=== PATIENT | male | born 1955 | race Caucasian/White ===

== ENCOUNTER 2018-12-30 11:22 | Observation (INO) | payer OTHER ==
[2018-12-30 11:54] LABS: Absolute Lymphocytes (CBC) 1.2 K/uL (0.7-4.9); Absolute Monocytes 0.6 K/uL (0.1-1.3); Absolute Neutrophil 3.2 K/uL (1.8-8.0); Basophils % 1.5 % (0-1.3); Eosinophils % 1.6 % (0-4.4); Hematocrit 48.6 % (39.6-49.0); Lymphocytes % 23.3 % (15.3-44.8); MPV 7.6 fL (7.6-11.3); Monocytes % 12.2 % (3.3-12.3); RBC Red Blood Cell Count 5.74 M/uL (4.33-5.43)
--- NOTE | 2018-12-30 11:59 | RAD REPORT ---
EXAM DESCRIPTION: RAD - Chest Single View - 12/30/2018 11:54 am CLINICAL HISTORY: CHEST PAIN Chest pain. COMPARISON: Chest Pa And Lat (2 Views) dated 04/08/2017 FINDINGS: Portable technique limits examination quality. The lungs are grossly clear. The heart is normal in size. No displaced fractures.Cervical hardware pl ate noted. IMPRESSION: No acute intrathoracic process suspected.
[2018-12-30] MEDS ORDERED: NITROGLYCERIN 0.4 MG/TAB SL ONE (12:04)
[2018-12-30 12:12] LABS: ALT/SGPT 62 U/L (12-78); AST/SGOT 24 U/L (15-37); Albumin 3.7 g/dL (3.4-5.0); Alkaline Phosphatase 68 U/L (45-117); BUN Blood Urea Nitrogen 13 mg/dL (7-18); Bicarbonate 26 mmol/L (21-32); Bilirubin Direct < 0.1 mg/dL (0-0.2); Bilirubin Total 0.3 mg/dL (0.2-1.0); Glucose Level 151 mg/dL (74-106); Magnesium 2.1 mg/dL (1.8-2.4); NT PRO-BNP 7 pg/mL (<125); Protein, Total 7.1 g/dL (6.4-8.2); Sodium Level 138 mmol/L (136-145); Troponin (Emerg Dept Use Only) < 0.02 ng/mL (0.0-0.045)
--- NOTE | 2018-12-30 12:40 | ER ---
Nurse's Notes [facility] Name: Bradly Padron Age: 63 yrs Sex: Male : 1955 Arrival Date: 12/30/2018 Time: 11:23 Bed 8 Private MD: Lenin Maguire B Diagnosis: Chest pain, unspecified Presentation: 12/30 11:31 Presenting complaint: Patient states: cough and congestion x 1 week. Substernal chest ss discomfort and painful cough that began last night. Transition of care: patient was not received from another setting of care. Onset of symptoms was December 23, 2018. Risk Assessment: Do you want to hurt yourself or someone else? Patient reports no desire to harm self or others. Initial Sepsis Screen: Does the patient meet any 2 criteria? No. Patient's initial sepsis screen is negative. Does the patient have a suspected source of infection? No. Patient's initial sepsis screen is negative. Care prior to arrival: None. 11:31 Method Of Arrival: Ambulatory ss 11:31 Acuity: MARIA E 3 ss Historical: - Allergies: 11:34 No Known Allergies; ss - Home Meds: 11:34 Lotrel Oral 1 cap once daily for Hypertension [Active]; ss - PMHx: 11:34 Hypertension; ss - PSHx: 11:34 L hip replacement; bilateral shoulder repairs; cervical fusion; ss - Immunization history:: Adult Immunizations unknown. - Social history:: Smoking status: Patient uses tobacco products, chewing tobacco. - Ebola Screening: : Patient denies exposure to infectious person Patient denies travel to an Ebola-affected area in the 21 days before illness onset. Screenin:30 Abuse screen: Denies threats or abuse. Denies injuries from another. Nutritional aj1 screening: No deficits noted. Tuberculosis screening: No symptoms or risk factors identified. 13:49 Fall Risk No fall in past 12 months (0 pts). No secondary diagnosis (0 pts). IV access aj1 (20 points). Ambulatory Aid- None/Bed Rest/Nurse Assist (0 pts). Gait- Normal/Bed Rest/Wheelchair (0 pts) Mental Status- Oriented to own ability (0 pts). Total Sanchez Fall Scale indicates No Risk (0-24 pts). Assessment: 11:30 General: Appears in no apparent distress. uncomfortable, Behavior is calm, cooperative, aj1 appropriate for age. Pain: Complains of pain in mid-sternal area Pain radiates to back Pain currently is 6 out of 10 on a pain scale. Quality of pain is described as sharp, Pain began 1 day ago. Neuro: Level of Consciousness is awake, alert, obeys commands, Oriented to person, place, time, situation. Cardiovascular: Reports chest pain, shortness of breath, Denies nausea, palpitations, Heart tones S1 S2 present Patient's skin is warm and dry. Rhythm is sinus rhythm. Respiratory: Airway is patent Respiratory effort is even, unlabored, Respiratory pattern is regular, symmetrical, Breath sounds are clear bilaterally. Respiratory: Reports shortness of breath cough that is hacking, persistent. GI: No signs and/or symptoms were reported involving the gastrointestinal system. : No signs and/or symptoms were reported regarding the genitourinary system. EENT: No signs and/or symptoms were reported regarding the EENT system. Derm: No signs and/or symptoms reported regarding the dermatologic system. Skin is pink, warm \T\ dry. normal. Musculoskeletal: No signs and/or symptoms reported regarding the musculoskeletal system. Circulation, motion, and sensation intact. 12:30 Reassessment: Patient appears in no apparent distress at this time. No changes from aj1 previously documented assessment. Patient and/or family updated on plan of care and expected duration. Pain level reassessed. Patient is alert, oriented x 3, equal unlabored respirations, skin warm/dry/pink. 13:30 Reassessment: Patient appears in no apparent distress at this time. No changes from aj1 previously documented assessment. Patient and/or family updated on plan of care and expected duration. Pain level reassessed. Patient is alert, oriented x 3, equal unlabored respirations, skin warm/dry/pink. Vital Signs: 11:34 BP 150 / 88; Pulse 86; Resp 17; Pulse Ox 97% on R/A; Weight 96.16 kg; Height 5 ft. 8 ss in. (172.72 cm); Pain 6/10; 12:30 BP 121 / 81; Pulse 80; Resp 17; Pulse Ox 96% on R/A; dh3 13:35 BP 112 / 82; Pulse 65; Resp 12; Pulse Ox 97% on R/A; aj1 11:34 Body Mass Index 32.23 (96.16 kg, 172.72 cm) ss ED Course: 11:23 Patient arrived in ED. as 11:23 Lenin Maguire MD is Private Physician. as 11: Amara Sommer RN is Primary Nurse. aj1 11: Gordon Mohr PA is PHCP. m 11:25 Torey Dorsey MD is Attending Physician. [facility] 11:30 Patient has correct armband on for positive identification. Bed in low position. Call aj1 light in reach. sheriff detective on. Pulse ox on. NIBP on. 11:30 No provider procedures requiring assistance completed. Patient maintains SpO2 aj1 saturation greater than 95% on room air. 11:32 Triage completed. ss 11:33 EKG done, by ED staff, reviewed by Torey Dorsey MD. 3 11:34 Arm band placed on right wrist. 11:43 Initial lab(s) drawn, by md, sent to lab. Inserted saline lock: 20 gauge in right hand, dh3 using aseptic technique. Blood collected. 11:53 XRAY Chest (1 view) In Process Unspecified. EDMS 12:39 Alejandro Davila DO is Hospitalizing Provider. m 12:40 Flu and/or RSV swab sent to lab. Strep swab sent to lab. 3 13:49 Report given to [facility] Main on 4th floor. aj1 13:50 Patient admitted, IV remains in place. aj1 Administered Medications: 11:56 Drug: Nitroglycerin 0.4 mg Route: Sublingual; aj1 12:30 Follow up: Response: No adverse reaction; Pain is decreased aj1 13:27 Drug: Aspirin Chewable Tablet 324 mg Route: PO; aj1 13:46 Follow up: Response: No adverse reaction aj1 13:27 Drug: predniSONE 20 mg Route: PO; aj1 13:45 Follow up: Response: No adverse reaction aj1 Outcome: 12:40 Decision to Hospitalize by Provider. jmm 13:50 Admitted to Tele accompanied by tech, via wheelchair, with chart. aj1 13:50 Condition: stable 13:50 Discharge instructions given to patient, Instructed on the need for admit, Demonstrated understanding of instructions. 14:10 Patient left the ED. aj1 Signatures: Dispatcher [employer] EDMS Amara Sommer RN RN aj1 Gordon Mohr PA PA jmm Martinez, Amelia as Smirch, Shelby, RN RN Edith Barney 3 Corrections: (The following items were deleted from the chart) 13:04 13:03 EKG done, by ED staff, [facility]
--- NOTE | 2018-12-30 12:40 | EDPHYS ---
Physician Documentation [facility] Name: Bradly Padron Age: 63 yrs Sex: Male : 1955 Arrival Date: 12/30/2018 Time: 11:23 Bed 8 Private MD: Lenin Maguire B ED Physician Torey Dorsey HPI: 12/30 11:39 This 63 yrs old Male presents to ER via Ambulatory with complaints of Chest jmm Pain, Shortness Of Breath. 11:39 The patient or guardian reports chest pain that is located primarily in the substernal m area. Onset: 1 day(s) ago. The pain radiates to back. The chest pain is described as aching, sharp. Duration: The patient or guardian reports a single episode, that is still ongoing. This is a 63 year old male with a history of htn that presents to the ED with complaints of chest pain which radiates to the back beginning last night. Patient states symptoms worsened this morning when moving furniture. Patient chews tobacco. Denies recreational drug use. . Historical: - Allergies: 11:34 No Known Allergies; ss - Home Meds: 11:34 Lotrel Oral 1 cap once daily for Hypertension [Active]; ss - PMHx: 11:34 Hypertension; ss - PSHx: 11:34 L hip replacement; bilateral shoulder repairs; cervical fusion; ss - Immunization history:: Adult Immunizations unknown. - Social history:: Smoking status: Patient uses tobacco products, chewing tobacco. - Ebola Screening: : Patient denies exposure to infectious person Patient denies travel to an Ebola-affected area in the 21 days before illness onset. ROS: 11:39 Constitutional: Negative for fever, chills, and weight loss. jmm 11:39 Cardiovascular: Positive for chest pain. 11:39 Respiratory: Positive for cough. 11:39 All other systems are negative. Exam: 11:39 Head/Face: atraumatic. Eyes: EOMI, no conjunctival erythema appreciated ENT: Moist jmm Mucus Membranes Neck: Trachea midline, Supple Chest/axilla: Normal chest wall appearance and motion. 11:39 Constitutional: The patient appears alert, awake, anxious, uncomfortable. 11:39 Cardiovascular: Rate: normal, Rhythm: regular, Pulses: no pulse deficits are appreciated. 11:39 Respiratory: the patient does not display signs of respiratory distress, Respirations: normal, Breath sounds: are clear throughout. 11:39 Abdomen/GI: Inspection: abdomen appears normal, Bowel sounds: normal, Palpation: abdomen is soft and non-tender, in all quadrants. 11:39 Back: ROM is normal. 11:39 Musculoskeletal/extremity: ROM: intact in all extremities. 11:39 Skin: Appearance: Color: normal in color. 11:39 Neuro: Orientation: is normal, Mentation: is normal, Memory: is normal. 11:39 Psych: Behavior/mood is pleasant, cooperative. Vital Signs: 11:34 BP 150 / 88; Pulse 86; Resp 17; Pulse Ox 97% on R/A; Weight 96.16 kg; Height 5 ft. 8 ss in. (172.72 cm); Pain 6/10; 12:30 BP 121 / 81; Pulse 80; Resp 17; Pulse Ox 96% on R/A; dh3 13:35 BP 112 / 82; Pulse 65; Resp 12; Pulse Ox 97% on R/A; aj1 11:34 Body Mass Index 32.23 (96.16 kg, 172.72 cm) ss MDM: 11:28 Patient medically screened. ellie 12:39 The patient was given aspirin in the Emergency Department. Data reviewed: vital signs, [facility] nurses notes, lab test result(s), EKG, radiologic studies, plain films. ED course: I discussed the patient with Dr. Davila whom accepted admission. . 03 11:38 Order name: Basic Metabolic Panel; Complete Time: 12:16 [facility] 12/30 11:38 Order name: CBC with Diff; Complete Time: 12:07 [facility] 12/30 11:38 Order name: LFT's; Complete Time: 12:16 [facility] 12/30 11:38 Order name: Magnesium; Complete Time: 12:16 [facility] 12/30 11:38 Order name: NT PRO-BNP; Complete Time: 12:16 [facility] 12/30 11:38 Order name: PT-INR; Complete Time: 12:07 [facility] 12/30 11:38 Order name: Troponin (emerg Dept Use Only); Complete Time: 12:16 [facility] 12/30 11:38 Order name: XRAY Chest (1 view); Complete Time: 12:07 [facility] 12/30 11:38 Order name: D-Dimer; Complete Time: 12:07 [facility] 12/30 12:38 Order name: Flu; Complete Time: 13:49 [facility] 12/30 12:38 Order name: Strep; Complete Time: 13:29 [facility] 12/30 12:56 Order name: Procalcitonin; Complete Time: 13:49 EDMS 12/30 11:38 Order name: EKG; Complete Time: 11:39 [facility] 12/30 11:38 Order name: Cardiac monitoring; Complete Time: 11:45 [facility] 12/30 11:38 Order name: EKG - Nurse/Tech; Complete Time: 11:45 [facility] 12/30 11:38 Order name: IV Saline Lock; Complete Time: 11:45 [facility] 12/30 11:38 Order name: Labs collected and sent; Complete Time: 11:45 [facility] 12/30 11:38 Order name: O2 Per Protocol; Complete Time: 11:45 [facility] 12/30 11:38 Order name: O2 Sat Monitoring; Complete Time: 11:45 [facility] Administered Medications: 11:56 Drug: Nitroglycerin 0.4 mg Route: Sublingual; aj1 12:30 Follow up: Response: No adverse reaction; Pain is decreased aj1 13:27 Drug: Aspirin Chewable Tablet 324 mg Route: PO; aj1 13:46 Follow up: Response: No adverse reaction aj1 13:27 Drug: predniSONE 20 mg Route: PO; aj1 13:45 Follow up: Response: No adverse reaction aj1 Disposition: 12/31 09:37 Co-signature as Attending Physician, Torey Dorsey MD I agree with the assessment and ellie plan of care. Disposition: 12/30/18 12:40 Hospitalization ordered by Alejandro Davila for Observation. Preliminary diagnosis is Chest pain, unspecified. - Bed requested for Telemetry/MedSurg (observation). - Status is Observation. aj1 - Condition is Stable. - Problem is new. - Symptoms have improved. UTI on Admission? No Signatures: Dispatcher [employer] Amara Mccracken RN RN aj1 Torey Dorsey MD MD cha Mickail, Joel, PA PA jmm Solis, Maria ms Smirch, Shelby, RN RN ss Corrections: (The following items were deleted from the chart) 12/30 12:59 12:40 Hospitalization Ordered by Alejandro Davila DO for Observation. Preliminary ms diagnosis is Chest pain, unspecified. Bed requested for Telemetry/MedSurg (observation). Status is Observation. Condition is Stable. Problem is new. Symptoms have improved. UTI on Admission? No. jmm 14:10 12:59 12/30/2018 12:40 Hospitalization Ordered by Alejandro Davila DO for Observation. aj1 Preliminary diagnosis is Chest pain, unspecified. Bed requested for Telemetry/MedSurg (observation). Status is Observation. Condition is Stable. Problem is new. Symptoms have improved. UTI on Admission? No. ms
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
[2018-12-30] MEDS ORDERED: predniSONE 20 MG TAB ONE (13:31)
[2018-12-30] MEDS ORDERED: ASPIRIN EC 81 MG TAB PO ONE (13:31)
[2018-12-30] MEDS ORDERED: IPRATROPIUM BROM 0.5MG/2.5ML NEB PRN (14:00)
[2018-12-30] MEDS ORDERED: MORPHINE 2 MG/ML SYR IV PRN (14:00)
[2018-12-30] MEDS ORDERED: TRAMADOL HCL 50 MG TAB PO PRN (14:00)
[2018-12-30] MEDS ORDERED: ALBUTEROL 2.5 MG/3 ML NEB SOL NEB PRN (14:00)
[2018-12-30] MEDS ORDERED: BENZONATATE 100 MG CAP PO PRN (14:00)
[2018-12-30] MEDS ORDERED: ACETAMINOPHEN 500 MG TAB PO PRN (14:00)
[2018-12-30] MEDS ORDERED: ONDANSETRON 4 MG/2 ML VIAL IV PRN (14:00)
[2018-12-30 14:28] VITALS: BMI 32.5
[2018-12-30 14:32] LABS: Urine Appearance CLEAR; Urine Bilirubin NEGATIVE (NEG); Urine Blood NEGATIVE (NEG); Urine Color YELLOW; Urine Glucose NEGATIVE (NEG); Urine Protein NEGATIVE (NEG); Urine Urobilinogen 0.2 mg/dL (0.2-1.0); Urine pH 7.5 (5.0-7.0)
[2018-12-30] MEDS: NA CHLORIDE 0.9% 1,000 ML IV SCH (14:39)
[2018-12-30] MEDS ORDERED: NITROGLYCERIN 0.4 MG/TAB SL PRN (14:46)
[2018-12-30 14:48] LABS: Urine Microscopic Reflex NO UMIC
[2018-12-30 14:52] LABS: Thyroid Stimulating Hormone 1.35 uIU/mL (0.360-3.740)
[2018-12-30] MEDS: GUAIFENESIN 600 MG SA TAB PO SCH ×2 (14:56→20:24)
[2018-12-30] MEDS: ENOXAPARIN 40 MG/0.4 ML SQ SCH (14:56)
[2018-12-30 18:12] LABS: CKMB Creatine Kinase MB 1.3 ng/mL (0.3-3.6); Creatine Phosphokinase 91 U/L (39-308); Troponin I < 0.02 ng/mL (0.0-0.045)
[2018-12-30] MEDS: ARFORMOTEROL TARTRATE 15 MCG/2 ML VIAL.NEB NEB SCH (20:00)
[2018-12-30] MEDS: predniSONE 20 MG TAB PO SCH (20:24)
[2018-12-31 00:32] VITALS: O2SAT 96
[2018-12-31 00:52] LABS: Creatine Phosphokinase 73 U/L (39-308); Troponin I < 0.02 ng/mL (0.0-0.045)
[2018-12-31 04:53] VITALS: TEMP 97.5
[2018-12-31 06:10] LABS: Absolute Lymphocytes (CBC) 1.1 K/uL (0.7-4.9); Absolute Monocytes 0.3 K/uL (0.1-1.3); Absolute Neutrophil 8.3 K/uL (1.8-8.0); Basophils % 0.7 % (0-1.3); Eosinophils % 0.1 % (0-4.4); Hematocrit 47.7 % (39.6-49.0); Lymphocytes % 10.9 % (15.3-44.8); MPV 7.6 fL (7.6-11.3); Monocytes % 3.5 % (3.3-12.3); RBC Red Blood Cell Count 5.62 M/uL (4.33-5.43)
[2018-12-31 06:27] LABS: Magnesium 2.2 mg/dL (1.8-2.4); Potassium 4.3 mmol/L (3.5-5.1)
[2018-12-31] MEDS ORDERED: PANTOPRAZOLE 40MG TABLET PO SCH (07:30)
[2018-12-31] MEDS: ARFORMOTEROL TARTRATE 15 MCG/2 ML VIAL.NEB NEB SCH (08:00)
[2018-12-31 08:07] VITALS: BP 119/73
--- NOTE | 2018-12-31 08:35 | RAD REPORT ---
EXAM DESCRIPTION: RAD - Chest Pa And Lat (2 Views) - 12/31/2018 8:27 am CLINICAL HISTORY: follow up bronchitis Chest pain. COMPARISON: Chest Single View dated 12/30/2018; Chest Pa And Lat (2 Views) dated 04/08/2017 FINDINGS: The lungs are clear. The heart is normal in size. No displaced fractures. Cervical hardwar e plate noted. IMPRESSION: No acute or concerning finding suspected.
--- NOTE | 2018-12-31 08:39 | EKG ---
Test Date: 2018-12-30 Test Time: 14:12:51 Associate Producer: MEASUREMENT RESULTS: Intervals: Rate: 66 IN: 200 QRSD: 92 QT: 402 QTc: 421 [place]: P: 65 IN: 200 QRS: 103 T: -6 INTERPRETIVE STATEMENTS: Normal sinus rhythm Rightward axis T wave abnormality, consider inferior ischemia Abnormal ECG Compared to ECG 12/30/2018 10:30:29 Right-axis deviation now present T-wave abnormality now present Possible ischemia now present Electronically Signed On 12-31-18 08:38:01 CDT by Neymar Brown
--- NOTE | 2018-12-31 08:39 | EKG ---
Test Date: 2018-12-30 Test Time: 10:30:29 Conventional Machinist: REZA MEASUREMENT RESULTS: Intervals: Rate: 79 MD: 190 QRSD: 90 QT: 360 QTc: 412 [place]: P: 63 MD: 190 QRS: 71 T: 53 INTERPRETIVE STATEMENTS: Normal sinus rhythm Normal ECG Compared to ECG 04/23/2015 15:48:27 No significant changes Electronically Signed On 12-31-18 08:38:15 CDT by Neymar Brown
[2018-12-31] MEDS ORDERED: LORATADINE 10 MG TAB PO SCH (09:00)
[2018-12-31] MEDS: ENOXAPARIN 40 MG/0.4 ML SQ SCH (09:00)
[2018-12-31] MEDS: GUAIFENESIN 600 MG SA TAB PO SCH (09:00)
[2018-12-31] MEDS ORDERED: ASPIRIN EC 81 MG TAB PO SCH (09:00)
[2018-12-31] MEDS: predniSONE 20 MG TAB PO SCH (09:00)
[2018-12-31] MEDS ORDERED: LOSARTAN POTASSIUM 50 MG TABLET PO SCH (09:00)
[2018-12-31] MEDS ORDERED: AMLODIPINE 5 MG TAB PO SCH (09:00)
[2018-12-31] MEDS: NA CHLORIDE 0.9% 1,000 ML IV SCH (10:00)
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
[2018-12-31] MEDS ORDERED: MELATONIN 3 MG TABLET PO ONE (23:08)
--- NOTE | 2019-01-01 03:38 | DS ---
Date of Discharge: 12/31/2018 Consultants: Dr. Brown with Cardiology. Procedures: None. Discharge Diagnoses: 1.Chest pain. 2.Possible viral bronchitis. 3.COPD. 4.Essential hypertension. 5.Nicotine dependence, cigarette smoking. 6.GERD. 7.Chronic allergic rhinitis. Hospital Course: The patient is a 63-year-old male, who comes in with chest pain, likely pleuritic s econdary to underlying COPD. The patient does not have an official diagnosis. The patient was start ed on prednisone and COPD medications. Cardiac enzymes were obtained, which were negative. ACS was ruled out. The patient was seen by Dr. Brown who recommended a cardiac stress test. Echocardiogram was to be obtained as well. His group A strep screen and influenza screen were negative. Blood cul tures were still pending. The patient was scheduled for stress test at 2 p.m. today, however, declin ed to wait for the afternoon. His chest x-ray was clear. He then signed out against medical advice. He understands that leaving against medical advice is intermittent to his health. He may have comp lications of his chest pain including [place] or further morbidity or mortality including . He under stands the risks and does not wish to stay and signed out against medical advice. Physical Examination: General: Awake, alert, and oriented x3. No acute distress, an obese male. CV: S1, S2. No murmurs. Respiratory: Moving air well bilaterally. No wheezing. Gastrointestinal: Abdomen is soft, nontender, and nondistended. Positive bowel sounds. Extremities: No clubbing, cyanosis, or edema. Neuro: Nonfocal. SA/MODL Voice ID: [id number] Report ID: [id number]
[2019-01-01] MEDS ORDERED: AMLODIPINE BESYLATE PO SCH (08:00)
[2019-01-01] MEDS ORDERED: BENAZEPRIL PO SCH (08:00)
[2019-01-01] MEDS ORDERED: HOME MED 1 EA UNK (Omeprazole Magnesium [Prilosec Otc] 20 MG) PO SCH (09:00)
[2019-01-01] MEDS ORDERED: PSEUDOEPHEDRINE PO SCH (09:00)
[2019-01-01] MEDS ORDERED: LORATADINE PO SCH (09:00)
[2019-01-01] MEDS ORDERED: BENAZEPRIL 20 MG TAB PO SCH (09:00)
== END 2018-12-31 11:30 | disposition left against medical advice (07) ==
LOC: ER 11:22 → ERHOLD 12:45 → 4TH 13:46
PROVIDERS: ADMIT Family Medicine; ATTEND Family Medicine
DX: R07.9 Chest pain, unspecified (principal); J44.9 Chronic obstructive pulmonary disease, unspecified; I10 Essential (primary) hypertension; K21.9 Gastro-esophageal reflux disease without esophagitis; J30.9 Allergic rhinitis, unspecified; Z53.21 Procedure and treatment not carried out due to patient leaving prior to being seen by health care provider; E66.9 Obesity, unspecified; Z68.32 Body mass index [BMI] 32.0-32.9, adult; F17.220 Nicotine dependence, chewing tobacco, uncomplicated; Z96.642 Presence of left artificial hip joint
CPT/HCPCS: 36415; 71045; 71046; 80048; 80061; 80076; 81003; 82550; 82553; 83735; 83880; 84145; 84439; 84443; 84484; 85025; 85379; 85610; 87040; 87070; 87081; 87804; 93005; 94640; 99285; G0378; J1650; J7512; J7605

== ENCOUNTER 2019-01-07 18:28 | Observation (INO) | payer OTHER ==
--- NOTE | 2019-01-07 19:05 | ER ---
Nurse's Notes [facility] Name: Bradly Padron Age: 63 yrs Sex: Male : 1955 Arrival Date: 01/07/2019 Time: 18:28 Bed 6 Private MD: Diagnosis: Other chest pain;Essential (primary) hypertension Presentation: 01/07 18:35 Presenting complaint: Substernal chest pain and SOB x 2 days. Transition of care: hb patient was not received from another setting of care. Onset of symptoms was January 06, 2019. Risk Assessment: Do you want to hurt yourself or someone else? Patient reports no desire to harm self or others. Care prior to arrival: None. 18:35 Method Of Arrival: Ambulatory hb 18:35 Acuity: MARIA E 3 hb 20:00 Initial Sepsis Screen: Does the patient meet any 2 criteria? No. Patient's initial lp1 sepsis screen is negative. Does the patient have a suspected source of infection? No. Patient's initial sepsis screen is negative. Triage Assessment: 18:36 General: Appears in no apparent distress. uncomfortable, Behavior is calm, cooperative, bp appropriate for age. Pain: Complains of pain in mid-sternal area Pain currently is 3 out of 10 on a pain scale. Quality of pain is described as pressure, sharp. Cardiovascular: Rhythm is sinus rhythm. Historical: - Allergies: 18:37 No Known Allergies; hb - Home Meds: 18:37 Claritin Oral [Active]; Lotrel Oral 1 cap once daily for Hypertension [Active]; hb Prilosec Oral [Active]; - PMHx: 18:37 Diverticulitis; GERD; Hypertension; hb - PSHx: 18:37 L hip replacement; bilateral shoulder repairs; cervical fusion; hb - Immunization history:: Adult Immunizations up to date. - Social history:: Smoking status: Patient/guardian denies using tobacco. - Ebola Screening: : No symptoms or risks identified at this time. - Family history:: not pertinent. Screenin:02 Abuse screen: Denies threats or abuse. Denies injuries from another. Nutritional bp screening: No deficits noted. Tuberculosis screening: No symptoms or risk factors identified. Fall Risk None identified. Assessment: 18:45 General: Appears in no apparent distress. comfortable, Behavior is calm, cooperative, bp appropriate for age, SEE TRIAGE NOTE. Pain: Pain does not radiate. Pain began 1 WEEK AGO. 20:00 Reassessment: Patient appears in no apparent distress at this time. Patient is alert, lp1 oriented x 3, equal unlabored respirations, skin warm/dry/pink. Patient aware of pending CT Patient denies pain at this time. 21:00 Reassessment: Patient appears in no apparent distress at this time. No changes from lp1 previously documented assessment. Patient and/or family updated on plan of care and expected duration. Pain level reassessed. Vital Signs: 18:36 BP 142 / 100; Pulse 85; Resp 18; Temp 98.0; Pulse Ox 95% on R/A; Weight 106.59 kg; bp Height 5 ft. 8 in. (172.72 cm); Pain 4/10; 19:30 BP 130 / 88; Pulse 86; Resp 17; Pulse Ox 98% on R/A; lp1 20:30 BP 144 / 98; Pulse 80; Resp 14; Pulse Ox 98% ; Pain 0/10; lp1 21:05 BP 127 / 88; Pulse 87; Resp 16; Pulse Ox 98% on R/A; lp1 18:36 Body Mass Index 35.73 (106.59 kg, 172.72 cm) bp ED Course: 18:28 Patient arrived in ED. as 18:36 Triage completed. hb 18:36 Arm band placed on. EKG completed in triage. Results shown to MD. hb 18:49 Ashvin Hernandez, RN is Primary Nurse. bp 18:54 Torey Dorsey MD is Attending Physician. ellie 19:04 Laverne Shannon MD is Hospitalizing Provider. ellie 19:09 Patient has correct armband on for positive identification. Placed in gown. Bed in low bp position. Call light in reach. Side rails up X2. cardiac monitor on. Pulse ox on. NIBP on. 19:25 XRAY Chest (1 view) In Process Unspecified. EDMS 19:46 Notified ED physician of a critical lab result(s). d dimer 648. lp1 19:54 Radiology exam delayed due to lab results not completed at this time. (BUN/Creatinine). vm2 20:00 Patient maintains SpO2 saturation greater than 95% on room air. lp1 20:[address] via wheelchair. nj 20:16 CT Chest For PE Angio In Process Unspecified. EDMS 20:34 US Extremity Venous W Compression Js In Process Unspecified. EDMS 20:34 Ultrasound completed. Patient tolerated well. Patient moved back from ultrasound. hr 21:01 No provider procedures requiring assistance completed. lp1 22:04 Patient admitted, IV remains in place. 20g IV to L AC in place. lp1 01/08 07:11 role handed off by Maggy Michael RN bd 09:42 Lexiscan stress completed. tc Administered Medications: 01/07 20:00 Drug: Aspirin Chewable Tablet 324 mg Route: PO; lp1 21:00 Follow up: Response: No adverse reaction lp1 20:00 Drug: Lovenox 1 mg/kg Route: Sub-Q; Site: left lower abdomen; lp1 21:00 Follow up: Response: No adverse reaction lp1 20:00 Drug: PlaVIX 600 mg Route: PO; lp1 21:00 Follow up: Response: No adverse reaction lp1 20:00 Drug: Lopressor (metoprolol TARTRATE) 50 mg Route: PO; lp1 21:00 Follow up: Response: No adverse reaction lp1 01/08 00:20 Not Given (Patient Refused): Pepcid 20 mg IVP once lp1 00:20 Not Given (Patient Refused): morphine 4 mg IVP once lp1 00:20 Not Given (Patient Refused): Zofran 4 mg IVP once; over 2 minutes lp1 Outcome: 01/07 19:05 Decision to Hospitalize by Provider. [facility] 21:02 Condition: stable lp1 21:02 Instructed on the need for admit. 22:00 Admitted to ER Hold. Please see [facility] for further documentation. lp1 01/08 12:54 Patient left the ED. iw Signatures: Dispatcher [employer] EDMS Angely Gonzales Corey, MD MD cha Rod, Haley hr Martinez, Amelia as Kylie White, EVA VELASQUEZ iw Maggy Michael, RN RN lp1 Hannah Bonilla, social work msw EKG Ttc Maria Vivas RN RN hb Jordan, Nathan nj McGuire, Victoria Ashvin Mo RN RN bp Corrections: (The following items were deleted from the chart) 01/07 18:37 18:36 BP 142 / 100; Pulse 85bpm; Resp 18bpm; Pulse Ox 96% RA; Temp 98.0F; Pain 4/10; hb hb 19:01 18:36 BP 142 / 100; Pulse 85bpm; Resp 18bpm; Pulse Ox 95% RA; Temp 98.0F; Pain 4/10; hb bp
--- NOTE | 2019-01-07 19:06 | EDPHYS ---
Physician Documentation [facility] Name: Bradly Padron Age: 63 yrs Sex: Male : 1955 Arrival Date: 01/07/2019 Time: 18:28 Bed 6 Private MD: ED Physician Torye Dorsey HPI: 01/07 18:59 This 63 yrs old Male presents to ER via Ambulatory with complaints of Chest ellie Pain, Blood Pressure Problem. 18:59 The patient or guardian reports chest pain that is located primarily in the substernal ellie area. Onset: 5 day(s) ago. The pain does not radiate. Associated signs and symptoms: Pertinent positives: lightheadedness, nausea, shortness of breath. The chest pain is described as a heaviness, a pressure. Modifying factors: The symptoms are alleviated by nothing. the symptoms are aggravated by nothing. Severity of pain: At its worst the pain was mild in the emergency department the pain is unchanged. The patient has experienced a previous episode. Historical: - Allergies: 18:37 No Known Allergies; hb - Home Meds: 18:37 Claritin Oral [Active]; Lotrel Oral 1 cap once daily for Hypertension [Active]; hb Prilosec Oral [Active]; - PMHx: 18:37 Diverticulitis; GERD; Hypertension; hb - PSHx: 18:37 L hip replacement; bilateral shoulder repairs; cervical fusion; hb - Immunization history:: Adult Immunizations up to date. - Social history:: Smoking status: Patient/guardian denies using tobacco. - Ebola Screening: : No symptoms or risks identified at this time. - Family history:: not pertinent. ROS: 18:59 Constitutional: Negative for fever, chills, and weight loss, Eyes: Negative for injury, ellie pain, redness, and discharge, ENT: Negative for injury, pain, and discharge, Neck: Negative for injury, pain, and swelling, Respiratory: Negative for shortness of breath, cough, wheezing, and pleuritic chest pain, Abdomen/GI: Negative for abdominal pain, nausea, vomiting, diarrhea, and constipation, Back: Negative for injury and pain, : Negative for injury, bleeding, discharge, and swelling, MS/Extremity: Negative for injury and deformity, Skin: Negative for injury, rash, and discoloration, Neuro: Negative for headache, weakness, numbness, tingling, and seizure, Psych: Negative for depression, anxiety, suicide ideation, homicidal ideation, and hallucinations, Allergy/Immunology: Negative for hives, rash, and allergies, Endocrine: Negative for neck swelling, polydipsia, polyuria, polyphagia, and marked weight changes, Hematologic/Lymphatic: Negative for swollen nodes, abnormal bleeding, and unusual bruising. 18:59 Cardiovascular: Positive for chest pain, of the chest and mid-sternal area. Exam: 18:59 Constitutional: This is a well developed, well nourished patient who is awake, alert, ellie and in no acute distress. Head/Face: Normocephalic, atraumatic. Eyes: Pupils equal round and reactive to light, extra-ocular motions intact. Lids and lashes normal. Conjunctiva and sclera are non-icteric and not injected. Cornea within normal limits. Periorbital areas with no swelling, redness, or edema. ENT: Nares patent. No nasal discharge, no septal abnormalities noted. Tympanic membranes are normal and external auditory canals are clear. Oropharynx with no redness, swelling, or masses, exudates, or evidence of obstruction, uvula midline. Mucous membranes moist. Neck: Trachea midline, no thyromegaly or masses palpated, and no cervical lymphadenopathy. Supple, full range of motion without nuchal rigidity, or vertebral point tenderness. No Meningismus. Chest/axilla: Normal chest wall appearance and motion. Nontender with no deformity. No lesions are appreciated. Cardiovascular: Regular rate and rhythm with a normal S1 and S2. No gallops, murmurs, or rubs. Normal PMI, no JVD. No pulse deficits. Respiratory: Lungs have equal breath sounds bilaterally, clear to auscultation and percussion. No rales, rhonchi or wheezes noted. No increased work of breathing, no retractions or nasal flaring. Abdomen/GI: Soft, non-tender, with normal bowel sounds. No distension or tympany. No guarding or rebound. No evidence of tenderness throughout. Back: No spinal tenderness. No costovertebral tenderness. Full range of motion. Male : Normal genitalia with no discharge or lesions. Skin: Warm, dry with normal turgor. Normal color with no rashes, no lesions, and no evidence of cellulitis. MS/ Extremity: Pulses equal, no cyanosis. Neurovascular intact. Full, normal range of motion. Neuro: Awake and alert, GCS 15, oriented to person, place, time, and situation. Cranial nerves II-XII grossly intact. Motor strength 5/5 in all extremities. Sensory grossly intact. Cerebellar exam normal. Normal gait. Psych: Awake, alert, with orientation to person, place and time. Behavior, mood, and affect are within normal limits. 19:58 Musculoskeletal/extremity: DVT Exam: No signs of deep vein thrombosis. no pain, no ellie swelling, no tenderness, negative Homans' sign noted on exam, no appreciated bluish discoloration, no erythema, no increased warmth. Vital Signs: 18:36 BP 142 / 100; Pulse 85; Resp 18; Temp 98.0; Pulse Ox 95% on R/A; Weight 106.59 kg; bp Height 5 ft. 8 in. (172.72 cm); Pain 4/10; 19:30 BP 130 / 88; Pulse 86; Resp 17; Pulse Ox 98% on R/A; lp1 20:30 BP 144 / 98; Pulse 80; Resp 14; Pulse Ox 98% ; Pain 0/10; lp1 21:05 BP 127 / 88; Pulse 87; Resp 16; Pulse Ox 98% on R/A; lp1 18:36 Body Mass Index 35.73 (106.59 kg, 172.72 cm) bp MDM: 18:54 Patient medically screened. [facility] 19:01 Data reviewed: vital signs, nurses notes, lab test result(s), EKG, radiologic studies, [facility] plain films. 01/07 18:49 Order name: Basic Metabolic Panel bp 01/07 18:49 Order name: CBC with Diff; Complete Time: 19:43 bp 18 18:49 Order name: LFT's; Complete Time: 19:57 bp 18 18:49 Order name: Magnesium; Complete Time: 19:57 bp 18 18:49 Order name: NT PRO-BNP bp 01/07 18:49 Order name: PT-INR; Complete Time: 19:49 bp 18 18:49 Order name: Troponin (emerg Dept Use Only); Complete Time: 19:57 bp 18 18:49 Order name: XRAY Chest (1 view); Complete Time: 19:43 bp 18 18:50 Order name: Basic Metabolic Panel; Complete Time: 19:57 EDNV 01/07 18:50 Order name: NT PRO-BNP; Complete Time: 19:57 EDNV 01/07 19:07 Order name: D-Dimer; Complete Time: 19:49 [facility] 01/07 19:50 Order name: CT Chest For PE Angio [facility] 01/08 04:00 Order name: Lipid Profile [facility] 01/08 04:23 Order name: Troponin I [facility] 01/07 18:49 Order name: EKG; Complete Time: 18:50 bp 01/07 18:49 Order name: Cardiac monitoring; Complete Time: 18:55 bp 01/07 18:49 Order name: EKG - Nurse/Tech; Complete Time: 18:55 bp 01/07 18:49 Order name: IV Saline Lock; Complete Time: 19:28 bp 01/07 18:49 Order name: Labs collected and sent; Complete Time: 20:23 bp 01/07 18:49 Order name: O2 Per Protocol; Complete Time: 18:55 bp 01/07 19:05 Order name: EKG; Complete Time: 19:06 [facility] 01/07 19:58 Order name: US Extremity Venous W Compression Js [facility] 01/08 10:14 Order name: NM [facility] 01/07 18:49 Order name: O2 Sat Monitoring; Complete Time: 18:55 bp 01/07 19:05 Order name: EKG - Nurse/Tech; Complete Time: 19:28 ellie Administered Medications: 20:00 Drug: Aspirin Chewable Tablet 324 mg Route: PO; lp1 21:00 Follow up: Response: No adverse reaction lp1 20:00 Drug: Lovenox 1 mg/kg Route: Sub-Q; Site: left lower abdomen; lp1 21:00 Follow up: Response: No adverse reaction lp1 20:00 Drug: PlaVIX 600 mg Route: PO; lp1 21:00 Follow up: Response: No adverse reaction lp1 20:00 Drug: Lopressor (metoprolol TARTRATE) 50 mg Route: PO; lp1 21:00 Follow up: Response: No adverse reaction lp1 01/08 00:20 Not Given (Patient Refused): Pepcid 20 mg IVP once lp1 00:20 Not Given (Patient Refused): morphine 4 mg IVP once lp1 00:20 Not Given (Patient Refused): Zofran 4 mg IVP once; over 2 minutes lp1 Disposition: 01/07/19 19:05 Hospitalization ordered by Laverne Shannon for Inpatient Admission. Preliminary diagnosis are Other chest pain, Essential (primary) hypertension. - Bed requested for [facility] ER HOLD. - Status is Inpatient Admission. iw - Condition is Fair. - Problem is new. - Symptoms have improved. UTI on Admission? No Signatures: Dispatcher [employer] EDMS Tabby Jesus RN RN Torey Reynoso MD MD cha Williams, Irene, RN RN Maggy Michael RN RN lp1 Maria Vivas RN RN Ashvin Hernandez RN RN bp Corrections: (The following items were deleted from the chart) 01/07 19:42 19:05 Hospitalization Ordered by Laverne Shannon MD for Inpatient Admission. Preliminary dw diagnosis is Other chest pain; Essential (primary) hypertension. Bed requested for Telemetry/MedSurg (Inpatient). Status is Inpatient Admission. Condition is Fair. Problem is new. Symptoms have improved. UTI on Admission? No. ellie 01/08 12:54 01/07 19:42 01/07/2019 19:05 Hospitalization Ordered by Laverne Shannon MD for Inpatient iw Admission. Preliminary diagnosis is Other chest pain; Essential (primary) hypertension. Bed requested for [facility] ER HOLD. Status is Inpatient Admission. Condition is Fair. Problem is new. Symptoms have improved. UTI on Admission? No. dw
[2019-01-07 19:24] LABS: Absolute Lymphocytes (CBC) 1.9 K/uL (0.7-4.9); Absolute Monocytes 0.6 K/uL (0.1-1.3); Basophils % 1.3 % (0-1.3); Eosinophils % 1.8 % (0-4.4); Hematocrit 48.7 % (39.6-49.0); Lymphocytes % 21.3 % (15.3-44.8); MPV 7.6 fL (7.6-11.3); Monocytes % 6.7 % (3.3-12.3); RBC Red Blood Cell Count 5.66 M/uL (4.33-5.43)
--- NOTE | 2019-01-07 19:30 | RAD REPORT ---
EXAM DESCRIPTION: RAD - Chest Single View - 01/07/2019 7:25 pm CLINICAL HISTORY: DYSPNEA Chest pain. COMPARISON: Chest Pa And Lat (2 Views) dated 12/31/2018; Chest Single View dated 12/30/2018; Chest Pa And Lat (2 Views) dated 04/08/2017 FINDINGS: Portable technique limits examination quality. The lungs are grossly clear. The heart is normal in size. No displaced fractures.Cervical hardware pl ate noted. IMPRESSION: No acute intrathoracic process suspected.
[2019-01-07 19:54] LABS: ALT/SGPT 56 U/L (12-78); AST/SGOT 23 U/L (15-37); Albumin 3.8 g/dL (3.4-5.0); Alkaline Phosphatase 68 U/L (45-117); BUN Blood Urea Nitrogen 15 mg/dL (7-18); Bicarbonate 28 mmol/L (21-32); Bilirubin Direct < 0.1 mg/dL (0-0.2); Bilirubin Total 0.4 mg/dL (0.2-1.0); Glucose Level 112 mg/dL (74-106); Magnesium 2.1 mg/dL (1.8-2.4); NT PRO-BNP 7 pg/mL (<125); Potassium 3.9 mmol/L (3.5-5.1); Protein, Total 7.3 g/dL (6.4-8.2); Sodium Level 139 mmol/L (136-145); Troponin (Emerg Dept Use Only) < 0.02 ng/mL (0.0-0.045)
[2019-01-07] MEDS ORDERED: ASPIRIN 81 MG CHEWABLE TABLET ONE (19:56)
[2019-01-07] MEDS ORDERED: METOPROLOL TAR 50 MG TAB ONE (19:56)
[2019-01-07] MEDS ORDERED: CLOPIDOGREL 75 MG TABLET ONE (19:57)
[2019-01-07] MEDS ORDERED: ONDANSETRON 4 MG/2 ML VIAL ONE (19:58)
[2019-01-07] MEDS ORDERED: FAMOTIDINE 20 MG/2 ML VIAL IV ONE (19:58)
[2019-01-07] MEDS ORDERED: MORPHINE 4 MG/ML SYR ONE (19:58)
[2019-01-07] MEDS ORDERED: ENOXAPARIN 100 MG/ML SYR SQ ONE (19:58)
--- NOTE | 2019-01-07 20:25 | RAD REPORT ---
EXAM DESCRIPTION: CT - Chest For Pe Angio - 01/07/2019 8:16 pm CLINICAL HISTORY: Chest pain. CHEST PAIN COMPARISON: No comparisons TECHNIQUE: CT angiogram of the pulmonary arteries was performed with MIP. All CT scans are performed using dose optimization technique as appropriate and may include automated exposure control or mA/KV adjustment according to patient size. FINDINGS: No evidence of pulmonary thromboembolism. No acute aortic finding demonstrated. The lungs are clear. No significant pericardial or pleural fluid. No concerning bony finding. IMPRESSION: No evidence of pulmonary thromboembolism. No acute lung findings.
--- NOTE | 2019-01-07 20:40 | RAD REPORT ---
EXAM DESCRIPTION: US - Extrem Venous W Compress Js - 01/07/2019 8:33 pm CLINICAL HISTORY: PAIN Bilateral leg edema and swelling. COMPARISON: No comparisons TECHNIQUE: Real-time sonographic interrogation of the left and right lower extremity deep venous sys tems was performed. FINDINGS: Normal compressibility, flow augmentation, phasic flow and spontaneous flow is identified in both the left and right lower extremity deep venous systems. IMPRESSION: No sonographic evidence of left or right lower extremity deep venous thrombosis.
--- NOTE | 2019-01-07 21:00 | P.HP ---
Certification for Inpatient Patient admitted to: Observation With expected LOS: <2 Midnights Practitioner: I am a practitioner with admitting privileges, knowledge of patient current condition, hospital course, and medical plan of care. Services: Services provided to patient in accordance with Admission requirements found in Title 42 Section 412.3 of the Code of Federal Regulations Patient History Date of Service: 01/07/19 Reason for admission: chest pain History of Present Illness: Mr Padron is a 63 years old male with history of HTN, diverticulitis, GERD, who was admitted 1 week ago due to chest pain, at that time, his work up was not completed since he become anxious and left AMA. Now, he came back to ED because another episode of chest pain. He describe a substernal pain, radiated to left side of chest, lasting for several hours. Denied nausea, vomiting, SOB or diaphoresis. EKG shows no acute ST-T changes compared with previous EKG, initial trop I is negative. At my encounter he was chest pain free. D-Dimer was mildly elevated, subsequent CTA chest was negative for PE, also LE venous Doppler was negative for DVT. Allergies No Known Allergies Allergy (Verified 08/24/17 23:47) Home medications list reviewed: Yes Home Medications: Amlodipine Besylate/Benazepril [Lotrel 5-40 mg Capsule] 1 tab PO DAILY WITH BREAKFAST 04/23/15 Omeprazole Magnesium [Prilosec Otc] 20 mg PO DAILY 04/23/15 Lactobacillus Combo No.13 [Probiotic Pearls Complete] 1 cap PO DAILY 12/30/18 Loratadine/Pseudoephedrine [Claritin-D 24 Hour Tablet] 1 tab PO DAILY 12/30/18 - Past Medical/Surgical History Diabetic: No -: Hypertension -: GERD -: History of diverticulitis -: C-spine surgery -: Bilateral shoulder rotator cuff sx -: Left hip replacement Psychosocial/ Personal History: Patient is . He has 2 children. 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 - Family History Father -: Hypertension Mother -: Heart disease, Other (see notes) Notes: heart valve replacement - Social History Smoking Status: Former smoker Alcohol use: No CD- Drugs: No Caffeine use: Yes Place of Residence: Home Review of Systems 10-point ROS is otherwise unremarkable Physical Examination - Physical Exam General: Alert, In no apparent distress HEENT: Atraumatic, PERRLA, Mucous membr. moist/pink, EOMI, Sclerae nonicteric Neck: Supple, 2+ carotid pulse no bruit, No LAD, Without JVD or thyroid abnormality Respiratory: Clear to auscultation bilaterally, Normal air movement Cardiovascular: Regular rate/rhythm, Normal S1 S2 Gastrointestinal: Normal bowel sounds, No tenderness Musculoskeletal: No tenderness Integumentary: No rashes Neurological: Normal speech, Normal strength at 5/5 x4 extr, Normal tone, Normal affect Lymphatics: No axilla or inguinal lymphadenopathy - Studies Laboratory Data (last 24 hrs) 01/07/19 19:00: PT 11.8, INR 1.00 01/07/19 19:00: WBC 8.8, Hgb 16.7, Hct 48.7, Plt Count 329 01/07/19 19:00: Sodium 139, Potassium 3.9, BUN 15, Creatinine 1.25, Glucose 112 H, Magnesium 2.1, Total Bilirubin 0.4, AST 23, ALT 56, Alkaline Phosphatase 68 Assessment and Plan - Problems (Diagnosis) (1) Chest pain Current Visit: Yes Status: Acute Qualifiers: Chest pain type: precordial pain Qualified Code(s): R07.2 - Precordial pain (2) GERD (gastroesophageal reflux disease) Current Visit: Yes Status: Acute Qualifiers: Esophagitis presence: without esophagitis Qualified Code(s): K21.9 - Gastro -esophageal reflux disease without esophagitis (3) Hypertension Onset Date: 08/25/17 Current Visit: No Status: Acute Qualifiers: Hypertension type: essential hypertension Qualified Code(s): I10 - Essential (primary) hypertension - Plan Will admit the patient due to chest pain, no signs of ACS at this time. Will order serial cardiac enzymes and EKG. Also ECHO, and cardiology consult. Follow chest pain protocol orders. - Advance Directives Does patient have a Living Will: No Does patient have a Durable POA for Healthcare: No - Code Status/Comfort Care Code Status Assessed: Yes Code Status: Full Code
[2019-01-07] MEDS ORDERED: TRAMADOL HCL 50 MG TAB PO PRN (21:13)
[2019-01-07 22:36] VITALS: BMI 32.6
[2019-01-07] MEDS ORDERED: MELATONIN 3 MG TABLET PO ONE ×2 (23:14→23:40)
[2019-01-08 05:14] VITALS: O2SAT 97
[2019-01-08] MEDS ORDERED: PANTOPRAZOLE 40MG TABLET PO SCH (07:00)
[2019-01-08] MEDS ORDERED: AMLODIPINE BESYLATE PO SCH (08:00)
[2019-01-08] MEDS ORDERED: BENAZEPRIL 20 MG TAB PO SCH (08:00)
[2019-01-08] MEDS ORDERED: BENAZEPRIL PO SCH (08:00)
[2019-01-08] MEDS ORDERED: AMLODIPINE 5 MG TAB PO SCH (08:00)
[2019-01-08] MEDS ORDERED: REGADENOSON 0.4 MG/5 ML SYR IV ONE (08:05)
[2019-01-08 08:41] VITALS: TEMP 98.3
[2019-01-08] MEDS ORDERED: ENOXAPARIN 40 MG/0.4 ML SQ SCH (09:00)
[2019-01-08] MEDS ORDERED: ASPIRIN EC 81 MG TAB PO SCH (09:00)
[2019-01-08] MEDS ORDERED: LACTOBACILLUS/ACIDOPHILUS TAB PO SCH (09:00)
[2019-01-08 10:14] VITALS: BP 132/85
--- NOTE | 2019-01-08 10:14 | RAD REPORT ---
EXAM DESCRIPTION: NM - Rest Stress Cardiac Imaging - 01/08/2019 9:56 am CLINICAL HISTORY: CHEST PAIN Chest pain. COMPARISON: No comparisons TECHNIQUE: The patient was administered approximately 10mCi of Tc 99m Sestamibi prior to resting SPE CT imaging of the heart. The patient was then administered approximately 30 mCi of Tc 99m Sestamibi f ollowing exercise or pharmacologic stress. Multiplanar SPECT images were reviewed. FINDINGS: No stress induced ischemic defect is seen to suggest stress induced ischemia. No fixed def ect is seen to suggest hibernating myocardium or scarred myocardium. The end diastolic volume is 78 ml, the end systolic volume is 35 ml, and the ejection fraction is 55 %. IMPRESSION: No stress induced ischemia.
[2019-01-08] MEDS ORDERED: AMLODIPINE 5 MG TAB ONE (10:16)
[2019-01-08] MEDS ORDERED: ASPIRIN EC 81 MG TAB PO ONE (10:16)
[2019-01-08] MEDS ORDERED: ENOXAPARIN 40 MG/0.4 ML SQ ONE (10:16)
[2019-01-08] MEDS ORDERED: PANTOPRAZOLE 40MG TABLET PO ONE (10:16)
--- NOTE | 2019-01-08 11:20 | P.DS ---
Admission Date: 01/07/19 Discharge Date: 01/08/19 Primary Care Provider: Dr. Maguire Disposition: ROUTINE DISCHARGE Discharge Condition: GOOD Reason for Admission: chest pain Consultations: Cardiology-Dr. Ballard Procedures: Chest x-ray: FINDINGS: Portable technique limits examination quality. The lungs are grossly clear. The heart is normal in size. No displaced fractures.Cervical hardware plate noted. IMPRESSION: No acute intrathoracic process suspected. CT chest: FINDINGS: No evidence of pulmonary thromboembolism. No acute aortic finding demonstrated. The lungs are clear. No significant pericardial or pleural fluid. No concerning bony finding. IMPRESSION: No evidence of pulmonary thromboembolism. No acute lung findings. Cardiac stress test: FINDINGS: No stress induced ischemic defect is seen to suggest stress induced ischemia. No fixed defect is seen to suggest hibernating myocardium or scarred myocardium. The end diastolic volume is 78 ml, the end systolic volume is 35 ml, and the ejection fraction is 55 %. IMPRESSION: No stress induced ischemia. Venous Doppler: FINDINGS: Normal compressibility, flow augmentation, phasic flow and spontaneous flow is identified in both the left and right lower extremity deep venous systems. IMPRESSION: No sonographic evidence of left or right lower extremity deep venous thrombosis. Medical problem list: Chest pain Hypertension GERD Obesity, BMI 32.7 Brief History of Present Illness: 63-year-old male presented to emergency room with chest pain. Patient was admitted for observation. Patient actually seen last week in admitted for chest pain but the patient left AMA. Hospital Course: Patient presented with chest pain. Cardiac enzymes unremarkable. Patient seen and evaluated by Cardiology. Cardiac stress test showed no stress-induced ischemia. CT angiogram and venous Doppler negative. No further Cardiac intervention required. At discharge patient may continue with aspirin 81 mg daily. Recommend to follow up with cardiology in 2-4 weeks to monitor his progress. Case discussed with cardiology. Chest pain likely GERD related. Patient will need to follow up with GI. Patient with hypertension. This has remained stable. Patient will continue with Lotrel 1 pill daily. Recommend to maintain blood pressures of 150/80. Further adjustment can be done by his PCP. Patient with GERD. Will discontinue Prilosec. Will recommend to continue with Protonix 40 mg daily. Recommend to follow up with GI as an outpatient to further evaluate. Patient may require a EGD evaluation. Patient with history of chronic seasonal allergies. Will recommend to discontinue decongestant as this may elevate his blood pressure. Patient may continue with Claritin or Zyrtec as needed. Vital Signs/Physical Exam: Temp Pulse Resp BP Pulse Ox 98.3 F 63 16 132/85 98 01/08/19 08:00 01/08/19 08:00 01/08/19 08:00 01/08/19 08:00 01/08/19 08:00 General: Alert, In no apparent distress, Oriented x3, Cooperative HEENT: Atraumatic Neck: Supple Respiratory: Clear to auscultation bilaterally, Normal air movement Cardiovascular: Normal pulses, Regular rate/rhythm Gastrointestinal: Normal bowel sounds, Soft and benign, Non-distended, No tenderness, No masses, No rebound, No guarding Musculoskeletal: No erythema, No tenderness, No warmth Integumentary: No tenderness/swelling, No erythema, No warmth, No cyanosis Neurological: Normal speech, Normal strength at 5/5 x4 extr, Normal tone, Normal affect Laboratory Data at Discharge: WBC 8.8 K/uL (4.3-10.9) 01/07/19 19:00 Hgb 16.7 g/dL (13.6-17.9) 01/07/19 19:00 Hct 48.7 % (39.6-49.0) 01/07/19 19:00 Plt Count 329 K/uL (152-406) 01/07/19 19:00 PT 11.8 SECONDS (9.5-12.5) 01/07/19 19:00 INR 1.00 01/07/19 19:00 Sodium 139 mmol/L (136-145) 01/07/19 19:00 Potassium 3.9 mmol/L (3.5-5.1) 01/07/19 19:00 BUN 15 mg/dL (7-18) 01/07/19 19:00 Creatinine 1.25 mg/dL (0.55-1.3) 01/07/19 19:00 Glucose 112 mg/dL (74-106) H 01/07/19 19:00 Magnesium 2.1 mg/dL (1.8-2.4) 01/07/19 19:00 Total Bilirubin 0.4 mg/dL (0.2-1.0) 01/07/19 19:00 AST 23 U/L (15-37) 01/07/19 19:00 ALT 56 U/L (12-78) 01/07/19 19:00 Alkaline Phosphatase 68 U/L (45-117) 01/07/19 19:00 Troponin I < 0.02 ng/mL (0.0-0.045) 01/08/19 03:15 Triglycerides 325 mg/dL (<150) H 01/08/19 03:15 Cholesterol 172 mg/dL (<200) 01/08/19 03:15 HDL Cholesterol 31 mg/dL (40-60) L 01/08/19 03:15 Cholesterol/HDL Ratio 5.55 01/08/19 03:15 Home Medications: Amlodipine Besylate/Benazepril [Lotrel 5-40 mg Capsule] 1 tab PO DAILY WITH BREAKFAST 04/23/15 Lactobacillus Combo No.13 [Probiotic Pearls Complete] 1 cap PO DAILY 12/30/18 Aspirin [Aspirin EC 81 MG] 81 mg PO DAILY #90 tablet. 01/08/19 Pantoprazole [Protonix Tab*] 40 mg PO DAILYAC #30 tab 01/08/19 New Medications: Aspirin [Aspirin EC 81 MG] 81 mg PO DAILY #90 tablet. Pantoprazole [Protonix Tab*] 40 mg PO DAILYAC #30 tab Patient Discharge Instructions: 1. Patient will follow up with his PCP in 1 week to follow up this hospitalization. 2. Patient presented with chest pain. Cardiac enzymes unremarkable. Patient seen and evaluated by Cardiology. Cardiac stress test showed no stress-induced ischemia. CT angiogram and venous Doppler negative. No further Cardiac intervention required. At discharge patient may continue with aspirin 81 mg daily. Recommend to follow up with cardiology in 2-4 weeks to monitor his progress. Case discussed with cardiology. Chest pain likely GERD related. Patient will need to follow up with GI. 3. Patient with hypertension. This has remained stable. Patient will continue with Lotrel 1 pill daily. Recommend to maintain blood pressures of 150/80. Further adjustment can be done by his PCP. 4. Patient with GERD. Will discontinue Prilosec. Will recommend to continue with Protonix 40 mg daily. Recommend to follow up with GI as an outpatient to further evaluate. Patient may require a EGD evaluation. 5. Patient with history of chronic seasonal allergies. Will recommend to discontinue decongestant as this may elevate his blood pressure. Patient may continue with Claritin or Zyrtec as needed. Diet: AHA Activity: Ad lilia Time spent managing pt's care (in minutes): 55
--- NOTE | 2019-01-08 15:52 | EKG ---
Test Date: 2019-01-07 Test Time: 19:09:41 Assistant Professor Of Criminal Justice: KIMBER MEASUREMENT RESULTS: Intervals: Rate: 87 WA: 182 QRSD: 90 QT: 346 QTc: 416 [place]: P: 50 WA: 182 QRS: 27 T: 49 INTERPRETIVE STATEMENTS: Normal sinus rhythm Normal ECG Compared to ECG 12/30/2018 14:12:51 Right-axis deviation no longer present T-wave abnormality no longer present Possible ischemia no longer present Electronically Signed On 01-08-19 15:50:29 CDT by Rocco Ballard
--- NOTE | 2019-01-08 16:01 | ECHO ---
HEIGHT: 5 ft 8 in WEIGHT: 215 lb 0 oz DATE OF STUDY: 01/08/[address]: Lavenre Marie MD 2-DIMENSIONAL: YES M.MODE: YES DOPPLER: YES COLOR FLOW: YES TDS: NO PORTABLE: NO DEFINITY: NO BUBBLE STUDY: NO DIAGNOSIS: CHEST PAIN CARDIAC HISTORY: CATHERIZATION: NO SURGERY: NO PROSTHETIC VALVE: NO PACEMAKER: NO MEASUREMENTS (cm) DIASTOLIC (NORMALS) SYSTOLIC (NORMALS) IVSd 1.0 (0.6-1.2) LA Diam 3.3 (1.9-4.0) LVEF 53% LVIDd 3.6 (3.5-5.7) LVIDs 2.6 (2.0-3.5) %FS 27% LVPWd 1.0 (0.6-1.2) Ao Diam 2.6 (2.0-3.7) 2 DIMENSIONAL ASSESSMENT: RIGHT ATRIUM: NORMAL LEFT ATRIUM: NORMAL RIGHT VENTRICLE: NORMAL LEFT VENTRICLE: NORMAL TRICUSPID VALVE: NORMAL MITRAL VALVE: NORMAL PULMONIC VALVE: NORMAL AORTIC VALVE: NORMAL PERICARDIAL EFFUSION: NONE AORTIC ROOT: NORMAL LEFT VENTRICULAR WALL MOTION: NORMAL. DOPPLER/COLOR FLOW: NORMAL. COMMENTS: NORMAL 2D ECHO WITH DOPPLER. NO WALL MOTION ABNORMALITY. NO EFFUSION. TECHNOLOGIST: LUIS GOMEZ
--- NOTE | 2019-01-08 16:13 | TREADPHA ---
DX: CHEST PAIN Date of Study: 01/08/2019 Ht: 5 8 Wt: 215 lb 0 oz Consulting Physician: UMA MEDICATIONS: ASPIRIN, LOVENOX, PROTONIX, ULTRAM X HISTORY: 63 YEAR OLD MALE HERE FOR CHEST PAIN. HISTORY OF HYPERTENSION. PHYSICIAL EXAMINATION: RESTING B.P.: 124/84 RESTING H.R.: 60 RESTING EKG: NORMAL PROTOCOL: LEXISCAN EXERCISE TIME: 3:30 B.P. AT PEAK STRESS: 135/96 IMPRESSION: LEXISCAN STRESS TEST PERFORMED. CARDIOLITE INJECTED PER PROTOCOL. OCCASIONAL PREMATURE VENTRICULAR COMPLEXES NOTED DURING AND POST STRESS TEST. DENIES ANY PAIN. SEE NUCLEAR MEDICINE REPORT
--- NOTE | 2019-01-09 05:59 | CON ---
Date of Consultation: 01/08/2019 The patient was admitted to Dr. Marie's service on 01/07/2019. I saw the patient on 01/08/2019. Reason For Consultation: Chest pain. History Of Present Illness: Mr. Padron is a 63-year-old white male, who has a history of hypertension , gastroesophageal reflux disease. He came in with substernal chest pressure that has been going on for few days with some nausea. No vomiting. No diaphoresis. Denied PND, orthopnea, pedal edema, pa lpitations, or syncope. Not a lot of physical work. Has been under some stress. Symptoms were not exertional. By the time he was seen, he had a completely negative evaluation by EKG and chest x-ray. He had an elevated D-dimer of 649, but he had a negative venous Doppler. CT angiography did not re veal any pulmonary embolus. Chest x-ray and EKG were negative. CPKs and MBs were negative. Troponi n was normal. BNP was normal. He was still having some chest pressure when I saw him. Past Medical History: As stated above. Allergies: NONE. Review of Systems: Negative. Social History: Positive for chewing tobacco. Occasional alcohol. Family History: Negative. Medications: At home include Lotrel and Prilosec. Physical Examination: Vital Signs: Stable. He was afebrile. HEENT: Negative. Neck: Supple without any bruit, lymphadenopathy, JVD, or thyromegaly. Chest: Clear to auscultation and percussion. Cardiac: Revealed a regular rhythm and rate without any murmurs, gallops, or rubs. Abdomen: Benign. Extremities: Revealed no clubbing, cyanosis, or edema. Diagnostic Data: As stated earlier. Impression And Plan: Atypical chest pain, most likely secondary to gastroesophageal reflux disease. I doubt we are dealing with any acute coronary syndrome. Echocardiogram was done. I will see Mr. Aaron roberts in the emergency room and was perfectly normal. A Lexiscan was pending. We will see what that shows prior to making a final decision. Family was around when I was seen Mr. Padron. Case was discu ssed with admitting physician. BINU/BRANDAN Voice ID: [id number] Report ID: [id number]
--- NOTE | 2019-01-09 07:48 | EKG ---
Test Date: 2019-01-07 Test Time: 18:33:08 Clinical Data Abstractor: HB MEASUREMENT RESULTS: Intervals: Rate: 90 IL: 176 QRSD: 88 QT: 346 QTc: 423 Evans: P: 58 IL: 176 QRS: 50 T: 59 INTERPRETIVE STATEMENTS: Normal sinus rhythm Normal ECG Compared to ECG 12/30/2018 14:12:51 Right-axis deviation no longer present T-wave abnormality no longer present Possible ischemia no longer present Electronically Signed On 01-09-19 07:47:53 CDT by Neymar Brown
== END 2019-01-08 12:52 | disposition home or self-care (01) ==
LOC: ER 18:28 → ERHOLD 20:51
PROVIDERS: ADMIT Internal Medicine; ATTEND Internal Medicine
DX: R07.9 Chest pain, unspecified (principal); I10 Essential (primary) hypertension; K21.9 Gastro-esophageal reflux disease without esophagitis; E66.9 Obesity, unspecified; Z68.32 Body mass index [BMI] 32.0-32.9, adult; J30.2 Other seasonal allergic rhinitis; Z96.642 Presence of left artificial hip joint; Z87.891 Personal history of nicotine dependence
CPT/HCPCS: 36415; 71045; 71275; 78452; 80048; 80061; 80076; 83735; 83880; 84484; 85025; 85379; 85610; 93005; 93017; 93306; 93970; 96372; 99285; A9500; G0378; J1650; J2405; J2785; Q9967

== ENCOUNTER 2019-03-23 13:26 | Emergency (ER) | payer OTHER ==
--- NOTE | 2019-03-23 14:18 | RAD REPORT ---
EXAM DESCRIPTION: CT - Head Brain Wo Cont - 03/23/2019 2:13 pm CLINICAL HISTORY: HEADACHE COMPARISON: No comparisons TECHNIQUE: All CT scans are performed using dose optimization technique as appropriate and may inclu de automated exposure control or mA/KV adjustment according to patient size. FINDINGS: No intracranial hemorrhage, hydrocephalus or extra-axial fluid collection.No areas of brai n edema or evidence of midline shift. Heavy atherosclerosis of the left vertebral artery. The paranasal sinuses and mastoids are clear. The calvarium is intact. IMPRESSION: No acute intracranial abnormality.
[2019-03-23] MEDS ORDERED: METOCLOPRAMIDE 10 MG/2mL INJ ONE (14:28)
[2019-03-23] MEDS ORDERED: NA CHLORIDE 0.9% 500 ML ONE (14:28)
[2019-03-23] MEDS ORDERED: DIPHENHYDRAMINE 50 MG/ML VIAL ONE (14:29)
[2019-03-23] MEDS ORDERED: KETOROLAC 30 MG/ML INJ ONE (16:00)
--- NOTE | 2019-03-23 16:07 | ER ---
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 Has seen his PCP and was given steroids and an abx but pt has had no relief. Denies photophobia, slurred speech, numbness, weakness. Transition of care: patient was not received from another setting of care. Onset of symptoms was March 15, 2019. Initial Sepsis Screen: Does the patient meet any 2 criteria? No. Patient's initial sepsis screen is negative. Does the patient have a suspected source of infection? No. Patient's initial sepsis screen is negative. Care prior to arrival: Medication(s) given: Tramadol taken 4 hrs ago. 13:30 Method Of Arrival: Ambulatory sv 13:30 Acuity: MARIA E 3 sv 13:35 Risk Assessment: Do you want to hurt yourself or someone else? Patient reports no rb1 desire to harm self or others. Triage Assessment: 13:35 Headache History: The patient has had previous headaches and this one is similar to rb1 previous episodes. 13:35 Pain: Pain began x 8 days Also complains of nausea. rb1 Historical: - Allergies: 13:33 No Known Allergies; sv - Home Meds: 13:35 Claritin Oral [Active]; Lotrel Oral 1 cap once daily for Hypertension [Active]; rb1 Prilosec Oral [Active]; - PMHx: 13:33 Diverticulitis; GERD; Hypertension; sv - PSHx: 13:33 L hip replacement; bilateral shoulder repairs; cervical fusion; sv - Immunization history:: Adult Immunizations up to date. - Ebola Screening: : Patient negative for fever greater than or equal to 101.5 degrees Fahrenheit, and additional compatible Ebola Virus Disease symptoms. - Social history:: Smoking status: Patient/guardian denies using tobacco. Screenin:35 Abuse screen: Denies threats or abuse. Nutritional screening: No deficits noted. rb1 Tuberculosis screening: No symptoms or risk factors identified. Fall Risk None identified. Assessment: 13:35 General: Appears in no apparent distress. comfortable, Behavior is calm, cooperative, rb1 Denies fever. Pain: Complains of pain in left side of head Pain currently is 4 out of 10 on a pain scale. Neuro: Level of Consciousness is awake, alert, obeys commands, Oriented to person, place, time, situation. Cardiovascular: Capillary refill < 3 seconds is brisk in bilateral fingers. Respiratory: Airway is patent Respiratory effort is even, unlabored, Respiratory pattern is regular, symmetrical. GI: Reports nausea. : No signs and/or symptoms were reported regarding the genitourinary system. Derm: Skin is pink, warm \T\ dry. Musculoskeletal: Range of motion: intact in all extremities. 14:30 Reassessment: Patient appears in no apparent distress at this time. No changes from rb1 previously documented assessment. at bedside. 15:28 Reassessment: Patient appears in no apparent distress at this time. Patient and/or rb1 family updated on plan of care and expected duration. Pain level reassessed. Patient is alert, oriented x 3, equal unlabored respirations, skin warm/dry/pink. 16:00 Reassessment: Patient appears in no apparent distress at this time. No changes from rb1 previously documented assessment. at bedside. Vital Signs: 13:32 BP 149 / 94; Pulse 87; Resp 16; Temp 98.4; Pulse Ox 96% ; Weight 97.07 kg; Height 5 ft. sv 8 in. (172.72 cm); Pain 6/10; 14:30 BP 135 / 96; Pulse 70; Resp 17; Temp 98.1(O); Pulse Ox 96% on R/A; Pain 5/10; rb1 15:17 BP 105 / 63; Pulse 71; Resp 15; Temp 97.9(O); Pulse Ox 94% on R/A; mh5 16:19 BP 110 / 74; Pulse 76; Resp 15; Pulse Ox 97% on R/A; ss 13:32 Body Mass Index 32.54 (97.07 kg, 172.72 cm) sv ED Course: 13:28 Patient arrived in ED. as 13:32 Triage completed. sv 13:33 Arm band placed on. sv 13:35 Patient has correct armband on for positive identification. Bed in low position. Call rb1 light in reach. Side rails up X 1. Pulse ox on. NIBP on. 13:47 Gordon Mohr PA is PHCP. [facility] 13:47 Surinder Dick MD is Attending Physician. [facility] 13:58 Yesi Davis, RN is Primary Nurse. rb1 14:[address] mw3 14:12 CT completed. Patient tolerated procedure well. Patient moved back from CT. mw3 14:14 CT Head Brain wo Cont In Process Unspecified. EDMS 14:20 Inserted saline lock: 22 gauge in right antecubital area, using aseptic technique. rb1 16:06 Mehul Garcia MD is Referral Physician. jmm 16:17 No provider procedures requiring assistance completed. IV discontinued, intact, ss bleeding controlled, No redness/swelling at site. Pressure dressing applied. Administered Medications: 14:31 Drug: NS 0.9% 500 ml Route: IV; Rate: bolus; Site: right antecubital; rb1 15:05 Follow up: IV Status: Completed infusion rb1 14:31 Drug: Reglan 10 mg Route: IVP; Site: right antecubital; rb1 14:45 Follow up: Response: No adverse reaction rb1 14:31 Drug: diphenhydrAMINE 12.5 mg Route: IVP; Site: right antecubital; rb1 14:45 Follow up: Response: No adverse reaction rb1 15:48 Drug: Ketorolac 30 mg Route: IVP; Site: right antecubital; rb1 16:18 Follow up: Response: No adverse reaction; Marked relief of symptoms; Pain is decreased ss Outcome: 16:07 Discharge ordered by MD. [facility] 16:17 Discharged to home ambulatory, with family. ss 16:17 Condition: improved 16:17 Discharge instructions given to patient, significant other, Instructed on discharge instructions, follow up and referral plans. medication usage, Demonstrated understanding of instructions, follow-up care, medications, Prescriptions given X 1. 16:19 Patient left the ED. ss Signatures: Dispatcher [employer] Helen Cisneros, Gordon Ochoa RN, PA PA jmm Martinez, Amelia as Smirch, Shelby, RN RN ss Barber, Rebecca, EVA RN [facility] Luz [facility] Anne-Marie Rhodes mw3 Corrections: (The following items were deleted from the chart) 13:33 13:30 Care prior to arrival: None. 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 Has seen his PCP and was given steroids and an abx but pt has had no relief. Denies photophobia. sv 15:23 15:17 BP 105 / 63; Pulse 71bpm; Resp 15bpm; Pulse Ox 94% RA; mh5 mh5
--- NOTE | 2019-03-23 16:08 | EDPHYS ---
Physician Documentation [facility] Name: Bradly Padron Age: 63 yrs Sex: Male : 1955 Arrival Date: 03/23/2019 Time: 13:28 Bed 13 Private MD: ED Physician Surinder Dick HPI: 03/23 13:58 This 63 yrs old Male presents to ER via Ambulatory with complaints of jmm Headache. 13:58 The patient complains of pain to the left eye and left lutheran. Onset: The jmm symptoms/episode began/occurred gradually, 8 day(s) ago. This is a 63 year old male with a history of htn that presents to the ED with complaints left sided headache worsened with positional changes. Patient denies fever, denies weakness, denies decreased vision. Patient states having a similar headache approx 4 months ago which lasted approx 2 days. Current headache has been ongoing for the past 8 days. Denies photophobia. Patient is currently on steroids and antibiotics for a presumed sinus infection. . Historical: - Allergies: 13:33 No Known Allergies; sv - Home Meds: 13:35 Claritin Oral [Active]; Lotrel Oral 1 cap once daily for Hypertension [Active]; rb1 Prilosec Oral [Active]; - PMHx: 13:33 Diverticulitis; GERD; Hypertension; sv - PSHx: 13:33 L hip replacement; bilateral shoulder repairs; cervical fusion; sv - Immunization history:: Adult Immunizations up to date. - Ebola Screening: : Patient negative for fever greater than or equal to 101.5 degrees Fahrenheit, and additional compatible Ebola Virus Disease symptoms. - Social history:: Smoking status: Patient/guardian denies using tobacco. ROS: 16:40 Constitutional: Negative for fever, chills, and weight loss, Cardiovascular: Negative jmm for chest pain, palpitations, and edema, Respiratory: Negative for shortness of breath, cough, wheezing, and pleuritic chest pain. 16:40 Neuro: Positive for headache. 16:40 All other systems are negative. Exam: 16:40 Head/Face: atraumatic. Eyes: EOMI, no conjunctival erythema appreciated ENT: Moist jmm Mucus Membranes Neck: Trachea midline, Supple Chest/axilla: Normal chest wall appearance and motion. Cardiovascular: Regular rate and rhythm. No edema appreciated Respiratory: Normal respirations, no respiratory distress appreciated Abdomen/GI: Non distended, soft Skin: General appearance color normal MS/ Extremity: Moves all extremities, no obvious deformities appreciated, no edema noted to the lower extremities 16:40 Constitutional: The patient appears in no acute distress, alert, awake. 16:40 Head/face: Sinus tenderness, is not appreciated, no termporal tenderness on palpation. 16:40 Neuro: Orientation: is normal, Mentation: is normal, Memory: is normal, Cerebellar function: normal finger to nose testing. Vital Signs: 13:32 BP 149 / 94; Pulse 87; Resp 16; Temp 98.4; Pulse Ox 96% ; Weight 97.07 kg; Height 5 ft. sv 8 in. (172.72 cm); Pain 6/10; 14:30 BP 135 / 96; Pulse 70; Resp 17; Temp 98.1(O); Pulse Ox 96% on R/A; Pain 5/10; rb1 15:17 BP 105 / 63; Pulse 71; Resp 15; Temp 97.9(O); Pulse Ox 94% on R/A; mh5 16:19 BP 110 / 74; Pulse 76; Resp 15; Pulse Ox 97% on R/A; ss 13:32 Body Mass Index 32.54 (97.07 kg, 172.72 cm) sv MDM: 13:58 Patient medically screened. [facility] 16:01 Data reviewed: vital signs, nurses notes. Counseling: I had a detailed discussion with [facility] the patient and/or guardian regarding: the historical points, exam findings, and any diagnostic results supporting the discharge/admit diagnosis, the need for outpatient follow up, to return to the emergency department if symptoms worsen or persist or if there are any questions or concerns that arise at home. 16:40 ED course: Symptoms are relieved in the ED. I discussed with the patient the need to [facility] follow up with neurology or pcp for reevaluation. I do not suspect meningitis or SAH. Patient is given strict return precautions. Patient understood and agrees with the plan of care. . 03/23 14: Order name: CT Head Brain wo Cont; Complete Time: 14:19 [facility] 03/23 14: Order name: Saline Lock; Complete Time: 14:31 [facility] Administered Medications: 14:31 Drug: NS 0.9% 500 ml Route: IV; Rate: bolus; Site: right antecubital; rb1 15:05 Follow up: IV Status: Completed infusion rb1 14:31 Drug: Reglan 10 mg Route: IVP; Site: right antecubital; rb1 14:45 Follow up: Response: No adverse reaction rb1 14:31 Drug: diphenhydrAMINE 12.5 mg Route: IVP; Site: right antecubital; rb1 14:45 Follow up: Response: No adverse reaction rb1 15:48 Drug: Ketorolac 30 mg Route: IVP; Site: right antecubital; rb1 16:18 Follow up: Response: No adverse reaction; Marked relief of symptoms; Pain is decreased ss Disposition: 03/23/19 16:07 Discharged to Home. Impression: Headache. - Condition is Stable. - Discharge Instructions: General Headache Without Cause. - Prescriptions for Fiorinal 50- 325-40 mg Oral Capsule - take 1 capsule by ORAL route every 4 hours As needed - not to exceed 6 capsules per day; 20 capsule. - Medication Reconciliation Form, Thank You Letter, Antibiotic Education, Prescription Opioid Use form. - Follow up: Mehul Garcia MD; When: 2 - 3 days; Reason: Recheck today's complaints, Continuance of care, Re-evaluation by your physician. Addendum: 03/25/2019 06:48 Co-signature as Attending Physician, Surinder Dick MD I agree with the assessment and k dr plan of care. Signatures: Dispatcher [employer] EDMS Helen Stoner RN RN sv Rittger, Kevin, MD MD kdr Mickail, Joel, PA PA [facility] Geovanna Lewis RN RN ss Barber, Rebecca, EVA RN rb1 Corrections: (The following items were deleted from the chart) 03/23 16:19 16:07 03/23/2019 16:07 Discharged to Home. Impression: Headache. Condition is Stable. ss Forms are Medication Reconciliation Form, Thank You Letter, Antibiotic Education, Prescription Opioid Use. Follow up: Mehul Garcia; When: 2 - 3 days; Reason: Recheck today's complaints, Continuance of care, Re-evaluation by your physician. [facility] 16:41 13:58 This is a 63 year old male with a history of htn that presents to the ED with jmm complaints . jmm
[2019-03-23 16:51] VITALS: TEMP 97.9
[2019-03-23 16:53] VITALS: BP 110/74; O2SAT 97
== END 2019-03-23 16:19 | disposition home or self-care (01) ==
LOC: ER 13:26
DX: R51 Headache (principal); I10 Essential (primary) hypertension; K21.9 Gastro-esophageal reflux disease without esophagitis
CPT/HCPCS: 70450; 96361; 96374; 96375; 99284; J2765

== ENCOUNTER 2020-07-20 19:31 | Emergency (ER) | payer OTHER ==
[2020-07-20] MEDS ORDERED: ONDANSETRON 4 MG/2 ML VIAL ONE (20:09)
[2020-07-20] MEDS ORDERED: MORPHINE 4 MG/ML SYR ONE (20:09)
[2020-07-20] MEDS ORDERED: NA CHLORIDE 0.9% 1,000 ML ONE (20:10)
[2020-07-20 20:18] LABS: Albumin 4.2 g/dL (3.4-5.0); Bilirubin Direct 0.2 mg/dL (0-0.2); Bilirubin Total 0.5 mg/dL (0.2-1.0); Potassium 3.5 mmol/L (3.5-5.1); Protein, Total 7.1 g/dL (6.4-8.2)
[2020-07-20 20:24] LABS: Absolute Lymphocytes (CBC) 3.4 K/uL (0.7-4.9); Basophils % 1.5 % (0-1.3); Hematocrit 45.8 % (39.6-49.0); Lymphocytes % 33.9 % (15.3-44.8); MPV 8.4 fL (7.6-11.3)
[2020-07-20] MEDS ORDERED: MEPERIDINE HCL 50 MG/ML ONE (20:53)
--- NOTE | 2020-07-20 20:56 | RAD REPORT ---
EXAM DESCRIPTION: CT - Abdomen Pelvis W Contrast - 07/20/2020 8:31 pm CLINICAL HISTORY: Abdominal pain/left lower quadrant pain COMPARISON: 2016 TECHNIQUE: Computed axial tomography of the abdomen pelvis was obtained. 100 cc Isovue-300 was admin istered intravenously. Oral contrast was not requested which limits evaluation of bowel. All CT scans are performed using dose optimization technique as appropriate and may include automated exposure control or mA/KV adjustment according to patient size. FINDINGS: Fatty liver Spleen, pancreas, adrenals and right kidney are unremarkable. Small left renal cyst. Several tiny left renal calculi. Mild left hydronephrosis. 5 millimeter calcul us left UPJ. There is no evidence of diverticulitis. Small inguinal hernias contain fat. Normal appendix Left hip arthroplasty IMPRESSION: A 5 millimeter calculus left UPJ resulting in mild left hydronephrosis
--- NOTE | 2020-07-20 21:18 | ER ---
Nurse's Notes [facility] Name: Bradly Mattson Age: 65 yrs Sex: Male : 1955 Arrival Date: 07/20/2020 Time: 19:32 Bed 19 Private MD: Lenin Maguire B Diagnosis: 5mm calculus in left UPJ with mild hydronephrosis Presentation: 07/20 19:42 Chief complaint: Patient states: I am having left lower abdominal pain that started at mg2 1600. It has gotten severely worse about 45 minutes before I came here. It starts in my left lower abdomen and radiates to my back. Coronavirus screen: Client denies travel out of the [place] in the last 14 days. At this time, the client does not indicate any symptoms associated with coronavirus-19. Ebola Screen: No symptoms or risks identified at this time. Initial Sepsis Screen: Does the patient meet any 2 criteria? No. Patient's initial sepsis screen is negative. Does the patient have a suspected source of infection? No. Patient's initial sepsis screen is negative. Risk Assessment: Do you want to hurt yourself or someone else? Patient reports no desire to harm self or others. Onset of symptoms was July 20, 2020. Transition of care: patient was not received from another setting of care. 19:42 Method Of Arrival: Ambulatory mg2 19:42 Acuity: MARIA E 3 mg2 Triage Assessment: 19:55 General: Appears Behavior is. ca1 19:56 Pain: Denies pain. ca1 Historical: - Allergies: 19:45 No Known Allergies; mg2 - Home Meds: 19:45 Lotrel Oral 1 cap once daily for Hypertension [Active]; mg2 20:14 Claritin Oral [Active]; Prilosec Oral [Active]; rr5 - PMHx: 19:45 Diverticulitis; GERD; Hypertension; mg2 - PSHx: 19:45 L hip replacement; bilateral shoulder repairs; cervical fusion; back surgery; mg2 - Immunization history:: Adult Immunizations up to date. - Social history:: Smoking status: Patient denies any tobacco usage or history of. Patient/guardian denies using alcohol, street drugs. Screenin:45 Abuse screen: Denies threats or abuse. Denies injuries from another. Nutritional ca1 screening: No deficits noted. Tuberculosis screening: No symptoms or risk factors identified. Fall Risk IV access (20 points). Assessment: 19:50 General: Appears in no apparent distress. uncomfortable, Behavior is calm, cooperative, rr5 appropriate for age. 19:50 Pain: Complains of pain in left lower quadrant Pain currently is 10 out of 10 on a pain rr5 scale. Quality of pain is described as aching, Pain began gradually. Neuro: Level of Consciousness is awake, alert, obeys commands, Oriented to person, place, time, situation. Cardiovascular: Capillary refill < 3 seconds Patient's skin is warm and dry. Respiratory: Airway is patent Respiratory effort is even, unlabored, Respiratory pattern is regular, symmetrical. GI: Abdomen is round Abdomen is tender to palpation X 4 quads. Reports lower abdominal pain, upper abdominal pain. : No signs and/or symptoms were reported regarding the genitourinary system. EENT: No signs and/or symptoms were reported regarding the EENT system. Derm: No signs and/or symptoms reported regarding the dermatologic system. Musculoskeletal: Circulation, motion, and sensation intact. Capillary refill < 3 seconds. 20:13 Reassessment: Patient appears in no apparent distress at this time. Patient is alert, rr5 oriented x 3, equal unlabored respirations, skin warm/dry/pink. Patient states feeling better. Patient states symptoms have improved. 20:13 Reassessment: [id number] samuel mattson . rr5 20:40 Reassessment: Patient appears in no apparent distress at this time. came back from CT rr5 scan, complaining of the pain came back. ED provider aware with order made and carried out. 21:20 Reassessment: Patient appears in no apparent distress at this time. Patient is alert, rr5 oriented x 3, equal unlabored respirations, skin warm/dry/pink. discharge instruction given and explained without complaints made Patient states feeling better. Patient states symptoms have improved. Vital Signs: 19:42 BP 145 / 92; Pulse 78; Resp 18; Temp 98.0(TE); Pulse Ox 95% on R/A; Weight 97.52 kg mg2 (R); Height 5 ft. 8 in. (172.72 cm) (R); Pain 10/10; 20:13 BP 141 / 88; Pulse 75; Resp 19; Pulse Ox 99% ; rr5 21:10 BP 127 / 85; Pulse 79; Resp 16; Pulse Ox 99% ; Pain 3/10; rr5 19:42 Body Mass Index 32.69 (97.52 kg, 172.72 cm) mg2 ED Course: 19:32 Patient arrived in ED. am2 19:32 Lenin Maguire MD is Private Physician. am2 19:38 Raúl Ramirez, EVA is Primary Nurse. rr5 19:44 Triage completed. mg2 19:45 Arm band placed on right wrist. mg2 19:45 Patient has correct armband on for positive identification. Placed in gown. Bed in low ca1 position. Call light in reach. Side rails up X 1. Pulse ox on. NIBP on. Warm blanket given. 19:51 Inserted saline lock: 20 gauge in right forearm, using aseptic technique. rr5 19:52 Cooper Castillo MD is Attending Physician. pkl 20:31 CT Abd/Pelvis - IV Contrast Only In Process Unspecified. EDMS 21:16 Kyle Valera MD is Referral Physician. pkl 21:50 No provider procedures requiring assistance completed. IV discontinued, intact, rr5 bleeding controlled, No redness/swelling at site. Pressure dressing applied. Administered Medications: 20:00 Drug: NS 0.9% 1000 ml Route: IV; Rate: 1000 ml; Site: right forearm; rr5 21:19 Follow up: Response: No adverse reaction; IV Status: Completed infusion; IV Intake: rr5 1000ml 20:00 Drug: Zofran (Ondansetron) 4 mg Route: IVP; Site: right forearm; rr5 20:44 Follow up: Response: No adverse reaction rr5 20:02 Drug: morphine 4 mg {Note: rass 0.} Route: IVP; Site: right forearm; rr5 20:20 Follow up: Response: No adverse reaction; Pain is decreased; RASS: Alert and Calm (0) rr5 20:43 Drug: Demerol 50 mg {Note: rass 0.} Route: IVP; Site: right forearm; rr5 21:40 Follow up: Response: No adverse reaction; Pain is decreased; RASS: Alert and Calm (0) rr5 21:19 Drug: TORadol 30 mg Route: IVP; Site: right forearm; rr5 21:40 Follow up: Response: No adverse reaction rr5 21:40 Drug: Flomax 0.4 mg Route: PO; rr5 21:40 Follow up: Response: Medication administered at discharge. rr5 Intake: 21:19 IV: 1000ml; Total: 1000ml. rr5 Outcome: 21:18 Discharge ordered by . saturnino 21:49 Discharged to home ambulatory. rr5 21:49 Condition: stable 21:49 Discharge instructions given to patient, Instructed on discharge instructions, follow up and referral plans. medication usage, Demonstrated understanding of instructions, follow-up care, medications, Prescriptions given X 2. 21:50 Patient left the ED. rr5 Signatures: Dispatcher [employer] EDMS Cooper Castillo MD MD pkl Moreno, Amanda am2 Felix Díaz RN RN mg2 Raúl Ramirez RN RN rr5 Susu Farah RN RN ca1
--- NOTE | 2020-07-20 21:19 | EDPHYS ---
Physician Documentation [facility] Name: Bradly Padron Age: 65 yrs Sex: Male : 1955 Arrival Date: 07/20/2020 Time: 19:32 Bed 19 Private MD: Lenin Maguire B ED Physician Cooper Castillo HPI: 07/20 20:36 This 65 yrs old Male presents to ER via Ambulatory with complaints of Flank pkl Pain. 20:36 The patient presents with abdominal pain in the left lower quadrant. Onset: The pkl symptoms/episode began/occurred 4 hour(s) ago. The symptoms do not radiate. Associated signs and symptoms: none. The patient has not experienced similar symptoms in the past. Historical: - Allergies: 19:45 No Known Allergies; mg2 - Home Meds: 19:45 Lotrel Oral 1 cap once daily for Hypertension [Active]; mg2 20:14 Claritin Oral [Active]; Prilosec Oral [Active]; rr5 - PMHx: 19:45 Diverticulitis; GERD; Hypertension; mg2 - PSHx: 19:45 L hip replacement; bilateral shoulder repairs; cervical fusion; back surgery; mg2 - Immunization history:: Adult Immunizations up to date. - Social history:: Smoking status: Patient denies any tobacco usage or history of. Patient/guardian denies using alcohol, street drugs. ROS: 20:36 Eyes: Negative for injury, pain, redness, and discharge, ENT: Negative for injury, pkl pain, and discharge, Neck: Negative for injury, pain, and swelling, Cardiovascular: Negative for chest pain, palpitations, and edema, Respiratory: Negative for shortness of breath, cough, wheezing, and pleuritic chest pain. 20:36 Abdomen/GI: Positive for abdominal pain, of the left lower quadrant. 20:36 Back: Negative for acute changes. 20:36 : Negative for urinary symptoms. 20:36 MS/extremity: Negative for acute changes. 20:36 Skin: Negative for rash. 20:36 Neuro: Negative for altered mental status. Exam: 20:36 Head/Face: Normocephalic, atraumatic. Eyes: Pupils equal round and reactive to light, pkl extra-ocular motions intact. Lids and lashes normal. Conjunctiva and sclera are non-icteric and not injected. Cornea within normal limits. Periorbital areas with no swelling, redness, or edema. ENT: Nares patent. No nasal discharge, no septal abnormalities noted. Tympanic membranes are normal and external auditory canals are clear. Oropharynx with no redness, swelling, or masses, exudates, or evidence of obstruction, uvula midline. Mucous membranes moist. Neck: Trachea midline, no thyromegaly or masses palpated, and no cervical lymphadenopathy. Supple, full range of motion without nuchal rigidity, or vertebral point tenderness. No Meningismus. Chest/axilla: Normal chest wall appearance and motion. Nontender with no deformity. No lesions are appreciated. Cardiovascular: Regular rate and rhythm with a normal S1 and S2. No gallops, murmurs, or rubs. Normal PMI, no JVD. No pulse deficits. Respiratory: Lungs have equal breath sounds bilaterally, clear to auscultation and percussion. No rales, rhonchi or wheezes noted. No increased work of breathing, no retractions or nasal flaring. 20:36 Abdomen/GI: Bowel sounds: normal, Palpation: moderate abdominal tenderness, in the left lower quadrant. 20:36 Back: Exam negative for acute changes. 20:36 : Exam negative for acute changes. 20:36 Musculoskeletal/extremity: Exam is negative for acute changes. 20:36 Skin: Exam negative for rash. 20:36 Neuro: Orientation: is normal, Mentation: is normal, Cranial nerves: grossly normal, Motor: is normal. Vital Signs: 19:42 BP 145 / 92; Pulse 78; Resp 18; Temp 98.0(TE); Pulse Ox 95% on R/A; Weight 97.52 kg mg2 (R); Height 5 ft. 8 in. (172.72 cm) (R); Pain 10/10; 20:13 BP 141 / 88; Pulse 75; Resp 19; Pulse Ox 99% ; rr5 21:10 BP 127 / 85; Pulse 79; Resp 16; Pulse Ox 99% ; Pain 3/10; rr5 19:42 Body Mass Index 32.69 (97.52 kg, 172.72 cm) mg2 MDM: 19:52 Patient medically screened. pkl 21:13 Data reviewed: vital signs, nurses notes, lab test result(s), radiologic studies, CT pkl scan. ED course: Patient feeling better. Discussed lab and CT Scan results with patient. Advised to drink a lot of fluid. To follow up with Urologist in 2 to 3 days. Return if symptom is worse. Patient understood instructions. 07/20 19:45 Order name: Basic Metabolic Panel; Complete Time: 20:42 ca1 07/20 19:45 Order name: CBC with Diff; Complete Time: 20:42 ca1 07/20 19:45 Order name: Hepatic Function; Complete Time: 20:42 ca1 07/20 19:45 Order name: Lipase; Complete Time: 20:42 ca1 07/20 20:01 Order name: Creatinine, Serum pkl 07/20 20:01 Order name: CT Abd/Pelvis - IV Contrast Only; Complete Time: 21:06 pkl 07/20 19:45 Order name: IV Saline Lock; Complete Time: 19:51 ca1 07/20 19:45 Order name: Labs collected and sent; Complete Time: 19:51 ca1 Administered Medications: 20:00 Drug: NS 0.9% 1000 ml Route: IV; Rate: 1000 ml; Site: right forearm; rr5 21:19 Follow up: Response: No adverse reaction; IV Status: Completed infusion; IV Intake: rr5 1000ml 20:00 Drug: Zofran (Ondansetron) 4 mg Route: IVP; Site: right forearm; rr5 20:44 Follow up: Response: No adverse reaction rr5 20:02 Drug: morphine 4 mg {Note: rass 0.} Route: IVP; Site: right forearm; rr5 20:20 Follow up: Response: No adverse reaction; Pain is decreased; RASS: Alert and Calm (0) rr5 20:43 Drug: Demerol 50 mg {Note: rass 0.} Route: IVP; Site: right forearm; rr5 21:40 Follow up: Response: No adverse reaction; Pain is decreased; RASS: Alert and Calm (0) rr5 21:19 Drug: TORadol 30 mg Route: IVP; Site: right forearm; rr5 21:40 Follow up: Response: No adverse reaction rr5 21:40 Drug: Flomax 0.4 mg Route: PO; rr5 21:40 Follow up: Response: Medication administered at discharge. rr5 Disposition: 07/20/20 21:18 Discharged to Home. Impression: 5mm calculus in left UPJ with mild hydronephrosis. - Condition is Stable. - Prescriptions for Tylenol- Codeine #3 300-30 mg Oral Tablet - take 2 tablet by ORAL route every 6 hours As needed; 30 tablet. Flomax 0.4 mg Oral Capsule, Sust. Release 24 hr - take 1 capsule by ORAL route once daily 1/2 hour following the same meal each day; 15 capsule. - Medication Reconciliation Form, Thank You Letter, Antibiotic Education, Prescription Opioid Use form. - Follow up: Kyle Valera MD; When: 2 - 3 days; Reason: Re-evaluation by your physician. - Problem is new. - Symptoms have improved. Signatures: Dispatcher [employer] EDMS Cooper Castillo MD MD pkl Felix Díaz RN RN mg2 Raúl Ramirez RN RN rr5 Susu Farah RN RN ca1 Corrections: (The following items were deleted from the chart) 21:50 21:18 07/20/2020 21:18 Discharged to Home. Impression: 5mm calculus in left UPJ with rr5 mild hydronephrosis. Condition is Stable. Forms are Medication Reconciliation Form, Thank You Letter, Antibiotic Education, Prescription Opioid Use. Follow up: Kyle Valera; When: 2 - 3 days; Reason: Re-evaluation by your physician. Problem is new. Symptoms have improved. pkl
[2020-07-20] MEDS ORDERED: KETOROLAC 30 MG/ML INJ ONE (21:30)
[2020-07-20] MEDS ORDERED: TAMSULOSIN 0.4 MG SR CAP ONE (21:53)
[2020-07-20 22:22] VITALS: TEMP 98
[2020-07-20 22:23] VITALS: BP 141/88; O2SAT 99
== END 2020-07-20 21:50 | disposition home or self-care (01) ==
LOC: ER 19:31
DX: N13.2 Hydronephrosis with renal and ureteral calculous obstruction (principal); I10 Essential (primary) hypertension; K21.9 Gastro-esophageal reflux disease without esophagitis
CPT/HCPCS: 96361; 85025; 80048; 36415; 80076; 83690; 74177; 96375; 96374; 99284; Q9967; J2175; J7030; J2405

== ENCOUNTER 2020-10-14 15:17 | Inpatient (IN) | payer OTHER ==
--- OUTSIDE RECORDS SUMMARY | 2020-10-14 15:18 | XMS REPORT | Continuity of Care Document ---
:1955 Author Organization [facility] t Address [address] [place] [address] Care Team Providers Name Role Phone Sera Maguire MD Primary Care Physician Rita Smith MD Attending Clinician Payers Payer Name Policy Type Policy Effective Date Expiration Date Sour Number AETNAAETNA [id number] 2000 [employer] HMO,POS,EPO, 00:00:00 [employer] DUR[employer]/[id number]/ 10/2000-PresentHM O Problems This patient has no known problems. Allergies, Adverse Reactions, Alerts This patient has no known allergies or adverse reactions. Social History Social Habit Start Date Stop Date Quantity Comments Source Sex Assigned At Leticia Conley Medications This patient has no known medications. Procedures Procedure Date / Time Performed Performing Clinician Carroll e XR ABDOMEN 1 VW 2020-07-24 11:51:33 Jose Luis Smith Meth odist Plan of Care Planned Activity Planned Date Details Comments Source Future Scheduled 2020-05-23 INFLUENZA VACCINE [place] [facility] 00:00:00 [code = INFLUENZA VACCINE] Future Scheduled 2007 COLONOSCOPY SCREENING [place] [facility] 00:00:00 [code = COLONOSCOPY SCREENING] Future Scheduled 2007 SHINGLES VACCINES [place] [facility] 00:00:00 (#1) [code = SHINGLES VACCINES (#1)] Future Scheduled 1973 COVID-19 VACCINE (#1) [place] [facility] 00:00:00 [code = COVID-19 VACCINE (#1)] Encounters Start End Encounter Admission Attending Care Care Encounter Source Date/Time Date/Time Type Type Clinicians Facility Department ID 2020-07-24 2020-07-24 Outpatient JO[facility] LUIS SMITH [facility] [id number] [facility] 00:00:00 00:00:[address] Results Test Description Test Time Test Comments Results Result Sourc e Comments XR Abdomen 1 Vw [facility] roberto carlos [address] 12:03:11 - 07/24/2020 12:06 PM CDTEXAMINATION: XR ABDOMEN 1 VWCLINICAL HISTORY: N20.0 Calculus of kidney, left UPJ stone and left renal stone follow up after CT scanCOMPARISON: None.IMPRESSION:Pun ctate calcifications are seen to overlie the superior pole of the left kidney measuring up to 0.3 cm. Punctate calcifications are seen to overlie the superior pole of the right kidney measuring up to 0.1 cm. Correlate with findings on recent CT. There is a vague calcifications seen to the left of the L2-3 vertebral bodies measuring 0.4 x 0.2 cm, and may represent a calcification within the proximal left ureter, correlation with CT findings is recommended.A phlebolith seen within the pelvis on the left.The patient is status post left hip arthroplasty. The bones are otherwise unremarkable.The lung bases are clear.[facility][id number]
--- OUTSIDE RECORDS SUMMARY | 2020-10-14 15:18 | XMS REPORT | Clinical Summary ---
:1955 Author Organization [facility] Address [address] [place] [id number] Care Team Providers Name Role Phone Sera Maguire MD Primary Care Provider Allergies Not on File Medications Not on file Active Problems Not on file Encounters Date Type Specialty Care Team Description 07/24/2020 Hospital Encounter Radiology Jose Luis Madrigal MD Lef t renal stone 07/24/2020 Travel 07/24/2020 Orders Only Urology Jose Luis Madrigal MD Left keyshawn l stone (Primary Dx) after 10/14/2019 Social History Tobacco Use Types Packs/Day Years Used Date Never Assessed Sex Assigned at Date Recorded Not on file Last Filed Vital Signs Not on file Plan of Treatment Health Maintenance Due Date Last Done Comments COVID-19 VACCINE (#1) 1973 COLONOSCOPY SCREENING 2007 SHINGLES VACCINES (#1) 2007 INFLUENZA VACCINE 05/23/2020 Procedures Procedure Name Priority Date/Time Associated Diagnosis Comme nts XR ABDOMEN 1 VW STAT 07/24/2020 11:51 AM Left renal stone R esults for this CDT procedure are i n the results section. after 10/14/2019 Results XR Abdomen 1 Vw (07/24/2020 11:51 AM CDT) Specimen Narrative Performed At EXAMINATION: XR ABDOMEN 1 VW [facility] CLINICAL HISTORY: N20.0 Calculus of kidney, left UPJ stone and left renal stone follow up after CT scan COMPARISON: None. IMPRESSION: Punctate calcifications are seen to overlie the superi or pole of the left kidney measuring up to 0.3 cm. Punctate calcifica tions are seen to overlie the superior pole of the right kidney measurin g up to 0.1 cm. Correlate with findings on recent CT. Th ere is a vague calcifications seen to the left of the L2- 3 vertebral bodies measuring 0.4 x 0.2 cm, and may represent a calcificat ion within the proximal left ureter, correlation with C T findings is recommended. A phlebolith seen within the pelvis on t he left. The patient is status post left hip arthroplasty. The bones are otherwise unremarkable. The lung bases are clear. [facility]-[id number] Procedure Note Hm Interface, Radiology Results Incoming - 07/24/2020 12:06 PM CDT EXAMINATION: XR ABDOMEN 1 VW CLINICAL HISTORY: N20.0 Calculus of kid clyde, left UPJ stone and left renal stone follow up after CT scan COMPARISON: None. IMPRESSION: Punctate calcifications are seen to over lie the superior pole of the left kidney measuring up to 0.3 cm. Punctate calcifications are seen to overlie the superior pole of the right kidney measuring up to 0.1 cm. Correlate with findings on recent CT. There is a vague calcifications seen to the l eft of the L2-3 vertebral bodies measuring 0.4 x 0.2 cm, and may represent a calcification within the proximal left ureter, correlation with CT findings is recommended. A phlebolith seen within the pelvis on t he left. The patient is status post left hip arth roplasty. The bones are otherwise unremarkable. The lung bases are clear. [facility]-[id number] Performing Organization Address City/State/ZIP Code [facility] [address] [place] [address] after 10/14/2019 Advance Directives For more information, please contact: [phone] Type Date Recorded Patient Board Runner Explanati on Advance Directives, Living Will and Medical Power of French Polisher
[2020-10-14 18:21] LABS: Absolute Lymphocytes (CBC) 1.6 K/uL (0.7-4.9); Basophils % 0.9 % (0-1.3); Lymphocytes % 13.2 % (15.3-44.8); MPV 7.8 fL (7.6-11.3)
[2020-10-14] MEDS ORDERED: MORPHINE 2 MG/ML SYR ONE (18:22)
[2020-10-14] MEDS ORDERED: ONDANSETRON 4 MG/2 ML VIAL ONE ×2 (18:23→22:48)
[2020-10-14 18:33] LABS: Albumin 3.9 g/dL (3.4-5.0); Bilirubin Direct 0.2 mg/dL (0-0.2); Bilirubin Total 0.6 mg/dL (0.2-1.0); Potassium 3.7 mmol/L (3.5-5.1); Protein, Total 7.6 g/dL (6.4-8.2)
--- NOTE | 2020-10-14 20:43 | RAD REPORT ---
EXAM DESCRIPTION: CT - Abdomen Pelvis W Contrast - 10/14/2020 7:29 pm CLINICAL HISTORY: Abdominal pain COMPARISON: June 2020 TECHNIQUE: Computed axial tomography of the abdomen pelvis was obtained. 100 cc Isovue-300 was admin istered intravenously. Oral contrast was given All CT scans are performed using dose optimization technique as appropriate and may include automated exposure control or mA/KV adjustment according to patient size. FINDINGS: Mild fatty liver. Spleen, pancreas, adrenals and right kidney are unremarkable. Small left renal cyst. Small left renal calculi. No hydronephrosis. Normal appendix. Diverticula stem from the colon. Mild to moderate stranding adjacent to the proximal sigmoid colon. Small right inguinal hernia. Small to moderate left inguinal hernia. Left hip arthroplasty IMPRESSION: Mild to moderate sigmoid diverticulitis
--- NOTE | 2020-10-14 20:56 | ER ---
Nurse's Notes [facility] Name: Bradly Padron Age: 65 yrs Sex: Male : 1955 Arrival Date: 10/14/2020 Time: 15:20 Bed 14 Private MD: Diagnosis: Diverticulitis of large intestine without perforation or abscess without bleeding Presentation: 10/14 15:23 Chief complaint: Patient states: LLQ pain and fever Tmax 99.0 x 2 days. Denies n/v/d. sv His PCP called in [facility] 2 days ago. Coronavirus screen: Client denies travel out of the [place] in the last 14 days. At this time, the client does not indicate any symptoms associated with coronavirus-19. Ebola Screen: No symptoms or risks identified at this time. Risk Assessment: Do you want to hurt yourself or someone else? Patient reports no desire to harm self or others. Onset of symptoms was October 12, 2020. 15:23 Method Of Arrival: Ambulatory sv 15:23 Acuity: MARIA E 3 sv 15:24 Initial Sepsis Screen: Does the patient meet any 2 criteria? No. Patient's initial sv sepsis screen is negative. Does the patient have a suspected source of infection? No. Patient's initial sepsis screen is negative. Triage Assessment: 15:25 General: Appears in no apparent distress. uncomfortable, Behavior is calm, cooperative, sv appropriate for age. Pain: Complains of pain in left lower quadrant. Neuro: Level of Consciousness is awake, alert, obeys commands, Gait is steady. Respiratory: Respiratory effort is even, unlabored. Historical: - Allergies: 15:24 No Known Allergies; sv - PMHx: 15:24 Diverticulitis; GERD; Hypertension; sv - PSHx: 15:24 back surgery; L hip replacement; bilateral shoulder repairs; cervical fusion; sv - Immunization history:: Adult Immunizations. - Social history:: Smoking status: unknown. Screenin:44 Abuse screen: Denies threats or abuse. Nutritional screening: No deficits noted. ll1 Tuberculosis screening: No symptoms or risk factors identified. Fall Risk IV access (20 points). Total Sanchez Fall Scale indicates No Risk (0-24 pts). Assessment: 18:00 General: Appears in no apparent distress. Behavior is calm, cooperative, appropriate ll1 for age. Pain: Complains of pain in left lower quadrant Quality of pain is described as aching. Neuro: No deficits noted. Cardiovascular: No deficits noted. GI: Abdomen is flat, Bowel sounds present X 4 quads. Abd is soft Abdomen is tender to palpation in left lower quadrant. GI: Reports lower abdominal pain, constipation. 18:56 Reassessment: No changes from previously documented assessment. Patient and/or family ll1 updated on plan of care and expected duration. Pain level reassessed. Patient states feeling better. 19:00 Reassessment: Patient appears in no apparent distress at this time. Patient and/or jb4 family updated on plan of care and expected duration. Pain level reassessed. Patient is alert, oriented x 3, equal unlabored respirations, skin warm/dry/pink. 20:00 Reassessment: Patient appears in no apparent distress at this time. Patient and/or jb4 family updated on plan of care and expected duration. Pain level reassessed. Patient is alert, oriented x 3, equal unlabored respirations, skin warm/dry/pink. 21:00 Reassessment: Patient appears in no apparent distress at this time. Patient and/or jb4 family updated on plan of care and expected duration. Pain level reassessed. Patient is alert, oriented x 3, equal unlabored respirations, skin warm/dry/pink. 22:00 Reassessment: Patient appears in no apparent distress at this time. Patient and/or jb4 family updated on plan of care and expected duration. Pain level reassessed. Patient is alert, oriented x 3, equal unlabored respirations, skin warm/dry/pink. Vital Signs: 15:24 BP 137 / 95; Pulse 85; Resp 16; Temp 99; Pulse Ox 99% ; Weight 97.52 kg; Height 5 ft. 8 sv in. (172.72 cm); 22:00 BP 107 / 70; Pulse 73; Resp 16; Pulse Ox 95% on R/A; jb4 15:24 Body Mass Index 32.69 (97.52 kg, 172.72 cm) sv ED Course: 15:20 Patient arrived in ED. rg4 15:23 Arm band placed on. sv 15:24 Triage completed. sv 17:14 [facility] cp 17:14 Surinder Dick MD is Attending Physician. cp 17:56 Yaw, Lynsay, RN is Primary Nurse. ll1 18:05 Inserted saline lock: 22 gauge in left antecubital area, using aseptic technique. Blood ll1 collected. 18:44 Patient has correct armband on for positive identification. Placed in gown. Bed in low ll1 position. Call light in reach. Side rails up X 1. Cardiac monitoring not applicable on this patient. 19:30 CT Abd/Pelvis - IV Contrast Only In Process Unspecified. EDMS 20:55 Alejandro Davial DO is Hospitalizing Provider. cp 22:00 No provider procedures requiring assistance completed. Patient admitted, IV remains in jb4 place. 23:19 Primary Nurse role handed off by Arielle Tidwell, EVA mw2 23:51 Diet: Patient given ice chips. Patient given water. Tolerated well. jp3 23:51 Urine collected: clean catch specimen, clear, gutierrez colored. jp3 23:51 Urine Microscopic Only Sent. jp3 10/15 00:46 Bony Rivera, EVA is Primary Nurse. jb4 Administered Medications: 10/14 18:14 Drug: Zofran (Ondansetron) 4 mg Route: IVP; Site: left antecubital; ll1 18:54 Follow up: Response: No adverse reaction; RASS: Alert and Calm (0) ll1 18:15 Drug: morphine 2 mg {Note: rass 0.} Route: IVP; Site: left antecubital; ll1 18:55 Follow up: Response: No adverse reaction; Pain is decreased; RASS: Alert and Calm (0) ll1 21:54 Drug: metroNIDAZOLE 500 mg Volume: 100 ml; Route: IVPB; Infused Over: 30 mins; Site: jb left antecubital; 22:24 Follow up: Response: No adverse reaction; IV Status: Completed infusion; IV Intake: jb4 100ml 22:38 Drug: Zofran (Ondansetron) 4 mg Route: IVP; Site: left antecubital; jb4 23:00 Follow up: Response: No adverse reaction; Nausea is decreased 4 22:41 Drug: LevaQUIN 750 mg Volume: 150 ml; Route: IVPB; Infused Over: 90 mins; Site: left jb4 antecubital; 10/15 00:11 Follow up: Response: No adverse reaction; IV Status: Completed infusion; IV Intake: jb4 150ml 10/14 22:41 Drug: morphine 4 mg Route: IVP; Site: left antecubital; jb4 23:15 Follow up: Response: No adverse reaction; Pain is decreased; RASS: Alert and Calm (0) jb4 Intake: 22:24 IV: 100ml; Total: 100ml. jb4 10/15 00:11 IV: 150ml; Total: 250ml. jb4 Outcome: 10/14 20:55 Decision to Hospitalize by Provider. cp 22:00 Admitted to ER Hold. Please see [facility] for further documentation. jb4 22:00 Condition: stable 22:00 Discharge instructions given to patient, Instructed on the need for admit, Demonstrated understanding of instructions. 10/15 12:51 Patient left the ED. sv Signatures: Dispatcher [employer] EDHelen Lutz, RN RN Torey Cotter PA PA cp Garcia, Rubi rg4 Bony Rivera RN RN jb4 Ivy Alves2 Eduin Elias jp3 Arielle Tidwell RN RN ll1 Corrections: (The following items were deleted from the chart) 10/14 15:26 15:24 Pulse 85bpm; Resp 16bpm; Pulse Ox 99%; Temp 99F; 97.52 kg; Height 5 ft. 8 in.; sv BMI: 32.6; sv
--- NOTE | 2020-10-14 20:56 | EDPHYS ---
Physician Documentation [facility] Name: Bradly Padron Age: 65 yrs Sex: Male : 1955 Arrival Date: 10/14/2020 Time: 15:20 Bed 14 Private MD: ED Physician Surinder Dick HPI: 10/14 18:00 This 65 yrs old Male presents to ER via Ambulatory with complaints of Flank cp Pain. 18:00 The patient complains of pain in the left lower quadrant. The pain radiates to the left cp lower back. Onset: The symptoms/episode began/occurred 2 day(s) ago. Associated signs and symptoms: Pertinent positives: fever, Pertinent negatives: diarrhea, dysuria, hematuria, pain radiating to the lower extremities, vomiting. Patient reports history of diverticulitis and that he has been taking Cipro for past 2 days with no improvement in pain. Historical: - Allergies: 15:24 No Known Allergies; sv - PMHx: 15:24 Diverticulitis; GERD; Hypertension; sv - PSHx: 15:24 back surgery; L hip replacement; bilateral shoulder repairs; cervical fusion; sv - Immunization history:: Adult Immunizations. - Social history:: Smoking status: unknown. ROS: 18:05 Constitutional: Negative for body aches, chills, fever, poor PO intake. cp 18:05 Eyes: Negative for injury, pain, redness, and discharge. cp 18:05 Cardiovascular: Negative for chest pain. 18:05 Respiratory: Negative for cough, shortness of breath, wheezing. 18:05 Abdomen/GI: Positive for abdominal pain, of the left lower quadrant, Negative for vomiting, diarrhea, constipation, black/tarry stool, rectal bleeding. 18:05 Back: Positive for radiated pain. 18:05 : Negative for urinary symptoms, flank pain, testicular pain 18:05 Neuro: Negative for altered mental status, headache, weakness. 18:05 All other systems are negative. Exam: 18:05 Head/Face: Normocephalic, atraumatic. cp 18:05 Constitutional: The patient appears in no acute distress, alert, awake, non-toxic, well developed, well nourished. 18:05 Eyes: Periorbital structures: appear normal, Conjunctiva: normal, no exudate, no injection, Sclera: no appreciated abnormality, Lids and lashes: appear normal, bilaterally. 18:05 ENT: External ear(s): are unremarkable, Nose: is normal, Mouth: Lips: moist, Oral mucosa: moist, Posterior pharynx: Airway: no evidence of obstruction, patent. 18:05 Chest/axilla: Inspection: normal, Palpation: is normal, no crepitus, no tenderness. 18:05 Cardiovascular: Rate: normal, Rhythm: regular. 18:05 Respiratory: the patient does not display signs of respiratory distress, Respirations: normal, no use of accessory muscles, no retractions, labored breathing, is not present, Breath sounds: are clear throughout, no decreased breath sounds. 18:05 Abdomen/GI: Inspection: abdomen appears normal, Bowel sounds: active, all quadrants, Palpation: soft, in all quadrants, moderate abdominal tenderness, in the left lower quadrant, rebound tenderness, is not appreciated, involuntary guarding, is not appreciated. 18:05 Back: CVA tenderness, is absent. 18:05 Neuro: Orientation: to person, place \T\ time. Mentation: is normal, Motor: moves all cp fours, strength is normal. Vital Signs: 15:24 BP 137 / 95; Pulse 85; Resp 16; Temp 99; Pulse Ox 99% ; Weight 97.52 kg; Height 5 ft. 8 sv in. (172.72 cm); 22:00 BP 107 / 70; Pulse 73; Resp 16; Pulse Ox 95% on R/A; jb4 15:24 Body Mass Index 32.69 (97.52 kg, 172.72 cm) sv MDM: 17:55 Patient medically screened. cp 18:00 Differential diagnosis: nephrolithiasis, pyelonephritis, UTI, testicular torsion, cp diverticulitis. 20:55 Data reviewed: vital signs, nurses notes, lab test result(s), radiologic studies, CT cp scan, and as a result, I will admit patient. 20:55 Counseling: I had a detailed discussion with the patient and/or guardian regarding: the cp historical points, exam findings, and any diagnostic results supporting the discharge/admit diagnosis, lab results, radiology results. Physician consultation: Claudio ZAVALA was called at 20:50, was contacted at 20:50, regarding admission, to the medical/surgical unit. patient's condition. 10/14 17:49 Order name: Basic Metabolic Panel; Complete Time: 19:31 cp 10/14 19:32 Interpretation: Normal except: GFR 63. 10/14 17:49 Order name: CBC with Diff; Complete Time: 19:31 10/14 19:32 Interpretation: Normal except: WBC 12.1; RBC 5.60; MOLLY% 76.8; LYM% 13.2; NEUT A 9.3. 10/14 17:49 Order name: Hepatic Function; Complete Time: 19:31 10/14 19:32 Interpretation: Normal except: GLOB 3.7. 10/14 17:49 Order name: Lipase; Complete Time: 19:31 10/14 17:57 Order name: Urine Microscopic Only 10/14 23:53 Order name: Urine Dipstick--Ancillary (enter results) [facility] 10/15 00:03 Order name: Urine Dipstick-Ancillary [facility] 10/15 02:08 Order name: COVID-19 sg 10/15 02:32 Order name: CORONAVIRUS [facility] 10/15 02:34 Order name: Procalcitonin [facility] 10/15 03:32 Order name: SARS-COV-2 RT PCR [facility] 10/15 05:03 Order name: CBC with Automated Diff [facility] 10/15 05:22 Order name: Comprehensive Metabolic Panel [facility] 10/15 05:22 Order name: Magnesium [facility] 10/14 17:49 Order name: IV Saline Lock; Complete Time: 17:56 10/14 17:49 Order name: Labs collected and sent; Complete Time: 17:56 10/14 17:57 Order name: CT Abd/Pelvis - IV Contrast Only; Complete Time: 20:47 10/14 17:57 Order name: Urine Dipstick-Ancillary (obtain specimen); Complete Time: 23:51 10/14 21:38 Order name: Misc. Order: OK for clear liquid diet; Complete Time: 22:24 la1 Administered Medications: 18:14 Drug: Zofran (Ondansetron) 4 mg Route: IVP; Site: left antecubital; ll1 18:54 Follow up: Response: No adverse reaction; RASS: Alert and Calm (0) ll1 18:15 Drug: morphine 2 mg {Note: rass 0.} Route: IVP; Site: left antecubital; ll1 18:55 Follow up: Response: No adverse reaction; Pain is decreased; RASS: Alert and Calm (0) ll1 21:54 Drug: metroNIDAZOLE 500 mg Volume: 100 ml; Route: IVPB; Infused Over: 30 mins; Site: jb4 left antecubital; 22:24 Follow up: Response: No adverse reaction; IV Status: Completed infusion; IV Intake: jb4 100ml 22:38 Drug: Zofran (Ondansetron) 4 mg Route: IVP; Site: left antecubital; 4 23:00 Follow up: Response: No adverse reaction; Nausea is decreased jb4 22:41 Drug: LevaQUIN 750 mg Volume: 150 ml; Route: IVPB; Infused Over: 90 mins; Site: left jb4 antecubital; 10/15 00:11 Follow up: Response: No adverse reaction; IV Status: Completed infusion; IV Intake: jb4 150ml 10/14 22:41 Drug: morphine 4 mg Route: IVP; Site: left antecubital; 4 23:15 Follow up: Response: No adverse reaction; Pain is decreased; RASS: Alert and Calm (0) [facility] Disposition: 10/16 07:34 Co-signature as Attending Physician, Surinder Dick MD I agree with the assessment and kdr plan of care. Disposition: 10/14/20 20:55 Hospitalization ordered by Alejandro Davila for Inpatient Admission. Preliminary diagnosis is Diverticulitis of large intestine without perforation or abscess without bleeding. - Bed requested for Telemetry/MedSurg (Inpatient). - Status is Inpatient Admission. sv - Condition is Stable. - Problem is new. - Symptoms have improved. Signatures: Dispatcher [employer] EDMS Helen Stoner RN RN sv Woody, Diana, RN RN dw Rittger, Kevin, MD MD kdr Attema, Lee, BOBBIN DISKER-C BOBBIN DISKER-Cla1 Torey Zamorano PA PA cp Bryson, James, RN RN jb4 Chepe Koch RN RN ja1 Arielle Tidwell RN RN ll1 Corrections: (The following items were deleted from the chart) 10/14 17:39 17:12 Abdomen Pelvis W Con+CT.RAD.BRZ ordered. EDMS EDMS 18:14 17:39 Abdomen ordered. EDMS EDMS 21:59 20:55 Hospitalization Ordered by Alejandro Davila DO for Inpatient Admission. Preliminary dw diagnosis is Diverticulitis of large intestine without perforation or abscess without bleeding. Bed requested for Telemetry/MedSurg (Inpatient). Status is Inpatient Admission. Condition is Stable. Problem is new. Symptoms have improved. cp 22:00 21:59 10/14/2020 20:55 Hospitalization Ordered by Alejandro Davila DO for Inpatient dw Admission. Preliminary diagnosis is Diverticulitis of large intestine without perforation or abscess without bleeding. Bed requested for [facility] ER HOLD. Status is Inpatient Admission. Condition is Stable. Problem is new. Symptoms have improved. dw 10/15 11:18 12 22:00 10/14/2020 20:55 Hospitalization Ordered by Alejandro Davila DO for Inpatient ja1 Admission. Preliminary diagnosis is Diverticulitis of large intestine without perforation or abscess without bleeding. Bed requested for [facility] ER HOLD. Status is Inpatient Admission. Condition is Stable. Problem is new. Symptoms have improved. dw 10/15 12:51 11:18 10/14/2020 20:55 Hospitalization Ordered by Alejandro Davila DO for Inpatient sv Admission. Preliminary diagnosis is Diverticulitis of large intestine without perforation or abscess without bleeding. Bed requested for Telemetry/MedSurg (Inpatient). Status is Inpatient Admission. Condition is Stable. Problem is new. Symptoms have improved. ja1
[2020-10-14] MEDS ORDERED: METRONIDAZOLE 500mg IVPB 500 MG/100 ML BAG IV ONE (21:44)
[2020-10-14] MEDS ORDERED: Levofloxacin 750mg IV 750 MG/150 ML BAG IV ONE (21:44)
[2020-10-14] MEDS ORDERED: MORPHINE 4 MG/ML SYR ONE (22:42)
--- NOTE | 2020-10-14 22:58 | P.HP ---
Certification for Inpatient Patient admitted to: Inpatient With expected LOS: >2 Midnights Patient will require the following post-hospital care: None Practitioner: I am a practitioner with admitting privileges, knowledge of patient current condition, hospital course, and medical plan of care. Services: Services provided to patient in accordance with Admission requirements found in Title 42 Section 412.3 of the Code of Federal Regulations Patient History Date of Service: 10/14/20 Primary Care Provider: Dr. Maguire Reason for admission: Sigmoid diverticulitis History of Present Illness: 65-year-old male with history of diverticulitis, hypertension, GERD presents to the emergency department for abdominal pain. Patient reports that he has a history of diverticulitis called his primary care doctor called in a prescription of ciprofloxacin 48 hr ago which she has been taking since then. Pain has not since relieved, still with low-grade fever and nausea. Patient was evaluated in the emergency department white blood cell count 12.[address] shows sigmoid diverticulitis. ED provider wishes to admit patient for further evaluation and management. When I saw the patient in the ER he was awake, alert, oriented x3. Vital signs stable. Patient with moderate lower abdominal pain, nausea. Will admit for further evaluation and management. Allergies No Known Allergies Allergy (Verified 08/24/17 23:47) Home Medications: Amlodipine Besylate/Benazepril [Lotrel 5-40 mg Capsule] 1 tab PO DAILY WITH BREAKFAST 04/23/15 Lactobacillus Combo No.13 [Probiotic Pearls Complete] 1 cap PO DAILY 12/30/18 Aspirin [Aspirin EC 81 MG] 81 mg PO DAILY #90 tablet. 01/08/19 Pantoprazole [Protonix Tab*] 40 mg PO DAILYAC #30 tab 01/08/19 - Past Medical/Surgical History Diabetic: No -: Hypertension -: GERD -: diverticulitis -: Tobacco abuse -: C-spine surgery -: Bilateral shoulder rotator cuff sx -: Left hip replacement Psychosocial/ Personal History: Patient is . He has 2 children. 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 - Family History Father -: Hypertension Mother -: Heart disease, Other (see notes) Notes: heart valve replacement - Social History Smoking Status: Never smoker Alcohol use: No CD- Drugs: No Caffeine use: Yes Place of Residence: Home Review of Systems General: Fever, Chills, Malaise Gastrointestinal: Nausea, Abdominal Pain Physical Examination - Physical Exam General: Alert, In no apparent distress HEENT: Atraumatic, PERRLA, Mucous membr. moist/pink Neck: Supple, 2+ carotid pulse no bruit, No LAD Respiratory: Clear to auscultation bilaterally, Normal air movement Cardiovascular: Regular rate/rhythm, Normal S1 S2 Gastrointestinal: Normal bowel sounds, No masses, No rebound, No guarding, Tenderness (Mild left lower quadrant and suprapubic tenderness) Musculoskeletal: No contractures, No erythema, No tenderness Integumentary: No rashes, No tenderness/swelling, No erythema, No warmth Neurological: Normal speech, Normal strength at 5/5 x4 extr, Normal tone, Normal affect - Studies Laboratory Data (last 24 hrs) 10/14/20 18:00: WBC 12.1 H, Hgb 16.4, Hct 48.0, Plt Count 279 10/14/20 18:00: Sodium 139, Potassium 3.7, BUN 9, Creatinine 1.17, Glucose 100, Total Bilirubin 0.6, AST 21, ALT 53, Alkaline Phosphatase 65, Lipase 117 Assessment and Plan - Plan Assessment Sigmoid diverticulitis, failed outpatient therapy: Hypertension GERD Plan Sigmoid diverticulitis, failed outpatient therapy: Continue with Levaquin, Flagyl IV. Clear liquid diet, advanced to soft diet tomorrow at lunch and tolerating. P.r.n. pain and nausea medications. DVT prophylaxis Lovenox 40 mg subcutaneous once daily. Hypertension: Obtain and continue home medications. GERD: Obtain and continue home medications. Discharge Plan: Home Plan to discharge in: 48 Hours - Advance Directives Does patient have a Living Will: No Does patient have a Durable POA for Healthcare: No - Code Status/Comfort Care Code Status Assessed: Yes (Full code) Critical Care: No Time Spent Managing Pts Care (In Minutes): 55
[2020-10-15 00:02] LABS: Urine Bacteria <20 /HPF (NONE SEEN); Urine RBC <5 /HPF (NONE SEEN)
[2020-10-15 00:03] LABS: Urine Blood NEGATIVE (NEG); Urine Glucose NEGATIVE (NEG); Urine Protein NEGATIVE (NEG); Urine pH 6.5 (5.0-7.0)
[2020-10-15] MEDS ORDERED: MORPHINE 4 MG/ML SYR IV PRN (00:40)
[2020-10-15] MEDS ORDERED: ONDANSETRON 4 MG/2 ML VIAL IV PRN ×2 (00:40→04:18)
[2020-10-15] MEDS ORDERED: ACETAMINOPHEN 500 MG TAB PO PRN (00:40)
[2020-10-15] MEDS: METRONIDAZOLE 500mg IVPB 500 MG/100 ML BAG IV SCH ×2 (01:00→06:30)
[2020-10-15] MEDS: NA CHLORIDE 0.9% 1,000 ML IV SCH ×2 (01:40→10:40)
[2020-10-15] MEDS ORDERED: NA CHLORIDE 0.9% 0 ML ONE (01:51)
[2020-10-15 04:22] VITALS: BMI 32.6
[2020-10-15 05:01] LABS: Absolute Lymphocytes (CBC) 1.3 K/uL (0.7-4.9); Basophils % 0.9 % (0-1.3); Hematocrit 44.8 % (39.6-49.0); Lymphocytes % 10.5 % (15.3-44.8); MPV 7.7 fL (7.6-11.3); RBC Red Blood Cell Count 5.18 M/uL (4.33-5.43)
[2020-10-15 05:22] LABS: Albumin 3.5 g/dL (3.4-5.0); Bilirubin Total 0.8 mg/dL (0.2-1.0); Protein, Total 7.1 g/dL (6.4-8.2)
[2020-10-15] MEDS ORDERED: METRONIDAZOLE 500mg IVPB 500 MG/100 ML BAG IV ONE (06:22)
[2020-10-15 07:55] VITALS: O2SAT 95
[2020-10-15] MEDS ORDERED: ENOXAPARIN 40 MG/0.4 ML SQ ONE (08:26)
[2020-10-15] MEDS ORDERED: Levofloxacin500mg IV 500 MG/100 ML BAG IV ONE (08:26)
[2020-10-15] MEDS ORDERED: Levofloxacin500mg IV 500 MG/100 ML BAG IV SCH (09:00)
[2020-10-15] MEDS ORDERED: ENOXAPARIN 40 MG/0.4 ML SQ SCH (09:00)
--- NOTE | 2020-10-15 10:51 | P.DS ---
Admission Date: 10/14/20 Discharge Date: 10/15/20 Primary Care Provider: Dr. Maguire Disposition: ROUTINE DISCHARGE Discharge Condition: FAIR Reason for Admission: Sigmoid diverticulitis Brief History of Present Illness: Patient is 65 years of age admitted with sigmoid diverticulitis left lower quadrant abdominal pain Hospital Course: He was admitted here to the hospital CT scan showed [id number] diverticulitis he has had this pain before at the time of discharge he was alert oriented responsive cooperative been tolerating a soft diet abdominal examination was normal there is no rebound or tenderness in the left lower quadrant chest clear cardiovascular system os sounds normal labs reviewed no fever white count mildly elevated patient was discharged on Augmentin to follow up with primary care physician he has already seen Dr. parikh in the past was had a colonoscopy done Vital Signs/Physical Exam: Temp Pulse Resp BP Pulse Ox 99.2 F 81 18 115/74 95 10/15/20 07:55 10/15/20 07:55 10/15/20 07:55 10/15/20 07:55 10/15/20 07:55 Laboratory Data at Discharge: WBC 12.1 K/uL (4.3-10.9) H 10/15/20 04:50 Hgb 15.2 g/dL (13.6-17.9) 10/15/20 04:50 Hct 44.8 % (39.6-49.0) 10/15/20 04:50 Plt Count 276 K/uL (152-406) 10/15/20 04:50 Sodium 138 mmol/L (136-145) 10/15/20 04:50 Potassium 4.0 mmol/L (3.5-5.1) 10/15/20 04:50 BUN 10 mg/dL (7-18) 10/15/20 04:50 Creatinine 1.10 mg/dL (0.55-1.3) 10/15/20 04:50 Glucose 107 mg/dL (74-106) H 10/15/20 04:50 Magnesium 2.0 mg/dL (1.8-2.4) 10/15/20 04:50 Total Bilirubin 0.8 mg/dL (0.2-1.0) 10/15/20 04:50 AST 17 U/L (15-37) 10/15/20 04:50 ALT 46 U/L (12-78) 10/15/20 04:50 Alkaline Phosphatase 60 U/L (45-117) 10/15/20 04:50 Lipase 117 U/L (73-393) 10/14/20 18:00 Home Medications: Amlodipine Besylate/Benazepril [Lotrel 5-40 mg Capsule] 1 tab PO DAILY WITH BREAKFAST 04/23/15 Lactobacillus Combo No.13 [Probiotic Pearls Complete] 1 cap PO DAILY 12/30/18 Aspirin [Aspirin EC 81 MG] 81 mg PO DAILY #90 tablet. 01/08/19 Pantoprazole [Protonix Tab*] 40 mg PO DAILYAC #30 tab 01/08/19 Amoxicillin/Potassium Clav [Augmentin 875-125 Tablet] 1 each PO BID #20 tablet 10/15/20 New Medications: Amoxicillin/Potassium Clav [Augmentin 875-125 Tablet] 1 each PO BID #20 tablet Followup: Lenin Maguire MD [Primary Care Provider] -
[2020-10-15] MEDS ORDERED: NA CHLORIDE 0.9% 1,000 ML ONE (11:16)
[2020-10-15 12:05] VITALS: BP 126/74; TEMP 99.7
[2020-10-15] MEDS ORDERED: ACETAMINOPHEN 500 MG TAB ONE (12:23)
[2020-10-15] MEDS ORDERED: LIDOCAINE VISCOUS 2% SOLN 15 ML UDC ONE (17:44)
== END 2020-10-15 11:00 | disposition home or self-care (01) | DRG 392 ==
LOC: ER 15:17 → ERHOLD 21:53
PROVIDERS: ADMIT Family Medicine; ATTEND Internal Medicine Sleep Medicine
DX: K57.32 Diverticulitis of large intestine without perforation or abscess without bleeding (principal); K21.9 Gastro-esophageal reflux disease without esophagitis; I10 Essential (primary) hypertension; Z96.642 Presence of left artificial hip joint; Z79.82 Long term (current) use of aspirin; Z79.899 Other long term (current) drug therapy; Z20.828 Contact with and (suspected) exposure to other viral communicable diseases
CPT/HCPCS: 36415; 74177; 80048; 80053; 80076; 81003; 81015; 83690; 83735; 84145; 85025; 96365; 96367; 96375; 99285; J1650; J2270; J2405; J7030; Q9967; U0003

== ENCOUNTER 2021-10-14 03:58 | Emergency (ER) | payer OTHER ==
--- OUTSIDE RECORDS SUMMARY | 2021-10-14 04:01 | XMS REPORT | Continuity of Care Document ---
:1955 Author Organization [facility] t Address [address] [place] [address] Care Team Providers Name Role Phone SMITH Attending Clinician Unavailable Problems This patient has no known problems. Allergies, Adverse Reactions, Alerts This patient has no known allergies or adverse reactions. Medications This patient has no known medications. Procedures This patient has no known procedures. Encounters Start End Encounter Admission Attending Care Care Encounter Source Date/Time Date/Time Type Type Clinicians Facility Department ID 2020-07-24 2020-07-24 Outpatient LINDA SMITH [facility] [id number] [place] 00:00:00 00:00:[address] Results This patient has no known results.
[2021-10-14] MEDS ORDERED: ONDANSETRON 4 MG/2 ML VIAL ONE (04:10)
[2021-10-14] MEDS ORDERED: MAGNESIUM SULFATE 1 gm IVPB 1 GM/100 ML BAG IV ONE (04:10)
[2021-10-14] MEDS ORDERED: MORPHINE 4 MG/ML SYR ONE (04:10)
[2021-10-14 04:39] LABS: Urine Blood 1+ (Negative); Urine Glucose Negative (Negative); Urine Protein Negative (Negative); Urine Specific Gravity 1.025 (1.005-1.030)
[2021-10-14] MEDS ORDERED: MEPERIDINE HCL 50 MG/ML ONE (04:46)
[2021-10-14 05:29] LABS: Urine Bacteria <20 /HPF (NONE SEEN); Urine Urothelial Cells <5 /HPF (NONE SEEN)
[2021-10-14] MEDS ORDERED: TAMSULOSIN 0.4 MG SR CAP ONE (05:30)
[2021-10-14] MEDS ORDERED: KETOROLAC 30 MG/ML INJ ONE (05:30)
[2021-10-14 06:09] LABS: Absolute Lymphocytes (CBC) 1.1 K/uL (0.7-4.9); Basophils % 2.4 % (0-1.3); Hematocrit 45.5 % (39.6-49.0); Lymphocytes % 18.6 % (15.3-44.8); RBC Red Blood Cell Count 5.28 M/uL (4.33-5.43)
[2021-10-14 06:23] LABS: Albumin 3.6 g/dL (3.4-5.0); Bilirubin Direct 0.1 mg/dL (0-0.2); Bilirubin Total 0.3 mg/dL (0.2-1.0); Potassium 3.8 mmol/L (3.5-5.1); Protein, Total 7.1 g/dL (6.4-8.2)
[2021-10-14] MEDS ORDERED: HYDROCODONE/APAP 10/325 TAB ONE (06:31)
--- NOTE | 2021-10-14 06:31 | EDPHYS ---
Physician Documentation [facility] Name: Bradly Padron Age: 66 yrs Sex: Male : 1955 Arrival Date: 10/14/2021 Time: 04:01 Bed 6 Private MD: ED Physician Jason Ni HPI: 10/14 04:48 This 66 yrs old Male presents to ER via Ambulatory with complaints of Left flank pain. rn 04:48 The patient complains of pain in the left mid back. The pain radiates to the abdomen. rn Onset: The symptoms/episode began/occurred 2 hour(s) ago. Modifying factors: The symptoms are alleviated by nothing. the symptoms are aggravated by nothing. Associated signs and symptoms: Pertinent positives: nausea, Pertinent negatives: fever, vomiting. Severity of pain: At its worst the pain was moderate in the emergency department the pain is unchanged. The patient has experienced similar episodes in the past. The patient has not recently seen a physician. Historical: - Allergies: 04:08 No Known Allergies; as6 - Home Meds: 04:08 Lotrel 5-40 mg oral cap 1 cap once daily [Active]; Prilosec Oral [Active]; Claritin as6 Oral [Active]; - PMHx: 04:08 Diverticulitis; GERD; Hypertension; as6 - PSHx: 04:08 Lithotripsy; neck; shoulder; as6 - Immunization history:: Adult Immunizations not up to date, Client reports receiving the 2nd dose of the Covid vaccine. - Social history:: Smoking status: Patient denies any tobacco usage or history of. - Family history:: not pertinent. - Hospitalizations: : No recent hospitalization is reported. ROS: 04:48 Constitutional: Negative for fever, chills, and weight loss, Eyes: Negative for injury, rn pain, redness, and discharge, Neck: Negative for injury, pain, and swelling, Cardiovascular: Negative for chest pain, palpitations, and edema, Respiratory: Negative for shortness of breath, cough, wheezing, and pleuritic chest pain, Abdomen/GI: Positive for left flank and abdominal pain. Positive for nausea Back: Positive for left flank pain : Negative for injury, bleeding, discharge, and swelling, MS/Extremity: Negative for injury and deformity, Skin: Negative for injury, rash, and discoloration, Neuro: Negative for headache, weakness, numbness, tingling, and seizure. Exam: 04:48 Constitutional: This is a well developed, well nourished patient who is awake, alert, rn pacing and appears uncomfortable Head/Face: Normocephalic, atraumatic. Eyes: Periorbital areas with no swelling, redness, or edema. Cardiovascular: Regular rate and rhythm. No pulse deficits. Respiratory: No increased work of breathing, no retractions or nasal flaring. Abdomen/GI: Soft, mild left lower quadrant tenderness, no distention, no peritoneal signs Back: No spinal tenderness. No costovertebral tenderness. Full range of motion. Skin: Warm, dry with normal turgor. Normal color with no rashes, no lesions, and no evidence of cellulitis. MS/ Extremity: Pulses equal, no cyanosis. Neurovascular intact. Full, normal range of motion. Equal circumference. Neuro: Awake and alert, GCS 15 Vital Signs: 04:06 BP 156 / 103; Pulse 89; Resp 20 S; Temp 97.8(O); Pulse Ox 97% on R/A; Weight 97.52 kg as6 (R); Height 5 ft. 8 in. (172.72 cm) (R); Pain 9/10; 04:49 BP 118 / 97; Pulse 85; Resp 18; Pulse Ox 97% on R/A; Pain 10/10; tw5 05:00 Pain 8/10; tw5 05:37 BP 136 / 79; Pulse 67; Resp 14; Pulse Ox 94% on R/A; Pain 8/10; as6 06:38 BP 121 / 98; Pulse 66; Resp 18; Pulse Ox 96% on R/A; Pain 2/10; tw5 06:38 BP 121 / 98; Pulse 67; Resp 18 S; Pulse Ox 96% on R/A; as6 04:06 Body Mass Index 32.69 (97.52 kg, 172.72 cm) as6 MDM: 04:02 Patient medically screened. rn 06:29 Differential diagnosis: nephrolithiasis, diverticulitis. Data reviewed: vital signs, rn nurses notes, lab test result(s), radiologic studies, CT scan. 06:29 Counseling: I had a detailed discussion with the patient and/or guardian regarding: the rn historical points, exam findings, and any diagnostic results supporting the discharge/admit diagnosis, lab results, radiology results, the need for outpatient follow up, to return to the emergency department if symptoms worsen or persist or if there are any questions or concerns that arise at home. Response to treatment: the patient's symptoms have markedly improved after treatment, and as a result, I will discharge patient. Special discussion: I discussed with the patient/guardian in detail that at this point there is no indication for admission to the hospital. It is understood, however, that if the symptoms persist or worsen the patient needs to return immediately for re-evaluation. Based on the history and exam findings, there is no indication for further emergent testing or inpatient evaluation. I discussed with the patient/guardian the need to see the urologist for further evaluation of the symptoms. ED course: Patient markedly improved, pain down to 2 out of 10. 4 mm left mid stone. Will DC home with as needed medication and return precautions.. 10/14 04:06 Order name: Basic Metabolic Panel; Complete Time: 06:28 10/14 04:06 Order name: CBC with Diff; Complete Time: 06:28 10/14 04:06 Order name: Hepatic Function; Complete Time: 06:28 10/14 04:06 Order name: Lipase; Complete Time: 06:28 10/14 04:06 Order name: Urine Microscopic Only; Complete Time: 06:28 10/14 04:39 Order name: Urine Dipstick-Ancillary; Complete Time: 04:40 EDMS 10/14 04:06 Order name: CT Stone Protocol 10/14 04:06 Order name: IV Saline Lock; Complete Time: 04:18 10/14 04:06 Order name: Labs collected and sent; Complete Time: 04:18 10/14 04:06 Order name: Urine Dipstick-Ancillary (obtain specimen); Complete Time: 04:43 rn Administered Medications: 04:20 Drug: morphine 4 mg Route: IVP; Site: right forearm; as6 04:47 Follow up: Response: No adverse reaction; Pain is unchanged, physician notified; RASS: tw5 Restless (+1) 04:21 Drug: Zofran (Ondansetron) 4 mg Route: IVP; Site: right forearm; as6 04:47 Follow up: Response: No adverse reaction tw5 04:21 Drug: Magnesium Sulfate 1 grams Route: IVPB; Infused Over: 1 hrs; Site: right forearm; as6 05:36 Follow up: IV Status: Completed infusion as6 04:49 Drug: Demerol (meperidine) 50 mg Route: IVP; Site: right antecubital; tw5 05:00 Follow up: Pain 8/10 Adult; Response: No adverse reaction; Pain is decreased; RASS: tw5 Alert and Calm (0) 05:36 Drug: Ketorolac 30 mg Route: IVP; Site: right antecubital; as6 06:31 Follow up: Response: No adverse reaction; Pain is decreased tw5 05:36 Drug: Flomax (tamsulosin) 0.4 mg Route: PO; as6 06:31 Follow up: Response: No adverse reaction tw5 06:33 Drug: [place] (HYDROcodone-acetaminophen) 10 mg-325 mg 1 tabs Route: PO; tw5 06:37 Follow up: Response: No adverse reaction; RASS: Alert and Calm (0) as6 Disposition Summary: 10/14/21 06:31 Discharge Ordered Location: Home rn Problem: new rn Symptoms: have improved rn Condition: Stable rn Diagnosis - Calculus of kidney with calculus of ureter rn Followup: rn - With: Private Physician - When: As needed - Reason: Recheck today's complaints, Re-evaluation by your physician Discharge Instructions: - Discharge Summary Sheet rn - Kidney Stones rn - Renal Colic rn - Dietary Guidelines to Help Prevent Kidney Stones rn Forms: - Medication Reconciliation Form rn - Thank You Letter rn - Antibiotic telephonic rn - Prescription Opioid Use rn Prescriptions: - ondansetron 4 mg Oral tablet,disintegrating - take 1 tablet by ORAL route every 8 hours As needed; 15 tablet; Refills: 0, rn Product Selection Permitted - tamsulosin 0.4 mg Oral capsule - take 1 capsule by ORAL route once daily As needed 1/2 hour following the same rn meal each day; 5 capsule; Refills: 0, Product Selection Permitted - Tylenol-Codeine #3 300 mg-30 mg Oral - take 1 tablet by ORAL route every 6-8 hours As needed; 15 tablet; Refills: 0, rn Product Selection Permitted Signatures: Dispatcher [employer] Jason Hua MD MD rn Girish, Claudio, BRICKMASON-C BRICKMASON-Cla1 Hannah King tw5 Kavon Oliveira, RN RN as6
--- NOTE | 2021-10-14 06:31 | ER ---
Nurse's Notes [facility] Name: Bradly Padron Age: 66 yrs Sex: Male : 1955 Arrival Date: 10/14/2021 Time: 04:01 Bed 6 Private MD: Diagnosis: Calculus of kidney with calculus of ureter Presentation: 10/14 04:06 Chief complaint: Patient states: l sided flank pain. Coronavirus screen: At this time, as6 the client does not indicate any symptoms associated with coronavirus-19. Ebola Screen: No symptoms or risks identified at this time. Initial Sepsis Screen: Does the patient meet any 2 criteria? No. Patient's initial sepsis screen is negative. Does the patient have a suspected source of infection? No. Patient's initial sepsis screen is negative. Risk Assessment: Do you want to hurt yourself or someone else? Patient reports no desire to harm self or others. Onset of symptoms was October 09, 2021. 04:06 Method Of Arrival: Ambulatory as6 04:06 Acuity: MARIA E 3 as6 Historical: - Allergies: 04:08 No Known Allergies; as6 - Home Meds: 04:08 Lotrel 5-40 mg oral cap 1 cap once daily [Active]; Prilosec Oral [Active]; Claritin as6 Oral [Active]; - PMHx: 04:08 Diverticulitis; GERD; Hypertension; as6 - PSHx: 04:08 Lithotripsy; neck; shoulder; as6 - Immunization history:: Adult Immunizations not up to date, Client reports receiving the 2nd dose of the Covid vaccine. - Social history:: Smoking status: Patient denies any tobacco usage or history of. - Family history:: not pertinent. - Hospitalizations: : No recent hospitalization is reported. Screenin:13 Abuse screen: Denies threats or abuse. Nutritional screening: No deficits noted. as6 Tuberculosis screening: No symptoms or risk factors identified. Fall Risk None identified. Assessment: 04:11 General: Appears uncomfortable, Behavior is calm, restless. Pain: Complains of pain in as6 left flank Pain radiates to left lower quadrant Quality of pain is described as sharp, shooting. Neuro: Level of Consciousness is awake, alert, obeys commands, Oriented to person, place, time, situation. Cardiovascular: Capillary refill < 3 seconds Patient's skin is warm and dry. Respiratory: Airway is patent Trachea midline Respiratory effort is even, unlabored, Respiratory pattern is regular, symmetrical. GI: Reports lower abdominal pain, nausea. Derm: Skin is intact, is healthy with good turgor. 04:45 General: Reports " That morphine hasn't done shit, I need something for this pain.". tw5 04:49 Reassessment: Patient appears in no apparent distress at this time. No changes from tw5 previously documented assessment. Patient and/or family updated on plan of care and expected duration. Pain level reassessed. Pain: Pain currently is 10 out of 10 on a pain scale. 05:00 Reassessment: Patient appears in no apparent distress at this time. No changes from tw5 previously documented assessment. Patient and/or family updated on plan of care and expected duration. Pain level reassessed. Pain: Pain currently is 8 out of 10 on a pain scale. 05:37 General: Appears uncomfortable, Behavior is appropriate for age. as6 06:38 Reassessment: Patient states feeling better. Patient states symptoms have improved. tw5 Vital Signs: 04:06 BP 156 / 103; Pulse 89; Resp 20 S; Temp 97.8(O); Pulse Ox 97% on R/A; Weight 97.52 kg as6 (R); Height 5 ft. 8 in. (172.72 cm) (R); Pain 9/10; 04:49 BP 118 / 97; Pulse 85; Resp 18; Pulse Ox 97% on R/A; Pain 10/10; tw5 05:00 Pain 8/10; tw5 05:37 BP 136 / 79; Pulse 67; Resp 14; Pulse Ox 94% on R/A; Pain 8/10; as6 06:38 BP 121 / 98; Pulse 66; Resp 18; Pulse Ox 96% on R/A; Pain 2/10; tw5 06:38 BP 121 / 98; Pulse 67; Resp 18 S; Pulse Ox 96% on R/A; as6 04:06 Body Mass Index 32.69 (97.52 kg, 172.72 cm) as6 ED Course: 04:01 Patient arrived in ED. mw2 04:02 Jason Ni MD is Attending Physician. rn 04:02 Slawson, [place]anton, RN is Primary Nurse. as6 04:08 Triage completed. as6 04:10 Missed attempt(s): 20 gauge in left antecubital area. lp1 04:11 Arm band placed on. as6 04:13 Placed in gown. Bed in low position. Call light in reach. Side rails up X2. Adult w/ as6 patient. Pulse ox on. NIBP on. Warm blanket given. 04:18 Inserted saline lock: 20 gauge in right forearm, using aseptic technique. as6 05:[address] tw5 05:18 CT Stone Protocol In Process Unspecified. EDMS 06:37 No provider procedures requiring assistance completed. IV discontinued, intact, as6 bleeding controlled, No redness/swelling at site. Pressure dressing applied. Administered Medications: 04:20 Drug: morphine 4 mg Route: IVP; Site: right forearm; as6 04:47 Follow up: Response: No adverse reaction; Pain is unchanged, physician notified; RASS: tw5 Restless (+1) 04:21 Drug: Zofran (Ondansetron) 4 mg Route: IVP; Site: right forearm; as6 04:47 Follow up: Response: No adverse reaction tw5 04:21 Drug: Magnesium Sulfate 1 grams Route: IVPB; Infused Over: 1 hrs; Site: right forearm; as6 05:36 Follow up: IV Status: Completed infusion as6 04:49 Drug: Demerol (meperidine) 50 mg Route: IVP; Site: right antecubital; tw5 05:00 Follow up: Pain 8/10 Adult; Response: No adverse reaction; Pain is decreased; RASS: tw5 Alert and Calm (0) 05:36 Drug: Ketorolac 30 mg Route: IVP; Site: right antecubital; as6 06:31 Follow up: Response: No adverse reaction; Pain is decreased tw5 05:36 Drug: Flomax (tamsulosin) 0.4 mg Route: PO; as6 06:31 Follow up: Response: No adverse reaction tw5 06:33 Drug: [place] (HYDROcodone-acetaminophen) 10 mg-325 mg 1 tabs Route: PO; tw5 06:37 Follow up: Response: No adverse reaction; RASS: Alert and Calm (0) as6 Outcome: 06:31 Discharge ordered by . rn 06:38 Discharged to home ambulatory. tw5 06:38 Condition: improved 06:38 Discharge instructions given to patient, family, Instructed on discharge instructions, follow up and referral plans. no drinking with medication, no driving heavy equipment, medication usage, Demonstrated understanding of instructions, follow-up care, medications, Prescriptions given X 3. 06:39 Patient left the ED. Signatures: Dispatcher [employer] EDMS Jason Ni MD MD rn Pena, Laura, RN RN lp1 Ivy Alves mw2 Hannah King tw5 Kavon Oliveira RN RN as6
[2021-10-14 06:46] VITALS: TEMP 97.8
[2021-10-14 06:52] VITALS: BP 121/98; O2SAT 96
--- NOTE | 2021-10-14 10:13 | RAD REPORT ---
EXAM DESCRIPTION: CT - Stone Protocol - 10/14/2021 6:51 am CLINICAL HISTORY: Left flank pain TECHNIQUE: Axial computed tomography images of the abdomen and pelvis without intravenous contrast. Sagittal and coronal reformatted images were created and reviewed. This CT exam was performed usi ng one or more of the following dose reduction techniques: automated exposure control, adjustment o f the mA and/or kV according to patient size, and/or use of iterative reconstruction technique. COMPARISON: CT ABDOMEN PELVIS dated 10/14/2020 FINDINGS: Limitations: Metallic artifact from left hip prosthesis limits assessment of the immedia tely surrounding structures. Lung bases: No abnormality noted. Pleural space: No abnormality noted. Heart: No abnormality noted. Mediastinum: No abnormality noted. ABDOMEN: Liver: Hepatic steatosis. Gallbladder and bile ducts: No calcified stones or surrounding fluid. Pancreas: Lack of intravenous contrast limits detection of some masses. No pancreatic mass, ca lcification, inflammation or ductal dilation noted. Spleen: No abnormality noted. Adrenals: Visualized portions appear normal. Kidneys and ureters: There is mild left hydronephrosis and proximal ureteral dilatation. There is a 4 mm stone in the left ureter at the level of mid L4. There are approximately 4 additional in trarenal stones left kidney. Small punctate stones right kidney. Stable cyst left kidney. Mild bilateral renal cortical scarring present. Stomach and bowel: Colonic diverticulosis. No diverticulitis. PELVIS: Appendix: No findings to suggest acute appendicitis. Bladder: Appears normal for the degree of filling. No stones or inflammation. No large mass. Masses may not be detected in the absence of opacification. Reproductive: No abnormalities noted. ABDOMEN and PELVIS: Intraperitoneal space: No free air. No significant fluid collection. Bones/joints: Lumbosacral degenerative disc disease. No acute osseous abnormality. Soft tissues: There are bilateral inguinal hernias containing fat. Vasculature: Atherosclerosis of the aorta. No aneurysm. Lymph nodes: No pathologically enlarged lymph nodes. IMPRESSION: 4 mm left ureteral stone and mild hydronephrosis. Electronically signed by: Angely Blackwell MD 10/14/2021 6:11 AM OPHTHALMOLOGY TECHNICIAN Due to temporary technical issues with the PACS/Fluency reporting system, reports are being signed by the in house radiologist without review as a courtesy to ensure prompt reporting. The interpreting r adiologist is fully responsible for the content of the report.
== END 2021-10-14 06:39 | disposition home or self-care (01) ==
LOC: ER 03:58
DX: N20.2 Calculus of kidney with calculus of ureter (principal); I10 Essential (primary) hypertension
CPT/HCPCS: 85025; 80048; 36415; 80076; 83690; 76377; 74176; 99284; J3475; J2175; J2405; 81003; 81015

== ENCOUNTER 2021-11-26 10:14 | Emergency (ER) | payer OTHER ==
--- OUTSIDE RECORDS SUMMARY | 2021-11-26 10:17 | XMS REPORT | Continuity of Care Document ---
:1955 Author Organization [facility] t Address [address] [place] [address] Care Team Providers Name Role Phone SMITH Attending Clinician Unavailable Problems This patient has no known problems. Allergies, Adverse Reactions, Alerts This patient has no known allergies or adverse reactions. Medications This patient has no known medications. Procedures This patient has no known procedures. Encounters Start End Encounter Admission Attending Care Care Encounter Source Date/Time Date/Time Type Type Clinicians Facility Department ID 2021-10-19 2021-10-19 Outpatient [facility] [id number] [place] 00:00:00 00:00:[address] 2020-07-24 2020-07-24 Outpatient [facility] [id number] [place] 00:00:00 00:00:[id number] Results This patient has no known results.
[2021-11-26 10:30] LABS: Urine Blood Trace-intact (Negative); Urine Glucose Negative (Negative); Urine Protein Negative (Negative)
[2021-11-26 10:43] LABS: Absolute Lymphocytes (CBC) 1.5 K/uL (0.7-4.9); Hematocrit 48.7 % (39.6-49.0); Lymphocytes % 26.8 % (15.3-44.8); MPV 7.4 fL (7.6-11.3); RBC Red Blood Cell Count 5.63 M/uL (4.33-5.43)
[2021-11-26] MEDS ORDERED: ONDANSETRON 4 MG/2 ML VIAL ONE (10:46)
[2021-11-26] MEDS ORDERED: MORPHINE 4 MG/ML SYR ONE (10:46)
[2021-11-26 10:59] LABS: Albumin 3.9 g/dL (3.4-5.0); Bilirubin Direct 0.2 mg/dL (0-0.2); Bilirubin Total 0.5 mg/dL (0.2-1.0); Potassium 4.2 mmol/L (3.5-5.1); Protein, Total 7.5 g/dL (6.4-8.2)
[2021-11-26] MEDS ORDERED: MEPERIDINE HCL 25 MG/ML SYR ONE ×3 (11:16→13:47)
--- NOTE | 2021-11-26 11:20 | RAD REPORT ---
EXAM DESCRIPTION: CTStone Protocol - 11/26/2021 11:07 am CLINICAL HISTORY: Left flank pain COMPARISON: Stone Protocol dated 10/14/2021; Abdomen Pelvis W Contrast dated 10/14/2020; Abdomen Pelvis W Contrast dated 07/20/2020; Abdomen Pelvis W/Wo Contrast dated 10/17/2017 TECHNIQUE: CT of the abdomen and pelvis was performed. All CT scans are performed using dose optimization technique as appropriate and may include automated exposure control or mA/KV adjustment according to patient size. FINDINGS: Lower chest: No acute abnormality. Liver: Hepatic steatosis Biliary: No biliary ductal dilatation. Stomach: No significant focal abnormality. Duodenum: No significant focal abnormality. Pancreas: No significant abnormality. Spleen: No significant abnormality. Adrenal: No suspicious lesions. Kidney/ureter: No hydronephrosis. Bilateral nephrolithiasis. Mild left-sided hydroureteronephrosis se condary to a 4 mm stone at the left UVJ. Retroperitoneum: No retroperitoneal adenopathy. Vascular: No aneurysm. Bowel: Diverticulosis. No evidence of acute diverticulitis.. Peritoneum: Small fat containing left inguinal hernia. Bladder: Grossly unremarkable. Reproductive: No adnexal masses. Bones: No acute fracture. Left hip arthroplasty. Other: n/a IMPRESSION: Mild left-sided hydroureteronephrosis secondary to a 4 mm stone at the left UVJ. This co uld represent either migration of the ureteral stone identified on the CT from 10/14/2021 versus a ne w stone
[2021-11-26] MEDS ORDERED: NA CHLORIDE 0.9% 1,000 ML ONE (11:52)
[2021-11-26] MEDS ORDERED: HYDROCODONE/APAP 10/325 TAB ONE (11:52)
--- NOTE | 2021-11-26 13:28 | ER ---
Nurse's Notes [facility] Name: Bradly Padron Age: 66 yrs Sex: Male : 1955 Arrival Date: 11/26/2021 Time: 10:15 Bed 4 Private MD: Lenin Maguire B Diagnosis: Unspecified renal colic;Kidney Stone/ Calculus in urethra-Left UVJ stone, 4 mm Presentation: 11/26 10:19 Chief complaint: Patient states: Left flank pain, radiates to groin x 45 min., hx of jl7 kidney stones 2 months ago, PCP said to come here. Coronavirus screen: Vaccine status: Patient reports receiving the 2nd dose of the covid vaccine. Moderna At this time, the client does not indicate any symptoms associated with coronavirus-19. Ebola Screen: No symptoms or risks identified at this time. Initial Sepsis Screen: Does the patient meet any 2 criteria? No. Patient's initial sepsis screen is negative. Does the patient have a suspected source of infection? No. Patient's initial sepsis screen is negative. Risk Assessment: Do you want to hurt yourself or someone else? Patient reports no desire to harm self or others. Onset of symptoms was November 26, 2021. 10:19 Method Of Arrival: Ambulatory 7 10:19 Acuity: MARIA E 3 jl7 Triage Assessment: 10:21 General: Appears in no apparent distress. uncomfortable, Behavior is calm, cooperative, jl7 appropriate for age. Pain: Complains of pain in left flank Pain currently is 8 out of 10 on a pain scale. GI: Reports nausea. Historical: - Allergies: 10:21 No Known Allergies; jl7 - Home Meds: 10:21 Lotrel 5-40 mg Oral cap 1 cap once daily for Hypertension [Active]; jl7 - PMHx: 10:21 Diverticulitis; GERD; Hypertension; jl7 - PSHx: 10:21 Lithotripsy; neck; Shoulder; jl7 - Immunization history:: Client reports receiving the 2nd dose of the Covid vaccine. - Social history:: Smoking status: Patient denies any tobacco usage or history of. Screenin:41 Abuse screen: Denies threats or abuse. Nutritional screening: No deficits noted. ll1 Tuberculosis screening: No symptoms or risk factors identified. Fall Risk IV access (20 points). Total Sanchez Fall Scale indicates No Risk (0-24 pts). Assessment: 10:48 Reassessment: No changes from previously documented assessment. Patient and/or family ll1 updated on plan of care and expected duration. Pain level reassessed. Patient is alert, oriented x 3, equal unlabored respirations, skin warm/dry/pink. 11:45 Reassessment: No changes from previously documented assessment. Patient and/or family ll1 updated on plan of care and expected duration. Pain level reassessed. Patient is alert, oriented x 3, equal unlabored respirations, skin warm/dry/pink. 11:57 GI: Bowel sounds present X 4 quads. Abd is soft and non tender X 4 quads. ll1 12:45 Reassessment: No changes from previously documented assessment. Patient and/or family ll1 updated on plan of care and expected duration. Pain level reassessed. Patient is alert, oriented x 3, equal unlabored respirations, skin warm/dry/pink. 13:45 Reassessment: No changes from previously documented assessment. Patient and/or family ll1 updated on plan of care and expected duration. Pain level reassessed. Patient is alert, oriented x 3, equal unlabored respirations, skin warm/dry/pink. Vital Signs: 10:19 BP 153 / 85; Pulse 72; Resp 15; Temp 97.8; Pulse Ox 100% ; Weight 95.25 kg; Height 5 jl7 ft. 8 in. (172.72 cm); Pain 8/10; 11:20 BP 143 / 73; Pulse 61; Resp 16; ll1 11:57 BP 120 / 70; Pulse 57; Resp 16; ll1 14:00 BP 119 / 72; Pulse 56; Resp 15; Pulse Ox 100% ; Pain 2/10; ll1 10:19 Body Mass Index 31.93 (95.25 kg, 172.72 cm) jl7 ED Course: 10:15 Patient arrived in ED. as 10:15 Lenin Maguire MD is Private Physician. as 10:21 Triage completed. jl7 10:21 Arm band placed on right wrist. jl7 10:23 Arielle Tidwell RN is Primary Nurse. ll1 10:24 Patient placed in an exam room, on a stretcher. ll1 10:28 Surinder Dick MD is Attending Physician. kdr 10:33 Inserted saline lock: 20 gauge in right antecubital area, using aseptic technique. ll1 Blood collected. 10:41 Patient has correct armband on for positive identification. Bed in low position. Call ll1 light in reach. Side rails up X 1. Cardiac monitoring not applicable on this patient. 10:41 No provider procedures requiring assistance completed. ll1 11:07 CT Stone Protocol In Process Unspecified. EDMS 13:26 Lenin Maguire MD is Referral Physician. kdr 13:26 Zen Yepez MD is Referral Physician. kdr 14:00 IV discontinued, intact, bleeding controlled, No redness/swelling at site. Pressure ll1 dressing applied. Administered Medications: 10:48 Drug: morphine 4 mg Route: IVP; Site: right antecubital; ll1 11:19 Follow up: Response: No adverse reaction; Pain is decreased; RASS: Alert and Calm (0) ll1 10:48 Drug: Zofran (Ondansetron) 4 mg Route: IVP; Site: right antecubital; ll1 11:19 Follow up: Response: No adverse reaction ll1 11:19 Drug: Demerol (meperidine) 25 mg {Note: rass 0. Pain 8/10.} Route: IVP; Site: right ll1 antecubital; 11:56 Follow up: Response: No adverse reaction; Pain is decreased; RASS: Alert and Calm (0) ll1 11:56 Drug: Demerol (meperidine) 25 mg Route: IVP; Site: right antecubital; ll1 13:47 Follow up: Response: No adverse reaction ll1 11:56 Drug: [place] (HYDROcodone-acetaminophen) 10 mg-325 mg 1 tabs {Note: rass 0. Pain 5/10.} ll1 Route: PO; 13:47 Follow up: Response: No adverse reaction ll1 11:56 Drug: NS 0.9% 1000 ml Route: IV; Rate: 1 bolus; Site: right antecubital; ll1 13:47 Follow up: Response: No adverse reaction; IV Status: Completed infusion; IV Intake: ll1 1000ml 13:47 Drug: Demerol (meperidine) 25 mg {Note: rass 0, pain 3/10.} Route: IVP; Site: right ll1 antecubital; 14:09 Follow up: Response: No adverse reaction ll1 Intake: 13:47 IV: 1000ml; Total: 1000ml. ll1 Outcome: 13:27 Discharge ordered by . kdr 14:02 Patient left the ED. ll1 14:02 Discharged to home ambulatory. ll1 14:02 Condition: stable 14:02 Discharge instructions given to patient, Instructed on discharge instructions, follow up and referral plans. no drinking with medication, no driving heavy equipment, medication usage, Demonstrated understanding of instructions, follow-up care, medications, Prescriptions given X x5 Signatures: Dispatcher [employer] EDMS Surinder Dick MD MD kdr Mary Espinoza Jahala RN RN jl7 Arielle Tidwell RN RN ll1
--- NOTE | 2021-11-26 13:28 | EDPHYS ---
[facility] Name: Bradly Padron Age: 66 yrs Sex: Male : 1955 Arrival Date: 11/26/2021 Time: 10:15 Bed 4 Private MD: Lenin Maguire B ED Physician Surinder Dick HPI: 11/26 12:05 This 66 yrs old Male presents to ER via Ambulatory with complaints of Possible Kidney kdr Stone. 12:05 Onset: The symptoms/episode began/occurred suddenly, 2 hour(s) ago. The symptoms kdr radiate to left back, the left flank. Associated signs and symptoms: Pertinent positives: nausea, Pertinent negatives: chest pain, constipation, palpitations, shortness of breath, testicular pain, vomiting blood. The symptoms are described as crampy, intermittent, steady, vague. Modifying factors: The symptoms are alleviated by nothing, the symptoms are aggravated by walking. Severity of pain: At its worst the pain was mild moderate just prior to arrival, in the emergency department the pain is unchanged. The patient has not experienced similar symptoms in the past. The patient has not recently seen a physician. Historical: - Allergies: 10:21 No Known Allergies; jl7 - Home Meds: 10:21 Lotrel 5-40 mg Oral cap 1 cap once daily for Hypertension [Active]; jl7 - PMHx: 10:21 Diverticulitis; GERD; Hypertension; jl7 - PSHx: 10:21 Lithotripsy; neck; Shoulder; jl7 - Immunization history:: Client reports receiving the 2nd dose of the Covid vaccine. - Social history:: Smoking status: Patient denies any tobacco usage or history of. ROS: 12:05 Constitutional: Negative for fever, chills, and weight loss, Eyes: Negative for injury, kdr pain, redness, and discharge, Neck: Negative for injury, pain, and swelling, Cardiovascular: Negative for chest pain, palpitations, and edema, Respiratory: Negative for shortness of breath, cough, wheezing, and pleuritic chest pain, : Negative for injury, bleeding, discharge, and swelling, MS/Extremity: Negative for injury and deformity, Skin: Negative for injury, rash, and discoloration, Neuro: Negative for headache, weakness, numbness, tingling, and seizure activity. Psych: Negative for depression, anxiety, suicide ideation, homicidal ideation, and hallucinations, Allergy/Immunology: Negative for hives, rash, and allergies, Endocrine: Negative for neck swelling, polydipsia, polyuria, polyphagia, and marked weight changes, Hematologic/Lymphatic: Negative for swollen nodes, abnormal bleeding, and unusual bruising. Exam: 12:25 Constitutional: This is a well developed, well nourished patient who is awake, alert, kdr and in mild distress. Head/Face: Normocephalic, atraumatic. Eyes: Pupils equal round and reactive to light, extra-ocular motions intact. Lids and lashes normal. Conjunctiva and sclera are non-icteric and not injected. Cornea within normal limits. Periorbital areas with no swelling, redness, or edema. Neck: Trachea midline, no thyromegaly or masses palpated, and no cervical lymphadenopathy. Supple, full range of motion without nuchal rigidity, or vertebral point tenderness. No Meningismus. Chest/axilla: Normal chest wall appearance and motion. Nontender with no deformity. No lesions are appreciated. Cardiovascular: Regular rate and rhythm with a normal S1 and S2. No gallops, murmurs, or rubs. Normal PMI, no JVD. No pulse deficits. Respiratory: Lungs have equal breath sounds bilaterally, clear to auscultation and percussion. No rales, rhonchi or wheezes noted. No increased work of breathing, no retractions or nasal flaring. Skin: Warm, dry with normal turgor. Normal color with no rashes, no lesions, and no evidence of cellulitis. MS/ Extremity: Pulses equal, no cyanosis. Neurovascular intact. Full, normal range of motion. Neuro: Awake and alert, GCS 15, oriented to person, place, time, and situation. Cranial nerves II-XII grossly intact. Motor strength 5/5 in all extremities. Sensory grossly intact. Cerebellar exam normal. Normal gait. Psych: Awake, alert, with orientation to person, place and time. Behavior, mood, and affect are within normal limits. 12:25 Abdomen/GI: Inspection: obese Bowel sounds: Palpation: soft, mild abdominal tenderness, in the posterior aspect of right lateral abdomen and left upper quadrant. Vital Signs: 10:19 BP 153 / 85; Pulse 72; Resp 15; Temp 97.8; Pulse Ox 100% ; Weight 95.25 kg; Height 5 jl7 ft. 8 in. (172.72 cm); Pain 8/10; 11:20 BP 143 / 73; Pulse 61; Resp 16; ll1 11:57 BP 120 / 70; Pulse 57; Resp 16; ll1 14:00 BP 119 / 72; Pulse 56; Resp 15; Pulse Ox 100% ; Pain 2/10; ll1 10:19 Body Mass Index 31.93 (95.25 kg, 172.72 cm) 7 MDM: 12:25 Data reviewed: vital signs, nurses notes, lab test result(s), radiologic studies. kdr Counseling: I had a detailed discussion with the patient and/or guardian regarding: the historical points, exam findings, and any diagnostic results supporting the discharge/admit diagnosis, lab results, radiology results, the need for outpatient follow up. 13:27 Patient medically screened. kdr 11/26 10:30 Order name: Urine Dipstick-Ancillary; Complete Time: 11:30 EDMS 11/26 10:31 Order name: Basic Metabolic Panel; Complete Time: 11:30 kdr 11/26 10:31 Order name: CBC with Diff; Complete Time: 11:30 kdr 11/26 10:31 Order name: Hepatic Function; Complete Time: 11:30 kdr 11/26 10:31 Order name: Lipase; Complete Time: 11:30 kdr 11/26 10:42 Order name: CT Stone Protocol; Complete Time: 11:30 kdr 11/26 10:31 Order name: IV Saline Lock; Complete Time: 10:33 kdr 11/26 10:31 Order name: Labs collected and sent; Complete Time: 10:33 kdr 11/26 10:31 Order name: Urine Dipstick-Ancillary (obtain specimen); Complete Time: 10:33 kdr Administered Medications: 10:48 Drug: morphine 4 mg Route: IVP; Site: right antecubital; ll1 11:19 Follow up: Response: No adverse reaction; Pain is decreased; RASS: Alert and Calm (0) ll1 10:48 Drug: Zofran (Ondansetron) 4 mg Route: IVP; Site: right antecubital; ll1 11:19 Follow up: Response: No adverse reaction ll1 11:19 Drug: Demerol (meperidine) 25 mg {Note: rass 0. Pain 8/10.} Route: IVP; Site: right ll1 antecubital; 11:56 Follow up: Response: No adverse reaction; Pain is decreased; RASS: Alert and Calm (0) ll1 11:56 Drug: Demerol (meperidine) 25 mg Route: IVP; Site: right antecubital; ll1 13:47 Follow up: Response: No adverse reaction ll1 11:56 Drug: [place] (HYDROcodone-acetaminophen) 10 mg-325 mg 1 tabs {Note: rass 0. Pain 5/10.} ll1 Route: PO; 13:47 Follow up: Response: No adverse reaction ll1 11:56 Drug: NS 0.9% 1000 ml Route: IV; Rate: 1 bolus; Site: right antecubital; ll1 13:47 Follow up: Response: No adverse reaction; IV Status: Completed infusion; IV Intake: ll1 1000ml 13:47 Drug: Demerol (meperidine) 25 mg {Note: rass 0, pain 3/10.} Route: IVP; Site: right ll1 antecubital; 14:09 Follow up: Response: No adverse reaction ll1 Disposition Summary: 11/26/21 13:27 Discharge Ordered Location: Home kdr Problem: new kdr Symptoms: have improved kdr Condition: Stable kdr Diagnosis - Unspecified renal colic kdr - Kidney Stone/ Calculus in urethra - Left UVJ stone, 4 mm kdr Followup: kdr - With: Lenin Maguire MD - When: 2 - 3 days - Reason: If symptoms return, Further diagnostic work-up, Recheck today's complaints, Continuance of care, Re-evaluation by your physician Followup: kdr - With: Zen Yepez MD - When: 2 - 3 days - Reason: If symptoms return, Further diagnostic work-up, Recheck today's complaints, Continuance of care, Re-evaluation by your physician Discharge Instructions: - Discharge Summary Sheet kdr - Renal Colic, [id number] kdr - Kidney Stones, [id number] kdr Forms: - Medication Reconciliation Form kdr - Thank You Letter kdr - Antibiotic Education kdr - Prescription Opioid Use kdr Prescriptions: - Flomax 0.4 mg Oral capsule - take 1 capsule by ORAL route once daily 1/2 hour following the same meal each kdr day; 12 capsule; Refills: 0, Product Selection Permitted - Zofran 4 mg Oral Tablet - take 1 tablet by ORAL route every 12 hours As needed; 6 tablet; Refills: 0, kdr Product Selection Permitted - Tramadol 50 mg Oral Tablet - take 1 tablet by ORAL route every 8 hours As needed as needed; 16 tablet; kdr Refills: 0, Product Selection Permitted - Bactrim DS 800-160 mg Oral Tablet - take 1 tablet by ORAL route every 12 hours for 3 days; 6 tablet; Refills: 0, kdr Product Selection Permitted Signatures: Dispatcher [employer] Surinder Lieberman MD MD kdr Leal, Jahala, RN RN jl7 Arielle Tidwell RN RN ll1
[2021-11-26 14:33] VITALS: TEMP 97.8; O2SAT 100
[2021-11-26 14:35] VITALS: BP 120/70
== END 2021-11-26 14:02 | disposition home or self-care (01) ==
LOC: ER 10:14
DX: N20.2 Calculus of kidney with calculus of ureter (principal); N23 Unspecified renal colic; I10 Essential (primary) hypertension
CPT/HCPCS: 96361; 85025; 80048; 36415; 80076; 81003; 83690; 76377; 74176; 96375; 96374; 99284; J2175 ×3; J7030; J2405

== ENCOUNTER 2022-09-13 09:01 | Emergency (ER) | payer OTHER ==
--- OUTSIDE RECORDS SUMMARY | 2022-09-13 09:05 | XMS REPORT | Continuity of Care Document ---
:1955 Author Organization [facility] t Address [address] [place] [address] Care Team Providers Name Role Phone Lenin Maguire MD Primary Care Physician Jose Luis Smith MD Attending Clinician Payers Payer Name Policy Type Policy Number Effective Date Expiration Date S ource Problems This patient has no known problems. Allergies, Adverse Reactions, Alerts This patient has no known allergies or adverse reactions. Social History Social Habit Start Date Stop Date Quantity Comments Source Sex Assigned At [birth year] [facility] 00:00:00 00:00:00 Smoking Status Start Date Stop Date Source Tobacco smoking consumption unknown [facility] Medications This patient has no known medications. Procedures Procedure Date / Time Performed Performing Clinician Richard MCKEONB KIDNEY URETER 2021-10-19 18:35:47 Jose Luis Smith [facility] BLADDER Plan of Care Planned Activity Planned Date Details Comments Source Future Scheduled 2022-08-25 HEPATITIS B VACCINES [facility] Test 17:16:35 (1 of 3 - 3-dose series) [code = HEPATITIS B VACCINES (1 of 3 - 3-dose series)] Future Scheduled 2022-08-25 Hepatitis C screening [facility] Test 17:16:35 (procedure) [code = [id number]] Future Scheduled 2022-08-25 COLONOSCOPY SCREENING [facility] Test 17:16:35 [code = COLONOSCOPY SCREENING] Future Scheduled 2022-08-25 SHINGLES VACCINES (1 [facility] Test 17:16:35 of 2) [code = SHINGLES VACCINES (1 of 2)] Future Scheduled 2022-08-25 COVID-19 VACCINE (4 - Me [facility] Test 17:16:35 Booster for Moderna series) [code = COVID-19 VACCINE (4 - Booster for Moderna series)] Future Scheduled 2022-08-25 [facility]ACCINE [facility] 17:16:35 [code = INFLUENZA VACCINE] Future Scheduled 2022-08-25 65+ [facility]CCAL [facility] 17:16:35 VACCINE (1 - PCV) [code = 65+ PNEUMOCOCCAL VACCINE (1 - PCV)] Encounters Start End Encounter Admission Attending Care Care Encounter Source Date/Time Date/Time Type Type Clinicians Facility Department ID 2022-02-23 [facility] [id number] Common 08:48:05 [facility] 2022-06-29 2022-06-29 Outpatient AOSM A[facility] [id number] Denice 00:00:00 00:00:00 [id number] [facility] 2021-10-19 2021-10-19 [facility] SmithJose Luis 1.2.840.1 [id number] [facility] 12:24:29 23:59:[address] 3.430.2.7 Hospit a .3.041848 l .8 2021-10-19 2021-10-19 Travel 1.2.840.1 [id number] [facility] 00:00:00 00:00:[address] 3.430.2.7 0.2.7.3.698 Ho spita .3.012339 084.8 l .8 2021-10-19 2021-10-19 Transcribe Jose Luis Smith 1.2.840.1 [id number] [facility] 00:00:00 00:00:[address] 3.430.2.7 Hospit a .3.481178 l .8 2021-10-19 2021-10-19 Outpatient [facility] [id number] [place] 00:00:00 00:00:[address] 2020-07-24 2020-07-24 Outpatient JOSE LUIS SMITH [facility] [id number] [place] 00:00:00 00:00:[address] Results This patient has no known results.
[2022-09-13] MEDS ORDERED: ONDANSETRON 4 MG/2 ML VIAL ONE (09:29)
[2022-09-13] MEDS ORDERED: MORPHINE 4 MG/ML SYR ONE (09:29)
[2022-09-13] MEDS ORDERED: NA CHLORIDE 0.9% 1,000 ML ONE (09:29)
[2022-09-13 09:51] LABS: Absolute Lymphocytes (CBC) 1.4 K/uL (0.7-4.9); Albumin 3.6 g/dL (3.4-5.0); Bilirubin Total 0.5 mg/dL (0.2-1.0); Hematocrit 45.8 % (39.6-49.0); Lymphocytes % 24.1 % (15.3-44.8); MCV 86.5 fL (80-100); MPV 7.9 fL (7.6-11.3); Potassium 3.8 mmol/L (3.5-5.1); Protein, Total 6.7 g/dL (6.4-8.2); RBC Red Blood Cell Count 5.29 M/uL (4.33-5.43)
--- NOTE | 2022-09-13 10:08 | RAD REPORT ---
EXAM DESCRIPTION: CT - Stone Protocol - 09/13/2022 9:44 am CLINICAL HISTORY: Abdominal pain. COMPARISON: November 2021 TECHNIQUE: Computed axial tomography of the abdomen pelvis was obtained without oral or IV contrast. Lack of IV and oral contrast limits evaluation of solid organs, appendix, bowel, and vessels. Vale l reformatted images were obtained and reviewed. All CT scans are performed using dose optimization technique as appropriate and may include automated exposure control or mA/KV adjustment according to patient size. FINDINGS: Small bilateral renal calculi. Mild to moderate left hydronephrosis. 3 millimeter calculus proximal left ureter. Fatty liver The Spleen, pancreas and adrenals appear grossly normal There is no evidence of diverticulitis. The appendix appears normal A left hip arthroplasty IMPRESSION: 3 millimeter calculus proximal left ureter resulting in mild to moderate left hydronephr osis
[2022-09-13 10:32] LABS: Urine Blood 3+ (Negative); Urine Glucose Negative (Negative); Urine Protein Negative (Negative); Urine pH 6.5 (5.0-7.0)
[2022-09-13] MEDS ORDERED: MAGNESIUM SULFATE 1 gm IVPB 1 GM/100 ML BAG IV ONE (10:42)
[2022-09-13] MEDS ORDERED: KETOROLAC 30 MG/ML INJ ONE (10:42)
[2022-09-13] MEDS ORDERED: TAMSULOSIN 0.4 MG SR CAP ONE (10:42)
--- NOTE | 2022-09-13 10:59 | EDPHYS ---
Physician Documentation [facility] Name: Bradly Padron Age: 67 yrs Sex: Male : 1955 Arrival Date: 09/13/2022 Time: 09:04 Bed 13 Private MD: Lenin Maguire B ED Physician Jordan Crook HPI: 09/13 09:10 This 67 yrs old Male presents to ER via Ambulatory with complaints of Abdominal Pain, kb Possible Kidney Stone. 09:10 The patient presents with abdominal pain in the left lower quadrant. Onset: The kb symptoms/episode began/occurred this morning, at 06:30. The symptoms do not radiate. Associated signs and symptoms: none. Pertinent negatives: nausea, vomiting, and diarrhea, fever, hematuria. The symptoms are described as constant. Modifying factors: The symptoms are alleviated by nothing, the symptoms are aggravated by pressure. Severity of pain: At its worst the pain was moderate in the emergency department the pain is unchanged. The patient has not experienced similar symptoms in the past. The patient has not recently seen a physician. Pt reports sudden onset LLQ pain that began at 0630. Denies urinary symptoms, n/v/d, fever. Reports history of kidney stones and diverticulitis. Had colonoscopy done on by Dr Christianson. Historical: - Allergies: 09:09 No Known Allergies; iw - PMHx: 09:09 Diverticulitis; GERD; Hypertension; iw - PSHx: 09:09 Lithotripsy; neck; Shoulder; iw - Immunization history:: Adult Immunizations unknown. - Social history:: Smoking status: Patient denies any tobacco usage or history of. ROS: 09:10 Constitutional: Negative for fever, chills, and weight loss. kb 09:10 Abdomen/GI: Positive for abdominal pain, Negative for nausea, vomiting, and diarrhea. 09:10 All other systems are negative. Exam: 09:09 Constitutional: This is a well developed, well nourished patient who is awake, alert, kb and in no acute distress. Head/Face: Normocephalic, atraumatic. ENT: Moist Mucous membranes Cardiovascular: Regular rate and rhythm with a normal S1 and S2. No gallops, murmurs, or rubs. No pulse deficits. Respiratory: Respirations even and unlabored. No increased work of breathing. Talking in full sentences Back: No spinal tenderness. No costovertebral tenderness. Full range of motion. Skin: Warm, dry with normal turgor. Normal color. MS/ Extremity: Pulses equal, no cyanosis. Neurovascular intact. Full, normal range of motion. Neuro: Awake and alert, GCS 15, oriented to person, place, time, and situation. Moves all extremities. Normal gait. Psych: Awake, alert, with orientation to person, place and time. Behavior, mood, and affect are within normal limits. 09:09 Abdomen/GI: Inspection: abdomen appears normal, Bowel sounds: normal, Palpation: soft, in all quadrants, moderate abdominal tenderness, in the left lower quadrant. Vital Signs: 09:09 BP 123 / 98; Pulse 82; Resp 16; Temp 98.2; Pulse Ox 99% on R/A; Weight 93.44 kg; Height iw 5 ft. 8 in. (172.72 cm); Pain 10/10; 09:20 BP 140 / 72; Pulse 73; Resp 18; Pulse Ox 100% ; ko1 10:40 BP 134 / 80; Pulse 58; Pulse Ox 100% ; ko1 11:00 BP 130 / 63; Pulse 52; Pulse Ox 99% ; ko1 09:09 Body Mass Index 31.32 (93.44 kg, 172.72 cm) iw MDM: 09:09 Patient medically screened. kb 09:09 Data reviewed: vital signs, nurses notes. Data interpreted: Pulse oximetry: on room air kb is 99 %. Interpretation: normal. 10:58 Counseling: I had a detailed discussion with the patient and/or guardian regarding: the kb historical points, exam findings, and any diagnostic results supporting the discharge/admit diagnosis, lab results, radiology results, the need for outpatient follow up, a family practitioner, to return to the emergency department if symptoms worsen or persist or if there are any questions or concerns that arise at home. Response to treatment: the patient's symptoms have markedly improved after treatment. 09/13 09:09 Order name: CBC with Diff; Complete Time: 10:05 kb 09/13 09:09 Order name: CMP; Complete Time: 09:52 kb 09/13 09:09 Order name: Lipase; Complete Time: 09:52 kb 09/13 09:09 Order name: CT Stone Protocol; Complete Time: 10:15 kb 09/13 10:32 Order name: Urine Dipstick-Ancillary; Complete Time: 10:49 EDMS 09/13 09:09 Order name: IV Saline Lock; Complete Time: 09:48 kb 09/13 09:09 Order name: Labs collected and sent; Complete Time: 09:48 kb 09/13 09:09 Order name: Urine Dipstick-Ancillary (obtain specimen); Complete Time: 10:39 kb Administered Medications: 09:33 Drug: Zofran (Ondansetron) 4 mg Route: IVP; Site: right antecubital; ko1 09:37 Drug: morphine 4 mg Route: IVP; Infused Over: 4 mins; Site: right antecubital; ko1 09:48 Drug: NS 0.9% 1000 ml Route: IV; Rate: 1 bolus; Site: right antecubital; ko1 10:46 Drug: Magnesium Sulfate 1 grams Route: IVPB; Infused Over: 1 hrs; Site: right ko1 antecubital; 10:46 Drug: Flomax (tamsulosin) 0.4 mg Route: PO; ko1 10:46 Drug: Ketorolac 15 mg Route: IVP; Site: right antecubital; ko1 Disposition: 16:54 Co-signature as Attending Physician, Jordan Crook MD I agree with the assessment and rt plan of care. Disposition Summary: 09/13/22 10:59 Discharge Ordered Location: Home kb Condition: Stable kb Diagnosis - Calculus of ureter kb Followup: kb - With: Emergency Department - When: As needed - Reason: Worsening of condition Followup: kb - With: Private Physician - When: 2 - 3 days - Reason: Recheck today's complaints, Continuance of care, Re-evaluation by your physician Discharge Instructions: - Discharge Summary Sheet kb - Kidney Stones, Icrw-cr-Azae kb - Dietary Guidelines to Help Prevent Kidney Stones kb Forms: - Medication Reconciliation Form kb - Thank You Letter kb - Antibiotic Education kb - Prescription Opioid Use kb Prescriptions: - Flomax 0.4 mg Oral capsule - take 1 capsule by ORAL route once daily; 10 capsule; Refills: 0, Product kb Selection Permitted - Augmentin 875-125 mg Oral Tablet - take 1 tablet by ORAL route every 12 hours for 10 days; 20 tablet; Refills: 0, kb Product Selection Permitted - Zofran 4 mg Oral Tablet - take 1 tablet by ORAL route every 6 hours As needed; 20 tablet; Refills: 0, kb Product Selection Permitted - Diclofenac Sodium 75 mg Oral tablet,delayed release (DR/EC) - take 1 tablet by ORAL route 2 times per day As needed; 30 tablet; Refills: 0, kb Product Selection Permitted Signatures: Dispatcher [employer] Bre Fish FNP-C KATHY-Kylie Sierra RN RN iw Cecy Julio RN RN ko1 Jordan Crook MD MD rt
--- NOTE | 2022-09-13 10:59 | ER ---
Nurse's Notes [facility] Name: Bradly Padron Age: 67 yrs Sex: Male : 1955 Arrival Date: 09/13/2022 Time: 09:04 Bed 13 Private MD: Lenin Maguire B Diagnosis: Calculus of ureter Presentation: 09/13 09:09 Chief complaint: Patient states: LLQ pain sudden onset at 0630. Coronavirus screen: At iw this time, the client does not indicate any symptoms associated with coronavirus-19. Ebola Screen: Patient negative for fever greater than or equal to 101.5 degrees Fahrenheit, and additional compatible Ebola Virus Disease symptoms Patient denies exposure to infectious person. Patient denies travel to an Ebola-affected area in the 21 days before illness onset. No symptoms or risks identified at this time. Initial Sepsis Screen: Does the patient meet any 2 criteria? No. Patient's initial sepsis screen is negative. Does the patient have a suspected source of infection? No. Patient's initial sepsis screen is negative. Risk Assessment: Do you want to hurt yourself or someone else? Patient reports no desire to harm self or others. Onset of symptoms was September 13, 2022. 09:09 Method Of Arrival: Ambulatory iw 09:09 Acuity: MARIA E 3 iw Historical: - Allergies: 09:09 No Known Allergies; iw - PMHx: 09:09 Diverticulitis; GERD; Hypertension; iw - PSHx: 09:09 Lithotripsy; neck; Shoulder; iw - Immunization history:: Adult Immunizations unknown. - Social history:: Smoking status: Patient denies any tobacco usage or history of. Screenin:30 Abuse screen: Denies threats or abuse. Denies injuries from another. Nutritional ko1 screening: No deficits noted. Tuberculosis screening: No symptoms or risk factors identified. Fall Risk None identified. Assessment: 09:30 General: Appears in no apparent distress. uncomfortable, Behavior is calm, cooperative, ko1 appropriate for age. Pain: Complains of pain in left lower quadrant. Neuro: No deficits noted. Cardiovascular: No deficits noted. Respiratory: No deficits noted. GI: Bowel sounds present X 4 quads. Abd is soft and non tender X 4 quads. : No deficits noted. EENT: No deficits noted. Derm: No deficits noted. Musculoskeletal: No deficits noted. Vital Signs: 09:09 BP 123 / 98; Pulse 82; Resp 16; Temp 98.2; Pulse Ox 99% on R/A; Weight 93.44 kg; Height iw 5 ft. 8 in. (172.72 cm); Pain 10/10; 09:20 BP 140 / 72; Pulse 73; Resp 18; Pulse Ox 100% ; ko1 10:40 BP 134 / 80; Pulse 58; Pulse Ox 100% ; ko1 11:00 BP 130 / 63; Pulse 52; Pulse Ox 99% ; ko1 09:09 Body Mass Index 31.32 (93.44 kg, 172.72 cm) iw ED Course: 09:04 Patient arrived in ED. as 09:04 Lenin Maguire MD is Private Physician. as 09:04 Bre Abbott FNP-C [facility] kb 09:04 Jordan Crook MD is Attending Physician. kb 09:09 Triage completed. iw 09:10 Arm band placed on. iw 09:24 Cecy Julio, EVA is Primary Nurse. ko1 09:30 Patient has correct armband on for positive identification. Bed in low position. Call ko1 light in reach. Side rails up X 1. Client placed on continuous cardiac and pulse oximetry monitoring. NIBP monitoring applied. quality assurance monitor body on. 09:30 No provider procedures requiring assistance completed. Inserted saline lock: 20 gauge ko1 in right antecubital area, using aseptic technique. Blood collected. 09:44 CT Stone Protocol In Process Unspecified. EDMS 11:25 IV discontinued, intact, bleeding controlled, No redness/swelling at site. Pressure ko1 dressing applied. Administered Medications: 09:33 Drug: Zofran (Ondansetron) 4 mg Route: IVP; Site: right antecubital; ko1 09:37 Drug: morphine 4 mg Route: IVP; Infused Over: 4 mins; Site: right antecubital; ko1 09:48 Drug: NS 0.9% 1000 ml Route: IV; Rate: 1 bolus; Site: right antecubital; ko1 10:46 Drug: Magnesium Sulfate 1 grams Route: IVPB; Infused Over: 1 hrs; Site: right ko1 antecubital; 10:46 Drug: Flomax (tamsulosin) 0.4 mg Route: PO; ko1 10:46 Drug: Ketorolac 15 mg Route: IVP; Site: right antecubital; ko1 Medication: 11:00 VIS not applicable for this client. ko1 Outcome: 10:59 Discharge ordered by . heidi 11:25 Discharged to home ambulatory. ko1 11:25 Condition: good 11:25 Discharge instructions given to patient, Instructed on discharge instructions, follow up and referral plans. medication usage, urine strainer, Demonstrated understanding of instructions, follow-up care, medications, Prescriptions given X 4. 11:31 Patient left the ED. ko1 Signatures: Dispatcher [employer] EDMS Bre Abbott, LAWN SERVICE MANAGER-C LAWN SERVICE MANAGER-Mary Haile Irene, EVA RN Cecy Alvarado RN RN ko1
[2022-09-13 12:04] VITALS: TEMP 98.2
[2022-09-13 12:07] VITALS: BP 130/63; O2SAT 99
== END 2022-09-13 11:31 | disposition home or self-care (01) ==
LOC: ER 09:01
DX: N20.1 Calculus of ureter (principal); I10 Essential (primary) hypertension
CPT/HCPCS: 85025; 36415; 81003; 83690; 80053; 76377; 74176; J3475; J7030; J2405

== ENCOUNTER 2022-10-12 14:13 | Inpatient (IN) | payer OTHER ==
--- OUTSIDE RECORDS SUMMARY | 2022-10-12 14:17 | XMS REPORT | Continuity of Care Document ---
:1955 Author Organization [facility] t Address [address] [place] [address] Care Team Providers Name Role Phone Lenin Maguire MD Primary Care Physician Kaitlin POSADA, Jose Luis Salinas Attending Clinician Payers Payer Name Policy Type Policy Number Effective Date Expiration Date S ource Problems This patient has no known problems. Allergies, Adverse Reactions, Alerts This patient has no known allergies or adverse reactions. Social History Social Habit Start Date Stop Date Quantity Comments Source Sex Assigned At [birth year] [facility] 00:00:00 00:00:00 Smoking Status Start Date Stop Date Source Tobacco smoking consumption unknown [facility] Medications This patient has no known medications. Procedures Procedure Date / Time Performed Performing Clinician Carroll long XR KUB KIDNEY URETER 2021-10-19 18:35:47 Jose Luis Smith [facility] BLADDER Plan of Care Planned Activity Planned Date Details Comments Source Future Scheduled 2022-10-06 Hepatitis C screening [facility] Test 10:45:55 (procedure) [code = [id number]] Future Scheduled 2022-10-06 COLONOSCOPY SCREENING [facility] Test 10:45:55 [code = COLONOSCOPY SCREENING] Future Scheduled 2022-10-06 SHINGLES VACCINES (1 Met [facility] Test 10:45:55 of 2) [code = SHINGLES VACCINES (1 of 2)] Future Scheduled 2022-10-06 COVID-19 VACCINE (4 - [facility] Test 10:45:55 Booster for Moderna series) [code = COVID-19 VACCINE (4 - Booster for Moderna series)] Future Scheduled 2022-10-06 INFLUENZA VACCINE Method [facility] Test 10:45:55 [code = INFLUENZA VACCINE] Future Scheduled 2022-10-06 65+ PNEUMOCOCCAL Methodi [facility] Test 10:45:55 VACCINE (1 - PCV) [code = 65+ PNEUMOCOCCAL VACCINE (1 - PCV)] Future Scheduled 2022-08-25 HEPATITIS B VACCINES Met [facility] Test 17:16:35 (1 of 3 - 3-dose series) [code = HEPATITIS B VACCINES (1 of 3 - 3-dose series)] Future Scheduled 2022-08-25 Hepatitis C screening [facility] Test 17:16:35 (procedure) [code = [id number]] Future Scheduled 2022-08-25 COLONOSCOPY SCREENING [facility] Test 17:16:35 [code = COLONOSCOPY SCREENING] Future Scheduled 2022-08-25 SHINGLES VACCINES (1 Met [facility] Test 17:16:35 of 2) [code = SHINGLES VACCINES (1 of 2)] Future Scheduled 2022-08-25 COVID-19 VACCINE (4 - [facility] Test 17:16:35 Booster for Moderna series) [code = COVID-19 VACCINE (4 - Booster for Moderna series)] Future Scheduled 2022-08-25 INFLUENZA VACCINE Method [facility] Test 17:16:35 [code = INFLUENZA VACCINE] Future Scheduled 2022-08-25 65+ PNEUMOCOCCAL Methodi [facility] Test 17:16:35 VACCINE (1 - PCV) [code = 65+ PNEUMOCOCCAL VACCINE (1 - PCV)] Encounters Start End Encounter Admission Attending Care Care Encounter Source Date/Time Date/Time Type Type Clinicians Facility Department ID 2022-02-23 Outpatient [facility] [id number] Common 08:48:05 [facility] 2022-06-29 2022-06-29 Outpatient [facility] [id number] Denice 00:00:00 00:00:00 [id number] Orthop e dic Sports Medicin e 2021-10-19 2021-10-19 [facility] SmithJose Luis 1.2.840.1 [id number] Methodi 12:24:29 23:59:[address] 3.430.2.7 Hospit a .3.332808 l .8 2021-10-19 2021-10-19 [facility] Jose Luis Smtih 1.2.840.1 [id number] 2 [id number] Methodi 12:24:29 23:59:[address] 3.430.2.7 Hospit a .3.258086 l .8 2021-10-19 2021-10-19 Travel 1.2.840.1 [id number] Methodi 00:00:00 00:00:[address] 3.430.2.7 0.2.7.3.698 Ho spita .3.731034 084.8 l .8 2021-10-19 2021-10-19 Transcribe Jose Luis Smith 1.2.840.1 [id number] Methodi 00:00:00 00:00:[address] 3.430.2.7 Hospit a .3.913206 l .8 2021-10-19 2021-10-19 Travel 1.2.840.1 [id number] [id number] Methodi 00:00:00 00:00:[address] 3.430.2.7 0.2.7.3.698 Ho spita .3.169645 084.8 l .8 2021-10-19 2021-10-19 Transcribe Jose Luis Smith 1.2.840.1 [id number] Methodi 00:00:00 00:00:[address] 3.430.2.7 Hospit a .3.573419 l .8 2020-07-24 2020-07-24 Outpatient JOSE LUIS SMITH [facility] [id number] [place] 00:00:00 00:00:[address] Results This patient has no known results.
[2022-10-12 15:22] LABS: Urine Blood Negative (Negative); Urine Glucose Negative (Negative); Urine Protein Negative (Negative)
[2022-10-12] MEDS ORDERED: NA CHLORIDE 0.9% 1,000 ML ONE (15:28)
[2022-10-12] MEDS ORDERED: ONDANSETRON 4 MG/2 ML VIAL ONE (15:28)
[2022-10-12] MEDS ORDERED: MORPHINE 4 MG/ML SYR ONE ×2 (15:28→18:43)
[2022-10-12 15:34] LABS: Absolute Lymphocytes (CBC) 1.4 K/uL (0.7-4.9); Hematocrit 44.5 % (39.6-49.0); Lymphocytes % 20.1 % (15.3-44.8); MPV 7.2 fL (7.6-11.3); RBC Red Blood Cell Count 5.17 M/uL (4.33-5.43)
[2022-10-12 15:50] LABS: Albumin 3.5 g/dL (3.4-5.0); Bilirubin Total 0.6 mg/dL (0.2-1.0); Potassium 3.6 mmol/L (3.5-5.1); Protein, Total 7.3 g/dL (6.4-8.2)
[2022-10-12 15:52] LABS: Urine Bacteria None Seen /HPF (<20); Urine Mucus Slight /HPF (None Seen); Urine RBC <5 /HPF (None Seen)
--- NOTE | 2022-10-12 17:00 | RAD REPORT ---
EXAM DESCRIPTION: CT - Abdomen Pelvis W Contrast - 10/12/2022 4:45 pm CLINICAL HISTORY: Abdominal pain COMPARISON: 2019 TECHNIQUE: Computed axial tomography of the abdomen pelvis was obtained. 100 cc Isovue-300 was admin istered intravenously. Oral contrast was not requested which limits evaluation of bowel and appendix All CT scans are performed using dose optimization technique as appropriate and may include automated exposure control or mA/KV adjustment according to patient size. FINDINGS: Fatty liver The spleen, pancreas, adrenals unremarkable Tiny right renal cyst. Small left renal cyst. 2 millimeter calculus left kidney. Mild left hydronephrosis. 3 millimeter calc ulus proximal left ureter. Diverticula stem from the colon. Mild to moderate stranding adjacent to the proximal sigmoid colon. N o free air. No abscess Normal appendix IMPRESSION: 2 millimeter calculus proximal left ureter 1 resulting in mild left hydronephrosis. Mild to moderate sigmoid diverticulitis
[2022-10-12] MEDS ORDERED: CIPROFLOXACIN 400mg IV 400 MG/200 ML BAG IV ONE (17:13)
[2022-10-12] MEDS ORDERED: METRONIDAZOLE 500mg IVPB 500 MG/100 ML BAG IV ONE (17:13)
--- NOTE | 2022-10-12 17:16 | ER ---
Nurse's Notes [facility] Name: Bradly Padron Age: 67 yrs Sex: Male : 1955 Arrival Date: 10/12/2022 Time: 14:20 Bed 16 Private MD: Diagnosis: Diverticulitis of intestine, part unspecified, without perforation or abscess without bleeding;Other hydronephrosis Presentation: 10/12 14:52 Chief complaint: Patient states: lower abd pain that began yesterday, pt states "I aa5 think it's diverticulitis". Pt denies nausea/vomiting/diarrhea, reports fever yesterday. Coronavirus screen: At this time, the client does not indicate any symptoms associated with coronavirus-19. Ebola Screen: Patient denies travel to an Ebola-affected area in the 21 days before illness onset. Initial Sepsis Screen: Does the patient meet any 2 criteria? No. Patient's initial sepsis screen is negative. Does the patient have a suspected source of infection? No. Patient's initial sepsis screen is negative. Risk Assessment: Do you want to hurt yourself or someone else? Patient reports no desire to harm self or others. Onset of symptoms was October 11, 2022. 14:52 Acuity: MARIA E 3 aa5 14:52 Method Of Arrival: Ambulatory aa5 Triage Assessment: 15:00 General: Appears in no apparent distress. uncomfortable, Behavior is calm, cooperative, bp appropriate for age. Pain: Complains of pain in abdomen. EENT: No deficits noted. Neuro: No deficits noted. Cardiovascular: No deficits noted. Respiratory: No deficits noted. GI: Abdomen is non-distended, Abdomen is tender to palpation in right lower quadrant and left lower quadrant. : No signs and/or symptoms were reported regarding the genitourinary system. Derm: No deficits noted. Musculoskeletal: No deficits noted. Historical: - Allergies: 14:51 No Known Allergies; aa5 - PMHx: 14:51 Diverticulitis; GERD; Hypertension; aa5 - PSHx: 14:51 Lithotripsy; neck; Shoulder; aa5 - Immunization history:: Adult Immunizations unknown. - Social history:: Smoking status: Patient denies any tobacco usage or history of. Screenin:00 [facility] ED Fall Risk Assessment (Adult) History of falling in the last 3 months, bp including since admission No falls in past 3 months (0 pts). Abuse screen: Denies threats or abuse. Denies injuries from another. Nutritional screening: No deficits noted. Tuberculosis screening: No symptoms or risk factors identified. Assessment: 15:00 General: SEE TRIAGE NOTE. bp 15:43 Reassessment: No changes from previously documented assessment. Patient and/or family bp updated on plan of care and expected duration. Pain level reassessed. 16:56 Reassessment: No changes from previously documented assessment. Patient and/or family bp updated on plan of care and expected duration. Pain level reassessed. GI: Bowel sounds present X 4 quads. 21:24 Reassessment: Called the floor for report, nurse will call back. ke1 Vital Signs: 14:52 BP 144 / 86; Pulse 83; Resp 16 S; Temp 98.4(O); Pulse Ox 97% on R/A; Weight 92.53 kg aa5 (R); Height 5 ft. 8 in. (172.72 cm) (R); Pain 8/10; 15:42 BP 108 / 75; Pulse 70; Resp 16; Pulse Ox 95% ; bp 16:56 BP 119 / 71; Pulse 68; Resp 16; Pulse Ox 98% ; bp 21:30 BP 120 / 84; Pulse 64; Resp 17; Pulse Ox 95% ; Pain 0/10; ke1 14:52 Body Mass Index 31.02 (92.53 kg, 172.72 cm) 5 ED Course: 14:20 Patient arrived in ED. [facility] 14:37 [facility]ilin Rodriguez [facility]NP [facility] 14:37 Jordan Crook MD is Attending Physician. [facility] 14:51 Arm band placed on. aa5 14:53 Triage completed. aa5 14:55 Ashvin Hernandez, EVA is Primary Nurse. bp 15:00 Patient has correct armband on for positive identification. Bed in low position. Call bp light in reach. Side rails up X2. 15:27 Inserted saline lock: 20 gauge in right antecubital area, using aseptic technique. zm Blood collected. 15:28 CBC with Diff Sent. zm 15:28 CMP Sent. zm 15:28 Lipase Sent. zm 15:28 Urine Microscopic Only Sent. zm 16:47 CT Abd/Pelvis - IV Contrast Only In Process Unspecified. EDMS 17:14 Timbo, Bradly, MD is Hospitalizing Provider. jh7 19:57 SARS RAPID Sent. ke1 22:15 No provider procedures requiring assistance completed. Patient admitted, IV remains in ke1 place. Administered Medications: 15:15 Drug: NS 0.9% 1000 ml Route: IV; Rate: 1 bolus; Site: right antecubital; bp 16:57 Follow up: IV Status: Completed infusion; IV Intake: 1000ml bp 15:15 Drug: Zofran (Ondansetron) 4 mg Route: IVP; Site: right antecubital; bp 16:57 Follow up: Response: No adverse reaction bp 15:15 Drug: morphine 4 mg Route: IVP; Infused Over: 4 mins; Site: right antecubital; bp 16:57 Follow up: Response: Pain is decreased bp 17:15 Drug: Flagyl (metroNIDAZOLE) 500 mg Volume: 100 ml; Route: IVPB; Rate: 200 ml/hr; bp Infused Over: 30 mins; Site: right antecubital; 17:51 Follow up: IV Status: Completed infusion; IV Intake: 100ml bp 17:50 Drug: Cipro (ciprofloxacin) 400 mg Volume: 200 ml; Route: IVPB; Infused Over: 60 mins; bp Site: right antecubital; 18:45 Drug: morphine 4 mg Route: IVP; Infused Over: 4 mins; Site: right antecubital; bp Medication: 22:16 VIS not applicable for this client. ke1 Intake: 16:57 IV: 1000ml; Total: 1000ml. bp 17:51 IV: 100ml; Total: 1100ml. bp Outcome: 17:15 Decision to Hospitalize by Provider. [facility] 22:15 Admitted to Med/surg accompanied by tech. ke1 22:15 Condition: good 22:15 Discharge instructions given to Instructed on the need for admit. 22:17 Patient left the ED. ke1 Signatures: Dispatcher [employer] EDMS Joselin Soto RN Ashvin Burgess RN RN bp Mitchell, Jazmin jm9 Ebrottie, Kouassi, RN RN ke1 Mayuri Espinoza Jennifer, PILE FABRIC KNITTER PILE FABRIC KNITTER [facility]
--- NOTE | 2022-10-12 17:16 | EDPHYS ---
Physician Documentation [facility] Name: Bradly Padron Age: 67 yrs Sex: Male : 1955 Arrival Date: 10/12/2022 Time: 14:20 Bed 16 Private MD: ED Physician Jordan Crook HPI: 10/12 14:55 This 67 yrs old Male presents to ER via Ambulatory with complaints of Abd Pain > 50 y/o.jh7 14:55 The patient presents with abdominal pain in the left lower quadrant. Onset: The jh7 symptoms/episode began/occurred acutely. The symptoms do not radiate. Associated signs and symptoms: Pertinent positives: fever, Pertinent negatives: nausea, vomiting, and diarrhea. Patient reports a history of diverticulitis and reports that this feels like the last time he was diagnosed. Reports severe left lower quadrant pain with fever starting this morning.. Historical: - Allergies: 14:51 No Known Allergies; aa5 - PMHx: 14:51 Diverticulitis; GERD; Hypertension; aa5 - PSHx: 14:51 Lithotripsy; neck; Shoulder; aa5 - Immunization history:: Adult Immunizations unknown. - Social history:: Smoking status: Patient denies any tobacco usage or history of. ROS: 14:55 Constitutional: Negative for fever, chills, and weight loss, Neck: Negative for injury, jh7 pain, and swelling, Cardiovascular: Negative for chest pain, palpitations, and edema, Respiratory: Negative for shortness of breath, cough, wheezing, and pleuritic chest pain, Back: Negative for injury and pain, MS/Extremity: Negative for injury and deformity, Skin: Negative for injury, rash, and discoloration, Neuro: Negative for headache, weakness, numbness, tingling, and seizure. 14:55 Abdomen/GI: Positive for abdominal pain, Negative for nausea, vomiting, and diarrhea, black/tarry stool, rectal pain. 14:55 All other systems are negative. Exam: 14:55 Constitutional: This is a well developed, well nourished patient who is awake, alert, jh7 and in no acute distress. Head/Face: Normocephalic, atraumatic. Eyes: Pupils equal round and reactive to light, extra-ocular motions intact. Lids and lashes normal. Conjunctiva and sclera are non-icteric and not injected. Cornea within normal limits. Periorbital areas with no swelling, redness, or edema. Neck: Trachea midline, no thyromegaly or masses palpated, and no cervical lymphadenopathy. Supple, full range of motion without nuchal rigidity, or vertebral point tenderness. No Meningismus. Cardiovascular: Regular rate and rhythm with a normal S1 and S2. No gallops, murmurs, or rubs. Normal PMI, no JVD. No pulse deficits. Respiratory: Lungs have equal breath sounds bilaterally, clear to auscultation and percussion. No rales, rhonchi or wheezes noted. No increased work of breathing, no retractions or nasal flaring. Back: No spinal tenderness. No costovertebral tenderness. Full range of motion. Skin: Warm, dry with normal turgor. Normal color with no rashes, no lesions, and no evidence of cellulitis. MS/ Extremity: Pulses equal, no cyanosis. Neurovascular intact. Full, normal range of motion. Neuro: Awake and alert, GCS 15, oriented to person, place, time, and situation. Normal gait. 14:55 Abdomen/GI: Inspection: abdomen appears normal, Bowel sounds: normal, Palpation: moderate abdominal tenderness, in the left lower quadrant. Vital Signs: 14:52 BP 144 / 86; Pulse 83; Resp 16 S; Temp 98.4(O); Pulse Ox 97% on R/A; Weight 92.53 kg aa5 (R); Height 5 ft. 8 in. (172.72 cm) (R); Pain 8/10; 15:42 BP 108 / 75; Pulse 70; Resp 16; Pulse Ox 95% ; bp 16:56 BP 119 / 71; Pulse 68; Resp 16; Pulse Ox 98% ; bp 21:30 BP 120 / 84; Pulse 64; Resp 17; Pulse Ox 95% ; Pain 0/10; ke1 14:52 Body Mass Index 31.02 (92.53 kg, 172.72 cm) aa5 MDM: 14:37 Patient medically screened. [facility] 17:55 Differential diagnosis: diverticulitis, non-specific abd pain, Pyelonephritis, jh7 Ureterolithiasis. Data reviewed: vital signs, nurses notes, lab test result(s), radiologic studies, CT scan. Data interpreted: Pulse oximetry: is 98 %. Interpretation: normal. Counseling: I had a detailed discussion with the patient and/or guardian regarding: the historical points, exam findings, and any diagnostic results supporting the discharge/admit diagnosis, the need for further work-up and treatment in the hospital. Physician consultation: Zen Yepez MD was called at 17:15, was contacted at 17:15, regarding admission, to the medical/surgical unit. and will see patient in inpatient room, Dr. Izquierdo consulted Dr. Yepez due to hydronephrosis and 2 mm renal stone seen on CT. Dr. Yepez agreed to see the patient.. 10/12 14:52 Order name: CBC with Diff; Complete Time: 15:55 [facility] 10/12 14:52 Order name: CMP; Complete Time: 15:55 [facility] 10/12 14:52 Order name: Lipase; Complete Time: 15:55 [facility] 10/12 14:52 Order name: Urine Microscopic Only; Complete Time: 15:55 [facility] 10/12 15:23 Order name: Urine Dipstick-Ancillary; Complete Time: 15:26 [facility] 10/12 19:41 Order name: SARS RAPID ke1 10/12 14:52 Order name: CT Abd/Pelvis - IV Contrast Only; Complete Time: 17:03 [facility] 10/12 20:33 Order name: SARS-COV-2 Antigen Rapid [facility] 10/12 14:52 Order name: IV Saline Lock; Complete Time: 15:28 [facility] 10/12 14:52 Order name: Labs collected and sent; Complete Time: 15:28 [facility] 10/12 14:52 Order name: Urine Dipstick-Ancillary (obtain specimen); Complete Time: 15:28 [facility] Administered Medications: 15:15 Drug: NS 0.9% 1000 ml Route: IV; Rate: 1 bolus; Site: right antecubital; bp 16:57 Follow up: IV Status: Completed infusion; IV Intake: 1000ml bp 15:15 Drug: Zofran (Ondansetron) 4 mg Route: IVP; Site: right antecubital; bp 16:57 Follow up: Response: No adverse reaction bp 15:15 Drug: morphine 4 mg Route: IVP; Infused Over: 4 mins; Site: right antecubital; bp 16:57 Follow up: Response: Pain is decreased bp 17:15 Drug: Flagyl (metroNIDAZOLE) 500 mg Volume: 100 ml; Route: IVPB; Rate: 200 ml/hr; bp Infused Over: 30 mins; Site: right antecubital; 17:51 Follow up: IV Status: Completed infusion; IV Intake: 100ml bp 17:50 Drug: Cipro (ciprofloxacin) 400 mg Volume: 200 ml; Route: IVPB; Infused Over: 60 mins; bp Site: right antecubital; 18:45 Drug: morphine 4 mg Route: IVP; Infused Over: 4 mins; Site: right antecubital; bp Disposition: 10/13 12:36 Co-signature as Attending Physician, Jordan Crook MD I agree with the assessment and rt plan of care. Disposition Summary: 10/12/22 17:15 Hospitalization Ordered Hospitalization Status: Inpatient Admission [facility] Provider: Bradly Izquierdo [facility] Location: Telemetry/MedSurg (Inpatient) [facility] Condition: Stable [facility] Problem: new [facility] Symptoms: are unchanged [facility] Bed/Room Type: Standard [facility] Room Assignment: [id number](10/12/22 20:47) [id number] Diagnosis - Diverticulitis of intestine, part unspecified, without perforation or abscess [facility] without bleeding - Other hydronephrosis [facility] Forms: - Medication Reconciliation Form [facility] - SBAR form [facility] Signatures: Dispatcher [employer] Joselin Landers RN RN [email or web address] Ashvin Hernandez RN RN Kat Trujillo RN RN [id number] Ailin Rodriguez, FOOD COUNTER ATTENDANT FOOD COUNTER ATTENDANT [facility] Jordan Crook MD MD rt Corrections: (The following items were deleted from the chart) 10/12 20:47 17:15 [facility] josé [email or web address]
[2022-10-12 20:33] LABS: SARS-CoV-2 Antigen Rapid Res Negative (Negative)
[2022-10-12] MEDS: Ringers Lactate 1,000 ML IV SCH (20:34)
[2022-10-12 20:43] VITALS: BMI 31.0
--- NOTE | 2022-10-12 20:43 | P.HP ---
Certification for Inpatient Patient admitted to: Inpatient With expected LOS: >2 Midnights Patient will require the following post-hospital care: None Practitioner: I am a practitioner with admitting privileges, knowledge of patient current condition, hospital course, and medical plan of care. Services: Services provided to patient in accordance with Admission requirements found in Title 42 Section 412.3 of the Code of Federal Regulations <Claudio Stout - Last Filed: 10/12/22 20:41> Patient History Date of Service: 10/12/22 History of Present Illness: 67-year-old male with history of diverticulitis, GERD, hypertension, kidney stones presents emergency department for 1 day of left lower quadrant abdominal pain. He was evaluated here in the emergency department labs were unremarkable CT abdomen pelvis IV contrast revealed 2 mm calculus proximal left ureter resulting in mild left nephrosis, mild to moderate sigmoid diverticulitis. Patient was given IV antibiotics Cipro/Flagyl, ED provider wishes to admit for further evaluation and management of diverticulitis, ureteral calculus. - Past Medical/Surgical History Diabetic: No -: Hypertension -: GERD -: diverticulitis -: Tobacco abuse -: C-spine surgery -: Bilateral shoulder rotator cuff sx -: Left hip replacement Psychosocial/ Personal History: Patient is . He has 2 children. 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 - Family History Father -: Hypertension Mother -: Heart disease, Other (see notes) Notes: heart valve replacement - Social History Alcohol use: No CD- Drugs: No Caffeine use: Yes Place of Residence: Home <Clauido Stout - Last Filed: 10/12/22 20:41> Date of Service: 10/13/22 <Bradly Izquierdo - Last Filed: 10/13/22 19:10> Allergies No Known Allergies Allergy (Verified 10/12/22 22:24) Home Medications: Amlodipine Besylate/Benazepril [Lotrel 5-40 mg Capsule] 1 tab PO DAILY WITH BREAKFAST 04/23/15 Omeprazole [Prilosec] 40 mg PO DAILY 10/12/22 Review of Systems 10-point ROS is otherwise unremarkable Gastrointestinal: Nausea, Abdominal Pain <Claudio Stout - Last Filed: 10/12/22 20:41> Physical Examination - Physical Exam General: Alert, In no apparent distress, Oriented x3 HEENT: Atraumatic, PERRLA, Mucous membr. moist/pink, EOMI, Sclerae nonicteric Neck: Supple, 2+ carotid pulse no bruit, No LAD, Without JVD or thyroid abnormality Respiratory: Clear to auscultation bilaterally, Normal air movement Cardiovascular: Regular rate/rhythm, Normal S1 S2 Capillary refill: <2 Seconds Gastrointestinal: Normal bowel sounds, Tenderness (Mild LLQ/suprapubic tenderness) Musculoskeletal: No tenderness Integumentary: No rashes Neurological: Normal speech, Normal strength at 5/5 x4 extr, Normal tone, Normal affect - Studies Laboratory Data (last 24 hrs) 10/12/22 15:26: Sodium 139, Potassium 3.6, BUN 11, Creatinine 0.99, Glucose 116 H, Total Bilirubin 0.6, AST 15, ALT 41, Alkaline Phosphatase 58, Lipase 144 10/12/22 15:26: WBC 7.00, Hgb 15.4, Hct 44.5, Plt Count 303 <Claudio Stout - Last Filed: 10/12/22 20:41> Assessment and Plan - Plan Assessment: Acute mild to moderate diverticulitis Mild left hydronephrosis secondary to 2 mm proximal ureteral calculus Hypertension Plan: Acute mild to moderate diverticulitis: NPO, IVF, Antibiotics with cipro/flagyl. Mild LLQ/Suprapubic tenderness, serial abd exams, consult surgery if there is worsening. Mild left hydronephrosis secondary to 2 mm proximal ureteral calculus: Urology consulted, continue with flomax, prn pain meds. Hypertension: Hold oral meds tonight, restart when appropriate. DVT PPX:Lovenox Code status:Full code Discharge Plan: Home Plan to discharge in: 48 Hours - Advance Directives Does patient have a Living Will: No Does patient have a Durable POA for Healthcare: No - Code Status/Comfort Care Code Status Assessed: Yes (Full code) Critical Care: No Time Spent Managing Pts Care (In Minutes): 55 <Claudio Stout - Last Filed: 10/12/22 20:41> Physician Review: Patient Assessed, Agree with Above Assessment and Plan <Bradly Izquierdo - Last Filed: 10/13/22 19:10>
[2022-10-12] MEDS: TAMSULOSIN 0.4 MG SR CAP PO SCH (21:00)
[2022-10-12] MEDS ORDERED: Ringers Lactate 1,000 ML IV ONE (21:42)
[2022-10-12] MEDS ORDERED: TAMSULOSIN 0.4 MG SR CAP ONE (21:42)
[2022-10-12 22:34] VITALS: O2SAT 95
[2022-10-12] MEDS: HYDROMORPHONE HCL 0.5 MG/0.5 ML INJ IV PRN (22:50)
[2022-10-12] MEDS: ONDANSETRON 4 MG/2 ML VIAL IV PRN (22:53)
[2022-10-13] MEDS: METRONIDAZOLE 500mg IVPB 500 MG/100 ML BAG IV SCH ×3 (01:02→16:10)
[2022-10-13 04:10] LABS: Absolute Lymphocytes (CBC) 1.3 K/uL (0.7-4.9); Hematocrit 43.3 % (39.6-49.0); Lymphocytes % 18.6 % (15.3-44.8); MCV 87.2 fL (80-100); RBC Red Blood Cell Count 4.97 M/uL (4.33-5.43)
[2022-10-13] MEDS: ONDANSETRON 4 MG/2 ML VIAL IV PRN ×2 (04:16→22:59)
[2022-10-13 04:25] LABS: Albumin 3.4 g/dL (3.4-5.0); Bilirubin Total 0.5 mg/dL (0.2-1.0); Potassium 4.6 mmol/L (3.5-5.1); Protein, Total 6.7 g/dL (6.4-8.2)
[2022-10-13] MEDS: Ringers Lactate 1,000 ML IV SCH ×4 (04:34→22:59)
[2022-10-13] MEDS ORDERED: INFLUENZA VACCINE (for 6+ mo) 0.5 ML DOSE IMVAC ONE (08:00)
[2022-10-13] MEDS: ENOXAPARIN 40 MG/0.4 ML SQ SCH (08:24)
[2022-10-13] MEDS: CIPROFLOXACIN 400mg IV 400 MG/200 ML BAG IV SCH ×2 (08:24→21:54)
--- NOTE | 2022-10-13 19:13 | P.PN ---
Subjective Date of Service: 10/13/22 No acute events overnight. His abdominal pain is improved compared to admission. He grades it a 3/10 in severity this morning. He denies any nausea/vomiting. Review of Systems 10-point ROS is otherwise unremarkable Gastrointestinal: Abdominal Pain Physical Examination - Vital Signs Temperature: 97.7 F Blood Pressure: 135/65 Pulse: 67 Respirations: 18 Pulse Ox (%): 94 - Physical Exam General: Alert, In no apparent distress, Oriented x3 HEENT: Atraumatic, Mucous membr. moist/pink, Sclerae nonicteric Neck: JVD not distended Respiratory: Clear to auscultation bilaterally, Normal air movement Cardiovascular: No edema, Regular rate/rhythm, Normal S1 S2, No gallops, No rubs, No murmurs Gastrointestinal: Normal bowel sounds, Soft and benign, Non-distended, No tenderness, No rebound, No guarding Musculoskeletal: No clubbing Integumentary: No rashes Neurological: Normal speech, Cranial nerves 3-12 intact, Normal affect Assessment And Plan - Plan # Acute Mild-Moderate Sigmoid Diverticulitis - CT abdomen/pelvis = "2 millimeter calculus proximal left ureter 1 resulting in mild left hydronephrosis. Mild to moderate sigmoid diverticulitis." - Continue ciprofloxacin + metronidazole - Lactated Ringers' at 125 mL/hr - NPO - start clears and advance as tolerated - Symptom control - Discussed with him that diverticulitis can be a sign of underlying colonic malignancy. I recommended that he obtain a colonoscopy with his scutcher tender in 4-6 weeks. He verbalized understanding. # Mild Left Hydronephrosis secondary to Proximal Ureterolith (2 mm) - Urology consulted and spoke with Dr. Yepez - recommendations appreciated - Started tamsulosin - Strain all urine # Hypertension - Resume home meds once verified Bradly Izquierdo M.D.
[2022-10-13] MEDS: TAMSULOSIN 0.4 MG SR CAP PO SCH (21:54)
[2022-10-14] MEDS: METRONIDAZOLE 500mg IVPB 500 MG/100 ML BAG IV SCH ×2 (00:50→09:00)
[2022-10-14 01:18] VITALS: TEMP 97.6
[2022-10-14] MEDS: Ringers Lactate 1,000 ML IV SCH (04:34)
[2022-10-14] MEDS: HYDROMORPHONE HCL 0.5 MG/0.5 ML INJ IV PRN (05:24)
[2022-10-14 05:26] LABS: Absolute Lymphocytes (CBC) 0.9 K/uL (0.7-4.9); Hematocrit 41.2 % (39.6-49.0); Lymphocytes % 17.7 % (15.3-44.8); MCV 86.4 fL (80-100); MPV 7.6 fL (7.6-11.3); RBC Red Blood Cell Count 4.77 M/uL (4.33-5.43)
[2022-10-14] MEDS: ONDANSETRON 4 MG/2 ML VIAL IV PRN (05:30)
[2022-10-14 05:43] LABS: Albumin 3.2 g/dL (3.4-5.0); Bilirubin Total 0.5 mg/dL (0.2-1.0); Potassium 3.5 mmol/L (3.5-5.1); Protein, Total 6.2 g/dL (6.4-8.2)
[2022-10-14 08:31] VITALS: BP 149/80
--- NOTE | 2022-10-14 08:40 | P.DS ---
Admission Date: 10/12/22 Discharge Date: 10/14/22 Primary Care Provider: Dr. Maguire Disposition: ROUTINE DISCHARGE Discharge Condition: GOOD Reason for Admission: Diverticulitis Consultations: 1. Urology Hospital Course: DIAGNOSES: # Acute Mild-Moderate Sigmoid Diverticulitis # Mild Left Hydronephrosis secondary to Proximal Ureterolith (2 mm) # Hypertension HOSPITAL COURSE: Mr. Bradly Padron is a pleasant 67 year old male with a past medical history significant for hypertension who was admitted to the [facility] on 10/12/2022 for abdominal pain. He was admitted to the Medicine service. Upon further evaluation, his CT abdomen/pelvis revealed, "2 millimeter calculus proximal left ureter 1 resulting in mild left hydronephrosis. Mild to moderate sigmoid diverticulitis." For his diverticulitis, he was placed NPO and started on ciprofloxacin + metronidazole. Over his hospital course, his symptoms improved significantly and he was advanced to a regular diet, without any issues. He was counseled on the possibility that diverticulitis can be a sign of underlying colonic malignancy. 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 He verbalized understanding. He states that he follows with Dr. Christianson and was previously scheduled to have a pill-cam for a history of diverticulitis. He agreed to make this follow-up appointment with Gastroenterology. In regards to his 2 mm proximal ureterolith with mild left hydronephrosis, Urology was consulted. I spoke with Dr. Yepez, who reviewed his case. Dr. Yepez recommends discharge with outpatient follow-up. He was given tamsulosin and a urine strainer at discharge. On 10/14/2022, he was seen on morning rounds and deemed medically stable for discharge. He was discharged with instructions to schedule follow-up appointments with his PCP (Dr. Maguire), with Gastroenterology (Dr. Christianson), and with Urology (Dr. Yepez). He was provided prescriptions for ciprofloxacin, metronidazole, and tamsulosin. He was given the opportunity to ask questions and reported no further questions. Furthermore, all questions were answered to the best of my ability. A copy of this discharge summary will be sent to the above providers to facilitate continuity of care. Today, I personally spent 25 minutes on his case, of which greater than 50% of the time was spent in patient education, counseling, and coordination of care as described above. - Physical Exam General: Alert, In no apparent distress, Oriented x3 HEENT: Atraumatic, Mucous membr. moist/pink, Sclerae nonicteric Neck: JVD not distended Respiratory: Clear to auscultation bilaterally, Normal air movement Cardiovascular: No edema, Regular rate/rhythm, Normal S1 S2, No gallops, No rubs, No murmurs Gastrointestinal: Normal bowel sounds, Soft and benign, Non-distended, No tenderness, No rebound, No guarding Musculoskeletal: No clubbing Integumentary: No rashes Neurological: Normal speech, Cranial nerves 3-12 intact, Normal affect Vital Signs/Physical Exam: Temp Pulse Resp BP Pulse Ox 97.6 F 92 H 14 149/80 H 94 10/14/22 08:00 10/14/22 08:00 10/14/22 08:00 10/14/22 08:00 10/14/22 08:00 Laboratory Data at Discharge: WBC 5.10 K/uL (4.3-10.9) 10/14/22 04:43 Hgb 14.1 g/dL (13.6-17.9) 10/14/22 04:43 Hct 41.2 % (39.6-49.0) 10/14/22 04:43 Plt Count 278 K/uL (152-406) 10/14/22 04:43 Sodium 138 mmol/L (136-145) 10/14/22 04:43 Potassium 3.5 mmol/L (3.5-5.1) D 10/14/22 04:43 BUN 9 mg/dL (7-18) 10/14/22 04:43 Creatinine 0.99 mg/dL (0.70-1.30) 10/14/22 04:43 Glucose 123 mg/dL (74-106) H 10/14/22 04:43 Total Bilirubin 0.5 mg/dL (0.2-1.0) 10/14/22 04:43 AST 16 U/L (15-37) 10/14/22 04:43 ALT 36 U/L (16-61) 10/14/22 04:43 Alkaline Phosphatase 44 U/L (45-117) L 10/14/22 04:43 Lipase 144 U/L (73-393) 10/12/22 15:26 Home Medications: RX: Amlodipine Besylate/Benazepril [Lotrel 5-40 mg Capsule] 1 tab PO DAILY WITH BREAKFAST 04/23/15 RX: Omeprazole [Prilosec] 40 mg PO DAILY 10/12/22 Ciprofloxacin HCl [Cipro] 500 mg PO BID 7 Days #14 tab 10/14/22 RX: Tamsulosin [Flomax*] 0.4 mg PO BEDTIME 10 Days #10 cap 10/14/22 metroNIDAZOLE [Flagyl] 500 mg PO Q8H 7 Days #21 tab 10/14/22 New Medications: Ciprofloxacin HCl [Cipro] 500 mg PO BID 7 Days #14 tab metroNIDAZOLE [Flagyl] 500 mg PO Q8H 7 Days #21 tab RX: Tamsulosin [Flomax*] 0.4 mg PO BEDTIME 10 Days #10 cap Physician Discharge Instructions: 1. Please call and schedule a follow-up appointment with your PCP (Dr. Maguire) in 3-5 days 2. Please call and schedule a follow-up appointment with Gastroenterology (Dr. Christianson) in 5-7 days - As we discussed, please schedule a colonoscopy in 4-6 weeks to exclude cancer as the cause of your diverticulitis 3. Please call and schedule a follow-up appointment with Urology (Dr. Yepez) in 1-2 weeks to follow-up your kidney stone - Please strain your urine, if you catch the stone, please notify Dr. Yepez' office Diet: Regular Activity: Ad lilia Followup: Yonis Christianson MD [ASSOCIATE-ACTIVE - CAN ADMIT] - (Call to schedule appointment.) Lenin Maguire MD [Primary Care Provider] - (Call to schedule appointment.) Zen Yepez [ACTIVE - CAN ADMIT] - (Call to schedule appointment.) Time spent managing pt's care (in minutes): 25
[2022-10-14] MEDS ORDERED: POTASSIUM CL SA 10 MEQ TAB PO ONE (09:00)
[2022-10-14] MEDS: CIPROFLOXACIN 400mg IV 400 MG/200 ML BAG IV SCH (09:00)
[2022-10-14] MEDS: ENOXAPARIN 40 MG/0.4 ML SQ SCH (09:00)
== END 2022-10-14 09:27 | disposition home or self-care (01) | DRG 392 ==
LOC: ER 14:13 → ERHOLD 19:31 → 2ND 21:29
PROVIDERS: ADMIT Internal Medicine; ATTEND Internal Medicine
DX: K57.32 Diverticulitis of large intestine without perforation or abscess without bleeding (principal); N13.2 Hydronephrosis with renal and ureteral calculous obstruction; I10 Essential (primary) hypertension; K21.9 Gastro-esophageal reflux disease without esophagitis; Z96.642 Presence of left artificial hip joint; Z72.0 Tobacco use
CPT/HCPCS: 36415; 74177; 80053; 81003; 81015; 83690; 85025; 87811; 96361; 96365; 96375; 99285; J0744; J1170; J1650; J2405; J7030; J7120; Q9967

== ENCOUNTER 2022-12-15 15:03 | Emergency (ER) | payer OTHER ==
--- OUTSIDE RECORDS SUMMARY | 2022-12-15 15:06 | XMS REPORT | Continuity of Care Document ---
:1955 Author Organization [facility] t Address [address] [place] [address] Care Team Providers Name Role Phone Lenin Maguire MD Primary Care Physician Sarah POSADA, Jose Luis Salinas Attending Clinician Payers Payer Name Policy Type Policy Number Effective Date Expiration Date S ource Problems This patient has no known problems. Allergies, Adverse Reactions, Alerts This patient has no known allergies or adverse reactions. Social History Social Habit Start Date Stop Date Quantity Comments Source Sex Ass[birth year] [facility] 00:00:00 00:00:00 Smoking Status Start Date Stop Date Source Tobacco smoking consumption unknown [facility] Medications This patient has no known medications. Procedures Procedure Date / Time Performed Performing Clinician Carroll long XR [facility]TER 2021-10-19 18:35:47 Jose Luis Madrigal [facility] BLADDER Plan of Care Planned Activity Planned Date Details Comments Source Future Scheduled 2022-10-06 Hepatitis C screening [facility] Test 10:45:55 (procedure) [code = 217332285] Future Scheduled 2022-10-06 COLONOSCOPY SCREENING [facility] Test 10:45:55 [code = COLONOSCOPY SCREENING] Future Scheduled 2022-10-06 SHINGLES VACCINES (1 Met [facility] Test 10:45:55 of 2) [code = SHINGLES VACCINES (1 of 2)] Future Scheduled 2022-10-06 COVID-19 VACCINE (4 - [facility] Test 10:45:55 Booster for Moderna series) [code = COVID-19 VACCINE (4 - Booster for Moderna series)] Future Scheduled 2022-10-06 INFLUENZA VACCINE [facility] Test 10:45:55 [code = INFLUENZA VACCINE] Future Scheduled 2022-10-06 65+ [facility]OCCAL [facility] Test 10:45:55 VACCINE (1 - PCV) [code = 65+ PNEUMOCOCCAL VACCINE (1 - PCV)] Future Scheduled 2022-10-06 Hepatitis C screening [facility] Test 10:45:55 (procedure) [code = [id number]] Future Scheduled 2022-10-06 COLONOSCOPY SCREENING [facility] Test 10:45:55 [code = COLONOSCOPY SCREENING] Future Scheduled 2022-10-06 SHINGLES VACCINES (1 Met [facility] Test 10:45:55 of 2) [code = SHINGLES VACCINES (1 of 2)] Future Scheduled 2022-10-06 COVID-19 VACCINE (4 - [facility] Test 10:45:55 Booster for Moderna series) [code = COVID-19 VACCINE (4 - Booster for Moderna series)] Future Scheduled 2022-10-06 INFLUENZA VACCINE [facility] Test 10:45:55 [code = INFLUENZA VACCINE] Future Scheduled 2022-10-06 65+ [facility]OCOCCAL [facility] Test 10:45:55 VACCINE (1 - PCV) [code = 65+ PNEUMOCOCCAL VACCINE (1 - PCV)] Future Scheduled 2022-08-25 HEPATITIS B VACCINES Met [facility] Test 17:16:35 (1 of 3 - 3-dose series) [code = HEPATITIS B VACCINES (1 of 3 - 3-dose series)] Future Scheduled 2022-08-25 Hepatitis C screening [facility] Test 17:16:35 (procedure) [code = [id number]] Future Scheduled 2022-08-25 COLONOSCOPY SCREENING [facility] Test 17:16:35 [code = COLONOSCOPY SCREENING] Future Scheduled 2022-08-25 SHINGLES VACCINES (1 Met [facility] Test 17:16:35 of 2) [code = SHINGLES VACCINES (1 of 2)] Future Scheduled 2022-08-25 COVID-19 VACCINE (4 - Me [facility] Test 17:16:35 Booster for Moderna series) [code = COVID-19 VACCINE (4 - Booster for Moderna series)] Future Scheduled 2022-08-25 INFLUENZA VACCINE [facility] Test 17:16:35 [code = INFLUENZA VACCINE] Future Scheduled 2022-08-25 65+ [facility]CCAL [facility] Test 17:16:35 VACCINE (1 - PCV) [code = 65+ PNEUMOCOCCAL VACCINE (1 - PCV)] Encounters Start End Encounter Admission Attending Care Care Encounter Source Date/Time Date/Time Type Type Clinicians Facility Department ID 2022-02-23 Outpatient STLMLC STLMLC [id number] Common 08:48:05 Spirit - [facility] 2022-06-29 2022-06-29 Outpatient AOSM AOSM [id number] Denice 00:00:00 00:00:00 [id number] Orthop e dic Sports Medicin e 2021-10-19 2021-10-19 [facility] Jose Luis Madrigal 1.2.840.1 [id number] Methodi 12:24:29 23:59:[id number] 3.430.2.7 Hospit a .3.762583 l .8 2021-10-19 2021-10-19 Travel 1.2.840.1 [id number] [facility] 00:00:00 00:00:[address] 3.430.2.7 0.2.7.3.698 Ho spita .3.384674 084.8 l .8 2021-10-19 2021-10-19 Transcribe Madrigal Jose Luis 1.2.840.1 [id number] [facility] 00:00:00 00:00:[address] 3.430.2.7 Hospit a .3.379017 l .8 2020-07-24 2020-07-24 Outpatient SARAH JOSE LUIS [facility] [id number] Leo 00:00:00 00:00:[address] Results This patient has no known results.
[2022-12-15 16:17] LABS: Absolute Lymphocytes (CBC) 1.5 K/uL (0.7-4.9); Hematocrit 47.1 % (39.6-49.0); Lymphocytes % 19.1 % (15.3-44.8); MCV 85.5 fL (80-100); MPV 7.3 fL (7.6-11.3); RBC Red Blood Cell Count 5.51 M/uL (4.33-5.43)
[2022-12-15 16:18] LABS: Urine Blood Negative (Negative); Urine Glucose Negative (Negative); Urine Protein Negative (Negative)
[2022-12-15] MEDS ORDERED: MORPHINE 2 MG/ML SYR ONE ×2 (16:23→17:49)
[2022-12-15] MEDS ORDERED: ONDANSETRON 4 MG/2 ML VIAL ONE (16:23)
[2022-12-15] MEDS ORDERED: NA CHLORIDE 0.9% 500 ML ONE (16:24)
[2022-12-15 16:26] LABS: Urine Bacteria <20 /HPF (<20); Urine Mucus Slight /HPF (None Seen); Urine RBC <5 /HPF (None Seen)
[2022-12-15 16:38] LABS: Bilirubin Total 0.5 mg/dL (0.2-1.0); Potassium 3.7 mmol/L (3.5-5.1); Protein, Total 7.5 g/dL (6.4-8.2)
--- NOTE | 2022-12-15 16:55 | RAD REPORT ---
EXAM DESCRIPTION: RAD - Chest Single View - 12/15/2022 4:30 pm CLINICAL HISTORY: left upper abdomen pain COMPARISON: Chest Single View dated 01/07/2019; Chest Pa And Lat (2 Views) dated 12/31/2018; Chest Sin gle View dated 12/30/2018; Chest Pa And Lat (2 Views) dated 04/08/2017 FINDINGS: Lines: None. Lungs: No evidence of edema or pneumonia. Pleural: No significant pleural effusions or pneumothorax. Cardiac: The heart size is within normal limits. Mediastinum: Within normal limits. Bones: No acute fractures. ACDF in the cervical spine. Other: None IMPRESSION: No acute cardiopulmonary disease.
--- NOTE | 2022-12-15 17:44 | RAD REPORT ---
EXAM DESCRIPTION: CTAbdomen Pelvis W Contrast - 12/15/2022 5:14 pm CLINICAL HISTORY: LLQ abdomen pain COMPARISON: Abdomen Pelvis W Contrast dated 10/12/2022; Abdomen Pelvis W Contrast dated 10/14/20 20; Abdomen Pelvis W Contrast dated 07/20/2020; Abdomen Pelvis W Contrast dated 08/24/2017 TECHNIQUE: CT of the abdomen and pelvis was performed with IV contrast. All CT scans are performed using dose optimization technique as appropriate and may include automated exposure control or mA/KV adjustment according to patient size. FINDINGS: Lower chest: No acute abnormality. Liver: Mild hepatic steatosis. Biliary: No biliary ductal dilatation. Stomach: No significant focal abnormality. Duodenum: No significant focal abnormality. Pancreas: No significant abnormality. Spleen: No significant abnormality. Adrenal: No suspicious lesions. Kidney/ureter: No hydronephrosis. 4 mm stone left kidney. Too small to characterize and/or benign eloisa earing renal lesions are noted. Retroperitoneum: No retroperitoneal adenopathy. Vascular: No aneurysm. Bowel: No significant focal abnormality. Peritoneum: No ascites or free air. Bladder: Grossly unremarkable. Reproductive: No adnexal masses. Bones: No acute fracture. Left hip arthroplasty. Other: n/a IMPRESSION: Mild left sided hydroureteronephrosis secondary a 4 mm stone at the left UVJ.
[2022-12-15] MEDS ORDERED: TAMSULOSIN 0.4 MG SR CAP ONE (18:11)
[2022-12-15] MEDS ORDERED: KETOROLAC 30 MG/ML INJ ONE (18:11)
--- NOTE | 2022-12-15 18:16 | ER ---
Nurse's Notes [facility] Name: Bradly Padron Age: 67 yrs Sex: Male : 1955 Arrival Date: 12/15/2022 Time: 15:04 Bed 12 Private MD: Lenin Maguire B Diagnosis: Calculus of ureter-left Presentation: 12/15 15:12 Chief complaint: Patient states: LLQpain and nausea X 5 days , has been on Cipro for iw diverticulitis. Coronavirus screen: At this time, the client does not indicate any symptoms associated with coronavirus-19. Ebola Screen: Patient negative for fever greater than or equal to 101.5 degrees Fahrenheit, and additional compatible Ebola Virus Disease symptoms Patient denies exposure to infectious person. Patient denies travel to an Ebola-affected area in the 21 days before illness onset. No symptoms or risks identified at this time. Initial Sepsis Screen: Does the patient meet any 2 criteria? No. Patient's initial sepsis screen is negative. Does the patient have a suspected source of infection? No. Patient's initial sepsis screen is negative. Risk Assessment: Do you want to hurt yourself or someone else? Patient reports no desire to harm self or others. Onset of symptoms was December 10, 2022. 15:12 Method Of Arrival: Ambulatory iw 15:12 Acuity: MARIA E 3 iw Historical: - Allergies: 15:14 No Known Allergies; iw - PMHx: 15:13 Diverticulitis; GERD; Hypertension; iw 15:14 Kidney stone; iw - PSHx: 15:13 Lithotripsy; neck; Shoulder; iw - Immunization history:: Client reports receiving the 2nd dose of the Covid vaccine. - Social history:: Smoking status: Patient denies any tobacco usage or history of. Screenin:47 [facility] ED Fall Risk Assessment (Adult) History of falling in the last 3 months, mb9 including since admission No falls in past 3 months (0 pts) Confusion or Disorientation No (0 pts) Intoxicated or Sedated No (0 pts) Impaired Gait No (0 pts) Mobility Assist Device Used No (0 pt) Altered Elimination No (0 pt) Score/Fall Risk Level 0 - 2 = Low Risk Oriented to surroundings, Maintained a safe environment, Educated pt \T\ family on fall prevention, incl call for assistance when getting out of bed. Abuse screen: Denies threats or abuse. Nutritional screening: No deficits noted. Tuberculosis screening: No symptoms or risk factors identified. Assessment: 17:04 Reassessment: pt brought back to ER room. mb9 17:04 Reassessment: pt taken to CT via wheelchair. mb9 17:39 General: Appears in no apparent distress. Behavior is cooperative. Pain: Complains of mb9 pain in LLQ Pain currently is 5 out of 10 on a pain scale. Quality of pain is described as throbbing, Pain began 2-3 days ago. Neuro: Level of Consciousness is awake, alert, obeys commands, Oriented to person, place, time, situation, Appropriate for age. Cardiovascular: Patient's skin is warm and dry. Respiratory: Airway is patent Respiratory effort is even, unlabored, Respiratory pattern is regular, symmetrical. GI: Abdomen is round non-distended, Bowel sounds present X 4 quads. Abd is soft Abdomen is tender to palpation in left lower quadrant. : No signs and/or symptoms were reported regarding the genitourinary system. EENT: No signs and/or symptoms were reported regarding the EENT system. Derm: Skin is pink, warm \T\ dry. Musculoskeletal: Range of motion: intact in all extremities. Vital Signs: 15:12 BP 127 / 91; Pulse 78; Resp 16; Temp 98.7; Pulse Ox 97% on R/A; iw 17:39 BP 138 / 84; Pulse 70; Resp 16; Pulse Ox 99% on R/A; Pain 5/10; mb9 18:10 BP 120 / 79; Pulse 68; Resp 16; Pulse Ox 99% on R/A; mb9 ED Course: 15:04 Patient arrived in ED. am2 15:05 Lenin Maguire MD is Private Physician. am2 15:05 Torey Zamorano PA is PHCP. cp 15:05 Eren Bustillo DO is Attending Physician. cp 15:13 Triage completed. iw 15:14 Arm band placed on. iw 16:20 Inserted saline lock: 20 gauge in right antecubital area, using aseptic technique. ah1 Blood collected. 16:21 Urine Microscopic Only Sent. ah1 16:21 CBC with Diff Sent. ah1 16:21 CMP Sent. ah1 16:21 Lipase Sent. ah1 17:04 Breneman, Kaitlin, RN is Primary Nurse. mb9 17:48 Placed in gown. Bed in low position. Call light in reach. Side rails up X 1. Client mb9 placed on continuous cardiac and pulse oximetry monitoring. NIBP monitoring applied. 17:48 No provider procedures requiring assistance completed. mb9 18:31 IV discontinued, intact, bleeding controlled, No redness/swelling at site. Pressure mb9 dressing applied. Administered Medications: 16:27 Drug: Zofran (Ondansetron) 4 mg Route: IVP; Site: right antecubital; iw 16:27 Drug: morphine 2 mg Route: IVP; Infused Over: 4 mins; Site: right antecubital; iw 16:27 Drug: NS 0.9% 500 ml Route: IV; Rate: 500 ml/hr; Site: right antecubital; iw 16:52 Follow up: IV Status: Completed infusion; IV Intake: 500ml ss 17:47 Drug: morphine 2 mg Route: IVP; Infused Over: 4 mins; Site: right antecubital; mb9 18:10 Follow up: Response: No adverse reaction mb9 18:10 Drug: Flomax (tamsulosin) 0.4 mg Route: PO; mb9 18:16 Follow up: Response: No adverse reaction mb9 18:10 Drug: Ketorolac 15 mg Route: IVP; Site: right antecubital; mb9 18:16 Follow up: Response: No adverse reaction mb9 Medication: 17:48 VIS not applicable for this client. mb9 Intake: 16:52 IV: 500ml; Total: 500ml. Outcome: 18:16 Discharge ordered by . cp 18:31 Discharged to home ambulatory. mb9 18:31 Condition: stable 18:31 Discharge instructions given to patient, Instructed on discharge instructions, follow up and referral plans. Demonstrated understanding of instructions, follow-up care, medications, Prescriptions given X 3. 18:31 Patient left the ED. mb9 Signatures: Kylie White RN RN Geovanna Lewis RN RN Torey Zamorano PA PA cp Moreno, Amanda am2 Krysta Young RN RN mb9 Robin Mirza [facility]
--- NOTE | 2022-12-15 18:16 | EDPHYS ---
Physician Documentation [facility] Name: Bradly Padron Age: 67 yrs Sex: Male : 1955 Arrival Date: 12/15/2022 Time: 15:04 Bed 12 Private MD: Lenin Maguire B ED Physician Eren Bustillo HPI: 12/15 15:25 This 67 yrs old Male presents to ER via Ambulatory with complaints of Abdominal Pain - cp LLQ. 15:25 The patient presents with abdominal pain in the left upper quadrant. Onset: The cp symptoms/episode began/occurred 5 day(s) ago. The symptoms radiate to back. Associated signs and symptoms: Pertinent positives: nausea. 15:25 The symptoms are described as constant. cp 15:25 Severity of pain: in the emergency department the pain is unchanged despite home cp interventions. Historical: - Allergies: 15:14 No Known Allergies; iw - PMHx: 15:13 Diverticulitis; GERD; Hypertension; iw 15:14 Kidney stone; iw - PSHx: 15:13 Lithotripsy; neck; Shoulder; iw - Immunization history:: Client reports receiving the 2nd dose of the Covid vaccine. - Social history:: Smoking status: Patient denies any tobacco usage or history of. ROS: 15:30 Constitutional: Negative for body aches, chills, fever, poor PO intake. cp 15:30 Eyes: Negative for injury, pain, redness, and discharge. cp 15:30 Cardiovascular: Negative for chest pain, edema, palpitations. 15:30 Respiratory: Negative for cough, shortness of breath, wheezing. 15:30 Abdomen/GI: Positive for abdominal pain, nausea, of the left upper quadrant and left lower quadrant, Negative for vomiting, diarrhea, constipation, black/tarry stool, rectal bleeding. 15:30 Back: Positive for radiated pain. 15:30 : Negative for urinary symptoms, testicular pain 15:30 Neuro: Negative for altered mental status, dizziness, headache, weakness. 15:30 All other systems are negative. Exam: 15:35 Constitutional: The patient appears in no acute distress, alert, awake, cp non-diaphoretic, non-toxic, well developed, well nourished, uncomfortable. 15:35 Head/Face: Normocephalic, atraumatic. cp 15:35 Eyes: Periorbital structures: appear normal, Conjunctiva: normal, no exudate, no injection, Sclera: no appreciated abnormality, Lids and lashes: appear normal, bilaterally. 15:35 ENT: External ear(s): are unremarkable, Nose: is normal, Mouth: Lips: moist, Oral mucosa: moist, Posterior pharynx: is normal, airway is patent, no erythema, no exudate. 15:35 Chest/axilla: Inspection: normal. 15:35 Cardiovascular: Rate: normal, Rhythm: regular. 15:35 Respiratory: the patient does not display signs of respiratory distress, Respirations: normal, no use of accessory muscles, no retractions, labored breathing, is not present, Breath sounds: are clear throughout, no decreased breath sounds, no stridor, no wheezing. 15:35 Abdomen/GI: Inspection: abdomen appears normal, Bowel sounds: active, all quadrants, Palpation: soft, in all quadrants, moderate abdominal tenderness, in the left upper quadrant and left lower quadrant, rebound tenderness, is not appreciated, involuntary guarding, is not appreciated. 15:35 Back: CVA tenderness, is absent. 15:35 Neuro: Orientation: to person, place \T\ time. Mentation: is normal, Motor: moves all fours, strength is normal, Gait: is steady. Vital Signs: 15:12 BP 127 / 91; Pulse 78; Resp 16; Temp 98.7; Pulse Ox 97% on R/A; iw 17:39 BP 138 / 84; Pulse 70; Resp 16; Pulse Ox 99% on R/A; Pain 5/10; mb9 18:10 BP 120 / 79; Pulse 68; Resp 16; Pulse Ox 99% on R/A; mb9 MDM: 15:15 Patient medically screened. cp 16:00 Differential diagnosis: bowel obstruction, diverticulitis, non-specific abd pain, cp pancreatitis, Pyelonephritis, Ureterolithiasis, urinary tract infection. 18:15 Data reviewed: vital signs, nurses notes. cp 18:15 I considered the following discharge prescriptions or medication management in the emergency department Medications were administered in the Emergency Department. See MAR. Test considered but Not performed: Ultrasound renal. Care significantly affected by the following chronic conditions: Hypertension. Counseling: I had a detailed discussion with the patient and/or guardian regarding: the historical points, exam findings, and any diagnostic results supporting the discharge/admit diagnosis, lab results, radiology results, the need for outpatient follow up, a urologist, to return to the emergency department if symptoms worsen or persist or if there are any questions or concerns that arise at home. Response to treatment: the patient's symptoms have markedly improved after treatment, and as a result, I will discharge patient. 12/15 15:20 Order name: CBC with Diff 12/15 15:20 Order name: CMP 12/15 15:20 Order name: Lipase 12/15 15:20 Order name: Urine Microscopic Only 12/15 16:18 Order name: CBC with Automated Diff; Complete Time: 16:40 EDMS 12/15 16:41 Interpretation: Normal except: RBC 5.51; MPV 7.3. 12/15 16:18 Order name: Urine Dipstick-Ancillary; Complete Time: 16:40 EDMT 12/15 16:54 Interpretation: Reviewed. 12/15 15:20 Order name: CT Abd/Pelvis - IV Contrast Only 12/15 15:50 Order name: XRAY Chest (1 view) 12/15 16:26 Order name: Urine Microscopic Only; Complete Time: 16:40 EDMT 12/15 16:55 Interpretation: Reviewed. 12/15 16:38 Order name: Comprehensive Metabolic Panel; Complete Time: 16:40 EDMT 12/15 16:54 Interpretation: Normal except: GFR 84. 12/15 16:38 Order name: Lipase; Complete Time: 16:40 EDMT 12/15 16:56 Order name: RAD; Complete Time: 17:05 EDMT 12/15 17:44 Order name: CT; Complete Time: 18:02 EDMT 12/15 18:02 Interpretation: Report reviewed. 12/15 15:20 Order name: IV Saline Lock; Complete Time: 16:17 12/15 15:20 Order name: Labs collected and sent; Complete Time: 16:17 12/15 15:20 Order name: Urine Dipstick-Ancillary (obtain specimen); Complete Time: 16:21 12/15 18:15 Order name: PO challenge; Complete Time: 18:16 cp Administered Medications: 16:27 Drug: Zofran (Ondansetron) 4 mg Route: IVP; Site: right antecubital; iw 16:27 Drug: morphine 2 mg Route: IVP; Infused Over: 4 mins; Site: right antecubital; iw 16:27 Drug: NS 0.9% 500 ml Route: IV; Rate: 500 ml/hr; Site: right antecubital; iw 16:52 Follow up: IV Status: Completed infusion; IV Intake: 500ml ss 17:47 Drug: morphine 2 mg Route: IVP; Infused Over: 4 mins; Site: right antecubital; mb9 18:10 Follow up: Response: No adverse reaction mb9 18:10 Drug: Flomax (tamsulosin) 0.4 mg Route: PO; mb9 18:16 Follow up: Response: No adverse reaction mb9 18:10 Drug: Ketorolac 15 mg Route: IVP; Site: right antecubital; mb9 18:16 Follow up: Response: No adverse reaction mb9 Disposition: 18:43 Co-signature as Attending Physician, Eren Bustillo DO I was immediately available on-site ms3 in the Emergency Department for consultation in the care of the patient. Disposition Summary: 12/15/22 18:16 Discharge Ordered Location: Home cp Problem: new cp Symptoms: have improved cp Condition: Stable cp Diagnosis - Calculus of ureter - left cp Followup: cp - With: Private Physician - When: 2 - 3 days - Reason: Recheck today's complaints Discharge Instructions: - Discharge Summary Sheet cp - Kidney Stones cp - Renal Colic cp Forms: - Medication Reconciliation Form cp - Thank You Letter cp - Antibiotic Education cp - Prescription Opioid Use cp Prescriptions: - Flomax 0.4 mg Oral capsule - take 1 capsule by ORAL route once daily 1/2 hour following the same meal each cp day; 7 capsule; Refills: 0, Product Selection Permitted - Ultracet 37.5-325 mg Oral Tablet - take 1 tablet by ORAL route every 6 hours - for up to 5 days; do not exceed 8 cp tablets per day.; 15 tablet; Refills: 0, Product Selection Permitted - Zofran 4 mg Oral Tablet - take 1 tablet by ORAL route every 12 hours As needed; 20 tablet; Refills: 0, cp Product Selection Permitted Signatures: Dispatcher [employer] Kylie Carlin RN RN iw Page, Corey, PA PA Eren Meza DO DO ms3 Krysta Young RN RN mb9 Radha Lewisby RN ss
[2022-12-15 18:37] VITALS: TEMP 98.7
[2022-12-15 18:39] VITALS: O2SAT 99
[2022-12-15 18:40] VITALS: BP 120/79
== END 2022-12-15 18:31 | disposition home or self-care (01) ==
LOC: ER 15:03
DX: N20.1 Calculus of ureter (principal); Z87.442 Personal history of urinary calculi; I10 Essential (primary) hypertension
CPT/HCPCS: 85025; 36415; 83690; 80053; 74177; 71045; 96375; 96374; 99284; Q9967; J2270 ×2; J7040; J2405; 81003; 81015

== ENCOUNTER 2023-03-27 14:42 | Emergency (ER) | payer OTHER ==
--- OUTSIDE RECORDS SUMMARY | 2023-03-27 14:51 | XMS REPORT | Continuity of Care Document ---
:1955 Author Organization [facility] Address [address] [place] [address] Care Team Providers Name Role Phone Lenin Maguire MD Primary Care Physician Kaitlin POSADA, Jose Luis Salinas Attending Clinician Payers Payer Name Policy Type Policy Number Effective Date Expiration Date S ource Problems This patient has no known problems. Allergies, Adverse Reactions, Alerts This patient has no known allergies or adverse reactions. Social History Social Habit Start Date Stop Date Quantity Comments Source Gender identity [facility] Sexual orientation [facility] Sex Assigned At [birth year] [facility] 00:00:00 00:00:00 Smoking Status Start Date Stop Date Source Tobacco smoking consumption unknown [facility] Medications This patient has no known medications. Procedures Procedure Date / Time Performed Performing Clinician Sourdiane e XR ABDOMEN 1 VW 2022-12-28 18:35:19 Jose Luis Smith Ho spital XR KUB KIDNEY URETER 2021-10-19 18:35:47 Jose Luis Smith [facility] BLADDER Plan of Care Planned Activity Planned Date Details Comments Source Future Scheduled 2023-01-26 Hepatitis C screening [facility] Test 17:13:46 (procedure) [code = 560591255] Future Scheduled 2023-01-26 Screening for [facility] Test 17:13:46 malignant neoplasm of colon (procedure) [code = 570371823] Future Scheduled 2023-01-26 SHINGLES VACCINES ([address] [facility] Test 17:13:46 of 2) [code = SHINGLES VACCINES (1 of 2)] Future Scheduled 2023-01-26 COVID-19 VACCINE (4 - [facility] Test 17:13:46 Booster for Moderna series) [code = COVID-19 VACCINE (4 - Booster for Moderna series)] Future Scheduled 2023-01-26 65+ [facility] 17:13:46 VACCINE (1 - PCV) [code = 65+ PNEUMOCOCCAL VACCINE (1 - PCV)] Future Scheduled 2023-01-26 INFLUENZA VACCINE [facility] Test 17:13:46 [code = INFLUENZA VACCINE] Future Scheduled 2022-10-06 Hepatitis C screening [facility] Test 10:45:55 (procedure) [code = 541756710] Future Scheduled 2022-10-06 COLONOSCOPY SCREENING [facility] Test 10:45:55 [code = COLONOSCOPY SCREENING] Future Scheduled 2022-10-06 SHINGLES VACCINES ([address] [facility] Test 10:45:55 of 2) [code = SHINGLES VACCINES (1 of 2)] Future Scheduled 2022-10-06 COVID-19 VACCINE (4 - [facility] Test 10:45:55 Booster for Moderna series) [code = COVID-19 VACCINE (4 - Booster for Moderna series)] Future Scheduled 2022-10-06 INFLUENZA VACCINE [facility] Test 10:45:55 [code = INFLUENZA VACCINE] Future Scheduled 2022-10-06 65[facility] 10:45:55 VACCINE (1 - PCV) [code = 65+ PNEUMOCOCCAL VACCINE (1 - PCV)] Future Scheduled 2022-10-06 Hepatitis C screening [facility] Test 10:45:55 (procedure) [code = 021193035] Future Scheduled 2022-10-06 COLONOSCOPY SCREENING [facility] Test 10:45:55 [code = COLONOSCOPY SCREENING] Future Scheduled 2022-10-06 SHINGLES VACCINES (1 Met [facility] Test 10:45:55 of 2) [code = SHINGLES VACCINES (1 of 2)] Future Scheduled 2022-10-06 COVID-19 VACCINE (4 - [facility] Test 10:45:55 Booster for Moderna series) [code = COVID-19 VACCINE (4 - Booster for Moderna series)] Future Scheduled 2022-10-06 INFLUENZA VACCINE [facility] Test 10:45:55 [code = INFLUENZA VACCINE] Future Scheduled 2022-10-06 65+ [facility]AL [facility] 10:45:55 VACCINE (1 - PCV) [code = 65+ PNEUMOCOCCAL VACCINE (1 - PCV)] Future Scheduled 2022-08-[address] VACC[address]ES [address] [facility] Test 17:16:35 (1 of 3 - 3-dose series) [code = HEPATITIS B VACCINES (1 of 3 - 3-dose series)] Future Scheduled 2022-08-25 Hepatitis C screening [facility] Test 17:16:35 (procedure) [code = 102823233] Future Scheduled 2022-08-25 COLONOSCOPY SCREENING [facility] Test 17:16:35 [code = COLONOSCOPY SCREENING] Future Scheduled 2022-08-25 SHINGLES VACCINES ([address] [facility] Test 17:16:35 of 2) [code = SHINGLES VACCINES (1 of 2)] Future Scheduled 2022-08-25 COVID-19 VACCINE (4 - [facility] Test 17:16:35 Booster for Moderna series) [code = COVID-19 VACCINE (4 - Booster for Moderna series)] Future Scheduled 2022-08-25 INFLUENZA VACCINE [facility] Test 17:16:35 [code = INFLUENZA VACCINE] Future Scheduled 2022-08-25 65+ PNEUMOCOCCAL [facility] Test 17:16:35 VACCINE (1 - PCV) [code = 65+ PNEUMOCOCCAL VACCINE (1 - PCV)] Encounters Start End Encounter Admission Attending Care Care Encounter Source Date/Time Date/Time Type Type Clinicians Facility Department ID 2022-02-23 Outpatient [facility] [id number] Common 08:48:05 [facility] 2022-12-28 2022-12-28 [facility] SmithJose Luis 1.2.840.1 [id number] [facility] 12:13:57 23:59:[address] 3.430.2.7 Hospit a .3.990338 l .8 2022-12-28 2022-12-28 Travel 1.2.840.1 [id number] [facility] 00:00:00 00:00:[address] 3.430.2.7 0.2.7.3.698 Ho spita .3.209690 084.8 l .8 2022-12-28 2022-12-28 Outpatient JOSE LUIS SMITH [facility] [id number] [place] 00:00:00 00:00:[address] 2022-12-28 2022-12-28 Orders Jose Luis Smith 1.2.840.1 [id number] [facility] 00:00:00 00:00:[address] 3.430.2.7 Hospit a .3.614979 l .8 2022-06-29 2022-06-29 Outpatient AO AO [id number] -[id number] [place] 00:00:00 00:00:00 [id number] [facility] 2021-10-19 2021-10-19 [facility] Jose Luis Smith 1.2.840.1 [id number] 2 [id number] [facility] 12:24:29 23:59:[address] 3.430.2.7 Hospit a .3.753953 l .8 2021-10-19 2021-10-19 Travel 1.2.840.1 [id number] [id number] [facility] 00:00:00 00:00:[address] 3.430.2.7 0.2.7.3.698 Ho spita .3.415179 084.8 l .8 2021-10-19 2021-10-19 Transcribe Jose Luis Smith 1.2.840.1 [id number] [facility] 00:00:00 00:00:[address] 3.430.2.7 Hospit a .3.257765 l .8 2020-07-24 2020-07-24 Outpatient JOSE LUIS SMITH [facility] [id number] [place] 00:00:00 00:00:[address] Results This patient has no known results.
--- NOTE | 2023-03-27 15:20 | RAD REPORT ---
EXAM DESCRIPTION: RAD - Wrist Right 3 View - 03/27/2023 3:14 pm CLINICAL HISTORY: PAIN Pain COMPARISON: <Comparisons> FINDINGS: No fracture or dislocation seen. No foreign body or other soft tissue abnormality. IMPRESSION: Negative examination.
[2023-03-27] MEDS ORDERED: KETOROLAC 30 MG/ML INJ ONE (15:27)
--- NOTE | 2023-03-27 15:30 | EDPHYS ---
Physician Documentation [facility] Name: Bradly Padron Age: 67 yrs Sex: Male : 1955 Arrival Date: 03/27/2023 Time: 14:42 Bed 11 Private MD: Lenin Maguire B ED Physician Torey Dorsey HPI: 03/27 15:14 This 67 yrs old Male presents to ER via Ambulatory with complaints of Wrist Pain. snw 15:14 The patient or guardian reports decreased range of motion, pain. The complaints affect snw the right wrist diffusely. Context: The problem was sustained outdoors, resulted from lifting or pulling, a heavy object. Onset: The symptoms/episode began/occurred suddenly, yesterday. Associated signs and symptoms: The patient has no apparent associated signs or symptoms. The patient has not experienced similar symptoms in the past. It is unknown whether or not the patient has recently seen a physician. Historical: - Allergies: 14:53 No Known Allergies; mb9 - Home Meds: 14:53 Lotrel 5-40 mg Oral cap 1 cap once daily for Hypertension [Active]; Prilosec Oral mb9 [Active]; Claritin Oral [Active]; - PMHx: 14:53 Diverticulitis; GERD; Hypertension; Kidney stone; mb9 - PSHx: 14:53 Lithotripsy; neck; Shoulder; mb9 - Immunization history:: Adult Immunizations up to date. - Social history:: Smoking status: Patient denies any tobacco usage or history of. ROS: 15:14 Constitutional: Negative for fever, chills, and weight loss, Eyes: Negative for injury, snw pain, redness, and discharge, ENT: Negative for injury, pain, and discharge, Neck: Negative for injury, pain, and swelling, Cardiovascular: Negative for chest pain, palpitations, and edema, Respiratory: Negative for shortness of breath, cough, wheezing, and pleuritic chest pain, Abdomen/GI: Negative for abdominal pain, nausea, vomiting, diarrhea, and constipation, Back: Negative for injury and pain, : Negative for injury, bleeding, discharge, and swelling, Skin: Negative for injury, rash, and discoloration, Neuro: Negative for headache, weakness, numbness, tingling, and seizure, Psych: Negative for depression, anxiety, suicide ideation, homicidal ideation, and hallucinations. 15:14 MS/extremity: Positive for decreased range of motion, pain, swelling, tenderness, of the palmar aspect of right wrist and dorsal aspect of right wrist. Exam: 15:13 Constitutional: This is a well developed, well nourished patient who is awake, alert, snw and in no acute distress. Head/Face: Normocephalic, atraumatic. Eyes: Pupils equal round and reactive to light, extra-ocular motions intact. Lids and lashes normal. Conjunctiva and sclera are non-icteric and not injected. Cornea within normal limits. Periorbital areas with no swelling, redness, or edema. ENT: Nares patent. No nasal discharge, no septal abnormalities noted. Tympanic membranes are normal and external auditory canals are clear. Oropharynx with no redness, swelling, or masses, exudates, or evidence of obstruction, uvula midline. Mucous membranes moist. Neck: Trachea midline, no thyromegaly or masses palpated, and no cervical lymphadenopathy. Supple, full range of motion without nuchal rigidity, or vertebral point tenderness. No Meningismus. Chest/axilla: Normal chest wall appearance and motion. Nontender with no deformity. No lesions are appreciated. Cardiovascular: Regular rate and rhythm with a normal S1 and S2. No gallops, murmurs, or rubs. Normal PMI, no JVD. No pulse deficits. Respiratory: Lungs have equal breath sounds bilaterally, clear to auscultation and percussion. No rales, rhonchi or wheezes noted. No increased work of breathing, no retractions or nasal flaring. Abdomen/GI: Soft, non-tender, with normal bowel sounds. No distension or tympany. No guarding or rebound. No evidence of tenderness throughout. Back: No spinal tenderness. No costovertebral tenderness. Full range of motion. Skin: Warm, dry with normal turgor. Normal color with no rashes, no lesions, and no evidence of cellulitis. Neuro: Awake and alert, GCS 15, oriented to person, place, time, and situation. Cranial nerves II-XII grossly intact. Motor strength 5/5 in all extremities. Sensory grossly intact. Cerebellar exam normal. Normal gait. Psych: Awake, alert, with orientation to person, place and time. Behavior, mood, and affect are within normal limits. 15:13 Musculoskeletal/extremity: Extremities: grossly normal except: noted in the dorsal aspect of right wrist and palmar aspect of right wrist: decreased ROM, tenderness, ROM: limited active range of motion due to pain, limited passive range of motion due to pain, in the dorsal aspect of right wrist and palmar aspect of right wrist, Circulation is intact in all extremities. Sensation intact. Compartment Syndrome exam of affected extremity: is normal. Vital Signs: 14:51 BP 156 / 97; Pulse 76; Resp 16; Temp 99; Pulse Ox 97% on R/A; Weight 92.99 kg; Height 5 mb9 ft. 8 in. ; Pain 7/10; 14:51 Body Mass Index 31.17 (92.99 kg, 172.72 cm) mb9 14:51 Pain Scale: Adult mb9 MDM: 14:54 Patient medically screened. snw 15:39 Differential diagnosis: closed fracture, abrasion, tendonitis, sprain. Data reviewed: snw vital signs, nurses notes. I considered the following discharge prescriptions or medication management in the emergency department Medications were administered in the Emergency Department. See MAR. Counseling: I had a detailed discussion with the patient and/or guardian regarding: the historical points, exam findings, and any diagnostic results supporting the discharge/admit diagnosis, the need for outpatient follow up, to return to the emergency department if symptoms worsen or persist or if there are any questions or concerns that arise at home. Special discussion: Based on the history and exam findings, there is no indication for further emergent testing or inpatient evaluation. I discussed with the patient/guardian the need to see the orthopedic surgeon for further evaluation of the symptoms. I discussed with the patient/guardian the need to see the primary care provider for further evaluation of the symptoms. 03/27 14:58 Order name: Wrist Right 3 View XRAY; Complete Time: 15:28 snw 03/27 14:58 Order name: Wrist Splint; Complete Time: 15:24 snw Administered Medications: 15:15 Not Given (Patient Refused): HYDROcodone-acetaminophen PO 5 mg-325 mg 1 tabs PO once mb9 15:24 Drug: Ketorolac IM 30 mg Route: IM; Site: left deltoid; mb9 Disposition Summary: 03/27/23 15:30 Discharge Ordered Location: Home snw Condition: Stable snw Diagnosis - Pain in right wrist snw - Sprain of unspecified part of right wrist and hand snw Followup: snw - With: Emergency Department - When: As needed - Reason: Worsening of condition Followup: snw - With: - When: 2 - 3 days - Reason: Recheck today's complaints, Continuance of care, Re-evaluation by your physician Discharge Instructions: - Discharge Summary Sheet snw - Musculoskeletal Pain snw - RICE Therapy for Routine Care of Injuries snw - Wrist Pain, Adult snw - Wrist Splint or Brace, Adult snw - Wrist Sprain, Adult snw Forms: - Medication Reconciliation Form snw - Thank You Letter snw - Antibiotic Education snw - Prescription Opioid Use snw Prescriptions: - Zyrtec 10 mg Oral Tablet - take 1 tablet by ORAL route once daily As needed; 20 tablet; Refills: 0, snw Product Selection Permitted - Prednisone 20 mg Oral Tablet - take 2 tablets by ORAL route once daily for 5 days; 10 tablet; Refills: 0, snw Product Selection Permitted - Pepcid 20 mg Oral Tablet - take 1 tablet by ORAL route once daily; 20 tablet; Refills: 0, Product snw Selection Permitted Signatures: Dispatcher [employer] EDNellie Mccarthy, SHAKE LOADER-C SHAKE LOADER-Csnw Krysta Young, RN RN mb9
--- NOTE | 2023-03-27 15:30 | ER ---
Nurse's Notes [facility] Name: Bradly Padron Age: 67 yrs Sex: Male : 1955 Arrival Date: 03/27/2023 Time: 14:42 Bed 11 Private MD: Lenin Maguire B Diagnosis: Pain in right wrist;Sprain of unspecified part of right wrist and hand Presentation: 03/27 14:51 Chief complaint: Right wrist pain after picking up a pump 2 days ago. Coronavirus mb9 screen: At this time, the client does not indicate any symptoms associated with coronavirus-19. Ebola Screen: No symptoms or risks identified at this time. Initial Sepsis Screen: Does the patient meet any 2 criteria? No. Patient's initial sepsis screen is negative. Does the patient have a suspected source of infection? No. Patient's initial sepsis screen is negative. Risk Assessment: Do you want to hurt yourself or someone else? Patient reports no desire to harm self or others. Onset of symptoms was March 25, 2023. 14:51 Method Of Arrival: Ambulatory mb9 14:51 Acuity: MARIA E 4 mb9 Triage Assessment: 14:53 General: Appears in no apparent distress. uncomfortable, Behavior is calm, cooperative. mb9 Pain: Pain currently is 7 out of 10 on a pain scale. Neuro: Level of Consciousness is awake, alert, obeys commands, Oriented to person, place, time, situation. Cardiovascular: Patient's skin is warm and dry. Respiratory: Respiratory effort is even, unlabored, Respiratory pattern is regular, symmetrical. Musculoskeletal: Reports right wrist pain. Historical: - Allergies: 14:53 No Known Allergies; mb9 - Home Meds: 14:53 Lotrel 5-40 mg Oral cap 1 cap once daily for Hypertension [Active]; Prilosec Oral mb9 [Active]; Claritin Oral [Active]; - PMHx: 14:53 Diverticulitis; GERD; Hypertension; Kidney stone; mb9 - PSHx: 14:53 Lithotripsy; neck; Shoulder; mb9 - Immunization history:: Adult Immunizations up to date. - Social history:: Smoking status: Patient denies any tobacco usage or history of. Screenin:[address] [facility] ED Fall Risk Assessment (Adult) History of falling in the last 3 months, mb9 including since admission No falls in past 3 months (0 pts) Confusion or Disorientation No (0 pts) Intoxicated or Sedated No (0 pts) Impaired Gait No (0 pts) Mobility Assist Device Used No (0 pt) Altered Elimination No (0 pt) Score/Fall Risk Level 0 - 2 = Low Risk Oriented to surroundings, Maintained a safe environment, Educated pt \T\ family on fall prevention, incl call for assistance when getting out of bed. Abuse screen: Denies threats or abuse. Nutritional screening: No deficits noted. Tuberculosis screening: No symptoms or risk factors identified. Assessment: 15:25 Reassessment: see triage assessment. mb9 15:46 Reassessment: No changes from previously documented assessment. Patient and/or family mb9 updated on plan of care and expected duration. Pain level reassessed. Patient is alert, oriented x 3, equal unlabored respirations, skin warm/dry/pink. Vital Signs: 14:51 BP 156 / 97; Pulse 76; Resp 16; Temp 99; Pulse Ox 97% on R/A; Weight 92.99 kg; Height 5 mb9 ft. 8 in. ; Pain 7/10; 14:51 Body Mass Index 31.17 (92.99 kg, 172.72 cm) mb9 14:51 Pain Scale: Adult mb9 ED Course: 14:45 Patient arrived in ED. am2 14:45 Lenin Maguire MD is Private Physician. am2 14:53 Triage completed. mb9 14:53 Nell[facility] Gra[facility]-C [facility] snw 14:53 Torey Dorsey MD is Attending Physician. snw 14:53 Arm band placed on. mb9 15:10 Krysta Young, EVA is Primary Nurse. mb9 15:15 Wrist Right 3 View XRAY In Process Unspecified. EDMS 15:24 Placed in gown. Bed in low position. Call light in reach. Client placed on continuous mb9 cardiac and pulse oximetry monitoring. NIBP monitoring applied. 15:25 No provider procedures requiring assistance completed. Patient did not have IV access mb9 during this emergency room visit. 15:29 Lenin Maguire MD is Referral Physician. snw Administered Medications: 15:15 Not Given (Patient Refused): HYDROcodone-acetaminophen PO 5 mg-325 mg 1 tabs PO once mb9 15:24 Drug: Ketorolac IM 30 mg Route: IM; Site: left deltoid; mb9 Medication: 15:25 VIS not applicable for this client. mb9 Outcome: 15:30 Discharge ordered by MD. pruett 15:46 Discharged to home ambulatory. mb9 15:46 Condition: stable 15:46 Discharge instructions given to patient, Instructed on discharge instructions, follow up and referral plans. Demonstrated understanding of instructions, follow-up care, medications, Prescriptions given X 3. 15:47 Patient left the ED. mb9 Signatures: Dispatcher [employer] EDNellie Mccarthy, AIRPLANE PILOT PHOTOGRAMMETRY-C AIRPLANE PILOT PHOTOGRAMMETRY-Csnw Allegra Rivero Mary Beth, RN RN mb9
[2023-03-27 16:13] VITALS: BP 156/97; TEMP 99; O2SAT 97
== END 2023-03-27 15:47 | disposition home or self-care (01) ==
LOC: ER 14:42
DX: S63.91XA Sprain of unspecified part of right wrist and hand, initial encounter (principal); I10 Essential (primary) hypertension
CPT/HCPCS: 96372; 99284

== ENCOUNTER 2023-04-29 19:47 | Emergency (ER) | payer OTHER ==
--- OUTSIDE RECORDS SUMMARY | 2023-04-29 19:50 | XMS REPORT | Continuity of Care Document ---
:1955 Author Organization [facility] Address [address] [place] [address] Care Team Providers Name Role Phone Lenin [...] Stop Date Quantity Comments Source Gender identity [facility] Sexual orientation [facility] Sex Assigned At [birth year] [facility] 00:00:00 00:00:00 Smoking Status Start Date Stop Date Source Tobacco smoking consumption unknown [facility] Medications This patient has no known medications. Procedures Procedure Date / Time Performed Performing Clinician Sourc e XR ABDOMEN 1 VW 2022-12-28 18:35:19 Jose Luis Smith Ho spital XR KUB KIDNEY URETER 2021-10-19 18:35:47 Jose Luis Smith [facility] BLADDER Plan of Care Planned Activity Planned Date Details Comments Source Future Scheduled 2023-04-13 Screening for [facility] Test 11:33:57 malignant neoplasm of colon (procedure) [code = 057139244] Future Scheduled 2023-04-13 Screening for [facility] Test 11:33:57 malignant neoplasm of colon (procedure) [code = 457875729] Future Scheduled 2023-04-13 Screening for [facility] Test 11:33:57 malignant neoplasm of colon (procedure) [code = 819585174] Future Scheduled 2023-04-13 [facility] Test 11:33:57 (procedure) [code = 534042158] Future Scheduled 2023-04-13 Screening for [facility] Test 11:33:57 malignant neoplasm of colon (procedure) [code = 990170465] Future Scheduled 2023-04-13 Screening for [facility] Test 11:33:57 malignant neoplasm of colon (procedure) [code = 910492022] Future Scheduled 2023-04-13 SHINGLES VACCINES (1 [facility] Test 11:33:57 of 2) [code = SHINGLES VACCINES (1 of 2)] Future Scheduled 2023-04-13 COVID-19 VACCINE (4 - [facility] Test 11:33:57 Moderna series) [code = COVID-19 VACCINE (4 - Moderna series)] Future Scheduled 2023-04-13 65+ [facility]CCAL [facility] Test 11:33:57 VACCINE (1 - PCV) [code = 65+ PNEUMOCOCCAL VACCINE (1 - PCV)] Future Scheduled 2023-04-13 INFLUENZA VACCINE [facility] Test 11:33:57 [code = INFLUENZA VACCINE] Future Scheduled 2023-01-26 Hepatitis C screening [facility] Test 17:13:46 (procedure) [code = 280571950] Future Scheduled 2023-01-26 Screening for [facility] Test 17:13:46 malignant neoplasm of colon (procedure) [code = 938028506] Future Scheduled 2023-01-26 SHINGLES VACCINES (1 Met [facility] Test 17:13:46 of 2) [code = SHINGLES VACCINES (1 of 2)] Future Scheduled 2023-01-26 COVID-19 VACCINE (4 - [facility] Test 17:13:46 Booster for Moderna series) [code = COVID-19 VACCINE (4 - Booster for Moderna series)] Future Scheduled 2023-01-26 65+ [facility]OCOCCAL [facility] Test 17:13:46 VACCINE (1 - PCV) [code = 65+ PNEUMOCOCCAL VACCINE (1 - PCV)] Future Scheduled 2023-01-26 INFLUENZA VACCINE [facility] Test 17:13:46 [code = INFLUENZA VACCINE] Future Scheduled 2022-10-06 Hepatitis C screening [facility] Test 10:45:55 (procedure) [code = 028307430] Future Scheduled 2022-10-06 COLONOSCOPY SCREENING [facility] Test 10:45:55 [code = COLONOSCOPY SCREENING] Future Scheduled 2022-10-06 SHINGLES VACCINES (1 [facility] Test 10:45:55 of 2) [code = SHINGLES VACCINES (1 of 2)] Future Scheduled 2022-10-06 COVID-19 VACCINE (4 - [facility] Test 10:45:55 Booster for Moderna series) [code = COVID-19 VACCINE (4 - Booster for Moderna series)] Future Scheduled 2022-10-06 INFLUENZA VACCINE [facility] Test 10:45:55 [code = INFLUENZA VACCINE] Future Scheduled 2022-10-06 65+ PNEUMOCOCCAL [facility] Test 10:45:55 VACCINE (1 - PCV) [code = 65+ PNEUMOCOCCAL VACCINE (1 - PCV)] Future Scheduled 2022-10-06 Hepatitis C screening [facility] Test 10:45:55 (procedure) [code = 521341338] Future Scheduled 2022-10-06 COLONOSCOPY SCREENING [facility] Test 10:45:55 [code = COLONOSCOPY SCREENING] Future Scheduled 2022-10-06 SHINGLES VACCINES (1 [facility] Test 10:45:55 of 2) [code = SHINGLES VACCINES (1 of 2)] Future Scheduled 2022-10-06 COVID-19 VACCINE (4 - [facility] Test 10:45:55 Booster for Moderna series) [code = COVID-19 VACCINE (4 - Booster for Moderna series)] Future Scheduled 2022-10-06 INFLUENZA VACCINE [facility] Test 10:45:55 [code = INFLUENZA VACCINE] Future Scheduled 2022-10-06 65+ [facility]OCOCCAL [facility] Test 10:45:55 VACCINE (1 - PCV) [code = 65+ PNEUMOCOCCAL VACCINE (1 - PCV)] Future Scheduled 2022-08-25 HEPATITIS B VACCINES [facility] Test 17:16:35 (1 of 3 - 3-dose series) [code = HEPATITIS B VACCINES (1 of 3 - 3-dose series)] Future Scheduled 2022-08-25 Hepatitis C screening [facility] Test 17:16:35 (procedure) [code = 616800226] Future Scheduled 2022-08-25 COLONOSCOPY SCREENING [facility] Test 17:16:35 [code = COLONOSCOPY SCREENING] Future Scheduled 2022-08-25 SHINGLES VACCINES (1 [facility] Test 17:16:35 of 2) [code = SHINGLES VACCINES (1 of 2)] Future Scheduled 2022-08-25 COVID-19 VACCINE (4 - [facility] Test 17:16:35 Booster for Moderna series) [...] Type Clinicians Facility Department ID 2022-02-23 [facility] [id number] Common 08:48:05 [facility] 2022-12-28 2022-12-28 [facility] Jose Luis Smith 1.2.840.1 [id number] Methodi 12:13:57 23:59:[address] 3.430.2.7 Hospit a .3.668992 l .8 2022-12-28 2022-12-28 [facility] Smith Jose Luis 1.2.840.1 [id number] Methodi 12:13:57 23:59:[address] 3.430.2.7 Hospit a .3.243952 l .8 2022-12-28 2022-12-28 Travel 1.2.840.1 1.2.969.566 [id number] Methodi 00:00:00 00:00:[address] 3.430.2.7 0.2.7.3.698 Ho spita .3.753929 084.8 l .8 2022-12-28 2022-12-28 [facility] Smith, Jose Luis 1.2.840.1 [id number] Methodi 00:00:00 00:00:[address] 3.430.2.7 Hospit a .3.913647 l .8 2022-12-28 2022-12-28 Travel 1.2.840.1 1.2.275.130 [id number] [id number] Methodi 00:00:00 00:00:[address] 3.430.2.7 0.2.7.3.698 Ho spita .3.163133 084.8 l .8 2022-12-28 2022-12-28 Orders SmithJose Luis lee 1.2.840.1 [id number] Methodi 00:00:00 00:00:[address] 3.430.2.7 Hospit a .3.741229 l .8 2022-06-29 2022-06-29 Outpatient [facility] [id number] -20 [place] 00:00:00 00:00:00 [id number] [facility] 2021-10-19 2021-10-19 Hospital Jose Luis Smith 1.2.840.1 [id number] 2 [id number] Methodi 12:24:29 23:59:[address] 3.430.2.7 Hospit a .3.780814 l .8 2021-10-19 2021-10-19 Transcribe SmithJose Luis 1.2.840.1 [id number] Methodi 00:00:00 00:00:[address] 3.430.2.7 Hospit a .3.331550 l .8 2021-10-19 2021-10-19 Travel 1.2.840.1 1.2.916.800 [id number] Methodi 00:00:00 00:00:[address] 3.430.2.7 0.2.7.3.698 Ho spita .3.906798 084.8 l .8 2020-07-24 2020-07-24 Outpatient JOSE LUIS SMITH [facility] [id number] [place] 00:00:00 00:00:[address] Results This patient has no known results.
[2023-04-29 20:28] LABS: Absolute Lymphocytes (CBC) 1.5 K/uL (0.7-4.9); Hematocrit 44.9 % (39.6-49.0); Lymphocytes % 14.4 % (15.3-44.8); MCV 86.4 fL (80-100); MPV 7.4 fL (7.6-11.3)
[2023-04-29] MEDS ORDERED: ONDANSETRON 4 MG/2 ML VIAL ONE (20:53)
[2023-04-29] MEDS ORDERED: HYDROMORPHONE HCL 1 MG/ML INJ ONE (20:53)
[2023-04-29] MEDS ORDERED: NA CHLORIDE 0.9% 1,000 ML ONE (20:54)
[2023-04-29 21:03] LABS: Albumin 3.6 g/dL (3.4-5.0); Bilirubin Total 0.4 mg/dL (0.2-1.0); Potassium 3.5 mEq/L (3.5-5.1); Protein, Total 6.9 g/dL (6.4-8.2)
--- NOTE | 2023-04-29 22:10 | RAD REPORT ---
EXAM DESCRIPTION: CT - Abdomen Pelvis W Contrast - 04/29/2023 9:54 pm CLINICAL HISTORY: Abdominal pain COMPARISON: November 2022 TECHNIQUE: Computed axial tomography of the abdomen pelvis was obtained. 95 cc Isovue-300 was admini stered intravenously. Oral contrast was not requested which limits evaluation of bowel and appendix All CT scans are performed using dose optimization technique as appropriate and may include automated exposure control or mA/KV adjustment according to patient size. FINDINGS: Mild fatty liver Spleen, pancreas, adrenals and right kidney are unremarkable. Small left renal cyst. 2 millimeter erinn culus left kidney. No hydronephrosis. Normal appendix. Diverticula stem from the colon. Mild to moderate stranding adjacent to the proximal sigmoid colon co nsistent with diverticulitis. No free air. No abscess Small bilateral inguinal hernias IMPRESSION: Mild to moderate sigmoid diverticulitis
[2023-04-29] MEDS ORDERED: CIPROFLOXACIN HCL 500 MG TAB ONE (22:53)
[2023-04-29] MEDS ORDERED: metroNIDAZOLE 500 MG TABLET ONE (22:54)
--- NOTE | 2023-04-29 23:05 | EDPHYS ---
Physician Documentation [facility] Name: Bradly Padron Age: 67 yrs Sex: Male : 1955 Arrival Date: 04/29/2023 Time: 19:47 Bed 8 Private MD: Lenin Maguire B ED Physician Surinder Dick HPI: 04/29 20:15 This 67 yrs old Male presents to ER via Ambulatory with complaints of Abdominal Pain. cp 20:15 The patient presents with abdominal pain in the left lower quadrant. cp 20:15 Onset: The symptoms/episode began/occurred last night, and became worse this morning. cp The symptoms do not radiate. Associated signs and symptoms: Pertinent positives: nausea, Pertinent negatives: constipation, diarrhea, fever, testicular pain, vomiting. The symptoms are described as constant. Modifying factors: the symptoms are aggravated by pressure. Severity of pain: in the emergency department the pain is unchanged despite home interventions. The patient has experienced similar episodes in the past, a few times, today's symptoms are similar, to when the patient was apparently diagnosed with diverticulitis. Historical: - Allergies: 19:53 No Known Allergies; vc1 - PMHx: 19:53 Diverticulitis; GERD; Hypertension; Kidney stone; vc1 - PSHx: 19:53 Lithotripsy; neck; Shoulder; vc1 - Immunization history:: Client reports receiving the 2nd dose of the Covid vaccine. - Social history:: Smoking status: Patient denies any tobacco usage or history of. ROS: 20:20 Constitutional: Negative for body aches, chills, fever, poor PO intake. cp 20:20 Eyes: Negative for injury, pain, redness, and discharge. cp 20:20 ENT: Negative for drainage from ear(s), ear pain, sore throat, difficulty swallowing, difficulty handling secretions. 20:20 Cardiovascular: Negative for chest pain, edema, palpitations. 20:20 Respiratory: Negative for cough, shortness of breath, wheezing. 20:20 Abdomen/GI: Positive for abdominal pain, nausea, Negative for vomiting, diarrhea, constipation, black/tarry stool, rectal bleeding. 20:20 Back: Negative for radiated pain. 20:20 Neuro: Negative for altered mental status, dizziness, headache, weakness. 20:20 All other systems are negative. Exam: 20:25 Constitutional: The patient appears in no acute distress, alert, awake, cp non-diaphoretic, non-toxic, well developed, well nourished, uncomfortable, overweight 20:25 Head/Face: Normocephalic, atraumatic. cp 20:25 Eyes: Periorbital structures: appear normal, Conjunctiva: normal, no exudate, no injection, Sclera: no appreciated abnormality, Lids and lashes: appear normal, bilaterally. 20:25 ENT: External ear(s): are unremarkable, Nose: is normal, Mouth: Lips: moist, Oral mucosa: pink and intact, moist, Posterior pharynx: is normal, airway is patent, no erythema, no exudate. 20:25 Chest/axilla: Inspection: normal. 20:25 Cardiovascular: Rate: normal, Rhythm: regular. 20:25 Respiratory: the patient does not display signs of respiratory distress, Respirations: normal, no use of accessory muscles, no retractions, labored breathing, is not present, Breath sounds: are clear throughout, no decreased breath sounds, no stridor, no wheezing. 20:25 Abdomen/GI: Inspection: abdomen appears normal, Bowel sounds: active, all quadrants, Palpation: soft, in all quadrants, moderate abdominal tenderness, in the left lower quadrant, rebound tenderness, is not appreciated, voluntary guarding, is elicited in the left lower quadrant. 20:25 Back: pain, is absent, ROM is normal. 20:25 Neuro: Orientation: to person, place \T\ time. Mentation: is normal. Vital Signs: 19:51 BP 150 / 107; Pulse 70; Resp 15; Temp 97.9; Pulse Ox 99% ; Weight 96.16 kg; Height 5 vc1 ft. 8 in. ; Pain 7/10; 21:16 BP 133 / 84; Pulse 63; Resp 16; Pulse Ox 96% on R/A; jb4 22:24 BP 141 / 97; Pulse 55; Resp 16; Pulse Ox 96% on R/A; jb4 22:52 BP 144 / 77; kl 23:23 BP 124 / 70; Pulse 54; Resp 16; Pulse Ox 96% on R/A; jb4 19:51 Body Mass Index 32.23 (96.16 kg, 172.72 cm) vc1 19:51 Pain Scale: Adult vc1 MDM: 19:57 Patient medically screened. cp 21:00 Differential diagnosis: diverticulitis, non-specific abd pain, Pyelonephritis, cp Testicular Torsion, Ureterolithiasis, urinary tract infection. 23:05 Data reviewed: vital signs, nurses notes, lab test result(s), radiologic studies, CT cp scan. 23:05 Consideration of Admission/Observation Escalation of care including cp admission/observation considered. I considered the following discharge prescriptions or medication management in the emergency department Medications were administered in the Emergency Department. See MAR. Care significantly affected by the following chronic conditions: Hypertension. Counseling: I had a detailed discussion with the patient and/or guardian regarding: the historical points, exam findings, and any diagnostic results supporting the discharge/admit diagnosis, lab results, radiology results, to return to the emergency department if symptoms worsen or persist or if there are any questions or concerns that arise at home. Response to treatment: the patient's symptoms have markedly improved after treatment, and as a result, I will discharge patient. Special discussion: Based on the patient's Hx, exam, and Dx evaluation, there is no indication for emergent surgery or inpatient Tx. It is understood by the patient/guardian that if the Sx's persist or worsen they need to return immediately for re-evaluation. 04/29 20:09 Order name: CBC with Diff; Complete Time: 22:24 cp 04/29 22:24 Interpretation: Normal except: MPV 7.4; MOLLY% 75.8; LYM% 14.4. cp 04/29 20:09 Order name: CMP; Complete Time: 22:24 cp 04/29 22:24 Interpretation: Normal except: GLUC 109; GFR 83. cp 04/29 20:09 Order name: Lipase; Complete Time: 22:24 cp 04/29 20:09 Order name: Urinalysis w/ reflexes cp 04/29 20:35 Order name: CT Abd/Pelvis - IV Contrast Only; Complete Time: 22:24 cp 04/29 20:09 Order name: IV Saline Lock; Complete Time: 20:22 cp 04/29 20:09 Order name: Labs collected and sent; Complete Time: 20:22 cp 04/29 22:26 Order name: PO challenge; Complete Time: 22:42 cp Administered Medications: 20:51 Drug: HYDROmorphone IVP 1 mg Route: IVP; Site: right antecubital; jb4 20:51 Drug: Ondansetron IVP 4 mg Route: IVP; Site: right antecubital; jb4 20:51 Drug: NS 0.9% IV 1000 ml Route: IV; Rate: 500 ml/hr; Site: right antecubital; jb4 22:53 Drug: Ciprofloxacin PO 500 mg Route: PO; jb4 22:53 Drug: metroNIDAZOLE PO 500 mg Route: PO; jb4 23:18 Drug: Dicyclomine PO 20 mg Route: PO; jb4 Disposition Summary: 04/29/23 23:05 Discharge Ordered Location: Home cp Problem: new cp Symptoms: have improved cp Condition: Stable cp Diagnosis - Diverticulitis of large intestine without perforation or abscess without bleeding cp Followup: cp - With: Private Physician - When: 2 - 3 days - Reason: Recheck today's complaints Discharge Instructions: - Discharge Summary Sheet cp - High-Fiber Eating Plan cp - Diverticulitis cp Forms: - Medication Reconciliation Form cp - Thank You Letter cp - Antibiotic Education cp - Prescription Opioid Use cp - [email or web address] cp Prescriptions: - Zofran 4 mg Oral Tablet - take 1 tablet by ORAL route every 12 hours As needed; 20 tablet; Refills: 0, cp Product Selection Permitted - Cipro 500 mg Oral Tablet - take 1 tablet by ORAL route every 12 hours for 10 days; 20 tablet; Refills: 0, cp Product Selection Permitted - Metronidazole 500 mg Oral Tablet - take 1 tablet by ORAL route every 8 hours; 30 tablet; Refills: 0, Product cp Selection Permitted - dicyclomine 20 mg Oral Tablet - take 1 tablet by ORAL route 4 times per day; 30 tablet; Refills: 0, Product cp Selection Permitted Signatures: Dispatcher [employer] EDWI Torey Zamorano PA PA cp Bryson, James, RN RN jb4 Cleopatra Funk RN RN vc1
--- NOTE | 2023-04-29 23:05 | ER ---
Nurse's Notes [facility] Name: Bradly Padron Age: 67 yrs Sex: Male : 1955 Arrival Date: 04/29/2023 Time: 19:47 Bed 8 Private MD: Lenin Maguire B Diagnosis: Diverticulitis of large intestine without perforation or abscess without bleeding Presentation: 04/29 19:51 Chief complaint: Patient states: I'm having pain in my left side it feels like vc1 diverticulitis, I have had it before. Coronavirus screen: Vaccine status: Patient reports receiving the 2nd dose of the covid vaccine. plus one; Moderna Client denies travel out of the [place] in the last 14 days. At this time, the client does not indicate any symptoms associated with coronavirus-19. Ebola Screen: Patient negative for fever greater than or equal to 101.5 degrees Fahrenheit, and additional compatible Ebola Virus Disease symptoms Patient denies exposure to infectious person. Patient denies travel to an Ebola-affected area in the 21 days before illness onset. No symptoms or risks identified at this time. Initial Sepsis Screen: Does the patient meet any 2 criteria? No. Patient's initial sepsis screen is negative. Does the patient have a suspected source of infection? No. Patient's initial sepsis screen is negative. Risk Assessment: Do you want to hurt yourself or someone else? Patient reports no desire to harm self or others. Onset of symptoms was April 29, 2023. 19:51 Method Of Arrival: Ambulatory vc1 19:51 Acuity: MARIA E 3 vc1 Triage Assessment: 19:54 General: Appears in no apparent distress. uncomfortable, Behavior is calm, cooperative, vc1 appropriate for age. Pain: Complains of pain in left lower quadrant Pain does not radiate. Pain currently is 7 out of 10 on a pain scale. Quality of pain is described as sharp, Pain began this morning Noted to be restless, Also complains of nausea. EENT: No deficits noted. No signs and/or symptoms were reported regarding the EENT system. Neuro: Level of Consciousness is awake, alert, obeys commands, Oriented to person, place, time, situation, Appropriate for age. Cardiovascular: No deficits noted. Respiratory: Airway is patent Respiratory effort is even, unlabored, Respiratory pattern is regular, symmetrical. GI: Reports lower abdominal pain, nausea, Patient currently denies diarrhea, vomiting. : No deficits noted. No signs and/or symptoms were reported regarding the genitourinary system. Derm: No deficits noted. No signs and/or symptoms reported regarding the dermatologic system. Musculoskeletal: No deficits noted. No signs and/or symptoms reported regarding the musculoskeletal system. Historical: - Allergies: 19:53 No Known Allergies; vc1 - PMHx: 19:53 Diverticulitis; GERD; Hypertension; Kidney stone; vc1 - PSHx: 19:53 Lithotripsy; neck; Shoulder; vc1 - Immunization history:: Client reports receiving the 2nd dose of the Covid vaccine. - Social history:: Smoking status: Patient denies any tobacco usage or history of. Screenin:55 Abuse screen: Denies threats or abuse. Nutritional screening: No deficits noted. vc1 Tuberculosis screening: No symptoms or risk factors identified. 23:23 [facility] ED Fall Risk Assessment (Adult) History of falling in the last 3 months, jb4 including since admission No falls in past 3 months (0 pts) Confusion or Disorientation No (0 pts). Assessment: 20:30 General: Appears in no apparent distress. uncomfortable, Behavior is calm, cooperative, jb4 appropriate for age. Pain: Complains of pain in left lower quadrant Pain does not radiate. Pain currently is 8 out of 10 on a pain scale. Neuro: Level of Consciousness is awake, alert, obeys commands, Oriented to person, place, time, situation. Cardiovascular: Patient's skin is warm and dry. Respiratory: Airway is patent Respiratory effort is even, unlabored, Respiratory pattern is regular, symmetrical. GI: Abdomen is round non-distended, obese. : No signs and/or symptoms were reported regarding the genitourinary system. EENT: No signs and/or symptoms were reported regarding the EENT system. Derm: Skin is intact, Skin is pink, warm \T\ dry. Musculoskeletal: Circulation, motion, and sensation intact. Range of motion: intact in all extremities. 21:16 Reassessment: Patient appears in no apparent distress at this time. Patient and/or jb4 family updated on plan of care and expected duration. Pain level reassessed. Patient is alert, oriented x 3, equal unlabored respirations, skin warm/dry/pink. Patient states feeling better. 22:23 Reassessment: Patient appears in no apparent distress at this time. Patient and/or jb4 family updated on plan of care and expected duration. Pain level reassessed. Patient is alert, oriented x 3, equal unlabored respirations, skin warm/dry/pink. 23:23 Reassessment: Patient appears in no apparent distress at this time. Patient and/or jb4 family updated on plan of care and expected duration. Pain level reassessed. Patient is alert, oriented x 3, equal unlabored respirations, skin warm/dry/pink. Vital Signs: 19:51 BP 150 / 107; Pulse 70; Resp 15; Temp 97.9; Pulse Ox 99% ; Weight 96.16 kg; Height 5 vc1 ft. 8 in. ; Pain 7/10; 21:16 BP 133 / 84; Pulse 63; Resp 16; Pulse Ox 96% on R/A; jb4 22:24 BP 141 / 97; Pulse 55; Resp 16; Pulse Ox 96% on R/A; jb4 22:52 BP 144 / 77; kl 23:23 BP 124 / 70; Pulse 54; Resp 16; Pulse Ox 96% on R/A; jb4 19:51 Body Mass Index 32.23 (96.16 kg, 172.72 cm) vc1 19:51 Pain Scale: Adult vc1 ED Course: 19:49 Patient arrived in ED. mr 19:49 Lenin Maguire MD is Private Physician. mr 19:49 [facility] cp 19:49 Surinder Dick MD is Attending Physician. cp 19:53 Triage completed. vc1 19:54 Arm band placed on left wrist. vc1 20:13 Initial lab(s) drawn, by tx, sent to lab. Inserted saline lock: 20 gauge in right jb4 antecubital area, using aseptic technique. Blood collected. 20:22 Lipase Sent. jb4 20:22 CMP Sent. jb4 20:22 CBC with Diff Sent. jb4 21:16 Bony Rivera, RN is Primary Nurse. jb4 21:56 CT Abd/Pelvis - IV Contrast Only In Process Unspecified. EDMS 23:23 Patient has correct armband on for positive identification. Bed in low position. Call jb4 light in reach. Side rails up X 1. 23:23 No provider procedures requiring assistance completed. IV discontinued, intact, jb4 bleeding controlled, No redness/swelling at site. Pressure dressing applied. Administered Medications: 20:51 Drug: HYDROmorphone IVP 1 mg Route: IVP; Site: right antecubital; jb4 20:51 Drug: Ondansetron IVP 4 mg Route: IVP; Site: right antecubital; jb4 20:51 Drug: NS 0.9% IV 1000 ml Route: IV; Rate: 500 ml/hr; Site: right antecubital; jb4 22:53 Drug: Ciprofloxacin PO 500 mg Route: PO; jb4 22:53 Drug: metroNIDAZOLE PO 500 mg Route: PO; jb4 23:18 Drug: Dicyclomine PO 20 mg Route: PO; jb4 Medication: 19:55 VIS not applicable for this client. vc1 Outcome: 23:05 Discharge ordered by . gunnar 23:23 Discharged to home ambulatory. jb4 23:23 Condition: stable 23:23 Discharge instructions given to patient, Instructed on discharge instructions, follow up and referral plans. medication usage, Demonstrated understanding of instructions, follow-up care, medications, Prescriptions given X 2. 23:24 Patient left the ED. jb4 Signatures: Dispatcher [employer] EDMS Nkechi Tidwell RN RN kl Rivera, Mary mr Torey Zamorano PA PA cp Bryson, James, RN RN jb4 Cleopatra Funk RN RN vc1
[2023-04-29 23:19] LABS: Specific Gravity 1.024 (1.005-1.030); Urine Bilirubin NEGATIVE (Negative); Urine Blood Negative (Negative); Urine Clarity Clear (Clear); Urine Color Colorless (Yellow); Urine Glucose NEGATIVE (Negative); Urine Protein NEGATIVE (Negative); Urine Urobilinogen Normal (Normal); Urine pH 6.5 (5.0-7.0)
[2023-04-29] MEDS ORDERED: DICYCLOMINE HCL 10 MG CAP ONE (23:22)
[2023-04-30 01:32] VITALS: TEMP 97.9
[2023-04-30 01:33] VITALS: O2SAT 96
[2023-04-30 01:36] VITALS: BP 124/70
== END 2023-04-29 23:24 | disposition home or self-care (01) ==
LOC: ER 19:47
DX: K57.32 Diverticulitis of large intestine without perforation or abscess without bleeding (principal); K21.9 Gastro-esophageal reflux disease without esophagitis; I10 Essential (primary) hypertension; N20.0 Calculus of kidney
CPT/HCPCS: 85025; 36415; 81003; 83690; 80053; 74177; 96375; 96374; 99284; Q9967; J1170; J2405; J7030

== ENCOUNTER 2023-05-24 21:23 | Emergency (ER) | payer OTHER ==
--- OUTSIDE RECORDS SUMMARY | 2023-05-24 21:26 | XMS REPORT | Continuity of Care Document ---
:1955 Author Organization [facility] t Address [address] [place] [address] [address] [place] [address] Care Team Providers Name Role Phone Andrez Lenin Zamora Primary Care Physician ALONZO PERRY Attending Clinician Unavailable Alonzo Perry MD Attending Clinician Doctor Unassigned, [place] Attending Clinician Unavailable Linda Smith MD Attending Clinician Payers Payer Name Policy Type Policy Number Effective Date Expiration Date S ource Problems This patient has no known problems. Allergies, Adverse Reactions, Alerts Allergy Allergy Status Severity Reaction(s) Onset Inactive Treating Comm ents Source Name Type Date Date Clinician NO KNOWN Drug Active [facility] ALLERGIE Class [facility] Social History Social Habit Start Date Stop Date Quantity Comments Source Gender identity [facility] of Social 2023-05-04 2023-05-04 [facility] function 00:00:00 00:00:00 [facility] Sex Ass[birth year] At [birth year] [facility] 00:00:00 00:00:00 Smoking Status Start Date Stop Date Source Tobacco smoking consumption unknown [facility] Medications Ordered Filled Start Stop Current Ordering Indication Dosage Frequency Signature Comments Components Source Medication Medication Date Date Medication? Clinician (SIG) Name Name amLODIPine- Yes 1{capsu Take 1 U nivers benazepriL 05-04 le} capsule by ity of (LOTREL) 09:17: mouth in [place] 5-40 mg per 49 the Medical capsule morning. Branch loratadine Yes 1{tbl} Take 1 Uni vers (CLARITIN 7-13 tablet by ity o f ORAL) 09:17: mouth. [place] [address] Medical Branch Lactobac 0 Yes 1{tbl} Take 1 Unive rs no.41/Bifid 7-13 tablet by ity of obact no.7 09:17: mouth. [place] (PROBIOTIC- 49 Medical 10 ORAL) Branch ondansetron 2022-0 Yes 4mg Take 1 Univ ers (ZOFRAN) 4 7-13 tablet by ity of mg tablet 09:17: mouth [place] [address] every 8 Medical (eight) Branch hours as needed. amLODIPine- 2022-0 Yes 1{capsu Take 1 U nivers benazepriL 7-13 le} capsule by ity of (LOTREL) 09:17: mouth in [place] 5-40 mg per 49 the Medical capsule morning. Branch loratadine 0 Yes 1{tbl} Take 1 Uni vers (CLARITIN 7-13 tablet by ity o f ORAL) 09:17: mouth. [place] [address] Medical Branch Lactobac Yes 1{tbl} Take 1 Unive rs no.41/Bifid 7-13 tablet by ity of obact no.7 09:17: mouth. [place] (PROBIOTIC- 49 Medical 10 ORAL) Branch ondansetron 0 Yes 4mg Take 1 Univ ers (ZOFRAN) 4 7-13 tablet by ity of mg tablet 09:17: mouth [place] [address] every 8 Medical (eight) Branch hours as needed. amLODIPine- 2022-0 Yes 1{capsu Take 1 U nivers benazepriL 7-13 le} capsule by ity of (LOTREL) 09:17: mouth in [place] 5-40 mg per 49 the Medical capsule morning. Branch loratadine 0 Yes 1{tbl} Take 1 Uni vers (CLARITIN 7-13 tablet by ity o f ORAL) 09:17: mouth. [place] [address] Medical Branch Lactobac 0 Yes 1{tbl} Take 1 Unive rs no.41/Bifid 7-13 tablet by ity of obact no.7 09:17: mouth. [place] (PROBIOTIC- 49 Medical 10 ORAL) Branch ondansetron 2022-0 Yes 4mg Take 1 Univ ers (ZOFRAN) 4 7-13 tablet by ity of mg tablet 09:17: mouth [place] 49 every 8 Medical (eight) Branch hours as needed. amLODIPine- Yes 1{capsu Take 1 U nivers benazepriL 7-13 le} capsule by ity of (LOTREL) 09:17: mouth in [place] 5-40 mg per 49 the Medical capsule morning. Branch loratadine Yes 1{tbl} Take 1 Uni vers (CLARITIN 7-13 tablet by ity o f ORAL) 09:17: mouth. [place] 49 Medical Branch Lactobac Yes 1{tbl} Take 1 Unive rs no.41/Bifid 7-13 tablet by ity of obact no.7 09:17: mouth. [place] (PROBIOTIC- 49 Medical 10 ORAL) Branch ondansetron Yes 4mg Take 1 Univ ers (ZOFRAN) 4 7-13 tablet by ity of mg tablet 09:17: mouth [place] [address] every 8 Medical (eight) Branch hours as needed. methylPREDN 2022-0 Yes [id number] 84mg Take 21 Univers ISolone 7-13 4109 tablets by ity of (MEDROL, 00:00: mouth [place] LILI,) 4 mg 00 SEE-INSTRU Med ical tablets CTIONS. Branch follow package directions methylPREDN 2022-0 Yes [id number] 84mg Take 21 Univers ISolone 7-13 4109 tablets by ity of (MEDROL, 00:00: mouth [place] LILI,) 4 mg 00 SEE-INSTRU Med ical tablets CTIONS. Branch follow package directions methylPREDN 3-0 Yes [id number] 84mg Take 21 Univers ISolone 7-13 4109 tablets by ity of (MEDROL, 00:00: mouth [place] LILI,) 4 mg 00 SEE-INSTRU Med ical tablets CTIONS. Branch follow package directions methylPREDN 3-0 Yes [id number] 84mg Take 21 Univers ISolone 7-13 4109 tablets by ity of (MEDROL, 00:00: mouth [place] LILI,) 4 mg 00 SEE-INSTRU Med ical tablets CTIONS. Branch follow package directions Vital Signs Vital Name Observation Time Observation Value Comments Source Systolic blood 2023-05-04 14:10:00 120 mm[Hg] [facility] [place] pressure Medical Branch Diastolic blood 2023-05-04 14:10:00 76 mm[Hg] [facility] [place] pressure [facility] Heart rate 2023-05-04 14:10:00 69 /min [facility] Body height 2023-05-04 14:10:00 172.7 cm [facility] Body weight 2023-05-04 14:10:00 94.53 kg [facility] BMI 2023-05-04 14:10:00 31.69 kg/m2 [facility] Procedures Procedure Date / Time Performed Performing Clinician [facility] e ASSIGNMENT OF BENEFITS 2023-05-04 13:52:38 Doctor Unassigned, No [facility] Name Medical Branch REFERRAL- 2023-04-27 05:01:00 Doctor Unassigned, No [facility] REQUEST/RESPONSE Name [facility] XR ABDOMEN 1 VW 2022-12-28 18:35:19 Linda Smith Ho spital XR KUB KIDNEY URETER 2021-10-19 18:35:47 Linda Smith [facility] BLADDER Plan of Care Planned Activity Planned Date Details Comments Source Future Scheduled 2023-05-24 Screening for [facility] Test 21:26:01 malignant neoplasm of colon (procedure) [code = 708681629] Future Scheduled 2023-05-24 Screening for [facility] Test 21:26:01 malignant neoplasm of colon (procedure) [code = 573673519] Future Scheduled 2023-05-24 Screening for [facility] Test 21:26:01 malignant neoplasm of colon (procedure) [code = 323325613] Future Scheduled 2023-05-24 Hepatitis C screening [facility] Test 21:26:01 (procedure) [code = 043246634] Future Scheduled 2023-05-24 Screening for [facility] Test 21:26:01 malignant neoplasm of colon (procedure) [code = 337934509] Future Scheduled 2023-05-24 Screening for [facility] Test 21:26:01 malignant neoplasm of colon (procedure) [code = 622640449] Future Scheduled 2023-05-24 SHINGLES VACCINES (1 Met [facility] Test 21:26:01 of 2) [code = SHINGLES VACCINES (1 of 2)] Future Scheduled 2023-05-24 COVID-19 VACCINE ([facility] Test 21:26:01 Moderna series) [code = COVID-19 VACCINE (4 - Moderna series)] Future Scheduled 2023-05-24 65+ [facility]OCCAL [facility] Test 21:26:01 VACCINE (1 - PCV) [code = 65+ PNEUMOCOCCAL VACCINE (1 - PCV)] Future Scheduled 2023-05-24 INFLUENZA VACCINE [facility] Test 21:26:01 [code = INFLUENZA VACCINE] Future Scheduled 2023-04-13 [facility] Test 11:33:57 malignant neoplasm of colon (procedure) [code = 924107200] Future Scheduled 2023-04-13 [facility] Test 11:33:57 malignant neoplasm of colon (procedure) [code = 853670281] Future Scheduled 2023-04-13 [facility] Test 11:33:57 malignant neoplasm of colon (procedure) [code = 268402360] Future Scheduled 2023-04-13 Hepatitis C screening [facility] Test 11:33:57 (procedure) [code = 237599340] Future Scheduled 2023-04-13 Screening for [facility] Test 11:33:57 malignant neoplasm of colon (procedure) [code = 046674031] Future Scheduled 2023-04-13 [facility] for [facility] Test 11:33:57 malignant neoplasm of colon (procedure) [code = 507106299] Future Scheduled 2023-04-13 SHINGLES VACCINES (1 [facility] Test 11:33:57 of 2) [code = SHINGLES VACCINES (1 of 2)] Future Scheduled 2023-04-13 COVID-19 VACCINE (4 - [facility] Test 11:33:57 Moderna series) [code = COVID-19 VACCINE (4 - Moderna series)] Future Scheduled 2023-04-13 65+ [facility]CCAL [facility] Test 11:33:57 VACCINE (1 - PCV) [code = 65+ PNEUMOCOCCAL VACCINE (1 - PCV)] Future Scheduled 2023-04-13 INFLUENZA VACCINE [facility] Test 11:33:57 [code = INFLUENZA VACCINE] Future Scheduled 2023-01-26 Hepatitis C screening [facility] Test 17:13:46 (procedure) [code = 048808106] Future Scheduled 2023-01-26 [facility] Test 17:13:46 malignant neoplasm of colon (procedure) [code = 653022109] Future Scheduled 2023-01-26 SHINGLES VACCINES (1 Met [facility] Test 17:13:46 of 2) [code = SHINGLES VACCINES (1 of 2)] Future Scheduled 2023-01-26 COVID-19 VACCINE (4 - Me [facility] Test 17:13:46 Booster for Moderna series) [code = COVID-19 VACCINE (4 - Booster for Moderna series)] Future Scheduled 2023-01-26 65+ [facility]OCOCCAL [facility] Test 17:13:46 VACCINE (1 - PCV) [code = 65+ PNEUMOCOCCAL VACCINE (1 - PCV)] Future Scheduled 2023-01-26 INFLUENZA VACCINE [facility] Test 17:13:46 [code = INFLUENZA VACCINE] Future Scheduled 2022-10-06 INFLUENZA VACCINE [facility] Test 10:45:55 [code = INFLUENZA VACCINE] Future Scheduled 2022-10-06 65+ PNEUMOCOCCAL [facility] Test 10:45:55 VACCINE (1 - PCV) [code = 65+ PNEUMOCOCCAL VACCINE (1 - PCV)] Future Scheduled 2022-10-06 Hepatitis C screening [facility] Test 10:45:55 (procedure) [code = 336653068] Future Scheduled 2022-10-06 COLONOSCOPY SCREENING [facility] Test 10:45:55 [code = COLONOSCOPY SCREENING] Future Scheduled 2022-10-06 SHINGLES VACCINES (1 Met [facility] Test 10:45:55 of 2) [code = SHINGLES VACCINES (1 of 2)] Future Scheduled 2022-10-06 COVID-19 VACCINE (4 - Me [facility] Test 10:45:55 Booster for Moderna series) [code = COVID-19 VACCINE (4 - Booster for Moderna series)] Future Scheduled 2022-10-06 INFLUENZA VACCINE [facility] Test 10:45:55 [code = INFLUENZA VACCINE] Future Scheduled 2022-10-06 65+ PNEUMOCOCCAL [facility] Test 10:45:55 VACCINE (1 - PCV) [code = 65+ PNEUMOCOCCAL VACCINE (1 - PCV)] Future Scheduled 2022-10-06 Hepatitis C screening [facility] Test 10:45:55 (procedure) [code = 701455990] Future Scheduled 2022-10-06 COLONOSCOPY SCREENING [facility] Test 10:45:55 [code = COLONOSCOPY SCREENING] Future Scheduled 2022-10-06 SHINGLES VACCINES (1 Met [facility] Test 10:45:55 of 2) [code = SHINGLES VACCINES (1 of 2)] Future Scheduled 2022-10-06 COVID-19 VACCINE (4 - Me [facility] Test 10:45:55 Booster for Moderna series) [code = COVID-19 VACCINE (4 - Booster for Moderna series)] Future Scheduled 2022-08-25 HEPATITIS B VACCINES Met [facility] Test 17:16:35 (1 of 3 - 3-dose series) [code = HEPATITIS B VACCINES (1 of 3 - 3-dose series)] Future Scheduled 2022-08-25 Hepatitis C screening [facility] Test 17:16:35 (procedure) [code = 380863624] Future Scheduled 2022-08-25 COLONOSCOPY SCREENING [facility] Test 17:16:35 [code = COLONOSCOPY SCREENING] Future Scheduled 2022-08-25 SHINGLES VACCINES (1 Met [facility] Test 17:16:35 of 2) [code = SHINGLES VACCINES (1 of 2)] Future Scheduled 2022-08-25 COVID-19 VACCINE (4 - Me [facility] Test 17:16:35 Booster for Moderna series) [code = COVID-19 VACCINE (4 - Booster for Moderna series)] Future Scheduled 2022-08-25 INFLUENZA VACCINE [facility] Test 17:16:35 [code = INFLUENZA VACCINE] Future Scheduled 2022-08-25 65+ P[facility]UMOCOCCAL [facility] Test 17:16:35 VACCINE (1 - PCV) [code = 65+ PNEUMOCOCCAL VACCINE (1 - PCV)] Encounters Start End Encounter Admission Attending Care Care Encounter Source Date/Time Date/Time Type Type Clinicians Facility Department ID 2022-02-23 Outpatient [facility] [id number] Common 08:48:05 [id number] [facility] 2023-05-23 2023-05-23 Telephone DILAN Perry 1.2.840.114 [id number] [facility] 00:00:00 00:00:00 Critical access hospital 350.1.13.10 it y of [place] 4.2.7.2.686 [place] as KERRI?BLEA [id number] Ct rai OLIVAS [address] [place] [address] OFFICE [facility] 2023-05-22 2023-05-22 [facility] 1.2.840.114 [id number] Univers 00:00:00 00:00:00 Alonzo L [facility] 350.1.13.10 it y of [facility] 4.2.7.2.686 [place] as KERRI?BLEA [id number] Ct rai [address] OFFICE [facility] 2023-05-04 2023-05-04 [facility] [id number] Univers 09:15:00 09:46:18 ALONZO ity of [facility] 2023-05-04 2023-05-04 [facility] [id number] Univers 09:15:00 09:46:18 Visit Alonzo [facility] 350.1.13.10 it y [facility] 4.2.7.2.686 [place] as KERRI?BLEA [id number] Ct rai [address] OFFICE [facility] 2023-05-04 2023-05-04 Orders Doctor LATOSHA 1.2.840.114 [id number] Univers 00:00:00 00:00:00 Only Unassigned, ESTRADA 350.1.13.10 ity of [place] [facility] 4.2.7.2.686 [place] as [id number] [address] 2023-04-27 2023-04-27 Orders Doctor LATOSHA 1.2.840.114 [id number] Univers 00:00:00 00:00:00 Only Unassigned, ESTRADA 350.1.13.10 ity of [place] [facility] 4.2.7.2.686 [place] as [id number] [address] 2022-12-28 2022-12-28 [facility] Linda Smith 1.2.840.1 [id number] Methodi 12:13:57 23:59:[address] 3.430.2.7 Hospit a .3.811217 l .8 2022-12-28 2022-12-28 [facility] SmithLinda 1.2.840.1 [id number] Methodi 12:13:57 23:59:[address] 3.430.2.7 Hospit a .3.563296 l .8 2022-12-28 2022-12-28 Travel 1.2.840.1 1.2.229.405 [id number] Methodi 00:00:00 00:00:[address] 3.430.2.7 0.2.7.3.698 Ho spita .3.352758 084.8 l .8 2022-12-28 2022-12-28 Orders Linda Smith 1.2.840.1 [id number] Methodi 00:00:00 00:00:[address] 3.430.2.7 Hospit a .3.662523 l .8 2022-12-28 2022-12-28 Travel 1.2.840.1 1.2.891.844 [id number] Methodi 00:00:00 00:00:[address] 3.430.2.7 0.2.7.3.698 Ho spita .3.445357 084.8 l .8 2022-12-28 2022-12-28 Orders Linda Smith 1.2.840.1 [id number] Methodi 00:00:00 00:00:[address] 3.430.2.7 Hospit a .3.192800 l .8 2022-06-29 2022-06-29 Outpatient AOSM AOSM [id number] [place] 00:00:00 00:00:00 [id number] [facility] 2021-10-19 2021-10-19 [facility] Linda Smith 1.2.840.1 [id number] 2 [id number] Methodi 12:24:29 23:59:[address] 3.430.2.7 Hospit a .3.589589 l .8 2021-10-19 2021-10-19 Travel 1.2.840.1 1.2.540.948 [id number] Methodi 00:00:00 00:00:[address] 3.430.2.7 0.2.7.3.698 Ho spita .3.485957 084.8 l .8 2021-10-19 2021-10-19 Transcribe Linda Smith 1.2.840.1 [id number] Methodi 00:00:00 00:00:[address] 3.430.2.7 Hospit a .3.243289 l .8 2020-07-24 2020-07-24 Outpatient LINDA SMITH [facility] [id number] [place] 00:00:00 00:00:[address] Results This patient has no known results. Notes Date/Time Note Provider Source 2023-05-23 Formatting of this note might be differe nt from the original. Meena Overton [facility] 09:12:00-00:00 Patient was called and told he needed to come in for MRI results. Next available is 06/14/23. Is there a time he can be worked in? Electronically signed by Meena Overton at 9:13 AM CDT 2023-05-23 Formatting of this note might be differe nt from the original. Carmencita Butler [facility] 08:57:42-00:00 Pt was called to schedule a f/u for MRI results. No answer and voicemail was left 05/23/23. Please call pt back if they do not call. 2023-05-22 Formatting of this note might be differe nt from the original. Elizabeth Worrell [facility] 12:49:22-00:00 Spouse is requesting results of MRI. Electronically signed by Elizabeth Worrell at 12:50 PM CDT
[2023-05-24] MEDS ORDERED: ONDANSETRON 4 MG/2 ML VIAL ONE (22:19)
[2023-05-24] MEDS ORDERED: MORPHINE 4 MG/ML SYR ONE (22:19)
[2023-05-24] MEDS ORDERED: PANTOPRAZOLE 40 MG INJ ONE ×2 (22:19→22:21)
[2023-05-24] MEDS ORDERED: NA CHLORIDE 0.9% 1,000 ML ONE (22:19)
[2023-05-24 22:47] LABS: Absolute Lymphocytes (CBC) 1.8 K/uL (0.7-4.9); Lymphocytes % 26.8 % (15.3-44.8); MCV 86.1 fL (80-100); MPV 7.5 fL (7.6-11.3); RBC Red Blood Cell Count 5.34 M/uL (4.33-5.43)
[2023-05-24 22:50] LABS: Albumin 3.7 g/dL (3.4-5.0); Bilirubin Total 0.5 mg/dL (0.2-1.0); Potassium 3.5 mEq/L (3.5-5.1)
--- NOTE | 2023-05-25 | ER ---
Nurse's Notes [facility] Mae Name: Bradly Padron Age: 67 yrs Sex: Male : 1955 Arrival Date: 05/24/2023 Time: 21:23 Bed 17 Private MD: Lenin Maguire B Diagnosis: Abdominal pain, Generalized Presentation: 05/24 21:29 Chief complaint: Patient states: black tarry stool since Monday and left sided abd pain iw , had a CT done today to make sure he wasn't bleeding per Dr. Christianson, was told to come to ER if symptoms got worse, he had diarrhea tonight , took a pepto yesterday , pain is worse now. Coronavirus screen: At this time, the client does not indicate any symptoms associated with coronavirus-19. Ebola Screen: Patient negative for fever greater than or equal to 101.5 degrees Fahrenheit, and additional compatible Ebola Virus Disease symptoms Patient denies exposure to infectious person. Patient denies travel to an Ebola-affected area in the 21 days before illness onset. No symptoms or risks identified at this time. Initial Sepsis Screen: Does the patient meet any 2 criteria? No. Patient's initial sepsis screen is negative. Does the patient have a suspected source of infection? No. Patient's initial sepsis screen is negative. Risk Assessment: Do you want to hurt yourself or someone else? Patient reports no desire to harm self or others. Onset of symptoms was May 20, 2023. 21:29 Method Of Arrival: Ambulatory iw 21:29 Acuity: MARIA E 3 iw Historical: - Allergies: 21:31 No Known Allergies; iw - PMHx: 21:31 Diverticulitis; GERD; Hypertension; Kidney stone; iw - PSHx: 21:31 Lithotripsy; neck; Shoulder; iw - Immunization history:: Adult Immunizations up to date. - Social history:: Smoking status: Patient denies any tobacco usage or history of. - Family history:: not pertinent. Screenin:53 [facility] ED Fall Risk Assessment (Adult) History of falling in the last 3 months, jw7 including since admission No falls in past 3 months (0 pts) Score/Fall Risk Level 0 - 2 = Low Risk. Abuse screen: Denies threats or abuse. Denies injuries from another. Nutritional screening: No deficits noted. Tuberculosis screening: No symptoms or risk factors identified. Assessment: 22:20 General: Appears uncomfortable, Behavior is calm, cooperative, quiet. Pain: Complains jw7 of pain in abdomen Pain does not radiate. Pain currently is 8 out of 10 on a pain scale. Quality of pain is described as aching, crampy. Neuro: Level of Consciousness is awake, alert, obeys commands, Oriented to person, place, time, situation. Cardiovascular: Capillary refill < 3 seconds Patient's skin is warm and dry. Respiratory: Airway is patent Trachea midline Respiratory effort is even, unlabored. GI: Abdomen is round non-distended, Reports lower abdominal pain, upper abdominal pain, cramping, bloody stool, Pain is 8 out of 10 on a pain scale. 23:30 Reassessment: Patient appears in no apparent distress at this time. Patient and/or jw7 family updated on plan of care and expected duration. Pain level reassessed. Patient is alert, oriented x 3, equal unlabored respirations, skin warm/dry/pink. Patient states feeling better. Patient states symptoms have improved. Vital Signs: 21:29 BP 162 / 94; Pulse 67; Resp 16; Temp 98.2; Pulse Ox 99% on R/A; Weight 94.35 kg; Height iw 5 ft. 8 in. ; Pain 9/10; 22:45 BP 138 / 78; Pulse 57; Resp 16 S; Pulse Ox 95% on R/A; jw7 23:45 BP 133 / 66; Pulse 55; Resp 17 S; Pulse Ox 96% on R/A; jw7 21:29 Body Mass Index 31.63 (94.35 kg, 172.72 cm) iw 21:29 Pain Scale: Adult iw ED Course: 21:25 Patient arrived in ED. am2 21:25 Lenin Maguire MD is Private Physician. am2 21:31 Triage completed. iw 21:31 Arm band placed on. iw 21:39 Jordan Crook MD is Attending Physician. rt 21:59 mAy Townsend RN is Primary Nurse. jw7 22:25 Initial lab(s) drawn, by me, sent to lab. T\T\S collected, blood band applied to patient. jw7 Inserted saline lock: 20 gauge in right antecubital area, using aseptic technique. Blood collected. 22:42 Type And Screen Sent. jw7 22:42 CBC with Diff Sent. jw7 22:42 CMP Sent. jw7 22:42 Lipase Sent. jw7 22:53 Patient has correct armband on for positive identification. Bed in low position. Call jw7 light in reach. 23:50 Urinalysis w/ reflexes Sent. jw7 23:59 Yonis Christianson MD is Referral Physician. rt 08 00:24 Provided Education on: discharge instructions. jw7 00:24 No provider procedures requiring assistance completed. IV discontinued, intact, jw7 bleeding controlled, No redness/swelling at site. Pressure dressing applied. Administered Medications: 05/24 22:30 Drug: NS 0.9% IV 1000 ml Route: IV; Rate: 1 bolus; Site: right antecubital; jw7 23:41 Follow up: Response: No adverse reaction; IV Status: Completed infusion; IV Intake: jw7 1000ml 22:30 Drug: Ondansetron IVP 4 mg Route: IVP; Site: right antecubital; jw7 23:41 Follow up: Response: No adverse reaction jw7 22:30 Drug: Pantoprazole IVP 80 mg Route: IVP; Site: right antecubital; jw7 23:41 Follow up: Response: No adverse reaction jw7 22:35 Drug: morphine IVP or IV 4 mg Route: IVP; Infused Over: 4 mins; Site: right antecubital;jw7 23:41 Follow up: Response: No adverse reaction jw7 Medication: 22:53 VIS not applicable for this client. jw7 Intake: 23:41 IV: 1000ml; Total: 1000ml. jw7 Outcome: 23:59 Discharge ordered by . rt 05/25 00:24 Discharged to home ambulatory. jw7 Condition: stable Discharge instructions given to patient, Instructed on discharge instructions, follow up and referral plans. Demonstrated understanding of instructions, follow-up care. 00:25 Patient left the ED. jw7 Signatures: Kylie White RN RN iw Moreno, Amanda am2 Waits, Jodi, RN RN jw7 Jordan Crook MD MD rt Corrections: (The following items were deleted from the chart) 05/24 22:48 22:43 General: Appears uncomfortable, Behavior is calm, cooperative, quiet, jw7 jw7 22:48 22:43 Pain: Complains of pain in abdomen Pain does not radiate. Pain currently is 8 out jw7 of 10 on a pain scale. Quality of pain is described as aching, crampy, jw7 : 22:43 Neuro: Level of Consciousness is awake, alert, obeys commands, Oriented to jw7 person, place, time, situation, jw7 :43 Cardiovascular: Capillary refill < 3 seconds Patient's skin is warm and dry. jw7 jw7 : 22:43 Respiratory: Airway is patent Trachea midline Respiratory effort is even, jw7 unlabored, jw7 : 22:43 GI: Abdomen is round non-distended, Reports lower abdominal pain, upper abdominal jw7 pain, cramping, bloody stool, Pain is 8 out of 10 on a pain scale. jw7
--- NOTE | 2023-05-25 | EDPHYS ---
Physician Documentation [facility] Name: Bradly Padron Age: 67 yrs Sex: Male : 1955 Arrival Date: 05/24/2023 Time: 21:23 Bed 17 Private MD: Lenin Maguire B ED Physician Jordan Crook HPI: 05/25 01:25 This 67 yrs old Male presents to ER via Ambulatory with complaints of left side pain. rt 01:25 Patient presents to the ED with a left-sided abdominal pain. Patient states that he did rt have black tarry stools several days ago but none currently stating the only has watery diarrhea at this time. Patient is scheduled to have EGD 1 week from today. Patient had a CT scan performed today that showed no acute findings. Patient states that the symptoms, left-sided pain, did worsened today prompting him to come to the ED for further evaluation. Denies other acute complaints at this time. Historical: - Allergies: 05/24 21:31 No Known Allergies; iw - PMHx: 21:31 Diverticulitis; GERD; Hypertension; Kidney stone; iw - PSHx: 21:31 Lithotripsy; neck; Shoulder; iw - Immunization history:: Adult Immunizations up to date. - Social history:: Smoking status: Patient denies any tobacco usage or history of. - Family history:: not pertinent. ROS: 05/25 01:25 Constitutional: Negative for fever, chills, and weight loss, Cardiovascular: Negative rt for chest pain, palpitations, and edema, Respiratory: Negative for shortness of breath, cough, wheezing, and pleuritic chest pain, MS/Extremity: Negative for injury and deformity, Skin: Negative for injury, rash, and discoloration, Neuro: Negative for headache, weakness, numbness, tingling, and seizure. Abdomen/GI: Positive for abdominal pain, nausea. Exam: 01:25 Constitutional: This is a well developed, well nourished patient who is awake, alert, rt and in no acute distress. Head/Face: Normocephalic, atraumatic. Chest/axilla: Normal chest wall appearance and motion. Nontender with no deformity. No lesions are appreciated. Cardiovascular: Regular rate and rhythm with a normal S1 and S2. No gallops, murmurs, or rubs. Normal PMI, no JVD. No pulse deficits. Respiratory: Lungs have equal breath sounds bilaterally, clear to auscultation and percussion. No rales, rhonchi or wheezes noted. No increased work of breathing, no retractions or nasal flaring. Skin: Warm, dry with normal turgor. Normal color with no rashes, no lesions, and no evidence of cellulitis. MS/ Extremity: Pulses equal, no cyanosis. Neurovascular intact. Full, normal range of motion. Neuro: Awake and alert, GCS 15, oriented to person, place, time, and situation. Cranial nerves II-XII grossly intact. Motor strength 5/5 in all extremities. Sensory grossly intact. Cerebellar exam normal. Normal gait. Psych: Awake, alert, with orientation to person, place and time. Behavior, mood, and affect are within normal limits. 01:25 Abdomen/GI: Tenderness to the left lower quadrant, no guarding, rebound, distention. Vital Signs: 05/24 21:29 BP 162 / 94; Pulse 67; Resp 16; Temp 98.2; Pulse Ox 99% on R/A; Weight 94.35 kg; Height iw 5 ft. 8 in. ; Pain 9/10; 22:45 BP 138 / 78; Pulse 57; Resp 16 S; Pulse Ox 95% on R/A; jw7 23:45 BP 133 / 66; Pulse 55; Resp 17 S; Pulse Ox 96% on R/A; jw7 21:29 Body Mass Index 31.63 (94.35 kg, 172.72 cm) iw 21:29 Pain Scale: Adult iw MDM: 21:42 Patient medically screened. rt 05/25 01:25 Differential diagnosis: GI bleed, symptomatic anemia, diverticulitis, gastric ulcer. rt Data reviewed: vital signs, nurses notes. Consideration of Admission/Observation Escalation of care including admission/observation considered. Patient with no ongoing melena, normal hemoglobin, BUN is unremarkable, do not suspect ongoing active GI bleed, believe that he is stable for outpatient care with previously scheduled endoscopy. I considered the following discharge prescriptions or medication management in the emergency department Medications were administered in the Emergency Department. See MAR. Test considered but Not performed: CT: CT scan was performed this afternoon, repeat scanning is not indicated. Care significantly affected by the following chronic conditions: Hypertension. Counseling: I had a detailed discussion with the patient and/or guardian regarding: the historical points, exam findings, and any diagnostic results supporting the discharge/admit diagnosis, lab results, the need for outpatient follow up. Response to treatment: the patient's symptoms have markedly improved after treatment. 05/24 21:49 Order name: CBC with Diff; Complete Time: 23:09 rt 05/24 21:49 Order name: CMP; Complete Time: 23:09 rt 05/24 21:49 Order name: Lipase; Complete Time: 23:09 rt 05/24 21:49 Order name: Urinalysis w/ reflexes; Complete Time: 00:21 rt 05/24 21:49 Order name: Type And Screen; Complete Time: 23:53 rt 05/24 21:49 Order name: IV Saline Lock; Complete Time: 22:42 rt 05/24 21:49 Order name: Labs collected and sent; Complete Time: 22:42 rt Administered Medications: 05/24 22:30 Drug: NS 0.9% IV 1000 ml Route: IV; Rate: 1 bolus; Site: right antecubital; jw7 23:41 Follow up: Response: No adverse reaction; IV Status: Completed infusion; IV Intake: jw7 1000ml 22:30 Drug: Ondansetron IVP 4 mg Route: IVP; Site: right antecubital; jw7 23:41 Follow up: Response: No adverse reaction jw7 22:30 Drug: Pantoprazole IVP 80 mg Route: IVP; Site: right antecubital; jw7 23:41 Follow up: Response: No adverse reaction jw7 22:35 Drug: morphine IVP or IV 4 mg Route: IVP; Infused Over: 4 mins; Site: right antecubital;jw7 23:41 Follow up: Response: No adverse reaction jw7 Disposition Summary: 05/24/23 23:59 Discharge Ordered Location: Home rt Condition: Stable rt Diagnosis - Abdominal pain, Generalized rt Followup: rt - With: Yonis Christianson MD - When: 1 week - Reason: Discharge Instructions: - Discharge Summary Sheet rt - Abdominal Pain, Adult rt Forms: - Medication Reconciliation Form rt - Thank You Letter rt - Antibiotic Education rt - Prescription Opioid Use rt - Patient Portal Instructions rt Signatures: Dispatcher [employer] Kylie Carlin RN RN iw Amy Townsend RN RN jw7 [place], Jordan, MD MD rt
[2023-05-25 00:19] LABS: Specific Gravity 1.023 (1.005-1.030); Urine Bilirubin NEGATIVE (Negative); Urine Blood Negative (Negative); Urine Clarity Clear (Clear); Urine Color Light-Yellow (Yellow); Urine Glucose NEGATIVE (Negative); Urine Protein NEGATIVE (Negative); Urine Urobilinogen Normal (Normal); Urine pH 6.5 (5.0-7.0)
[2023-05-25 00:29] VITALS: TEMP 98.2
[2023-05-25 00:33] VITALS: BP 133/66; O2SAT 96
== END 2023-05-25 00:25 | disposition home or self-care (01) ==
LOC: ER 21:23
DX: R10.84 Generalized abdominal pain (principal); R19.7 Diarrhea, unspecified; I10 Essential (primary) hypertension; Z87.442 Personal history of urinary calculi
CPT/HCPCS: 96361; 85025; 36415; 86900; 86850; 86901; 81003; 83690; 80053; 96375; 96374; 99284; C9113; J2405; J7030

== ENCOUNTER 2023-08-20 20:15 | Emergency (ER) | payer OTHER ==
--- OUTSIDE RECORDS SUMMARY | 2023-08-20 20:28 | XMS REPORT | Continuity of Care Document ---
:1955 Author Organization [facility] t Address [address] [place] [address] [place] [id number] Care Team Providers Name Role Phone Lenin Maguire MD Primary Care Physician Doctor Unassigned, [place] Attending Clinician Unavailable NORMAN PERRY Attending Clinician Unavailable Norman Perry MD Attending Clinician Jose Luis Smith MD Attending Clinician Payers Payer Name Policy Type Policy Number Effective Date Expiration Date S ource Problems This patient has no known problems. Allergies, Adverse Reactions, Alerts Allergy Allergy Status Severity Reaction(s) Onset Inactive Treating Comm ents Source Name Type Date Date Clinician NO KNOWN Drug Active Univers ALLERGIE Class ity of [facility] Social History Social Habit Start Date Stop Date Quantity Comments Source Gender identity [facility] of Social 2023-05-04 2023-05-04 [facility] function 00:00:00 00:00:00 Medical Branch Sex Assigned At [address] [facility] 00:00:00 00:00:00 Smoking Status Start Date Stop Date Source Tobacco smoking consumption unknown [facility] Medications Ordered Filled Start Stop Current Ordering Indication Dosage Frequency Signature Comments Components Source Medication Medication Date Date Medication? Clinician (SIG) Name Name triamcinolo 2022- No [id number] 40mg Univers ne 06-12 9109 ity of acetonide 20:30: 19:21 [place] (KENALOG) 00 :00 Medical injection Branch 40 mg triamcinolo 2022- No [id number] 40mg 40 mg, [facility] 06-12 9109 Intramuscu ity of acetonide 20:30: 19:21 [place]CE, [place] (KENALOG[place] 00 :00 1 dose, On Medi erinn injection Mon Branch 40 mg 06/12/23 at 1530, Routine triamcinolo 2022- No [id number] 40mg Univers mt 06-12 9109 ity of acetonide 20:30: 19:21 [place] (KENALOG) 00 :00 Medical injection Branch 40 mg triamcinolo 2022- No [id number] 40mg 40 mg, [facility] 06-12 9109 Intramuscu ity of acetonide 20:30: 19:21 lar, ONCE, [place] (KENALOG) 00 :00 1 dose, On Medi erinn injection Mon Branch 40 mg 06/12/23 at 1530, Routine loratadine Yes 1{tbl} Take 1 Uni vers (CLARITIN 7-13 tablet by ity o f ORAL) 09:17: mouth. [address] Branch Lactobac Yes 1{tbl} Take 1 Unive rs no.41/Bifid 7-13 tablet by ity of obact no.7 09:17: mouth. [place] (PROBIOTIC- 49 Medical 10 ORAL) [place] ondansetron Yes 4mg Take 1 Univ ers (ZOFRAN) 4 7-13 tablet by ity of mg tablet 09:17: mouth [place] [address] every 8 Medical (eight) Branch hours as needed. amLODIPine- Yes 1{capsu Take 1 U nivers benazepriL 7-13 le} capsule by ity of (LOTREL) 09:17: mouth in [place] 5-40 mg per 49 the Medical capsule morning. Branch loratadine Yes 1{tbl} Take 1 Uni vers (CLARITIN 7-13 tablet by ity o f ORAL) 09:17: mouth. [place] [address] Medical Branch Lactobac Yes 1{tbl} Take 1 Unive rs no.41/Bifid 7-13 tablet by ity of obact no.7 09:17: mouth. [place] (PROBIOTIC- 49 Medical 10 ORAL) [place] ondansetron Yes 4mg Take 1 Univ ers (ZOFRAN) 4 7-13 tablet by ity of mg tablet 09:17: mouth [place] [address] every 8 Medical (eight) Branch hours as needed. amLODIPine- 2022-0 Yes 1{capsu Take 1 U nivers benazepriL 7-13 le} capsule by ity of (LOTREL) 09:17: mouth in [place] 5-40 mg per 49 the Medical capsule morning. Branch loratadine 0 Yes 1{tbl} Take 1 Uni vers (CLARITIN 7-13 tablet by ity o f ORAL) 09:17: mouth. [place] [address] Medical Branch Lactobac 0 Yes 1{tbl} Take 1 Unive rs no.41/Bifid 7-13 tablet by ity of obact no.7 09:17: mouth. [place] (PROBIOTIC- 49 Medical 10 ORAL) Branch ondansetron 2022-0 Yes 4mg Take 1 Univ ers (ZOFRAN) 4 7-13 tablet by ity of mg tablet 09:17: mouth [place] [address] every 8 Medical (eight) Branch hours as needed. amLODIPine- 2022-0 Yes 1{capsu Take 1 U nivers benazepriL 7-13 le} capsule by ity of (LOTREL) 09:17: mouth in [place] 5-40 mg per 49 the Medical capsule morning. Branch loratadine 0 Yes 1{tbl} Take 1 Uni vers (CLARITIN 7-13 tablet by ity o f ORAL) 09:17: mouth. [place] [address] Medical Branch Lactobac Yes 1{tbl} Take 1 Unive rs no.41/Bifid 7-13 tablet by ity of obact no.7 09:17: mouth. [place] (PROBIOTIC- 49 Medical 10 ORAL) Branch ondansetron 2022-0 Yes 4mg Take 1 Univ ers (ZOFRAN) 4 7-13 tablet by ity of mg tablet 09:17: mouth [place] [address] every 8 Medical (eight) Branch hours as needed. amLODIPine- 2022-0 Yes 1{capsu Take 1 U nivers benazepriL 7-13 le} capsule by ity of (LOTREL) 09:17: mouth in [place] 5-40 mg per 49 the Medical capsule morning. Branch loratadine 2022-0 Yes 1{tbl} Take 1 Uni vers (CLARITIN 7-13 tablet by ity o f ORAL) 09:17: mouth. [place] [address] Medical Branch Lactobac 0 Yes 1{tbl} Take 1 Unive rs no.41/Bifid 7-13 tablet by ity of obact no.7 09:17: mouth. [place] (PROBIOTIC- 49 Medical 10 ORAL) Branch ondansetron 2022-0 Yes 4mg Take 1 Univ ers (ZOFRAN) 4 7-13 tablet by ity of mg tablet 09:17: mouth [place] [address] every 8 Medical (eight) Branch hours as needed. amLODIPine- 2022-0 Yes 1{capsu Take 1 U nivers benazepriL 7-13 le} capsule by ity of (LOTREL) 09:17: mouth in [place] 5-40 mg per 49 the Medical capsule morning. Branch loratadine 0 Yes 1{tbl} Take 1 Uni vers (CLARITIN 7-13 tablet by ity o f ORAL) 09:17: mouth. [place] [address] Medical Branch Lactobac Yes 1{tbl} Take 1 Unive rs no.41/Bifid 7-13 tablet by ity of obact no.7 09:17: mouth. [place] (PROBIOTIC- 49 Medical 10 ORAL) Branch ondansetron 0 Yes 4mg Take 1 Univ ers (ZOFRAN) 4 7-13 tablet by ity of mg tablet 09:17: mouth [place] [address] every 8 Medical (eight) Branch hours as needed. amLODIPine- 2022-0 Yes 1{capsu Take 1 U nivers benazepriL 7-13 le} capsule by ity of (LOTREL) 09:17: mouth in [place] 5-40 mg per 49 the Medical capsule morning. Branch loratadine 0 Yes 1{tbl} Take 1 Uni vers (CLARITIN 7-13 tablet by ity o f ORAL) 09:17: mouth. [place] [address] Medical Branch Lactobac 0 Yes 1{tbl} Take 1 Unive rs no.41/Bifid 7-13 tablet by ity of obact no.7 09:17: mouth. [place] (PROBIOTIC- 49 Medical 10 ORAL) Branch ondansetron 2022-0 Yes 4mg Take 1 Univ ers (ZOFRAN) 4 7-13 tablet by ity of mg tablet 09:17: mouth [place] [address] every 8 Medical (eight) Branch hours as needed. amLODIPine- 2022-0 Yes 1{capsu Take 1 U nivers benazepriL 7-13 le} capsule by ity of (LOTREL) 09:17: mouth in [place] 5-40 mg per 49 the Medical capsule morning. Branch methylPREDN 3-0 Yes [id number] 84mg Take 21 Univers ISolone 7-13 4109 tablets by ity of (MEDROL, 00:00: mouth [place] LILI,) 4 mg 00 SEE-INSTRU Med ical tablets CTIONS. Branch follow package directions methylPREDN 3-0 Yes [id number] 84mg Take 21 Univers ISolone 7-13 4109 tablets by ity of (MEDROL, 00:00: mouth [place] LILI,) 4 mg 00 SEE-INSTRU Med ical tablets CTIONS. Branch follow package directions methylPREDN 3-0 Yes [id number] 84mg Take 21 Univers ISolone 7-13 4109 tablets by ity of (MEDROL, 00:00: mouth [place] LILI,) 4 mg 00 SEE-INSTRU Med ical tablets CTIONS. Branch follow package directions methylPREDN 3-0 Yes [id number] 84mg Take 21 Univers ISolone 7-13 4109 tablets by ity of (MEDROL, 00:00: mouth [place] LILI,) 4 mg 00 SEE-INSTRU Med ical tablets CTIONS. Branch follow package directions methylPREDN 3-0 Yes [id number] 84mg Take 21 Univers ISolone 7-13 4109 tablets by ity of (MEDROL, 00:00: mouth [place] LILI,) 4 mg 00 SEE-INSTRU Med ical tablets CTIONS. Branch follow package directions methylPREDN 3-0 Yes [id number] 84mg Take 21 Univers ISolone 7-13 4109 tablets by ity of (MEDROL, 00:00: mouth [place] LILI,) 4 mg 00 SEE-INSTRU Med ical tablets CTIONS. Branch follow package directions methylPREDN 2023-0 Yes [id number] 84mg Take 21 Univers ISolone 7-13 4109 tablets by ity of (MEDROL, 00:00: mouth [place] LILI,) 4 mg 00 SEE-INSTRU Med ical tablets CTIONS. Branch follow package directions Vital Signs Vital Name Observation Time Observation Value Comments Source Body height 2023-06-12 19:06:00 172.7 cm Universi ty [facility] Body weight 2023-06-12 19:06:00 93.305 kg Universi [facility] Medical [place] BMI 2023-06-12 19:06:00 31.28 kg/m2 Universi ty [facility] Branch Systolic blood 2023-05-04 14:10:00 120 mm[Hg] Univer [facility] pressure [facility] Diastolic blood 2023-05-04 14:10:00 76 mm[Hg] [facility] Heart rate 2023-05-04 14:10:00 69 /min Universi ty [facility] Body height 2023-05-04 14:10:00 172.7 cm Universi ty [facility] Body weight 2023-05-04 14:10:00 94.53 kg Universi [facility] BMI 2023-05-04 14:10:00 31.69 kg/m2 Universi [facility] Procedures Procedure Date / Time Performed Performing Clinician Sour e EXTERNAL PROVIDER 2023-07-03 05:01:00 Doctor Unassigned, No [facility] RECORDS Name Medical Branch ASSIGNMENT OF BENEFITS 2023-05-04 13:52:38 Doctor Unassigned, No [facility] Name [facility] REFERRAL- 2023-04-27 05:01:00 Doctor Unassigned, No [facility] REQUEST/RESPONSE Name [facility] XR ABDOMEN 1 VW 2022-12-28 18:35:19 Jose Luis Smith Ho spital XR [facility]RETER 2021-10-19 18:35:47 Jose Luis Smith [facility] BLADDER Plan of Care Planned Activity Planned Date Details Comments Source Future Scheduled 2023-08-17 [facility] Test 03:01:04 malignant neoplasm of colon (procedure) [code = 576505527] Future Scheduled 2023-08-17 [facility] Test 03:01:04 malignant neoplasm of colon (procedure) [code = 782065300] Future Scheduled 2023-08-17 [facility] Test 03:01:04 malignant neoplasm of colon (procedure) [code = 108959367] Future Scheduled 2023-08-17 Hepatitis C screening [facility] Test 03:01:04 (procedure) [code = 757232588] Future Scheduled 2023-08-17 [facility] Test 03:01:04 malignant neoplasm of colon (procedure) [code = 066774497] Future Scheduled 2023-08-17 [facility] Test 03:01:04 malignant neoplasm of colon (procedure) [code = 004476702] Future Scheduled 2023-08-17 SHINGLES VACCINES (1 [facility] 03:01:04 of 2) [code = SHINGLES VACCINES (1 of 2)] Future Scheduled 2023-08-17 65+ [facility]OCOCCAL [facility] Test 03:01:04 VACCINE (1 - PCV) [code = 65+ PNEUMOCOCCAL VACCINE (1 - PCV)] Future Scheduled 2023-08-17 COVID-19 VACCINE (4 - [facility] Test 03:01:04 season) [code = COVID-19 VACCINE ( - season)] Future Scheduled 2023-08-17 INFLUENZA VACCINE (#1) M [facility] Test 03:01:04 [code = INFLUENZA VACCINE (#1)] Future Scheduled 2023-04-13 [facility] Test 11:33:57 malignant neoplasm of colon (procedure) [code = 698396574] Future Scheduled 2023-04-13 [facility] Test 11:33:57 malignant neoplasm of colon (procedure) [code = 626610660] Future Scheduled 2023-04-13 [facility] Test 11:33:57 malignant neoplasm of colon (procedure) [code = 332525321] Future Scheduled 2023-04-13 Hepatitis C screening [facility] Test 11:33:57 (procedure) [code = 441496002] Future Scheduled 2023-04-13 [facility] Test 11:33:57 malignant neoplasm of colon (procedure) [code = 119516498] Future Scheduled 2023-04-13 [facility] Test 11:33:57 malignant neoplasm of colon (procedure) [code = 432124288] Future Scheduled 2023-04-13 SHINGLES VACCINES (1 Met [facility] Test 11:33:57 of 2) [code = SHINGLES VACCINES (1 of 2)] Future Scheduled 2023-04-13 COVID-19 VACCINE (4 - [facility] Test 11:33:57 Moderna series) [code = COVID-19 VACCINE (4 - Moderna series)] Future Scheduled 2023-04-13 65+ [facility]OCC[facility] Test 11:33:57 VACCINE (1 - PCV) [code = 65+ PNEUMOCOCCAL VACCINE (1 - PCV)] Future Scheduled 2023-04-13 INFLUENZA VACCINE [facility] Test 11:33:57 [code = INFLUENZA VACCINE] Future Scheduled 2023-01-26 [facility] Test 17:13:46 (procedure) [code = 521389276] Future Scheduled 2023-01-26 [facility] Test 17:13:46 malignant neoplasm of colon (procedure) [code = 186738854] Future Scheduled 2023-01-26 SHINGLES VACCINES (1 Met [facility] Test 17:13:46 of 2) [code = SHINGLES VACCINES (1 of 2)] Future Scheduled 2023-01-26 COVID-19 VACCINE (4 - [facility] Test 17:13:46 Booster for Moderna series) [code = COVID-19 VACCINE (4 - Booster for Moderna series)] Future Scheduled 2023-01-26 65+ PNEUMOCOCCAL [facility] Test 17:13:46 VACCINE (1 - PCV) [code = 65+ PNEUMOCOCCAL VACCINE (1 - PCV)] Future Scheduled 2023-01-26 INFLUENZA VACCINE [facility] Test 17:13:46 [code = INFLUENZA VACCINE] Future Scheduled 2022-10-06 Hepatitis C screening [facility] Test 10:45:55 (procedure) [code = 550108656] Future Scheduled 2022-10-06 COLONOSCOPY SCREENING Me [facility] Test 10:45:55 [code = COLONOSCOPY SCREENING] Future Scheduled 2022-10-06 SHINGLES VACCINES (1 Met [facility] Test 10:45:55 of 2) [code = SHINGLES VACCINES (1 of 2)] Future Scheduled 2022-10-06 COVID-19 VACCINE (4 - [facility] Test 10:45:55 Booster for Moderna series) [code = COVID-19 VACCINE (4 - Booster for Moderna series)] Future Scheduled 2022-10-06 INFLUENZA VACCINE [facility] Test 10:45:55 [code = INFLUENZA VACCINE] Future Scheduled 2022-10-06 65+ [facility]OCOCCAL [facility] Test 10:45:55 VACCINE (1 - PCV) [code = 65+ PNEUMOCOCCAL VACCINE (1 - PCV)] Future Scheduled 2022-10-06 Hepatitis C screening [facility] Test 10:45:55 (procedure) [code = 533277271] Future Scheduled 2022-10-06 COLONOSCOPY SCREENING [facility] Test 10:45:55 [code = COLONOSCOPY SCREENING] Future Scheduled 2022-10-06 SHINGLES VACCINES (1 Met [facility] Test 10:45:55 of 2) [code = SHINGLES VACCINES (1 of 2)] Future Scheduled 2022-10-06 COVID-19 VACCINE (4 - [facility] Test 10:45:55 Booster for Moderna series) [code = COVID-19 VACCINE (4 - Booster for Moderna series)] Future Scheduled 2022-10-06 INFLUENZA VACCINE Method [facility] Test 10:45:55 [code = INFLUENZA VACCINE] Future Scheduled 2022-10-06 65+ [facility]AL [facility] 10:45:55 VACCINE (1 - PCV) [code = 65+ PNEUMOCOCCAL VACCINE (1 - PCV)] Future Scheduled 2022-08-25 HEPATITIS B VACCINES [facility] Test 17:16:35 (1 of 3 - 3-dose series) [code = HEPATITIS B VACCINES (1 of 3 - 3-dose series)] Future Scheduled 2022-08-25 Hepatitis C screening [facility] Test 17:16:35 (procedure) [code = 816697292] Future Scheduled 2022-08-25 COLONOSCOPY SCREENING [facility] Test 17:16:35 [code = COLONOSCOPY SCREENING] Future Scheduled 2022-08-25 SHINGLES VACCINES (1 Met [facility] Test 17:16:35 of 2) [code = SHINGLES VACCINES (1 of 2)] Future Scheduled 2022-08-25 COVID-19 VACCINE (4 - [facility] Test 17:16:35 Booster for Moderna series) [code = COVID-19 VACCINE (4 - Booster for Moderna series)] Future Scheduled 2022-08-25 INFLUENZA VACCINE [facility] Test 17:16:35 [code = INFLUENZA VACCINE] Future Scheduled 2022-08-25 65+ [facility]OCOCCAL [facility] Test 17:16:35 VACCINE (1 - PCV) [code = 65+ PNEUMOCOCCAL VACCINE (1 - PCV)] Encounters Start End Encounter Admission Attending Care Care Encounter Source Date/Time Date/Time Type Type Clinicians Facility Department ID 2022-02-23 Outpatient [facility] [id number] Common 08:48:05 [facility] 2023-07-03 2023-07-03 Orders Doctor LATOSHA [id number] Univers 00:00:00 00:00:00 Only Unassigned, ESTRADA 350.1.13.10 ity of [place] [facility] 4.2.7.2.686 [place] as [phone] [address] 2023-06-12 2023-06-12 [facility] [id number] Univers 14:30:00 14:47:20 NORMAN itmonica [facility] 2023-06-12 2023-06-12 [facility] [id number] Univers 14:30:00 14:47:20 Visit [facility] 350.1.13.10 it y of [place] 4.2.7.2.686 [place] as KERRI?BLEA [phone] Wy rai [address] [facility] 2023-05-23 2023-05-23 Telephone [facility] 1.2.840.114 [id number] Univers 00:00:00 00:00:00 [facility] 350.1.13.10 it y of [place] 4.2.7.2.686 [place] as KERRI?BLEA [phone] Wy rai OLIVAS [address] [place] [address] [facility] 2023-05-22 2023-05-22 Telephone [facility] 1.2.840.114 [id number] Univers 00:00:00 00:00:00 [facility] 350.1.13.10 it y of [place] 4.2.7.2.686 [place] as KERRI?BLEA [phone] Wy rai OLIVAS [address] [place] [address] [facility] 2023-05-04 2023-05-04 Office [facility] [id number] Univers 09:15:00 09:46:18 Visit Norman [facility] 350.1.13.10 it y of [place] 4.2.7.2.686 [place] as KERRI?BLEA [phone] Wy rai [address] MEDICAL OFFICE BUILDING 2023-05-04 2023-05-04 Outpatient R PERRY, [facility] [id number] [facility] 09:15:00 09:46:18 NORMAN ity of [facility] 2023-05-04 2023-05-04 Orders Doctor LATOSHA 1.2.840.114 [id number] Univers 00:00:00 00:00:00 Only Unassigned, ESTRADA 350.1.13.10 ity of [place] [facility] 4.2.7.2.686 [place] as [phone] [address] 2023-04-27 2023-04-27 Orders Doctor LATOSHA 1.2.840.114 [id number] Univers 00:00:00 00:00:00 Only Unassigned, ESTRADA 350.1.13.10 ity of [place] [facility] 4.2.7.2.686 [place] as [phone] [address] 2022-12-28 2022-12-28 [facility] 1.2.840.1 [id number] Methodi 12:13:57 23:59:[address] 3.430.2.7 Hospit a .3.535283 l .8 2022-12-28 2022-12-28 [facility] 1.2.840.1 [id number] Methodi 12:13:57 23:59:[address] 3.430.2.7 Hospit a .3.684443 l .8 2022-12-28 2022-12-28 Travel 1.2.840.1 [id number] 2020 [id number] Methodi 00:00:00 00:00:[address] 3.430.2.7 0.2.7.3.698 Ho spita .3.538651 084.8 l .8 2022-12-28 2022-12-28 Orders Jose Luis Smith 1.2.840.1 [id number] Methodi 00:00:00 00:00:[address] 3.430.2.7 Hospit a .3.887232 l .8 2022-12-28 2022-12-28 Travel 1.2.840.1 1.2.491.261 [id number] Methodi 00:00:00 00:00:[address] 3.430.2.7 0.2.7.3.698 Ho spita .3.927447 084.8 l .8 2022-12-28 2022-12-28 Orders Jose Luis Smith 1.2.840.1 [id number] Methodi 00:00:00 00:00:[address] 3.430.2.7 Hospit a .3.598448 l .8 2022-06-29 2022-06-29 Outpatient AOSM AO [id number] Addis 00:00:00 00:00:00 [id number] [facility]op [facility] 2021-10-19 2021-10-19 [facility] Jose Luis Smith 1.2.840.1 [id number] 2 [id number] Methodi 12:24:29 23:59:[address] 3.430.2.7 Hospit a .3.790869 l .8 2021-10-19 2021-10-19 Transcribe Jose Luis Smith 1.2.840.1 [id number] Methodi 00:00:00 00:00:[address] 3.430.2.7 Hospit a .3.802504 l .8 2021-10-19 2021-10-19 Travel 1.2.840.1 1.2.427.220 [id number] Methodi 00:00:00 00:00:[address] 3.430.2.7 0.2.7.3.698 Ho spita .3.487057 084.8 l .8 2020-07-24 2020-07-24 Outpatient JOSE LUIS SMITH [facility] [id number] Adrian 00:00:00 00:00:[address] Results This patient has no known results.
[2023-08-20 21:04] LABS: Hematocrit 47.1 % (39.6-49.0); Lymphocytes % 25.7 % (15.3-44.8); MCV 87.2 fL (80-100); MPV 7.4 fL (7.6-11.3); Platelets 311 thou/uL (152-406); RBC Red Blood Cell Count 5.41 M/uL (4.33-5.43)
[2023-08-20] MEDS ORDERED: ONDANSETRON 4 MG/2 ML VIAL ONE (21:18)
[2023-08-20] MEDS ORDERED: MORPHINE 4 MG/ML SYR ONE (21:18)
[2023-08-20 21:25] LABS: Protime INR 1.02
[2023-08-20 21:27] LABS: Albumin 3.6 g/dL (3.4-5.0); Bilirubin Direct 0.1 mg/dL (0-0.2); Bilirubin Indirect, Calculated 0.4 mg/dL (0.2-0.8); Bilirubin Total 0.5 mg/dL (0.2-1.0); Magnesium 2.1 mg/dL (1.6-2.4); Potassium 3.6 mEq/L (3.5-5.1); Protein, Total 6.9 g/dL (6.4-8.2); Troponin High Sensitivity 4.9 pg/mL (<58.9)
[2023-08-20 21:28] LABS: Specific Gravity 1.013 (1.005-1.030); Urine Bacteria None Seen /HPF (<20); Urine Bilirubin NEGATIVE (Negative); Urine Blood Negative (Negative); Urine Clarity Clear (Clear); Urine Color Light-Yellow (Yellow); Urine Glucose NEGATIVE (Negative); Urine Mucus Slight /HPF (None Seen); Urine Protein NEGATIVE (Negative); Urine RBC <5 /HPF (None Seen); Urine Urobilinogen Normal (Normal); Urine pH 6.5 (5.0-7.0)
--- NOTE | 2023-08-20 22:16 | RAD REPORT ---
EXAM DESCRIPTION: Tong Single View08/20/2023 9:30 pm CLINICAL HISTORY: Abdominal pain COMPARISON: November 2022 FINDINGS: The lungs appear clear of acute infiltrate. The heart is normal size IMPRESSION: No acute abnormalities displayed
--- NOTE | 2023-08-20 22:17 | RAD REPORT ---
EXAM DESCRIPTION: CT - Angio Aorta For Dissection - 08/20/2023 9:50 pm CLINICAL HISTORY: . Chest and abd pain COMPARISON: CT abdomen May 2023 TECHNIQUE: Computed tomography angiography of the chest, abdomen pelvis were obtained. 100 cc Isovue 370 was administered intravenously. Coronal and sagittal reconstruction were performed. MIP 3D reconstruction was performed All CT scans are performed using dose optimization technique as appropriate and may include automated exposure control or mA/KV adjustment according to patient size. FINDINGS: An aortic dissection is not seen. An aortic aneurysm is not displayed. The celiac, SMA and PARISA are patent . A lung consolidation is not present. A pericardial effusion is not seen. A pleural effusion is not no judah. Fatty liver. Small nonobstructing left renal calculus. Small left renal cyst Diverticula stem from the colon without evidence diverticulitis. Normal appendix IMPRESSION: Negative for an aortic dissection.
[2023-08-20] MEDS ORDERED: CYCLOBENZAPRINE 10 MG TAB ONE (22:50)
[2023-08-20] MEDS ORDERED: KETOROLAC 30 MG/ML INJ ONE (22:50)
--- NOTE | 2023-08-21 00:51 | ER ---
Nurse's Notes [facility] Name: Bradly Padron Age: 68 yrs Sex: Male : 1955 Arrival Date: 08/20/2023 Time: 20:15 Bed 18 Private MD: Diagnosis: Abdominal pain, unspecified;Low back pain Presentation: 08/20 20:34 Chief complaint: Patient states: abdominal pain radiating to back X4 days. Coronavirus lg3 screen: Client denies travel out of the [place] in the last 14 days. At this time, the client does not indicate any symptoms associated with coronavirus-19. Ebola Screen: No symptoms or risks identified at this time. Initial Sepsis Screen: Does the patient meet any 2 criteria? No. Patient's initial sepsis screen is negative. Does the patient have a suspected source of infection? No. Patient's initial sepsis screen is negative. Risk Assessment: Do you want to hurt yourself or someone else? Patient reports no desire to harm self or others. Onset of symptoms was August 17, 2023. 20:34 Method Of Arrival: Ambulatory lg3 20:34 Acuity: MARIA E 3 lg3 Triage Assessment: 20:37 General: Appears in no apparent distress. uncomfortable, Behavior is calm, cooperative. lg3 Pain: Complains of pain in abdomen Pain radiates to back. EENT: No deficits noted. No signs and/or symptoms were reported regarding the EENT system. Neuro: No deficits noted. Parmar Agitation-Sedation Scale (RASS): 0 - Alert and Calm Level of Consciousness is awake, alert, obeys commands, Oriented to person, place, time, situation. Cardiovascular: No deficits noted. Denies chest pain, shortness of breath. Respiratory: No deficits noted. Airway is patent Respiratory effort is even, unlabored, Respiratory pattern is regular, symmetrical. GI: Abdomen is round non-distended, Reports lower abdominal pain, upper abdominal pain. : No deficits noted. No signs and/or symptoms were reported regarding the genitourinary system. Derm: No deficits noted. No signs and/or symptoms reported regarding the dermatologic system. Skin is intact, is healthy with good turgor, Skin is dry, Skin is normal, Skin temperature is warm. Musculoskeletal: No deficits noted. Circulation, motion, and sensation intact. Range of motion: intact in all extremities. Historical: - Home Meds: 20:37 Lotrel 5-40 mg Oral cap 1 cap once daily for Hypertension [Active]; Prilosec Oral lg3 [Active]; prednisone 10 mg oral tablet 2 times per day [Active]; - PMHx: 20:37 Diverticulitis; GERD; Hypertension; Kidney stone; lg3 - PSHx: 20:37 Lithotripsy; neck; Shoulder; left hip replacement (Shoulder); lg3 - Immunization history:: Adult Immunizations up to date, Client reports receiving the 2nd dose of the Covid vaccine, Flu vaccine is not up to date. It has been more than one year since last vaccine. - Social history:: Smoking status: Patient denies any tobacco usage or history of. Patient/guardian denies using alcohol, street drugs. Screenin:51 [facility] ED Fall Risk Assessment (Adult) History of falling in the last 3 months, me1 including since admission No falls in past 3 months (0 pts) Confusion or Disorientation No (0 pts) Intoxicated or Sedated No (0 pts) Impaired Gait No (0 pts) Mobility Assist Device Used No (0 pt) Altered Elimination No (0 pt) Score/Fall Risk Level 0 - 2 = Low Risk. Abuse screen: Denies threats or abuse. Nutritional screening: No deficits noted. Tuberculosis screening: No symptoms or risk factors identified. Assessment: 21:51 General: Appears uncomfortable, well groomed, well developed, well nourished, Behavior me1 is calm, cooperative, appropriate for age, Reports abdominal pain that radiates to back x 4 days. Reports intermittent nausea. Denies fever. Pain: Complains of pain in abdomen and back Pain radiates to back Pain currently is 4 out of 10 on a pain scale. Quality of pain is described as sharp, shooting, Pain began 2-3 days ago. Is continuous. Neuro: Level of Consciousness is awake, alert, obeys commands, Oriented to person, place, time, situation, Appropriate for age. Cardiovascular: Capillary refill < 3 seconds Patient's skin is warm and dry. Respiratory: Airway is patent Respiratory effort is even, unlabored, Respiratory pattern is regular, symmetrical. GI: Bowel sounds present X 4 quads. Abd is soft X 4 quads Reports lower abdominal pain, nausea, x 4 days. 08/21 00:32 General: Appears in no apparent distress. uncomfortable, Behavior is calm, cooperative. lg3 Pain: Complains of pain in back and abdomen Pain currently is 5 out of 10 on a pain scale. Neuro: No deficits noted. Parmar Agitation-Sedation Scale (RASS): +1 Restless Level of Consciousness is awake, alert, obeys commands, Oriented to person, place, time, situation. Cardiovascular: No deficits noted. Denies chest pain, shortness of breath, Capillary refill < 3 seconds Patient's skin is warm and dry. Respiratory: No deficits noted. Airway is patent Respiratory effort is even, unlabored, Respiratory pattern is. GI: Abdomen is round non-distended, Bowel sounds present X 4 quads. Reports lower abdominal pain. : No deficits noted. No signs and/or symptoms were reported regarding the genitourinary system. EENT: No deficits noted. No signs and/or symptoms were reported regarding the EENT system. Derm: No deficits noted. No signs and/or symptoms reported regarding the dermatologic system. Skin is intact, is healthy with good turgor, Skin is dry, Skin is normal, Skin temperature is warm. Musculoskeletal: No deficits noted. No signs and/or symptoms reported regarding the musculoskeletal system. Circulation, motion, and sensation intact. Range of motion: intact in all extremities. 01:28 Reassessment: Patient appears in no apparent distress at this time. No changes from lg3 previously documented assessment. Patient and/or family updated on plan of care and expected duration. Pain level reassessed. Patient is alert, oriented x 3, equal unlabored respirations, skin warm/dry/pink. Patient states feeling better. Patient states symptoms have improved. Vital Signs: 08/20 20:34 BP 162 / 101; Pulse 81; Resp 17 S; Temp 97.7(O); Pulse Ox 100% on R/A; Weight 92.53 kg lg3 (R); Height 5 ft. 8 in. (R); Pain 8/10; 21:30 BP 139 / 84; Pulse 71; Resp 17; Pulse Ox 98% on R/A; me1 08/21 00:32 BP 124 / 76; Pulse 66; Resp 16 S; Pulse Ox 98% on R/A; lg3 01:28 BP 124 / 80; Pulse 69; Resp 17 S; Pulse Ox 98% on R/A; Pain 2/10; lg3 08/20 20:34 Body Mass Index 31.02 (92.53 kg, 172.72 cm) lg3 08/20 20:34 Pain Scale: Adult lg3 01:28 Pain Scale: Adult lg3 ED Course: 08/20 20:17 Patient arrived in ED. mr 20:26 Torey Zamorano PA is PHCP. cp 20:26 Davie Vee MD is Attending Physician. cp 20:37 Triage completed. lg3 20:37 Arm band placed on right wrist. lg3 21:00 Urinalysis W/Microscopic Sent. bc6 21:01 Basic Metabolic Panel Sent. bc6 21:01 CBC with Diff Sent. bc6 21:01 LFT's Sent. bc6 21:01 Magnesium Sent. bc6 21:01 PT-INR Sent. bc6 21:01 Troponin HS Sent. bc6 21:01 Inserted saline lock: 20 gauge in left wrist, using aseptic technique. Blood collected. bc6 21:06 Anne-Marie Hunter, RN is Primary Nurse. me1 21:15 Urinalysis W/Microscopic Sent. bc6 21:32 XRAY Chest (1 view) In Process Unspecified. EDMS 21:44 Inserted saline lock: 22 gauge in right antecubital area, using aseptic technique. me1 21:51 CT Aorta for Dissection In Process Unspecified. EDMS 21:51 Patient has correct armband on for positive identification. Bed in low position. Call me1 light in reach. Side rails up X 1. Provided Education on: POC. Verbalized understanding. . 21:51 No provider procedures requiring assistance completed. Flushed right antecubital. me1 22:39 US Abdomen Limited: gallbladder In Process Unspecified. EDMS 08/21 00:16 Report received from EVA Xie. lg3 00:32 Client placed on continuous cardiac and pulse oximetry monitoring. NIBP monitoring lg3 applied. import customs clearing agent on. Door closed. Noise minimized. Warm blanket given. 00:32 Patient maintains SpO2 saturation greater than 95% on room air. lg3 01:29 IV discontinued, intact, bleeding controlled, No redness/swelling at site. Pressure lg3 dressing applied. Administered Medications: 08/20 21:08 Drug: morphine IVP or IV 4 mg IVP once over 4 mins Route: IVP; Infused Over: 4 mins; lg3 Site: left wrist; 21:48 Follow up: Response: No adverse reaction; Pain is decreased me1 21:08 Drug: Ondansetron IVP 4 mg IVP once; over 2 minutes Route: IVP; Site: left wrist; lg3 21:48 Follow up: Response: No adverse reaction; Nausea is decreased me1 22:40 Drug: Cyclobenzaprine PO 10 mg PO once Route: PO; me1 08/21 00:32 Follow up: Response: No adverse reaction lg3 08/20 22:40 Drug: Ketorolac IVP 15 mg IVP once Route: IVP; Site: right antecubital; me1 08/21 00:32 Follow up: Response: No adverse reaction lg3 Medication: 08/20 21:51 VIS not applicable for this client. me1 Outcome: 08/21 00:50 Discharge ordered by MD. cp 01:29 Discharged to home ambulatory, lg3 01:29 Condition: stable 01:29 Discharge instructions given to patient, Instructed on discharge instructions, follow up and referral plans. medication usage, Demonstrated understanding of instructions, follow-up care, medications, Prescriptions given X 2, 01:29 Patient left the ED. lg3 Signatures: Dispatcher [employer] EDMS Krysta Castle, Reg Reg mr Torey Zamorano, MEHDI PA Richelle Joaquin, EVA RN lg3 Jessica Hamilton 6 Anne-Marie Hunter RN RN me1 Corrections: (The following items were deleted from the chart) 08/20 21:57 21:51 GI: Bowel sounds present X 4 quads. Abd is soft X 4 quads Reports lower abdominal me1 pain, nausea, me1
--- NOTE | 2023-08-21 00:51 | EDPHYS ---
Physician Documentation [facility] Name: Bradly Padron Age: 68 yrs Sex: Male : 1955 Arrival Date: 08/20/2023 Time: 20:15 Bed 18 Private MD: ED Physician Davie Vee HPI: 08/20 20:45 This 68 yrs old Male presents to ER via Ambulatory with complaints of Abdominal Pain. cp 20:45 The patient presents with abdominal pain. cp 20:45 Onset: The symptoms/episode began/occurred 4 day(s) ago. cp 20:45 The symptoms radiate to right back. Associated signs and symptoms: Pertinent negatives: cp blood in stools, chest pain, constipation, diarrhea, dysuria, fever, hematuria, testicular pain, vomiting. The symptoms are described as constant. Severity of pain: in the emergency department the pain is unchanged despite home interventions. Patient reports started having back pain after heavy lifting. Pcp prescribed medicine that has not helped. Historical: - Home Meds: 20:37 Lotrel 5-40 mg Oral cap 1 cap once daily for Hypertension [Active]; Prilosec Oral lg3 [Active]; prednisone 10 mg oral tablet 2 times per day [Active]; - PMHx: 20:37 Diverticulitis; GERD; Hypertension; Kidney stone; lg3 - PSHx: 20:37 Lithotripsy; neck; Shoulder; left hip replacement (Shoulder); lg3 - Immunization history:: Adult Immunizations up to date, Client reports receiving the 2nd dose of the Covid vaccine, Flu vaccine is not up to date. It has been more than one year since last vaccine. - Social history:: Smoking status: Patient denies any tobacco usage or history of. Patient/guardian denies using alcohol, street drugs. ROS: 20:50 Constitutional: Negative for body aches, chills, fever, poor PO intake, cp 20:50 Eyes: Negative for injury, pain, redness, and discharge, cp 20:50 ENT: Negative for drainage from ear(s), ear pain, sore throat, difficulty swallowing, difficulty handling secretions, 20:50 Cardiovascular: Negative for chest pain, edema, palpitations, 20:50 Respiratory: Negative for cough, shortness of breath, wheezing, 20:50 Abdomen/GI: Positive for abdominal pain, Negative for vomiting, diarrhea, constipation, anorexia, black/tarry stool, rectal bleeding, bowel incontinence, 20:50 Back: Positive for pain at rest, pain with movement, radiated pain, Negative for decreased range of motion, 20:50 : Negative for urinary symptoms, hematuria, bladder incontinence, testicular pain 20:50 Skin: Negative for cellulitis, rash, 20:50 Neuro: Negative for altered mental status, headache, weakness, 20:50 All other systems are negative, Exam: 20:55 Constitutional: The patient appears in no acute distress, alert, awake, non-toxic, well cp developed, well nourished, uncomfortable, 20:55 Head/Face: Normocephalic, atraumatic. cp 20:55 Eyes: Periorbital structures: appear normal, Conjunctiva: normal, no exudate, no injection, Sclera: no appreciated abnormality, Lids and lashes: appear normal, bilaterally, 20:55 ENT: External ear(s): are unremarkable, Nose: is normal, Mouth: Lips: moist, Oral mucosa: pink and intact, moist, Posterior pharynx: is normal, airway is patent, no erythema, no exudate, 20:55 Neck: ROM/movement: is normal, is supple, without pain, no range of motions limitations, 20:55 Chest/axilla: Inspection: normal, Palpation: is normal, no crepitus, no tenderness, 20:55 Cardiovascular: Rate: normal, Rhythm: regular, Edema: is not appreciated, JVD: is not appreciated, 20:55 Respiratory: the patient does not display signs of respiratory distress, Respirations: normal, no use of accessory muscles, no retractions, labored breathing, is not present, Breath sounds: are clear throughout, no decreased breath sounds, no stridor, no wheezing, 20:55 Abdomen/GI: Inspection: obese Bowel sounds: active, all quadrants, Palpation: soft, in all quadrants, moderate abdominal tenderness, in the right upper quadrant and right lower quadrant, rebound tenderness, is not appreciated, involuntary guarding, is not appreciated, 20:55 Back: pain, that is moderate, of the right mid back and right low back, ROM is painful, with all movement, vertebral tenderness, is not appreciated, 20:55 Skin: cellulitis, is not appreciated, no rash present. 20:55 Neuro: Orientation: to person, place \T\ time. Mentation: is normal, Motor: moves all fours, strength is normal, Sensation: is normal, Gait: is steady, 21:04 ECG was reviewed by the Attending Physician. Vital Signs: 20:34 BP 162 / 101; Pulse 81; Resp 17 S; Temp 97.7(O); Pulse Ox 100% on R/A; Weight 92.53 kg lg3 (R); Height 5 ft. 8 in. (R); Pain 8/10; 21:30 BP 139 / 84; Pulse 71; Resp 17; Pulse Ox 98% on R/A; me1 08/21 00:32 BP 124 / 76; Pulse 66; Resp 16 S; Pulse Ox 98% on R/A; lg3 01:28 BP 124 / 80; Pulse 69; Resp 17 S; Pulse Ox 98% on R/A; Pain 2/10; lg3 08/20 20:34 Body Mass Index 31.02 (92.53 kg, 172.72 cm) lg3 08/20 20:34 Pain Scale: Adult lg3 01:28 Pain Scale: Adult lg3 MDM: 08/20 20:41 Patient medically screened. 08/21 00:50 Data reviewed: vital signs, nurses notes, lab test result(s), radiologic studies, CT cp scan, plain films, ultrasound, and as a result, I will discharge patient. 00:50 Differential diagnosis: AAA, acute coronary syndrome, cholecystitis, Cholelithiasis, cp diverticulitis, gastritis, non-specific abd pain, pancreatitis, Pyelonephritis, Ureterolithiasis, urinary tract infection. I considered the following discharge prescriptions or medication management in the emergency department Medications were administered in the Emergency Department. See MAR. Care significantly affected by the following chronic conditions: Hypertension. Counseling: I had a detailed discussion with the patient and/or guardian regarding the historical points, exam findings, and any diagnostic results supporting the discharge/admit diagnosis, lab results, radiology results, the need for outpatient follow up, a family practitioner, to return to the emergency department if symptoms worsen or persist or if there are any questions or concerns that arise at home. Response to treatment: the patient's symptoms have markedly improved after treatment, and as a result, I will discharge patient. Special discussion: Based on the patient's Hx, exam, and Dx evaluation, there is no indication for emergent surgery or inpatient Tx. It is understood by the patient/guardian that if the Sx's persist or worsen they need to return immediately for re-evaluation. 08/20 20:38 Order name: Basic Metabolic Panel; Complete Time: 21:48 cp 08/20 21:48 Interpretation: Normal except: GLUC 127; GFR 68. cp 08/20 20:38 Order name: CBC with Diff; Complete Time: 21:48 cp 08/20 21:49 Interpretation: Normal except: MPV 7.4. cp 08/20 20:38 Order name: LFT's; Complete Time: 21:48 cp 08/20 21:49 Interpretation: Reviewed. cp 08/20 20:38 Order name: Magnesium; Complete Time: 21:48 cp 08/20 20:38 Order name: PT-INR; Complete Time: 21:48 cp 08/20 20:38 Order name: Troponin HS; Complete Time: 21:48 cp 08/20 20:38 Order name: Lipase; Complete Time: 21:48 cp 08/20 21:49 Interpretation: Reviewed. cp 08/20 20:38 Order name: Urinalysis W/Microscopic; Complete Time: 21:48 cp 08/20 20:38 Order name: XRAY Chest (1 view); Complete Time: 22:19 cp 08/20 22:19 Interpretation: Report review. cp 08/20 20:38 Order name: CT Aorta for Dissection; Complete Time: 22:19 cp 08/20 22:22 Order name: US Abdomen Limited: gallbladder cp 08/20 20:38 Order name: EKG; Complete Time: 20:39 cp 08/20 20:38 Order name: Cardiac monitoring; Complete Time: 00:17 cp 08/20 20:38 Order name: EKG - Nurse/Tech; Complete Time: 21:00 cp 08/20 20:38 Order name: IV Saline Lock; Complete Time: 21:00 cp 08/20 20:38 Order name: Labs collected and sent; Complete Time: 21:01 cp 08/20 20:38 Order name: O2 Per Protocol; Complete Time: 00:17 cp 08/20 20:38 Order name: O2 Sat Monitoring; Complete Time: 00:17 cp EC/29 21:04 Rate is 66 beats/min. Rhythm is regular. OH interval is prolonged at 204 msec. QRS cp interval is normal. T waves are Inverted in lead aVR. Interpreted by me. Reviewed by me. Administered Medications: 21:08 Drug: morphine IVP or IV 4 mg IVP once over 4 mins Route: IVP; Infused Over: 4 mins; lg3 Site: left wrist; 21:48 Follow up: Response: No adverse reaction; Pain is decreased me1 21:08 Drug: Ondansetron IVP 4 mg IVP once; over 2 minutes Route: IVP; Site: left wrist; lg3 21:48 Follow up: Response: No adverse reaction; Nausea is decreased me1 22:40 Drug: Cyclobenzaprine PO 10 mg PO once Route: PO; me1 08/21 00:32 Follow up: Response: No adverse reaction lg3 08/20 22:40 Drug: Ketorolac IVP 15 mg IVP once Route: IVP; Site: right antecubital; me1 08/21 00:32 Follow up: Response: No adverse reaction lg3 Disposition: 20:11 Co-signature as Attending Physician, Davie Vee MD I agree with the assessment sp4 and plan of care. I reviewed the patient's care provided by the Advanced Practice Provider and agree with the diagnosis and treatment plan. Disposition Summary: 08/21/23 00:50 Discharge Ordered Notes: Location: Home cp Problem: new cp Symptoms: have improved cp Condition: Stable cp Diagnosis - Abdominal pain, unspecified cp - Low back pain cp Followup: cp - With: Private Physician - When: 2 - 3 days - Reason: Recheck today's complaints Discharge Instructions: - Discharge Summary Sheet cp - Abdominal Pain, Adult cp - Acute Back Pain, Adult cp - Heat Therapy cp - Back Exercises cp Forms: - Medication Reconciliation Form cp - Thank You Letter cp - Antibiotic Education cp - Prescription Opioid Use cp - Patient Portal Instructions cp - Leadership Thank You Letter cp Prescriptions: - Cyclobenzaprine 10 mg Oral Tablet - take 1 tablet ORAL route every 8 hours As needed; 30 tablet; Refills: 0, cp Product Selection Permitted - Diclofenac Sodium 75 mg Oral Tablet Sustained Release - take 1 tablet ORAL route 2 times per day; 30 tablet; Refills: 0, Product cp Selection Permitted Signatures: Dispatcher [employer] EDOR Torey Zamorano PA PA cp Richelle Banuelos RN RN lg3 Davie Vee MD MD sp4 Anne-Marie Hunter, RN RN me1
[2023-08-21 01:56] VITALS: TEMP 97.7
[2023-08-21 01:58] VITALS: O2SAT 98
[2023-08-21 02:00] VITALS: BP 124/80
--- NOTE | 2023-08-21 17:08 | RAD REPORT ---
EXAM DESCRIPTION: US - Abdomen Exam Limited - 08/20/2023 10:39 pm CLINICAL HISTORY: 68 years Male ABD PAIN COMPARISON: No prior exams provided for comparison. TECHNIQUE: Real-time and london scale sonographic imaging of the right upper quadrant was performed. FINDINGS: The gallbladder is appears normal without gallstones, wall thickening, or pericholecystic fluid. No sonographic Jaimes's sign was elicited during scanning. The common bile duct is within norm al limits, measuring 5 mm in diameter. Visualized hepatic echotexture is coarsened, suggestive of fatty infiltration. IMPRESSION: No evidence of cholecystitis or biliary dilatation. Suspected fatty infiltration of the liver. Electronically signed by: Sadaf Posada MD 08/20/2023 11:09 PM CDT Due to temporary technical issues with the PACS/Fluency reporting system, reports are being signed by the in house radiologists without review as a courtesy to insure prompt reporting. The interpreting radiologist is fully responsible for the content of the report.
--- NOTE | 2023-08-22 07:53 | EKG ---
Test Date: 2023-08-20 Test Time: 20:57:30 Senior Drafter: JOSEFINA MEASUREMENT RESULTS: Intervals: Rate: 66 MO: 204 QRSD: 88 QT: 384 QTc: 402 [place]: P: 54 MO: 204 QRS: 52 T: 52 INTERPRETIVE STATEMENTS: Normal sinus rhythm Cannot rule out Anterior infarct, age undetermined Abnormal ECG Compared to ECG 01/07/2019 19:09:41 Myocardial infarct finding now present Electronically Signed On 08-22-23 07:51:03 CDT by Kenneth Reid
== END 2023-08-21 01:29 | disposition home or self-care (01) ==
LOC: ER 20:15
DX: R10.9 Unspecified abdominal pain (principal); M54.50 Low back pain, unspecified; I10 Essential (primary) hypertension; Z87.442 Personal history of urinary calculi; Z96.642 Presence of left artificial hip joint
CPT/HCPCS: 93005; 85025; 81001; 80048; 36415; 83735; 85610; 80076; 84484; 83690; 71275; 74175; 71045; 76705; 99285; Q9967; J2405

== ENCOUNTER → 2023-11-20 | Emergency (ER) | payer OTHER ==
[~2023-11-20] MED LIST: FAMOTIDINE 20 MG/2 ML VIAL IV ONE; KETOROLAC 30 MG/ML INJ ONE; MORPHINE 4 MG/ML SYR ONE; NA CHLORIDE 0.9% 1,000 ML ONE; ONDANSETRON 4 MG/2 ML VIAL ONE
[2023-11-20 05:49] LABS: Absolute Lymphocytes (CBC) 0.3 K/uL (0.7-4.9); Hematocrit 44.6 % (39.6-49.0); Lymphocytes % 3.3 % (15.3-44.8); MCV 86.5 fL (80-100); MPV 7.6 fL (7.6-11.3); Platelets 235 thou/uL (152-406); RBC Red Blood Cell Count 5.16 M/uL (4.33-5.43)
[2023-11-20 06:03] LABS: SARS-CoV-2 Antigen Rapid Res Negative (Negative)
[2023-11-20 06:23] LABS: Albumin 3.5 g/dL (3.4-5.0); Bilirubin Total 0.6 mg/dL (0.2-1.0); Potassium 3.8 mEq/L (3.5-5.1); Protein, Total 6.7 g/dL (6.4-8.2)
--- NOTE | 2023-11-20 06:53 | ER ---
Nurse's Notes [facility] Name: Bradly Padron Age: 68 yrs Sex: Male : 1955 Arrival Date: 11/20/2023 Time: 03:12 Bed 18 Private MD: Diagnosis: Fever, unspecified;Vomiting Presentation: 11/20 03:31 Chief complaint: Patient states: N/V since Monday night. Pt states that he he went to [facility] an urgent care at 1200 on Monday and received tamiflu and cough medicine. Pt also states that he has had a temperature of 103 "all day" checked here and 98.4 oral. 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 Coronavirus screen: Vaccine status: Patient reports receiving the 2nd dose of the covid vaccine. Client denies travel out of the [place] in the last 14 days. Ebola Screen: Patient negative for fever greater than or equal to 101.5 degrees Fahrenheit, and additional compatible Ebola Virus Disease symptoms Patient denies exposure to infectious person. Patient denies travel to an Ebola-affected area in the 21 days before illness onset. No symptoms or risks identified at this time. Initial Sepsis Screen: Does the patient meet any 2 criteria? HR > 90 bpm. Does the patient have a suspected source of infection? No. Patient's initial sepsis screen is negative. Risk Assessment: Do you want to hurt yourself or someone else? Patient reports no desire to harm self or others. Onset of symptoms was November 18, 2023. 03:31 Method Of Arrival: Ambulatory [facility] 03:31 Acuity: MARIA E 3 nw1 Triage Assessment: 03:35 General: Appears uncomfortable, Behavior is cooperative, appropriate for age, anxious. nw1 Pain: Complains of pain in abdomen Pain does not radiate. EENT: No deficits noted. No signs and/or symptoms were reported regarding the EENT system. Neuro: Level of Consciousness is awake, alert, obeys commands, Oriented to person, place, time, situation, Appropriate for age. Cardiovascular: Heart tones present Capillary refill < 3 seconds Rhythm is sinus rhythm. Respiratory: Airway is patent Trachea midline Respiratory effort is even, unlabored, Breath sounds are clear bilaterally. GI: Abdomen is round Bowel sounds present X 4 quads. Abd is soft and non tender Reports lower abdominal pain, upper abdominal pain, intolerance of fluids, intolerance of food, nausea, vomiting. Derm: No deficits noted. No signs and/or symptoms reported regarding the dermatologic system. Musculoskeletal: No deficits noted. No signs and/or symptoms reported regarding the musculoskeletal system. Historical: - Allergies: 03:35 No Known Allergies; nw1 - PMHx: 03:35 Diverticulitis; GERD; Hypertension; Kidney stone; nw1 - PSHx: 03:35 Left hip replacement (er); Lithotripsy; neck; Shoulder; nw1 - Immunization history:: Adult Immunizations up to date, Client reports receiving the 2nd dose of the Covid vaccine. - Social history:: Smoking status: Patient denies any tobacco usage or history of. Patient/guardian denies using alcohol, street drugs, IV drugs, caffeine, over the counter diet medications, tobacco products. - Family history:: not pertinent. - Hospitalizations: : No recent hospitalization is reported. Screenin:38 [facility] ED Fall Risk Assessment (Adult) History of falling in the last 3 months, nw1 including since admission No falls in past 3 months (0 pts) Confusion or Disorientation No (0 pts) Intoxicated or Sedated No (0 pts) Impaired Gait No (0 pts) Mobility Assist Device Used No (0 pt) Altered Elimination No (0 pt) Score/Fall Risk Level 0 - 2 = Low Risk Oriented to surroundings, Maintained a safe environment, Educated pt \\T\\ family on fall prevention, incl call for assistance when getting out of bed, Assessed \\T\\ reinforced patient's understanding of fall precautions, Provided non-skid footwear, Hourly rounding (assess needs \\T\\ fall precautionary measures) done. Abuse screen: Denies threats or abuse. Denies injuries from another. Nutritional screening: No deficits noted. Tuberculosis screening: No symptoms or risk factors identified. Assessment: 03:38 Reassessment: See triage assessment. GI: Abdomen is round Bowel sounds present X 4 nw1 quads. Abd is soft and non tender Reports intolerance of fluids, intolerance of food, nausea, vomiting. Vital Signs: 03:31 BP 134 / 93; Pulse 122; Resp 17; Temp 98.4(O); Pulse Ox 97% on R/A; Weight 94.35 kg; nw1 Height 5 ft. 8 in. ; Pain 8/10; 04:00 BP 122 / 71; Pulse 89; Resp 17; Pulse Ox 98% on R/A; nw1 07:24 BP 119 / 69; Pulse 82; Resp 16; Temp 99.6(O); Pulse Ox 97% on R/A; ko1 03:31 Body Mass Index 31.63 (94.35 kg, 172.72 cm) nw1 03:31 Pain Scale: Adult nw1 [place] Coma Score: 03:38 Eye Response: spontaneous(4). Motor Response: obeys commands(6). Verbal Response: nw1 oriented(5). Total: 15. ED Course: 03:16 Patient arrived in ED. ag3 03:19 Jason Ni MD is Attending Physician. rn 03:31 Tita White RN is Primary Nurse. nw1 03:35 Triage completed. nw1 03:35 Arm band placed on left wrist. nw1 03:38 Patient has correct armband on for positive identification. Placed in gown. Bed in low nw1 position. Call light in reach. Side rails up X2. Provided Education on: POC. Door closed. Warm blanket given. 03:38 No provider procedures requiring assistance completed. nw1 04:10 CBC with Diff Sent. nw1 04:10 CMP Sent. nw1 04:10 Lipase Sent. nw1 07:45 IV discontinued, intact, bleeding controlled, No redness/swelling at site. Pressure ko1 dressing applied. Administered Medications: 04:10 Drug: Famotidine IVP 20 mg IVP once; dilute with 10 mL 0.9% NaCl; give over 2 minutes nw1 Route: IVP; Site: right wrist; 04:11 Drug: NS 0.9% IV 1000 ml IV at 1 bolus Per protocol; 1000 mL bolus Route: IV; Rate: 1 nw1 bolus; Site: right wrist; 04:11 Drug: Ondansetron IVP 4 mg IVP once; over 2 minutes Route: IVP; Site: right wrist; nw1 04:11 Drug: morphine IVP or IV 4 mg IVP once over 4 mins Route: IVP; Infused Over: 4 mins; nw1 Site: right wrist; 07:15 Drug: Ketorolac IVP 30 mg IVP once Route: IVP; Site: right forearm; ko1 07:44 Follow up: Response: No adverse reaction ko1 Medication: 03:38 VIS not applicable for this client. nw1 Outcome: 06:53 Discharge ordered by . rn 07:45 Discharged to home ambulatory, ko1 07:45 Condition: stable 07:45 Discharge instructions given to patient, Instructed on discharge instructions, follow up and referral plans. Demonstrated understanding of instructions, follow-up care, medications, Prescriptions given X 3, 07:45 Patient left the ED. ko1 Signatures: Jason Ni MD MD rn Gomez, Alice ag3 Cecy Julio RN RN ko1 Tita White RN RN nw1
--- NOTE | 2023-11-20 06:53 | EDPHYS ---
Physician Documentation [facility] Name: Bradly Padron Age: 68 yrs Sex: Male : 1955 Arrival Date: 11/20/2023 Time: 03:12 Bed 18 Private MD: ED Physician Jason Ni HPI: 11/20 04:29 This 68 yrs old Male presents to ER via Ambulatory with complaints of Fever, Vomiting. rn 04:29 The patient reports fever, that was measured at 102 degrees Fahrenheit. Onset: The rn symptoms/episode began/occurred 2 day(s) ago. Modifying factors: there are no obvious modifying factors. Associated signs and symptoms: Pertinent positives: chills, cough, headache, nausea, runny nose, vomiting, Pertinent negatives: abdominal pain. Severity of symptoms: At their worst the symptoms were moderate in the emergency department the symptoms are unchanged. The patient has not experienced similar symptoms in the past. The patient has been recently seen at an urgent care, yesterday. Patient reports feeling sick for the last 2 days with fever, congestion and runny nose, headache, myalgias, chills, cough and vomiting. States went to urgent care and was COVID-negative, prescribed Tamiflu but was not tested for flu. Patient reports feels generalized weakness and still vomiting. Reports abdominal bloating but no abdominal pain. States definitely feels different than when he has diverticulitis in the past.. Historical: - Allergies: 03:35 No Known Allergies; nw1 - PMHx: 03:35 Diverticulitis; GERD; Hypertension; Kidney stone; nw1 - PSHx: 03:35 Left hip replacement (er); Lithotripsy; neck; Shoulder; nw1 - Immunization history:: Adult Immunizations up to date, Client reports receiving the 2nd dose of the Covid vaccine. - Social history:: Smoking status: Patient denies any tobacco usage or history of. Patient/guardian denies using alcohol, street drugs, IV drugs, caffeine, over the counter diet medications, tobacco products. - Family history:: not pertinent. - Hospitalizations: : No recent hospitalization is reported. ROS: 04:29 Constitutional: Positive for fever and chills ENT: Positive for runny nose and rn congestion Cardiovascular: Negative for chest pain, palpitations, and edema, Respiratory: Positive for cough Abdomen/GI: Positive for nausea/vomiting MS/Extremity: Negative for injury and deformity, Skin: Negative for injury, rash, and discoloration, Neuro: Positive for generalized weakness and malaise Exam: 04:33 Constitutional: This is a well developed, well nourished patient who is awake, alert, rn and in no acute distress. ENT: Dry mucous membranes Cardiovascular: Regular rate and rhythm. No pulse deficits. Respiratory: No increased work of breathing, no retractions or nasal flaring. Abdomen/GI: Soft, non-tender. No evidence of tenderness throughout. MS/ Extremity: Pulses equal, no cyanosis. Neuro: Awake and alert, GCS 15 Vital Signs: 03:31 BP 134 / 93; Pulse 122; Resp 17; Temp 98.4(O); Pulse Ox 97% on R/A; Weight 94.35 kg; nw1 Height 5 ft. 8 in. ; Pain 8/10; 04:00 BP 122 / 71; Pulse 89; Resp 17; Pulse Ox 98% on R/A; nw1 07:24 BP 119 / 69; Pulse 82; Resp 16; Temp 99.6(O); Pulse Ox 97% on R/A; ko1 03:31 Body Mass Index 31.63 (94.35 kg, 172.72 cm) nw1 03:31 Pain Scale: Adult nw1 [place] Coma Score: 03:38 Eye Response: spontaneous(4). Motor Response: obeys commands(6). Verbal Response: nw1 oriented(5). Total: 15. MDM: 03:19 Patient medically screened. rn 06:52 Differential diagnosis: viral Infection, URI. Data reviewed: vital signs, nurses notes, unpaid intern test result(s), and as a result, I will discharge patient. Counseling: I had a detailed discussion with the patient and/or guardian regarding the historical points, exam findings, and any diagnostic results supporting the discharge/admit diagnosis, lab results, the need for outpatient follow up, to return to the emergency department if symptoms worsen or persist or if there are any questions or concerns that arise at home. Special discussion: I discussed with the patient/guardian in detail that at this point there is no indication for admission to the hospital. It is understood, however, that if the symptoms persist or worsen the patient needs to return immediately for re-evaluation. ED course: Patient with flulike illness, not improving. Placed on Tamiflu. Was not discharged from urgent care with nausea medication. Will discharge home with more symptomatic medication. Normal WBC. No abdominal tenderness. Will discharge with return precautions.. 11/20 03:38 Order name: CBC with Diff; Complete Time: 05:52 rn 11/20 03:38 Order name: CMP; Complete Time: 06:30 rn 11/20 03:38 Order name: Lipase; Complete Time: 06:30 rn 11/20 04:28 Order name: Flu; Complete Time: 06:30 rn 11/20 04:28 Order name: SARS RAPID; Complete Time: 06:30 rn 11/20 03:38 Order name: IV Saline Lock; Complete Time: 04:10 rn 11/20 03:38 Order name: Labs collected and sent; Complete Time: 04:10 rn 11/20 05:14 Order name: Misc. Order: recollect blood; Complete Time: 05:22 lg3 Administered Medications: 04:10 Drug: Famotidine IVP 20 mg IVP once; dilute with 10 mL 0.9% NaCl; give over 2 minutes nw1 Route: IVP; Site: right wrist; 04:11 Drug: NS 0.9% IV 1000 ml IV at 1 bolus Per protocol; 1000 mL bolus Route: IV; Rate: 1 nw1 bolus; Site: right wrist; 04:11 Drug: Ondansetron IVP 4 mg IVP once; over 2 minutes Route: IVP; Site: right wrist; nw1 04:11 Drug: morphine IVP or IV 4 mg IVP once over 4 mins Route: IVP; Infused Over: 4 mins; nw1 Site: right wrist; 07:15 Drug: Ketorolac IVP 30 mg IVP once Route: IVP; Site: right forearm; ko1 07:44 Follow up: Response: No adverse reaction ko1 Disposition Summary: 11/20/23 06:53 Discharge Ordered Notes: Location: Home rn Problem: new rn Symptoms: have improved rn Condition: Stable rn Diagnosis - Fever, unspecified rn - Vomiting rn Followup: rn - With: Private Physician - When: As needed - Reason: Recheck today's complaints, Re-evaluation by your physician Discharge Instructions: - Discharge Summary Sheet rn - Fever, Adult rn Forms: - Medication Reconciliation Form rn - Thank You Letter rn - Antibiotic phlebotomist prn - Prescription Opioid Use rn - Patient Portal Instructions rn - Leadership Thank You Letter rn Prescriptions: - ondansetron 4 mg Oral Tablet,disintegrating - take 1 tablet ORAL route every 8 hours for 5 days; 12 tablet; Refills: 0, rn Product Selection Permitted - Tramadol 50 mg Oral Tablet - take 1 tablet ORAL route every 8 hours as needed; 12 tablet; Refills: 0, rn Product Selection Permitted - Zithromax Z-Jemal 250 mg Oral Tablet - take 1 tablet ORAL route as directed for 5 days Day 1 - take two (2) tablets rn one time. Day 2, 3, 4 , 5 take one (1) tablet once daily.; 6 tablet; Refills: 0, Product Selection Permitted Signatures: Dispatcher [employer] EDJason Chapa MD MD rn Able, Lacie, RN RN lg3 Cecy Julio RN RN ko1 Tita White RN RN nw1
[2023-11-20 08:04] VITALS: BP 119/69; TEMP 99.6; O2SAT 97
== END ==
LOC: ER 03:12
DX: R50.9 Fever, unspecified (principal); R11.10 Vomiting, unspecified; R53.1 Weakness; Z11.52 Encounter for screening for COVID-19
CPT/HCPCS: 85025; 36415; 83690; 80053; 87804 ×2; 87811; J2405; J7030

== ENCOUNTER 2024-02-17 01:17 | Emergency (ER) | payer OTHER ==
[2024-02-17] MEDS ORDERED: NA CHLORIDE 0.9% 1,000 ML ONE (01:42)
[2024-02-17] MEDS ORDERED: KETOROLAC 30 MG/ML INJ ONE (01:42)
[2024-02-17] MEDS ORDERED: ONDANSETRON 4 MG/2 ML VIAL ONE (01:42)
[2024-02-17 02:01] LABS: Absolute Eosinophils 0.1 K/uL (0-0.5); Absolute Lymphocytes (CBC) 1.7 K/uL (0.7-4.9); Absolute Monocytes 0.8 K/uL (0.1-1.3); Absolute Neutrophil 6.6 K/uL (1.8-8.0); Basophils % 0.2 % (0-1.3); Eosinophils % 1.4 % (0-4.4); Hematocrit 46.6 % (39.6-49.0); Hemoglobin 15.8 g/dL (13.6-17.9); Lymphocytes % 18.3 % (15.3-44.8); MCH 29.5 pg (27.0-35.0); MCV 86.7 fL (80-100); MPV 7.4 fL (7.6-11.3); Monocytes % 8.4 % (3.3-12.3); Neutrophils % 71.7 % (41.7-73.7); Nucleated Red Blood Cells % 0.1 % (0-0); Platelets 310 thou/uL (152-406); RBC Red Blood Cell Count 5.37 M/uL (4.33-5.43); Red Cell Distribution Width 14.9 % (12.1-15.2)
[2024-02-17 02:22] LABS: Albumin 3.6 g/dL (3.4-5.0); Anion Gap 9.6 mEq/L (5.0-15.0); Bilirubin Total 0.5 mg/dL (0.2-1.0); Globulin 3.6 g/dL (2.3-3.5); Potassium 3.6 mEq/L (3.5-5.1); Protein, Total 7.2 g/dL (6.4-8.2)
[2024-02-17] MEDS ORDERED: MORPHINE 4 MG/ML SYR ONE ×2 (02:25→04:33)
[2024-02-17 03:09] LABS: Specific Gravity 1.013 (1.005-1.030); Urine Bilirubin NEGATIVE (Negative); Urine Blood Negative (Negative); Urine Clarity Clear (Clear); Urine Color Colorless (Yellow); Urine Glucose NEGATIVE (Negative); Urine Ketones NEGATIVE (Negative); Urine Microscopic Reflex YN NO UMIC; Urine Nitrite NEGATIVE (Negative); Urine Protein NEGATIVE (Negative); Urine Urobilinogen Normal (Normal); Urine pH 6.5 (5.0-7.0)
[2024-02-17] MEDS ORDERED: metroNIDAZOLE 500 MG TABLET ONE (04:28)
[2024-02-17] MEDS ORDERED: CIPROFLOXACIN HCL 500 MG TAB ONE (04:28)
--- NOTE | 2024-02-17 04:30 | ER ---
Nurse's Notes [facility] Name: Bradly Padron Age: 68 yrs Sex: Male : 1955 Arrival Date: 02/17/2024 Time: 01:17 Bed 19 Private MD: Diagnosis: Diverticulitis of large intestine without perforation or abscess without bleeding Presentation: 02/16 01:32 Chief complaint: Patient states: LLQ abdominal pain onset yesterday. Pt reports nausea. cm10 Coronavirus screen: Client denies travel out of the [place] in the last 14 days. At this time, the client does not indicate any symptoms associated with coronavirus-19. Ebola Screen: Patient denies travel to an Ebola-affected area in the 21 days before illness onset. No symptoms or risks identified at this time. Initial Sepsis Screen: Does the patient meet any 2 criteria? No. Patient's initial sepsis screen is negative. Does the patient have a suspected source of infection? No. Patient's initial sepsis screen is negative. Risk Assessment: Do you want to hurt yourself or someone else? Patient reports no desire to harm self or others. Onset of symptoms was February 17, 2024. 01:32 Method Of Arrival: Ambulatory cm10 01:32 Acuity: MARIA E 3 cm10 Triage Assessment: 01:33 General: Appears in no apparent distress. uncomfortable, Behavior is cooperative. Pain: cm10 Complains of pain in left lower quadrant. Neuro: No deficits noted. Level of Consciousness is awake, alert, obeys commands, Oriented to person, place, time, situation. Respiratory: No deficits noted. Airway is patent Respiratory effort is even, unlabored, Respiratory pattern is regular, symmetrical. Historical: - Allergies: 01:33 No Known Allergies; cm10 - PMHx: 01:33 Diverticulitis; GERD; Hypertension; Kidney stone; cm10 - PSHx: 01:33 Left hip replacement; Lithotripsy; neck; Shoulder; cm10 - Immunization history:: Adult Immunizations up to date. - Infectious Disease History:: Denies. - Social history:: Smoking status: Patient denies any tobacco usage or history of. Patient/guardian denies using alcohol, street drugs. Screenin:39 [facility] ED Fall Risk Assessment (Adult) History of falling in the last 3 months, lg3 including since admission No falls in past 3 months (0 pts) Confusion or Disorientation No (0 pts) Intoxicated or Sedated No (0 pts) Impaired Gait No (0 pts) Mobility Assist Device Used No (0 pt) Altered Elimination No (0 pt) Score/Fall Risk Level 0 - 2 = Low Risk Oriented to surroundings, Maintained a safe environment, Educated pt \T\ family on fall prevention, incl call for assistance when getting out of bed, Assessed \T\ reinforced patient's understanding of fall precautions. Abuse screen: Denies threats or abuse. Denies injuries from another. Nutritional screening: No deficits noted. Tuberculosis screening: No symptoms or risk factors identified. Assessment: 01:39 General: Appears in no apparent distress. uncomfortable, Behavior is calm, cooperative. lg3 Pain: Complains of pain in abdomen Pain does not radiate. Pain currently is 8 out of 10 on a pain scale. Neuro: No deficits noted. Parmar Agitation-Sedation Scale (RASS): 0 - Alert and Calm Level of Consciousness is awake, alert, obeys commands, Oriented to person, place, time, situation. Cardiovascular: No deficits noted. Denies chest pain, shortness of breath, Capillary refill < 3 seconds Clubbing of nail beds is absent JVD is absent Patient's skin is warm and dry. Respiratory: No deficits noted. Airway is patent Respiratory effort is even, unlabored, Respiratory pattern is regular, symmetrical. GI: Abdomen is round non-distended, obese, Bowel sounds present X 4 quads. Abd is soft X 4 quads Abdomen is tender to palpation in umbilical area and left lower quadrant Reports nausea. : No deficits noted. No signs and/or symptoms were reported regarding the genitourinary system. EENT: No deficits noted. No signs and/or symptoms were reported regarding the EENT system. Derm: No deficits noted. No signs and/or symptoms reported regarding the dermatologic system. Skin is intact, is healthy with good turgor, Skin is dry, Skin is normal, Skin temperature is warm. Musculoskeletal: No deficits noted. No signs and/or symptoms reported regarding the musculoskeletal system. Circulation, motion, and sensation intact. Range of motion: intact in all extremities. 02:29 Reassessment: Patient appears in no apparent distress at this time. No changes from lg3 previously documented assessment. Patient and/or family updated on plan of care and expected duration. Pain level reassessed. Patient is alert, oriented x 3, equal unlabored respirations, skin warm/dry/pink. Patient states symptoms have not improved. Pain: Pain currently is 8 out of 10 on a pain scale. 03:30 Reassessment: Patient appears in no apparent distress at this time. Patient and/or pf1 family updated on plan of care and expected duration. Pain level reassessed. Patient is alert, oriented x 3, equal unlabored respirations, skin warm/dry/pink. Patient states symptoms have improved. 04:30 Reassessment: Patient appears in no apparent distress at this time. Patient and/or pf1 family updated on plan of care and expected duration. Pain level reassessed. Patient is alert, oriented x 3, equal unlabored respirations, skin warm/dry/pink. Patient states symptoms have improved. Vital Signs: 01:32 BP 154 / 90; Pulse 86; Resp 18; Temp 98.3; Pulse Ox 95% on R/A; Weight 92.99 kg; Height cm10 5 ft. 8 in. ; Pain 9/10; 03:42 BP 126 / 84; Pulse 69; Resp 16 S; Pulse Ox 97% on R/A; lg3 04:30 BP 123 / 72; Pulse 71; Resp 16; Temp 98; Pulse Ox 97% on R/A; Pain 5/10; pf1 01:32 Body Mass Index 31.17 (92.99 kg, 172.72 cm) cm10 01:32 Pain Scale: Adult cm10 04:30 Pain Scale: Adult pf1 ED Course: 01:21 Patient arrived in ED. gm2 01:24 Torey Zamorano PA is PHCP. cp 01:24 Torey Dorsey MD is Attending Physician. cp 01:32 Richelle Ba RN is Primary Nurse. lg3 01:32 Triage completed. cm10 01:33 Arm band placed on Patient placed in an exam room, on a stretcher. cm10 01:39 Patient has correct armband on for positive identification. Placed in gown. Bed in low lg3 position. Call light in reach. Side rails up X 1. Client placed on continuous cardiac and pulse oximetry monitoring. NIBP monitoring applied. Door closed. Noise minimized. Warm blanket given. 01:39 Inserted saline lock: 20 gauge in right forearm, using aseptic technique. Blood lg3 collected. 02:58 CT Abd/Pelvis - IV Contrast Only In Process Unspecified. EDMS 04:52 No provider procedures requiring assistance completed. IV discontinued, intact, pf1 bleeding controlled, No redness/swelling at site. Pressure dressing applied. 04:54 Provided Education on: prescriptions. pf1 Administered Medications: 01:57 Drug: NS 0.9% IV 1000 ml IV at 1 bolus Per protocol; 1000 mL bolus Route: IV; Rate: 1 lg3 bolus; Site: right forearm; 03:00 Follow up: Response: No adverse reaction; IV Status: Completed infusion; IV Intake: pf1 1000ml 01:57 Drug: TORadol - Ketorolac IVP 15 mg IVP once Route: IVP; Site: right forearm; lg3 02:30 Follow up: Response: No adverse reaction; No change in condition lg3 01:57 Drug: Ondansetron IVP 4 mg IVP once; over 2 minutes Route: IVP; Site: right forearm; lg3 02:50 Follow up: Response: No adverse reaction; Marked relief of symptoms pf1 02:29 Drug: morphine IVP or IV 4 mg IVP once over 4 mins Route: IVP; Infused Over: 4 mins; lg3 Site: right forearm; 03:20 Follow up: Response: No adverse reaction; Marked relief of symptoms; Pain is decreased pf1 04:30 Drug: metroNIDAZOLE PO 500 mg PO once Route: PO; pf1 04:50 Follow up: Response: No adverse reaction pf1 04:30 Drug: Ciprofloxacin PO 500 mg PO once Route: PO; pf1 04:51 Follow up: Response: No adverse reaction pf1 04:35 Drug: morphine IVP or IV 4 mg IVP once over 4 mins Route: IVP; Infused Over: 4 mins; pf1 Site: right forearm; 04:51 Follow up: Response: No adverse reaction; Marked relief of symptoms; Pain is decreased; pf1 RASS: Alert and Calm (0) Medication: 04:54 VIS not applicable for this client. pf1 Intake: 03:00 IV: 1000ml; Total: 1000ml. pf1 Outcome: 04:30 Discharge ordered by . cp 04:53 Discharged to home ambulatory, with family, pf1 04:53 Condition: improved 04:53 Discharge instructions given to patient, Instructed on discharge instructions, follow up and referral plans. Demonstrated understanding of instructions, follow-up care, medications, Prescriptions given X 4, 04:54 Patient left the ED. pf1 Signatures: Dispatcher [employer] EDMS Torey Zamorano PA PA cp Able, Lacie, RN RN lg3 Jia Osuna RN RN pf1 Leta Espinoza RN RN cm10 Alee Nice 2
--- NOTE | 2024-02-17 04:30 | EDPHYS ---
Physician Documentation [facility] Name: Bradly Padron Age: 68 yrs Sex: Male : 1955 Arrival Date: 02/17/2024 Time: 01:17 Bed 19 Private MD: Torey Montalvo HPI: 02/16 01:36 This 68 yrs old Male presents to ER via Ambulatory with complaints of Abdominal Pain. cp 01:36 The patient presents with abdominal pain in the left lower quadrant. Onset: The cp symptoms/episode began/occurred yesterday. The symptoms do not radiate. Associated signs and symptoms: Pertinent negatives: blood in stools, chest pain, constipation, diarrhea, fever, testicular pain, vomiting. The symptoms are described as constant. The patient has experienced similar episodes in the past, several times, today's symptoms are similar, to when the patient was apparently diagnosed with diverticulitis. Historical: - Allergies: 01:33 No Known Allergies; cm10 - PMHx: 01:33 Diverticulitis; GERD; Hypertension; Kidney stone; cm10 - PSHx: 01:33 Left hip replacement; Lithotripsy; neck; Shoulder; cm10 - Immunization history:: Adult Immunizations up to date. - Infectious Disease History:: Denies. - Social history:: Smoking status: Patient denies any tobacco usage or history of. Patient/guardian denies using alcohol, street drugs. ROS: 01:38 Eyes: Negative for injury, pain, redness, and discharge, cp 01:38 Constitutional: Negative for body aches, chills, fever, poor PO intake, 01:38 Cardiovascular: Negative for chest pain, 01:38 Respiratory: Negative for cough, shortness of breath, wheezing, 01:38 Abdomen/GI: Positive for abdominal pain, nausea, Negative for vomiting, diarrhea, constipation, black/tarry stool, rectal bleeding, Exam: 01:41 Head/Face: Normocephalic, atraumatic. cp 01:41 Constitutional: The patient appears in no acute distress, alert, awake, non-diaphoretic, non-toxic, well developed, well nourished, uncomfortable, 01:41 Eyes: Periorbital structures: appear normal, Conjunctiva: normal, no exudate, no injection, Sclera: no appreciated abnormality, Lids and lashes: appear normal, bilaterally, 01:41 ENT: External ear(s): are unremarkable, Nose: is normal, Mouth: Lips: moist, Oral mucosa: moist, Posterior pharynx: Airway: no evidence of obstruction, patent, 01:41 Chest/axilla: Inspection: normal, Palpation: is normal, no crepitus, no tenderness, 01:41 Cardiovascular: Rate: normal, 01:41 Respiratory: the patient does not display signs of respiratory distress, Respirations: normal, no use of accessory muscles, no retractions, labored breathing, is not present, Breath sounds: are clear throughout, no decreased breath sounds, no stridor, no wheezing, :41 Abdomen/GI: Inspection: abdomen appears normal, Bowel sounds: active, all quadrants, Palpation: soft, in all quadrants, moderate abdominal tenderness, in the suprapubic area and left lower quadrant, rebound tenderness, is not appreciated, involuntary guarding, is not appreciated, :41 Back: pain, is absent, ROM is normal, Vital Signs: 01:32 BP 154 / 90; Pulse 86; Resp 18; Temp 98.3; Pulse Ox 95% on R/A; Weight 92.99 kg; Height cm10 5 ft. 8 in. ; Pain 9/10; 03:42 BP 126 / 84; Pulse 69; Resp 16 S; Pulse Ox 97% on R/A; lg3 04:30 BP 123 / 72; Pulse 71; Resp 16; Temp 98; Pulse Ox 97% on R/A; Pain 5/10; pf1 01:32 Body Mass Index 31.17 (92.99 kg, 172.72 cm) cm10 01:32 Pain Scale: Adult cm10 04:30 Pain Scale: Adult pf1 MDM: 01:28 Patient medically screened. ellie 02:00 Differential diagnosis: appendicitis, diverticulitis, non-specific abd pain, cp pancreatitis, Pyelonephritis, Ureterolithiasis, urinary tract infection. 04:30 Data reviewed: vital signs, nurses notes, lab test result(s), radiologic studies, CT cp scan, and as a result, I will discharge patient. 04:30 I considered the following discharge prescriptions or medication management in the emergency department Medications were administered in the Emergency Department. See MAR. Care significantly affected by the following chronic conditions: Hypertension. Counseling: I had a detailed discussion with the patient and/or guardian regarding the historical points, exam findings, and any diagnostic results supporting the discharge/admit diagnosis, lab results, radiology results, the need for outpatient follow up, a family practitioner, to return to the emergency department if symptoms worsen or persist or if there are any questions or concerns that arise at home. Response to treatment: the patient's symptoms have markedly improved after treatment, and as a result, I will discharge patient. 02/16 01:39 Order name: CBC with Diff cp 02/16 01:39 Order name: CMP; Complete Time: 04:23 cp 02/16 04:23 Interpretation: Normal except: GLUC 154; GFR 73; GLOB 3.6; A/G 1.0. cp 02/16 01:39 Order name: Lipase; Complete Time: 04:23 cp 02/16 01:39 Order name: Urinalysis w/ reflexes; Complete Time: 04:23 cp 02/16 01:39 Order name: CT Abd/Pelvis - IV Contrast Only cp 02/16 01:39 Order name: IV Saline Lock; Complete Time: 01:57 cp 02/16 01:39 Order name: Labs collected and sent; Complete Time: 01:57 cp Administered Medications: 01:57 Drug: NS 0.9% IV 1000 ml IV at 1 bolus Per protocol; 1000 mL bolus Route: IV; Rate: 1 lg3 bolus; Site: right forearm; 03:00 Follow up: Response: No adverse reaction; IV Status: Completed infusion; IV Intake: pf1 1000ml 01:57 Drug: TORadol - Ketorolac IVP 15 mg IVP once Route: IVP; Site: right forearm; lg3 02:30 Follow up: Response: No adverse reaction; No change in condition lg3 01:57 Drug: Ondansetron IVP 4 mg IVP once; over 2 minutes Route: IVP; Site: right forearm; lg3 02:50 Follow up: Response: No adverse reaction; Marked relief of symptoms pf1 02:29 Drug: morphine IVP or IV 4 mg IVP once over 4 mins Route: IVP; Infused Over: 4 mins; lg3 Site: right forearm; 03:20 Follow up: Response: No adverse reaction; Marked relief of symptoms; Pain is decreased pf1 04:30 Drug: metroNIDAZOLE PO 500 mg PO once Route: PO; pf1 04:50 Follow up: Response: No adverse reaction pf1 04:30 Drug: Ciprofloxacin PO 500 mg PO once Route: PO; pf1 04:51 Follow up: Response: No adverse reaction pf1 04:35 Drug: morphine IVP or IV 4 mg IVP once over 4 mins Route: IVP; Infused Over: 4 mins; pf1 Site: right forearm; 04:51 Follow up: Response: No adverse reaction; Marked relief of symptoms; Pain is decreased; pf1 RASS: Alert and Calm (0) Disposition Summary: 02/17/24 04:30 Discharge Ordered Notes: Location: Home cp Problem: new cp Symptoms: have improved cp Condition: Stable cp Diagnosis - Diverticulitis of large intestine without perforation or abscess without bleeding cp Followup: cp - With: Private Physician - When: 2 - 3 days - Reason: Recheck today's complaints Discharge Instructions: - Discharge Summary Sheet cp - High-Fiber Eating Plan cp - Diverticulitis cp Forms: - Medication Reconciliation Form cp - Antibiotic Education cp - Prescription Opioid Use cp - Patient Portal Instructions cp - Leadership Thank You Letter cp Prescriptions: - Zofran 4 mg Oral Tablet - take 1 tablet ORAL route every 12 hours As needed; 20 tablet; Refills: 0, cp Product Selection Permitted - Cipro 500 mg Oral Tablet - take 1 tablet ORAL route every 12 hours for 7 days; 14 tablet; Refills: 0, cp Product Selection Permitted - Metronidazole 500 mg Oral Tablet - take 1 tablet ORAL route every 8 hours; 30 tablet; Refills: 0, Product cp Selection Permitted - dicyclomine 20 mg Oral tablet - take 1 tablet ORAL route 4 times per day; 30 tablet; Refills: 0, Product cp Selection Permitted Addendum: 02/20/2024 22:01 Co-signature as Attending Physician, Torey Dorsey MD I agree with the assessment and c eason plan of care. Signatures: Dispatcher [employer] Torey Adams MD MD cha Page, Corey, PA PA Richelle Jang RN RN lg3 Jia Osuna RN RN pf1 Leta Espinoza RN RN cm10
[2024-02-17 05:24] VITALS: BP 123/72; TEMP 98; O2SAT 97
--- NOTE | 2024-02-18 13:55 | RAD REPORT ---
EXAM DESCRIPTION: Abdomen Pelvis W Contrast 02/17/2024 4:05 AM CDT CLINICAL HISTORY: 68 years, Male, LLQ PAIN, NAUSEA COMPARISON: 08/20/2023 TECHNIQUE: Contrast-enhanced images of the abdomen and pelvis were performed utilizing 5 mm slice th ickness at 5 mm interval reconstruction from the lung bases to the ischial tuberosities after the adm inistration of IV contrast. In addition multiplanar reformats in the coronal and sagittal plane were obtained and reviewed. An individualized dose optimization technique, Automated Exposure Control, was utilized for the perfo rmed procedure. FINDINGS: Lung bases: The lung bases demonstrated presence of minimal haziness within the posterior CP angles suggesting minimal atelectasis. Liver: The liver demonstrated presence of decreased attenuation corresponding to fatty infiltration. Gallbladder: The gallbladder demonstrate to be normal. Adrenal glands: The adrenal glands demonstrate to be normal. Pancreas: The pancreas demonstrate to be normal. Spleen: The spleen demonstrate to be within normal limits. Kidneys: The kidneys demonstrate normal uptake of contrast media. The left kidney demonstrated pres ence of mid/lower pole calculus measuring 3 mm on image 39 and 2 mm on image 45. There is a upper antonio e cyst measuring 1.4 cm on image 35. GI: Grossly the unopacified stomach, small bowel and large bowel demonstrate to be within normal limi ts. No evidence for bowel dilatation and/or free air. The appendix is normal. The left-sided colon/si gmoid colon demonstrated presence of diverticulosis with the presence of focal area of abnormal mucos al thickening and pericolonic haziness at the junction of the descending colon and sigmoid colon on a xial image 65-72, corresponding to acute diverticulitis. There is no evidence for perforation and/or abscess formation. : The urinary bladder demonstrate to be unremarkable. Genitalia: The prostate gland is normal. Abdominal aorta: The aorta demonstrated presence of minimal peripheral atheromatous plaque extending into the aortic bifurcation. Retroperitoneum: There is no retroperitoneal lymphadenopathy. There is no evidence for ascites and/or abnormal fluid collections. Bones: The bony structures demonstrate to be within normal limits. There is a status post total left hip arthroplasty. Soft tissues: The rest of the soft tissue and bony structures are within normal limits. IMPRESSION: Acute diverticulitis at the junction of the descending colon and sigmoid colon. No evide nce for perforation and/or abscess formation. Left nephrolithiasis. Bosniak I benign renal cyst measuring 1.4 cm. No follow-up imaging is recommended. JACR 2018 Nov; 264-273, Management of the Incidental Renal Mass on CT, [employer] 2020; 814-848, B osniak Classification of Cystic Renal Masses, Version 2019. Hepatic steatosis. Electronically signed by: Matthew Grewal MD 02/17/2024 04:08 AM CDT Due to temporary technical issues with the PACS/Fluency reporting system, reports are being signed by the in house radiologists without review as a courtesy to insure prompt reporting. The interpreting radiologist is fully responsible for the content of the report.
== END 2024-02-17 04:54 | disposition home or self-care (01) ==
LOC: ER 01:17
DX: K57.32 Diverticulitis of large intestine without perforation or abscess without bleeding (principal)
CPT/HCPCS: 85025; 36415; 81003; 83690; 80053; 74177; Q9967; J2405; J7030

== ENCOUNTER 2024-02-20 17:46 | Observation (INO) | payer OTHER ==
[2024-02-20 20:46] LABS: Absolute Basophils 0.1 K/uL (0-0.5); Absolute Eosinophils 0.1 K/uL (0-0.5); Absolute Lymphocytes (CBC) 1.8 K/uL (0.7-4.9); Absolute Monocytes 0.6 K/uL (0.1-1.3); Absolute Neutrophil 4.9 K/uL (1.8-8.0); Basophils % 1.3 % (0-1.3); Eosinophils % 1.3 % (0-4.4); Hematocrit 47.9 % (39.6-49.0); Hemoglobin 16.1 g/dL (13.6-17.9); Lymphocytes % 23.9 % (15.3-44.8); MCH 29.6 pg (27.0-35.0); MCHC 33.7 g/dL (32.0-36.0); MCV 87.9 fL (80-100); MPV 7.8 fL (7.6-11.3); Monocytes % 8.5 % (3.3-12.3); Nucleated Red Blood Cells % 0.2 % (0-0); Platelets 350 thou/uL (152-406); RBC Red Blood Cell Count 5.45 M/uL (4.33-5.43); Red Cell Distribution Width 14.8 % (12.1-15.2)
[2024-02-20 20:47] LABS: Urine Bilirubin NEGATIVE (Negative); Urine Blood Negative (Negative); Urine Clarity Clear (Clear); Urine Color Yellow (Yellow); Urine Glucose NEGATIVE (Negative); Urine Ketones NEGATIVE (Negative); Urine Microscopic Reflex YN NO UMIC; Urine Nitrite NEGATIVE (Negative); Urine Protein NEGATIVE (Negative); Urine Urobilinogen Normal (Normal)
[2024-02-20] MEDS ORDERED: ONDANSETRON 4 MG/2 ML VIAL ONE (20:51)
[2024-02-20] MEDS ORDERED: NA CHLORIDE 0.9% 1,000 ML ONE (20:52)
[2024-02-20] MEDS ORDERED: MORPHINE 4 MG/ML SYR ONE (20:52)
[2024-02-20 21:13] LABS: Albumin 3.7 g/dL (3.4-5.0); Anion Gap 9.2 mEq/L (5.0-15.0); Bilirubin Total 0.4 mg/dL (0.2-1.0); Globulin 3.7 g/dL (2.3-3.5); Potassium 4.2 mEq/L (3.5-5.1); Protein, Total 7.4 g/dL (6.4-8.2)
--- NOTE | 2024-02-20 22:05 | RAD REPORT ---
EXAM DESCRIPTION: CTAbdomen Pelvis W Contrast - 02/20/2024 9:50 pm CLINICAL HISTORY: Abdominal pain. left side abdomen pain COMPARISON: Abdomen Pelvis W Contrast dated 02/17/2024; Abdomen Pelvis W Contrast dated 05/24/2023; Abdomen Pelvis W Contrast dated 04/29/2023; Abdomen Pelvis W Contrast dated 12/15/2022 TECHNIQUE: Biphasic CT imaging of the abdomen and pelvis was performed with 100 ml non-ionic IV cont rast. All CT scans are performed using dose optimization technique as appropriate and may include automated exposure control or mA/KV adjustment according to patient size. FINDINGS: The lung bases are clear. The liver demonstrates diffuse fatty liver. Spleen, pancreas, adrenal glands and right kidney are wit hin normal limits. Small stones are present in the calices of the left kidney without hydronephrosis. No bowel obstruction, free air, free fluid or abscess. Diverticulosis coli affects the sigmoid colon. There is a small amount of inflammation surrounding the left lower quadrant sigmoid colon where lisa ral diverticula are present. This may indicate mild/early diverticulitis. The appendix is normal. Mod erate fat containing left inguinal hernia. No evidence of significant lymphadenopathy. Left total hip arthroplasty. Mild lumbosacral degenerative changes. IMPRESSION: Early/mild acute diverticulitis is possible involving the left lower quadrant sigmoid co del. After appropriate therapy, follow-up colonoscopy would be recommended to directly assess this re gion of the colon and exclude neoplasm. Tiny calculi in left kidney without hydronephrosis. Fatty liver.
--- NOTE | 2024-02-20 22:18 | ER ---
Nurse's Notes [facility] Name: Bradly Padron Age: 68 yrs Sex: Male : 1955 Arrival Date: 02/20/2024 Time: 17:46 Bed 4 Private MD: Diagnosis: Diverticulitis of large intestine without perforation or abscess without bleeding Presentation: 02/19 17:59 Chief complaint: Patient states: pt states he is having a flair up of diverticulitis. as6 pt states he has been taking antibiotics but they haven't been seeming to help. Coronavirus screen: At this time, the client does not indicate any symptoms associated with coronavirus-19. Ebola Screen: No symptoms or risks identified at this time. Initial Sepsis Screen: Does the patient meet any 2 criteria? No. Patient's initial sepsis screen is negative. Does the patient have a suspected source of infection? No. Patient's initial sepsis screen is negative. Risk Assessment: Do you want to hurt yourself or someone else? Patient reports no desire to harm self or others. Onset of symptoms was February 16, 2024. 17:59 Method Of Arrival: Ambulatory as6 17:59 Acuity: MARIA E 3 as6 Triage Assessment: 17:59 General: Appears in no apparent distress. comfortable, Behavior is calm, cooperative. as6 Pain: Complains of pain in abdomen. Historical: - Allergies: 17:59 No Known Allergies; as6 - PMHx: 17:59 Diverticulitis; GERD; Hypertension; Kidney stone; as6 - PSHx: 17:59 Left hip replacement; Lithotripsy; neck; Shoulder; as6 - Immunization history:: Adult Immunizations up to date. - Infectious Disease History:: Denies. - Social history:: Smoking status: Patient denies any tobacco usage or history of. Screenin:30 [facility] ED Fall Risk Assessment (Adult) History of falling in the last 3 months, me1 including since admission No falls in past 3 months (0 pts) Confusion or Disorientation No (0 pts) Intoxicated or Sedated No (0 pts) Impaired Gait No (0 pts) Mobility Assist Device Used No (0 pt) Altered Elimination No (0 pt) Score/Fall Risk Level 0 - 2 = Low Risk Maintained a safe environment, Provided non-skid footwear, Hourly rounding (assess needs \T\ fall precautionary measures) done. Abuse screen: Denies threats or abuse. Nutritional screening: No deficits noted. Tuberculosis screening: No symptoms or risk factors identified. Assessment: 18:30 General: Appears uncomfortable, ill, well groomed, well developed, well nourished, me1 Behavior is calm, cooperative, appropriate for age, Reports came in last week and has been on antibiotics for a diverticulitis flareup but is not getting any better. Pain: Complains of pain in abdomen Pain does not radiate. Pain currently is 7 out of 10 on a pain scale. Quality of pain is described as crampy, sharp, Pain began last week Is continuous. Neuro: Level of Consciousness is awake, alert, obeys commands, Oriented to person, place, time, situation, Appropriate for age. Cardiovascular: Capillary refill < 3 seconds Patient's skin is warm and dry. Respiratory: Airway is patent Respiratory effort is even, unlabored, Respiratory pattern is regular, symmetrical. GI: Abdomen is non-distended, Bowel sounds present X 4 quads. Abd is soft X 4 quads Reports lower abdominal pain, nausea. : No signs and/or symptoms were reported regarding the genitourinary system. EENT: No signs and/or symptoms were reported regarding the EENT system. Derm: Skin is intact, is healthy with good turgor, Skin is pink, warm \T\ dry. Musculoskeletal: No signs and/or symptoms reported regarding the musculoskeletal system. 21:00 Reassessment: No changes from previously documented assessment. Patient and/or family vc1 updated on plan of care and expected duration. Pain level reassessed. Patient is alert, oriented x 3, equal unlabored respirations, skin warm/dry/pink. 02/20 00:38 Reassessment: No changes from previously documented assessment. Patient and/or family vc1 updated on plan of care and expected duration. Pain level reassessed. Patient is alert, oriented x 3, equal unlabored respirations, skin warm/dry/pink. Patient states feeling better. Vital Signs: 02/19 17:58 BP 141 / 88; Pulse 77; Resp 16 S; Temp 98.2(TE); Pulse Ox 97% on R/A; Weight 93.89 kg as6 (R); Height 5 ft. 8 in. (R); Pain 8/10; 19:00 BP 127 / 86; Pulse 65; Resp 16; Pulse Ox 97% on R/A; me1 20:00 BP 124 / 81; Pulse 64; Resp 16; Pulse Ox 97% on R/A; me1 21:00 BP 123 / 79; Pulse 62; Resp 16; Pulse Ox 97% ; vc1 22:00 BP 160 / 91; Pulse 62; Resp 16; Pulse Ox 97% ; me1 23:00 BP 159 / 89; Pulse 58; Resp 16; Pulse Ox 96% on R/A; me1 02/20 00:39 BP 138 / 72; Pulse 57; Resp 16; Pulse Ox 97% ; vc1 02/19 17:58 Body Mass Index 31.47 (93.89 kg, 172.72 cm) as6 02/19 17:58 Pain Scale: Adult as6 ED Course: 02/19 17:49 Patient arrived in ED. im 17:58 Arm band placed on right wrist. as6 18:01 Triage completed. as6 18:30 Patient has correct armband on for positive identification. Bed in low position. Call me1 light in reach. Side rails up X2. Provided Education on: POC. Verbalized understanding. 18:30 No provider procedures requiring assistance completed. me1 18:56 Torey Zamorano PA is PHCP. cp 18:56 Torey Dorsey MD is Attending Physician. cp 20:30 Lactate w/ 2H reflex if indic. Sent. me1 20:30 CBC with Diff Sent. me1 20:30 CMP Sent. me1 20:30 Lipase Sent. me1 20:30 Urinalysis w/ reflexes Sent. me1 20:30 Initial lab(s) drawn, by me, sent to lab. Missed attempt(s): 20 gauge in left me1 antecubital area. 20:50 Anne-Marie Hunter, EVA is Primary Nurse. me1 21:51 CT Abd/Pelvis - IV Contrast Only In Process Unspecified. EDMS 22:17 Johan Hinton MD is Hospitalizing Provider. cp 22:17 IV discontinued, intact, bleeding controlled, No redness/swelling at site. Pressure me1 dressing applied. 22:17 Inserted saline lock: 22 gauge in left antecubital area, using aseptic technique. me1 Administered Medications: 20:58 Drug: NS 0.9% IV 1000 ml IV at 1 bolus Per protocol; 1000 mL bolus Route: IV; Rate: 1 me1 bolus; Site: right antecubital; 23:09 Follow up: Response: No adverse reaction; IV Status: Completed infusion; IV Intake: me1 1000ml 20:58 Drug: Ondansetron IVP 4 mg IVP once; over 2 minutes Route: IVP; Site: right antecubital;me1 22:19 Follow up: Response: No adverse reaction; Nausea is decreased me1 20:58 Drug: morphine IVP or IV 4 mg IVP once over 4 mins Route: IVP; Infused Over: 4 mins; me1 Site: right antecubital; 22:19 Follow up: Response: No adverse reaction; Pain is decreased me1 22:28 Drug: Piperacillin-Tazobactam IVPB 3.375 grams IVPB once over 60 mins; (mix in NS 100 me1 mL) Route: IVPB; Infused Over: 60 mins; Site: left antecubital; 23:05 Follow up: Response: No adverse reaction; IV Status: Completed infusion; IV Intake: me1 100ml Medication: 18:30 VIS not applicable for this client. me1 Intake: 23:05 IV: 100ml; Total: 100ml. me1 23:09 IV: 1000ml; Total: 1100ml. me1 Outcome: 22:18 Decision to Hospitalize by Provider. cp 02/20 00:46 Admitted to Med/surg accompanied by nurse, via wheelchair, room 209, with chart, Report rv called to faxed and received report Condition: good Instructed on the need for admit, 00:46 Patient left the ED. rv Signatures: Dispatcher [employer] EDCO Torey Zamorano PA PA cp Reggie French RN RN rv Kavon Oliveira RN RN as6 Cleopatra Funk RN RN vc1 Yahaira Thomas Michelle RN RN me1 Corrections: (The following items were deleted from the chart) 02/19 22:17 18:30 IV discontinued, intact, bleeding controlled, No redness/swelling at site. me1 Pressure dressing applied, me1
--- NOTE | 2024-02-20 22:18 | EDPHYS ---
Physician Documentation [facility] Name: Bradly Padron Age: 68 yrs Sex: Male : 1955 Arrival Date: 02/20/2024 Time: 17:46 Bed 4 Private MD: ED Physician Torey Dorsey HPI: 02/19 19:00 This 68 yrs old Male presents to ER via Ambulatory with complaints of Abdominal Pain. cp 19:00 The patient presents with abdominal pain in the left lower quadrant. cp 19:00 Onset: The symptoms/episode began/occurred 3 day(s) ago. cp 19:00 The symptoms do not radiate. Associated signs and symptoms: Pertinent negatives: blood cp in stools, diarrhea, fever, testicular pain, vomiting. The symptoms are described as constant. Severity of pain: in the emergency department the pain is unchanged despite home interventions. The patient has been recently seen at the [facility] Emergency Department, for similar complaints labs were performed, CT scan was performed, was given a prescription for antibiotics, diagnosed with diverticulitis. Historical: - Allergies: 17:59 No Known Allergies; as6 - PMHx: 17:59 Diverticulitis; GERD; Hypertension; Kidney stone; as6 - PSHx: 17:59 Left hip replacement; Lithotripsy; neck; Shoulder; as6 - Immunization history:: Adult Immunizations up to date. - Infectious Disease History:: Denies. - Social history:: Smoking status: Patient denies any tobacco usage or history of. ROS: 19:05 Constitutional: Negative for body aches, chills, fever, poor PO intake, cp 19:05 Eyes: Negative for injury, pain, redness, and discharge, cp 19:05 ENT: Negative for drainage from ear(s), ear pain, sore throat, difficulty swallowing, difficulty handling secretions, 19:05 Cardiovascular: Negative for chest pain, palpitations, 19:05 Respiratory: Negative for cough, shortness of breath, wheezing, 19:05 Abdomen/GI: Positive for abdominal pain, nausea, Negative for vomiting, diarrhea, constipation, black/tarry stool, rectal bleeding, 19:05 Back: Negative for pain at rest, pain with movement, 19:05 : Negative for urinary symptoms, testicular pain 19:05 Neuro: Negative for altered mental status, dizziness, headache, weakness, 19:05 All other systems are negative, Exam: 19:10 Constitutional: The patient appears in no acute distress, alert, awake, cp non-diaphoretic, non-toxic, well developed, well nourished, uncomfortable, 19:10 Head/Face: Normocephalic, atraumatic. cp 19:10 Eyes: Periorbital structures: appear normal, Conjunctiva: normal, no exudate, no injection, Sclera: no appreciated abnormality, Lids and lashes: appear normal, bilaterally, 19:10 ENT: External ear(s): are unremarkable, Nose: is normal, Mouth: Lips: moist, Oral mucosa: pink and intact, moist, Posterior pharynx: is normal, airway is patent, no erythema, no exudate, 19:10 Chest/axilla: Inspection: normal, 19:10 Cardiovascular: Rate: normal, Rhythm: regular, 19:10 Respiratory: the patient does not display signs of respiratory distress, Respirations: normal, no use of accessory muscles, no retractions, labored breathing, is not present, Breath sounds: are clear throughout, no decreased breath sounds, no stridor, no wheezing, 19:10 Abdomen/GI: Inspection: abdomen appears normal, Bowel sounds: active, all quadrants, Palpation: soft, in all quadrants, moderate abdominal tenderness, in the left lower quadrant, rebound tenderness, is not appreciated, involuntary guarding, is not appreciated, 19:10 Back: CVA tenderness, is absent, 19:10 Neuro: Orientation: to person, place \T\ time. Mentation: is normal, Motor: moves all fours, strength is normal, Gait: is steady, Vital Signs: 17:58 BP 141 / 88; Pulse 77; Resp 16 S; Temp 98.2(TE); Pulse Ox 97% on R/A; Weight 93.89 kg as6 (R); Height 5 ft. 8 in. (R); Pain 8/10; 19:00 BP 127 / 86; Pulse 65; Resp 16; Pulse Ox 97% on R/A; me1 20:00 BP 124 / 81; Pulse 64; Resp 16; Pulse Ox 97% on R/A; me1 21:00 BP 123 / 79; Pulse 62; Resp 16; Pulse Ox 97% ; vc1 22:00 BP 160 / 91; Pulse 62; Resp 16; Pulse Ox 97% ; ky1 23:00 BP 159 / 89; Pulse 58; Resp 16; Pulse Ox 96% on R/A; me1 02/20 00:39 BP 138 / 72; Pulse 57; Resp 16; Pulse Ox 97% ; vc1 02/19 17:58 Body Mass Index 31.47 (93.89 kg, 172.72 cm) as6 02/19 17:58 Pain Scale: Adult as6 MDM: 02/19 18:56 Patient medically screened. 20:00 Differential diagnosis: diverticulitis, non-specific abd pain, Peptic Ulcer Disease, cp Perf. Duodenal Ulcer, Perf. Gastric Ulcer, Pyelonephritis, Ureterolithiasis, urinary tract infection, abscess, perforation. 22:20 Data reviewed: vital signs, nurses notes, lab test result(s), radiologic studies, CT cp scan. 22:20 I considered the following discharge prescriptions or medication management in the emergency department Medications were administered in the Emergency Department. See MAR. Care significantly affected by the following chronic conditions: Hypertension. Counseling: I had a detailed discussion with the patient and/or guardian regarding the historical points, exam findings, and any diagnostic results supporting the discharge/admit diagnosis, lab results, radiology results, the need for further work-up and treatment in the hospital. Response to treatment: the patient's symptoms have mildly improved after treatment, and as a result, I will admit patient. 22:20 Management of patient was discussed with the following: Hospitalist: DR Hinton. 02/19 19:02 Order name: CBC with Diff; Complete Time: 21:14 02/19 21:14 Interpretation: Normal except: RBC 5.45. 02/19 19:02 Order name: CMP; Complete Time: 21:14 02/19 21:15 Interpretation: Normal except: NA 135; GLUC 140; GFR 65; GLOB 3.7; A/G 1.0. 02/19 19:02 Order name: Lipase; Complete Time: 21:14 02/19 19:02 Order name: Urinalysis w/ reflexes; Complete Time: 21:14 02/19 19:02 Order name: Lactate w/ 2H reflex if indic.; Complete Time: 21:14 02/19 19:02 Order name: Blood Culture Adult (2) 02/20 00:19 Order name: Urinalysis w/ reflexes EDMS 02/20 00:19 Order name: Basic Metabolic Panel EDNY 02/20 00:19 Order name: Basic Metabolic Panel EDNY 02/20 00:19 Order name: Comprehensive Metabolic Panel EDNY 02/20 00:19 Order name: Comprehensive Metabolic Panel EDNY 02/19 19:58 Order name: CT Abd/Pelvis - IV Contrast Only; Complete Time: 22:08 cp 02/19 22:09 Interpretation: Report reviewed. cp 02/19 19:02 Order name: IV Saline Lock; Complete Time: 20:30 cp 02/19 19:02 Order name: Labs collected and sent; Complete Time: 20:58 cp Administered Medications: 20:58 Drug: NS 0.9% IV 1000 ml IV at 1 bolus Per protocol; 1000 mL bolus Route: IV; Rate: 1 me1 bolus; Site: right antecubital; 23:09 Follow up: Response: No adverse reaction; IV Status: Completed infusion; IV Intake: me1 1000ml 20:58 Drug: Ondansetron IVP 4 mg IVP once; over 2 minutes Route: IVP; Site: right antecubital;me1 22:19 Follow up: Response: No adverse reaction; Nausea is decreased me1 20:58 Drug: morphine IVP or IV 4 mg IVP once over 4 mins Route: IVP; Infused Over: 4 mins; me1 Site: right antecubital; 22:19 Follow up: Response: No adverse reaction; Pain is decreased me1 22:28 Drug: Piperacillin-Tazobactam IVPB 3.375 grams IVPB once over 60 mins; (mix in NS 100 me1 mL) Route: IVPB; Infused Over: 60 mins; Site: left antecubital; 23:05 Follow up: Response: No adverse reaction; IV Status: Completed infusion; IV Intake: me1 100ml Disposition Summary: 02/20/24 22:18 Hospitalization Ordered Notes: Hospitalization Status: Inpatient Admission cp Provider: Johan Hinton cp Location: Telemetry/MedSurg (Inpatient) cp Condition: Stable cp Problem: new cp Symptoms: have improved cp Bed/Room Type: Standard cp Room Assignment: 209(02/21/24 00:08) rv1 Diagnosis - Diverticulitis of large intestine without perforation or abscess without bleeding cp Forms: - Medication Reconciliation Form cp - SBAR form cp - Leadership Thank You Letter cp Signatures: Dispatcher [employer] Torey Walter PA PA cp Slawson, Ashby, RN RN as6 Yesi Marquis rv1 Anne-Marie Hunter RN RN me1 Corrections: (The following items were deleted from the chart) 02/20 00:08 02/19 22:18 cp rv1
[2024-02-20] MEDS ORDERED: NA CHLORIDE 0.9% 100 ML ONE (22:20)
[2024-02-20] MEDS ORDERED: PIPERACIL/TAZO 3.375 GM VIAL IV ONE (22:21)
--- NOTE | 2024-02-21 00:13 | P.HP ---
Certification for Inpatient Patient admitted to: Observation With expected LOS: <2 Midnights Practitioner: I am a practitioner with admitting privileges, knowledge of patient current condition, hospital course, and medical plan of care. Services: Services provided to patient in accordance with Admission requirements found in Title 42 Section 412.3 of the Code of Federal Regulations Patient History Date of Service: 02/21/24 Reason for admission: Pain lower abdomen History of Present Illness: 68-year-old male with a past medical history of diverticulitis, hypertension, hyperlipidemia, GERD;,Kidney stone; Left hip replacement; Lithotripsy; who was diagnosed with diverticulitis last week and was treated with Cipro and Flagyl who failed outpatient management brought back to ER with worsening pain on the left lower quadrant. Denies any fever or chills. No nausea vomiting or diarrhea. Denies any chest pain or shortness of breath Patient was assessed in the ER and is admitted for acute diverticulitis without perforation Allergies No Known Allergies Allergy (Verified 10/12/22 22:24) Home medications list reviewed: Yes Home Medications: Amlodipine Besylate/Benazepril [Lotrel 5-40 mg Capsule] 1 tab PO DAILY WITH BREAKFAST 04/23/15 Omeprazole [Prilosec] 40 mg PO DAILY 10/12/22 Ciprofloxacin HCl [Cipro] 500 mg PO BID 7 Days #14 tab 10/14/22 Tamsulosin [Flomax*] 0.4 mg PO BEDTIME 10 Days #10 cap 10/14/22 metroNIDAZOLE [Flagyl] 500 mg PO Q8H 7 Days #21 tab 10/14/22 - Past Medical/Surgical History Diabetic: No Past Medical History: Reviewed- Non-Contributory -: Hypertension -: GERD -: diverticulitis -: Tobacco abuse Past Surgical History: Reviewed- Non-Contributory -: C-spine surgery -: Bilateral shoulder rotator cuff sx -: Left hip replacement Psychosocial/ Personal History: Patient is . He has 2 children. 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 - Family History Father -: Hypertension Mother -: Heart disease, Other (see notes) Notes: heart valve replacement - Social History Smoking Status: Never smoker Alcohol use: No CD- Drugs: No Caffeine use: No Review of Systems 10-point ROS is otherwise unremarkable Physical Examination - Vital Signs Temperature: 98.4 F Blood Pressure: 128/76 Pulse: 78 Respirations: 18 Pulse Ox (%): 96 - Physical Exam General: Alert, In no apparent distress, Oriented x3, Cooperative HEENT: Atraumatic, Normocephalic Neck: Supple, 2+ carotid pulse no bruit Respiratory: Clear to auscultation bilaterally, Normal air movement Cardiovascular: Regular rate/rhythm, Normal S1 S2 Capillary refill: <2 Seconds Gastrointestinal: Soft and benign, W/out hepatosplenomegaly, Tenderness Musculoskeletal: No clubbing, No swelling Integumentary: No rashes, No breakdown Neurological: Normal speech, Normal strength at 5/5 x4 extr, Cranial nerves 3-12 intact, Normal reflexes 2+ Lymphatics: No axilla or inguinal lymphadenopathy - Studies Laboratory Data (last 24 hrs) 02/20/24 02/20/24 20:26 20:26 WBC 7.60 Hgb 16.1 Hct 47.9 Plt Count 350 Sodium 135 L Potassium 4.2 BUN 14 Creatinine 1.23 Glucose 140 H Total Bilirubin 0.4 AST 31 ALT 49 Alkaline Phosphatase 73 Lipase 44 Assessment and Plan - Problems (Diagnosis) (1) Diverticulitis Current Visit: Yes Status: Acute Plan: Diverticulitis Failed outpatient management Was on Cipro and Flagyl Will change to Zosyn Pain control Hypertension Antihypertensives titrated Continue home medications and titrate as needed Hyperlipidemia Continue statin Obesity Advise lifestyle modification BPH Continue home medications GI/DVT prophylaxis Advanced directive full code - Advance Directives Does patient have a Living Will: No Does patient have a Durable POA for Healthcare: No - Code Status/Comfort Care Code Status: Full Code Time Spent Managing Pts Care (In Minutes): 48
[2024-02-21] MEDS ORDERED: ACETAMINOPHEN 325 MG TABLET PO PRN (00:14)
[2024-02-21] MEDS ORDERED: PIPER TAZO 3.375 GM in NA CHLORIDE 0.9% 100 ML IV SCH (01:00)
[2024-02-21 01:18] VITALS: BMI 31.4
[2024-02-21] MEDS: NA CHLORIDE 0.9% 1,000 ML IV SCH (01:36)
[2024-02-21 01:52] VITALS: O2SAT 97
[2024-02-21] MEDS ORDERED: HYDROCODONE/APAP 10/325 TAB PO PRN (02:00)
[2024-02-21] MEDS: MORPHINE 2 MG/ML SYR IV PRN (03:30)
[2024-02-21] MEDS: ONDANSETRON 4 MG/2 ML VIAL IV PRN (05:47)
[2024-02-21] MEDS: PIPER TAZO 3.375 GM in NA CHLORIDE 0.9% 100 ML IV SCH (05:47)
--- NOTE | 2024-02-21 06:47 | P.PN ---
Subjective Date of Service: 02/21/24 Chief Complaint: Pain lower abdomen Treated for diverticulitis, failed outpatient treatment with p.o. antibiotic, on IV Zosyn Pain controlled with as needed analgesia, on a full liquid diet - Physical Exam General: Alert, In no apparent distress, Oriented x3, Cooperative HEENT: Atraumatic, Normocephalic Neck: Supple, 2+ carotid pulse no bruit Respiratory: Clear to auscultation bilaterally, Normal air movement Cardiovascular: Regular rate/rhythm, Normal S1 S2 Capillary refill: <2 Seconds Gastrointestinal: Soft and benign, W/out hepatosplenomegaly, Tenderness Musculoskeletal: No clubbing, No swelling Integumentary: No rashes, No breakdown Neurological: Normal speech, Normal strength at 5/5 x4 extr, Cranial nerves 3-12 intact, Normal reflexes 2+ Lymphatics: No axilla or inguinal lymphadenopathy Review of Systems Per HPI Physical Examination - Vital Signs Temperature: 97.9 F Blood Pressure: 126/78 Pulse: 61 Respirations: 16 Pulse Ox (%): 96 - Studies Laboratory Data (last 24 hrs) 02/20/24 02/20/24 20:26 20:26 WBC 7.60 Hgb 16.1 Hct 47.9 Plt Count 350 Sodium 135 L Potassium 4.2 BUN 14 Creatinine 1.23 Glucose 140 H Total Bilirubin 0.4 AST 31 ALT 49 Alkaline Phosphatase 73 Lipase 44 Assessment And Plan - Plan Assessment and Plan Diverticulitis Failed outpatient management Was on Cipro and Flagyl Will change to Zosyn Pain control Hypertension Antihypertensives titrated Continue home medications and titrate as needed Hyperlipidemia Continue statin Obesity Advise lifestyle modification BPH Continue home medications GI/DVT prophylaxis Advanced directive full code Disposition Home independent prior Discharge Plan: Home - Code Status/Comfort Care Code Status: Full Code Critical Care: No Time Spent Managing PTS Care (In Minutes): 35
[2024-02-21] MEDS ORDERED: AMLODIPINE 5 MG TAB PO SCH (08:00)
[2024-02-21] MEDS ORDERED: PNEUMOCOCCAL VACCINE 0.5 ML IMVAC ONE (08:00)
[2024-02-21] MEDS ORDERED: MORPHINE 4 MG/ML SYR IV PRN (08:29)
[2024-02-21] MEDS ORDERED: PANTOPRAZOLE 40MG TABLET PO SCH (09:00)
[2024-02-21] MEDS ORDERED: ENOXAPARIN 40 MG/0.4 ML SQ SCH (09:00)
[2024-02-21 14:40] VITALS: TEMP 97.9
[2024-02-21] MEDS ORDERED: TAMSULOSIN 0.4 MG SR CAP PO SCH (21:00)
--- NOTE | 2024-02-22 19:59 | P.DS ---
Admission Date: 02/21/24 Discharge Date: 02/22/24 Disposition: ROUTINE DISCHARGE Discharge Condition: GOOD Reason for Admission: Pain lower abdomen Brief History of Present Illness: 68-year-old male with a past medical history of diverticulitis, hypertension, hyperlipidemia, GERD;,Kidney stone; Left hip replacement; Lithotripsy; who was diagnosed with diverticulitis last week and was treated with Cipro and Flagyl who failed outpatient management brought back to ER with worsening pain on the left lower quadrant. Denies any fever or chills. No nausea vomiting or diarrhea. Denies any chest pain or shortness of breath. Patient was assessed in the ER and is admitted for acute diverticulitis without perforation. - Physical Exam General: Alert, In no apparent distress, Oriented x3, Cooperative HEENT: Atraumatic, Normocephalic Neck: Supple, 2+ carotid pulse no bruit Respiratory: Clear to auscultation bilaterally, Normal air movement Cardiovascular: Regular rate/rhythm, Normal S1 S2 Capillary refill: <2 Seconds Gastrointestinal: Soft and benign, W/out hepatosplenomegaly, Tenderness Musculoskeletal: No clubbing, No swelling Integumentary: No rashes, No breakdown Neurological: Normal speech, Normal strength at 5/5 x4 extr, Cranial nerves 3-12 intact, Normal reflexes 2+ Lymphatics: No axilla or inguinal lymphadenopathy Hospital Course: 68-year-old male with a past medical history of diverticulitis, hypertension, hyperlipidemia, GERD;,Kidney stone; Left hip replacement; Lithotripsy; who was diagnosed with diverticulitis last week and was treated with Cipro and Flagyl who failed outpatient management brought back to ER with worsening pain on the left lower quadrant. Was noted to have diverticulitis. Condition improved with bowel rest, IV antibiotics, IV as needed analgesics. Patient tolerating diet, stable for discharge to home with follow-up appointment with primary care physician. Follow-up with GI PROBLEM: Diverticulitis treated with IV antibiotics, as needed analgesics Follow-up with GI outpatient Discharged home on p.o. 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 Almonte at [phone] if any questions regarding hospital stay -Please call nursing station at [phone] if any nursing or medication questions -Return to the emergency room if symptoms worsen Diet: ADA, low sodium Activity: Fall precautions Vital Signs/Physical Exam: Temp Pulse Resp BP Pulse Ox 97.9 F 65 19 151/81 H 95 02/21/24 12:00 02/21/24 12:00 02/21/24 12:00 02/21/24 12:00 02/21/24 12:00 Laboratory Data at Discharge: WBC 7.60 thou/uL (4.3-10.9) 02/20/24 20:26 Hgb 16.1 g/dL (13.6-17.9) 02/20/24 20:26 Hct 47.9 % (39.6-49.0) 02/20/24 20:26 Plt Count 350 thou/uL (152-406) 02/20/24 20:26 Sodium 135 mEq/L (136-145) L 02/20/24 20:26 Potassium 4.2 mEq/L (3.5-5.1) 02/20/24 20:26 BUN 14 mg/dL (7-18) 02/20/24 20:26 Creatinine 1.23 mg/dL (0.70-1.30) 02/20/24 20:26 Glucose 140 mg/dL (74-106) H 02/20/24 20:26 Total Bilirubin 0.4 mg/dL (0.2-1.0) 02/20/24 20:26 AST 31 U/L (15-37) 02/20/24 20:26 ALT 49 U/L (16-61) 02/20/24 20:26 Alkaline Phosphatase 73 U/L (45-117) 02/20/24 20:26 Lipase 44 U/L (13-75) 02/20/24 20:26 Home Medications: Amlodipine Besylate/Benazepril [Lotrel 5-40 mg Capsule] 1 tab PO DAILY WITH BREAKFAST 04/23/15 Omeprazole [Prilosec] 40 mg PO DAILY 10/12/22 Ciprofloxacin HCl [Cipro] 500 mg PO BID 7 Days #14 tab 10/14/22 Tamsulosin [Flomax*] 0.4 mg PO BEDTIME 10 Days #10 cap 10/14/22 metroNIDAZOLE [Flagyl*] 500 mg PO Q8H 7 Days #21 tab 10/14/22 Hydrocodone 10/APAP 325 [[place] 10/325*] 1 tab PO Q6HP PRN #20 tab 02/21/24 New Medications: Hydrocodone 10/APAP 325 [[place] 10/325*] 1 tab PO Q6HP PRN #20 tab PRN Reason: Pain Scale 8-10 (Severe) Physician Discharge Instructions: -DC IV and DC home -Follow-up with PCP in 1 to 2 weeks -Follow-up with GI, Dr. Christianson, for outpt colonoscopy, in 2 to 4 weeks -Please call Dr. Almonte at [phone] if any questions regarding hospital stay -Please call nursing station at [phone] if any nursing or medication questions -Return to the emergency room if symptoms worsen Diet: Low sodium Activity: Fall precautions Followup: Yonis Christianson MD [ASSOCIATE-ACTIVE - CAN ADMIT] - Lenin Maguire MD [Primary Care Provider] - Time spent managing pt's care (in minutes): 55
[2024-02-22 20:25] VITALS: BP 126/78
== END 2024-02-21 17:45 | disposition home or self-care (01) ==
LOC: ER 17:46 → INTOOBSV 02-21 00:14 → 2ND 02-21 00:14
PROVIDERS: ADMIT Family Medicine; ATTEND Hospitalist
DX: K57.92 Diverticulitis of intestine, part unspecified, without perforation or abscess without bleeding (principal); I10 Essential (primary) hypertension; E78.5 Hyperlipidemia, unspecified; E66.9 Obesity, unspecified; N40.0 Benign prostatic hyperplasia without lower urinary tract symptoms; K21.9 Gastro-esophageal reflux disease without esophagitis; N20.0 Calculus of kidney; Z96.642 Presence of left artificial hip joint
CPT/HCPCS: 96365; 96361; 87040 ×2; 85025; 36415; 83605; 81003; 83690; 80053; 74177; 96375; 99285; Q9967; J2543 ×2; J2270; J2405 ×2; J7030 ×3; G0378 ×2

== ENCOUNTER 2024-06-04 18:00 | Emergency (ER) | payer OTHER ==
[2024-06-04] MEDS ORDERED: MORPHINE 4 MG/ML SYR ONE (18:34)
[2024-06-04] MEDS ORDERED: ONDANSETRON 4 MG/2 ML VIAL ONE (18:34)
[2024-06-04] MEDS ORDERED: NA CHLORIDE 0.9% 1,000 ML ONE (18:34)
[2024-06-04 18:40] LABS: Absolute Eosinophils 0.1 K/uL (0-0.5); Absolute Lymphocytes (CBC) 1.8 K/uL (0.7-4.9); Absolute Monocytes 0.5 K/uL (0.1-1.3); Absolute Neutrophil 4.5 K/uL (1.8-8.0); Basophils % 0.7 % (0-1.3); Hematocrit 46.2 % (39.6-49.0); Hemoglobin 15.6 g/dL (13.6-17.9); Lymphocytes % 25.7 % (15.3-44.8); MCH 29.3 pg (27.0-35.0); MCHC 33.8 g/dL (32.0-36.0); MCV 86.6 fL (80-100); MPV 7.5 fL (7.6-11.3); Monocytes % 6.6 % (3.3-12.3); Nucleated Red Blood Cells % 0.2 % (0-0); Platelets 288 thou/uL (152-406); RBC Red Blood Cell Count 5.34 M/uL (4.33-5.43); Red Cell Distribution Width 14.5 % (12.1-15.2)
[2024-06-04 19:09] LABS: Albumin 3.5 g/dL (3.4-5.0); Anion Gap 8.5 mEq/L (5.0-15.0); Bilirubin Total 0.4 mg/dL (0.2-1.0); Globulin 3.5 g/dL (2.3-3.5); Potassium 3.5 mEq/L (3.5-5.1)
[2024-06-04 20:25] LABS: Specific Gravity 1.008 (1.005-1.030); Sqamous Epithelial None Seen /HPF (None Seen); Urine Bacteria <20 /HPF (<20); Urine Bilirubin NEGATIVE (Negative); Urine Blood Negative (Negative); Urine Clarity Clear (Clear); Urine Color Colorless (Yellow); Urine Culture Reflex Order NOT NEEDED; Urine Glucose NEGATIVE (Negative); Urine Ketones NEGATIVE (Negative); Urine Microscopic Reflex YN ORDER UMIC; Urine Mucus Slight /HPF (None Seen); Urine Nitrite NEGATIVE (Negative); Urine Protein NEGATIVE (Negative); Urine RBC <5 /HPF (None Seen); Urine Urobilinogen Normal (Normal); Urine WBC <5 /HPF (<5); Urine pH 6.5 (5.0-7.0)
--- NOTE | 2024-06-04 20:41 | RAD REPORT ---
EXAM DESCRIPTION: CT - Abdomen Pelvis W Contrast - 06/04/2024 8:08 pm CLINICAL HISTORY: ABD PAIN COMPARISON: Abdomen Pelvis W Contrast dated 02/20/2024; Abdomen Pelvis W Contrast dated 02/17/2024 ; Abdomen Pelvis W Contrast dated 05/24/2023; Abdomen Pelvis W Contrast dated 04/29/2023 TECHNIQUE: Thin cut axial CT imaging of the abdomen and pelvis was performed following intravenous a dministration of 98 mL Isovue 300. Multiplanar reformats were generated and reviewed. All CT scans are performed using dose optimization technique as appropriate and may include automated exposure control or mA/KV adjustment according to patient size. FINDINGS: No suspicious findings in the lung bases. The liver, spleen, adrenal glands, and pancreas show no suspicious findings. Gallbladder and biliary tree are also without suspicious finding. Symmetric renal function is seen with no hydronephrosis or suspicious renal mass. Left interpolar 6 m m calculus. Stable left interpolar 2.2 cm cyst. No dilated bowel loops or bowel wall thickening. No free air, free fluid or inflammatory stranding. N o suspicious mass or bulky lymphadenopathy. Small left inguinal hernia containing fat. Diastasis rect i. Mild distal colonic diverticulosis. The urinary bladder is without significant finding. No suspicious bony findings. Left total hip arthroplasty hardware results in streak artifact IMPRESSION: Nonobstructing left renal interpolar 6 mm calculus. No hydroureteronephrosis. No other a cute intra-abdominal process.
--- NOTE | 2024-06-04 20:56 | EDPHYS ---
Physician Documentation [facility] Name: Bradly Padron Age: 68 yrs Sex: Male : 1955 Arrival Date: 06/04/2024 Time: 18:00 Bed 14 Private MD: ED Physician Eren Bustillo HPI: 06/04 18:14 This 68 yrs old Male presents to ER via Ambulatory with complaints of abdominal pain. sb4 18:14 The patient presents with abdominal pain in the left lower quadrant. Onset: The sb4 symptoms/episode began/occurred yesterday. The symptoms do not radiate. Associated signs and symptoms: Pertinent positives: diarrhea, nausea. The symptoms are described as stabbing. The patient has experienced similar episodes in the past, several times, today's symptoms are similar, to when the patient was apparently diagnosed with diverticulitis. The patient has not recently seen a physician. Historical: - Allergies: 18:08 No Known Allergies; dd2 - Home Meds: 18:08 Lotrel 5-40 mg Oral cap 1 cap once daily for Hypertension [Active]; Prilosec Oral dd2 [Active]; - PMHx: 18:08 Diverticulitis; GERD; Hypertension; Kidney stone; dd2 - PSHx: 18:08 Shoulder; neck; Lithotripsy; Left hip replacement; dd2 - Immunization history:: Adult Immunizations up to date. - Infectious Disease History:: Denies. - Social history:: Smoking status: Patient denies any tobacco usage or history of. ROS: 18:14 Constitutional: Negative for fever, chills, and weight loss, sb4 18:14 Abdomen/GI: Positive for abdominal pain, nausea, diarrhea, 18:14 All other systems are negative, Exam: 18:14 Constitutional: This is a well developed, well nourished patient who is awake, alert, sb4 and in no acute distress. Head/Face: Normocephalic, atraumatic. Eyes: Extra-ocular motions intact. Periorbital areas with no swelling, redness, or edema. ENT: Mucous membranes moist. Cardiovascular: Regular rate and rhythm with a normal S1 and S2. Respiratory: Lungs have equal breath sounds bilaterally, clear to auscultation and percussion. No rales, rhonchi or wheezes noted. No increased work of breathing, no retractions or nasal flaring. Skin: Warm, dry with normal turgor. Normal color with no rashes, no lesions, and no evidence of cellulitis. MS/ Extremity: Pulses equal, no cyanosis. Neurovascular intact. Full, normal range of motion. 18:14 Abdomen/GI: Inspection: abdomen appears normal, Bowel sounds: normal, Palpation: soft, mild abdominal tenderness, in the left lower quadrant, Vital Signs: 18:06 BP 175 / 96; Pulse 81; Resp 16; Temp 97.5; Pulse Ox 96% ; Weight 92.99 kg; Height 5 ft. dd2 8 in. ; 18:30 BP 136 / 73; Pulse 69; Resp 16; Pulse Ox 95% on R/A; db 21:03 BP 126 / 69; Pulse 59; Resp 18; Temp 98; Pulse Ox 98% on R/A; Pain 2/10; kd4 18:06 Body Mass Index 31.17 (92.99 kg, 172.72 cm) dd2 21:03 Pain Scale: Adult kd4 MDM: 18:11 Patient medically screened. sb4 20:55 Data reviewed: vital signs, nurses notes, lab test result(s), radiologic studies, and sb4 as a result, I will discharge patient. Counseling: I had a detailed discussion with the patient and/or guardian regarding the historical points, exam findings, and any diagnostic results supporting the discharge/admit diagnosis, lab results, radiology results, the need for outpatient follow up, a urologist, to return to the emergency department if symptoms worsen or persist or if there are any questions or concerns that arise at home. 06/04 18:14 Order name: CBC with Diff; Complete Time: 18:47 sb4 06/04 18:14 Order name: CMP; Complete Time: 19:11 sb4 06/04 18:14 Order name: Lipase; Complete Time: 19:11 sb4 06/04 18:14 Order name: Urinalysis w/ reflexes; Complete Time: 20:26 sb4 06/04 18:14 Order name: CT Abd/Pelvis - IV Contrast Only; Complete Time: 20:43 sb4 06/04 18:14 Order name: IV Saline Lock; Complete Time: 18:42 sb4 06/04 18:14 Order name: Labs collected and sent; Complete Time: 18:42 sb4 Administered Medications: 18:34 Drug: NS 0.9% IV 1000 ml IV at 1 bolus Per protocol; 1000 mL bolus Route: IV; Rate: 1 db bolus; Site: right wrist; 21:05 Follow up: IV Status: Infusion continued kd4 18:35 Drug: Ondansetron IVP 4 mg IVP once; over 2 minutes Route: IVP; Site: right wrist; db 21:05 Follow up: Response: No adverse reaction kd4 18:35 Drug: morphine IVP or IV 4 mg IVP once over 4 mins Route: IVP; Infused Over: 4 mins; db Site: right wrist; 21:05 Follow up: Response: No adverse reaction kd4 Disposition: 18:20 I was immediately available on-site in the Emergency Department for consultation in the ms3 care of the patient. Disposition Summary: 06/04/24 20:56 Discharge Ordered Notes: Location: Home sb4 Problem: new sb4 Symptoms: have improved sb4 Condition: Stable sb4 Diagnosis - Calculus of kidney sb4 Followup: sb4 - With: Private Physician - When: 2 - 3 days - Reason: Recheck today's complaints, Re-evaluation by your physician Discharge Instructions: - Discharge Summary Sheet sb4 - Kidney Stones sb4 Forms: - Patient Portal Instructions sb4 - Leadership Thank You Letter sb4 Prescriptions: - ketorolac 10 mg Oral tablet - take 1 tablet ORAL route every 4 to 6 hours for 3 days as needed for pain; do sb4 not exceed 4 doses per 24 hrs; 15 tablet; Refills: 0, Product Selection Permitted - tamsulosin 0.4 mg Oral capsule - take 1 capsule ORAL route every day at bedtime; 30 capsule; Refills: 0, Product sb4 Selection Permitted Signatures: Dispatcher [employer] EDMS Eren Bustillo DO DO ms3 Mendy Garcia RN RN Diann Joaquin PAUniqueC PAUniqueC sb4 YOANNA JONES RN RN dd2 Beronica Newberry RN kd4 Corrections: (The following items were deleted from the chart) 18:09 18:08 Home Meds: prednisone 10 mg Oral tablet 2 times per day; dd2 dd2 18:14 18:14 Abdomen Pelvis W Con+CT.RAD.BRZ ordered. EDMS EDMS
--- NOTE | 2024-06-04 20:56 | ER ---
Nurse's Notes [facility] Name: Bradly Padron Age: 68 yrs Sex: Male : 1955 Arrival Date: 06/04/2024 Time: 18:00 Bed 14 Private MD: Diagnosis: Calculus of kidney Presentation: 06/04 18:06 Chief complaint: Patient states: Pt c/o lt side pain and nausea x1 day. Coronavirus dd2 screen: At this time, the client does not indicate any symptoms associated with coronavirus-19. Ebola Screen: No symptoms or risks identified at this time. Initial Sepsis Screen: Does the patient meet any 2 criteria? No. Patient's initial sepsis screen is negative. Does the patient have a suspected source of infection? No. Patient's initial sepsis screen is negative. Risk Assessment: Do you want to hurt yourself or someone else? Patient reports no desire to harm self or others. Onset of symptoms was June 03, 2024. 18:06 Method Of Arrival: Ambulatory dd2 18:06 Acuity: MARIA E 3 dd2 Triage Assessment: 18:08 General: Appears in no apparent distress. Behavior is calm, cooperative. Pain: dd2 Complains of pain in anterior aspect of left lateral abdomen. Historical: - Allergies: 18:08 No Known Allergies; dd2 - Home Meds: 18:08 Lotrel 5-40 mg Oral cap 1 cap once daily for Hypertension [Active]; Prilosec Oral dd2 [Active]; - PMHx: 18:08 Diverticulitis; GERD; Hypertension; Kidney stone; dd2 - PSHx: 18:08 Shoulder; neck; Lithotripsy; Left hip replacement; dd2 - Immunization history:: Adult Immunizations up to date. - Infectious Disease History:: Denies. - Social history:: Smoking status: Patient denies any tobacco usage or history of. Screenin:44 [facility] ED Fall Risk Assessment (Adult) History of falling in the last 3 months, db including since admission No falls in past 3 months (0 pts) Confusion or Disorientation No (0 pts) Intoxicated or Sedated No (0 pts) Impaired Gait No (0 pts) Mobility Assist Device Used No (0 pt) Altered Elimination No (0 pt) Score/Fall Risk Level 0 - 2 = Low Risk Oriented to surroundings, Maintained a safe environment. Abuse screen: Denies threats or abuse. Denies injuries from another. Nutritional screening: No deficits noted. Tuberculosis screening: No symptoms or risk factors identified. Assessment: 18:15 General: Appears in no apparent distress. comfortable, Behavior is calm, cooperative. db Pain: Complains of pain in left lower quadrant and abdomen. Neuro: Level of Consciousness is awake, alert, obeys commands, Oriented to person, place, time, situation. Cardiovascular: No deficits noted. Respiratory: Airway is patent Respiratory effort is even, unlabored, Respiratory pattern is regular, symmetrical. GI: Abdomen is non-distended, Reports lower abdominal pain, nausea. : No deficits noted. No signs and/or symptoms were reported regarding the genitourinary system. EENT: No deficits noted. No signs and/or symptoms were reported regarding the EENT system. 18:43 Reassessment: Patient appears in no apparent distress at this time. Patient and/or db family updated on plan of care and expected duration. Pain level reassessed. Patient is alert, oriented x 3, equal unlabored respirations, skin warm/dry/pink. 21:25 General: patient stable, verbalizes understanding of instruction. NAD.. kd4 Vital Signs: 18:06 BP 175 / 96; Pulse 81; Resp 16; Temp 97.5; Pulse Ox 96% ; Weight 92.99 kg; Height 5 ft. dd2 8 in. ; 18:30 BP 136 / 73; Pulse 69; Resp 16; Pulse Ox 95% on R/A; db 21:03 BP 126 / 69; Pulse 59; Resp 18; Temp 98; Pulse Ox 98% on R/A; Pain 2/10; kd4 18:06 Body Mass Index 31.17 (92.99 kg, 172.72 cm) dd2 21:03 Pain Scale: Adult kd4 ED Course: 18:04 Patient arrived in ED. ra3 18:05 Diann Mike PA-C is PHCP. sb4 18:05 Eren Bustillo DO is Attending Physician. sb4 18:08 Triage completed. dd2 18:08 Arm band placed on left wrist. Patient placed in an exam room, on a stretcher, on pulse dd2 oximetry, Patient notified of wait time. 18:24 Mendy Garcia, EVA is Primary Nurse. db 18:30 Initial lab(s) drawn, by me, sent to lab. Inserted saline lock: 20 gauge in left wrist, db using aseptic technique. Blood collected. Flushed with 10 mL NS. 19:24 Beronica Newberry, RN is Primary Nurse. kd4 20:10 CT Abd/Pelvis - IV Contrast Only In Process Unspecified. EDMS 21:05 No provider procedures requiring assistance completed. IV discontinued. kd4 21:06 Patient has correct armband on for positive identification. Provided Education on: kd4 discharge. Administered Medications: 18:34 Drug: NS 0.9% IV 1000 ml IV at 1 bolus Per protocol; 1000 mL bolus Route: IV; Rate: 1 db bolus; Site: right wrist; 21:05 Follow up: IV Status: Infusion continued kd4 18:35 Drug: Ondansetron IVP 4 mg IVP once; over 2 minutes Route: IVP; Site: right wrist; db 21:05 Follow up: Response: No adverse reaction kd4 18:35 Drug: morphine IVP or IV 4 mg IVP once over 4 mins Route: IVP; Infused Over: 4 mins; db Site: right wrist; 21:05 Follow up: Response: No adverse reaction kd4 Medication: 21:06 VIS not applicable for this client. kd4 Outcome: 20:56 Discharge ordered by MD. sb4 21:06 Discharged to home ambulatory, kd4 21:06 Condition: stable 21:23 Discharge instructions given to patient, Instructed on discharge instructions, follow kd4 up and referral plans. Demonstrated understanding of instructions, follow-up care, medications, Prescriptions given X 2, 21:25 Patient left the ED. kd4 Signatures: Dispatcher [employer] EDIN Mendy Garcia, RN RN Diann Joaquin, PA-C PA-C sb4 Ct Espinoza ra3 Beronica Newberry RN RN kd4 YOANNA JONES RN RN dd2 Corrections: (The following items were deleted from the chart) 18:09 18:08 Home Meds: prednisone 10 mg Oral tablet 2 times per day; dd2 dd2
[2024-06-04 21:42] VITALS: BP 126/69; TEMP 98; O2SAT 98
== END 2024-06-04 21:25 | disposition home or self-care (01) ==
LOC: ER 18:00
DX: N20.0 Calculus of kidney (principal); Z87.442 Personal history of urinary calculi
CPT/HCPCS: 85025; 81001; 36415; 83690; 80053; 74177; Q9967; J2405; J7030

== ENCOUNTER 2024-09-25 08:14 | Emergency (ER) | payer OTHER ==
[2024-09-25] MEDS ORDERED: HYDROCODONE/APAP 10/325 TAB ONE (08:44)
[2024-09-25] MEDS ORDERED: ONDANSETRON 4 MG (ODT) TAB ONE (08:46)
--- NOTE | 2024-09-25 08:52 | RAD REPORT ---
EXAM: CT Head Brain Wo Cont HISTORY: head injury COMPARISON: 03/23/2019 TECHNIQUE: Multiple contiguous axial images were obtained for a CT of the brain without contrast. Sag ittal and coronal reformats were performed. One or more of the following dose reduction techniques were used: Automated exposure control, adjus tment of the mA and kV according to patient size, and iterative reconstruction. Unless otherwise specified, incidental findings do not require dedicated imaging follow-up. FINDINGS: No evidence of hydrocephalus, intracranial hemorrhage, or extra-axial fluid collection. The brain is normal in morphology. Empty sella again noted. The calvarium is intact. The visualized paranasal sinuses and mastoid air cells are essentially clear . IMPRESSION: No evidence of acute intracranial abnormality.
--- NOTE | 2024-09-25 09:22 | EDPHYS ---
Physician Documentation [facility] Name: Bradly Padron Age: 69 yrs Sex: Male : 1955 Arrival Date: 09/25/2024 Time: 08:14 Bed 11 Private MD: ED Physician Jason Ni HPI: 09/25 09:36 This 69 yrs old Male presents to ER via Ambulatory with complaints of Fall Injury, Head rn Injury Without LOC-Adult, Headache. 09:36 Details of fall: The patient fell from an upright position. Onset: The symptoms/episode rn began/occurred just prior to arrival. Associated injuries: The patient sustained injury to the head. Severity of symptoms: At their worst the symptoms were mild, in the emergency department the symptoms. The patient has not experienced similar symptoms in the past. Patient reports slipped in bathtub and hit back of head. No LOC. No blood thinners. Denies any other injury. Reports bump to right back of head without laceration.. Historical: - Allergies: 08:21 No Known Allergies; iw - PMHx: 08:21 Diverticulitis; GERD; Hypertension; Kidney stone; iw - PSHx: 08:21 Left hip replacement; Lithotripsy; neck; Shoulder; iw - Immunization history:: Adult Immunizations not up to date. - Infectious Disease History:: Denies. - Social history:: Smoking status: Patient denies any tobacco usage or history of. - Family history:: not pertinent. - Hospitalizations: : No recent hospitalization is reported. ROS: 09:36 Constitutional: Negative for fever, chills, and weight loss, Neck: Negative for injury, rn pain, and swelling, Cardiovascular: Negative for chest pain, palpitations, and edema, Respiratory: Negative for shortness of breath, cough, wheezing, and pleuritic chest pain, Abdomen/GI: Negative for abdominal pain, nausea, vomiting, diarrhea, and constipation, Neuro: Positive for mild headache Exam: 09:36 Constitutional: This is a well developed, well nourished patient who is awake, alert, rn and in no acute distress. Head/Face: Small hematoma right back of scalp. No laceration Neck: No midline cervical tenderness Cardiovascular: Bradycardic, regular. No pulse deficits. MS/ Extremity: Pulses equal, no cyanosis. Neurovascular intact. Full, normal range of motion. Equal circumference. Neuro: Awake and alert, GCS 15, oriented to person, place, time, and situation. Cranial nerves II-XII grossly intact. Motor strength 5/5 in all extremities. Sensory grossly intact. Cerebellar exam normal. Normal gait. Vital Signs: 08:19 BP 174 / 110; Pulse 54; Resp 16; Pulse Ox 98% ; Weight 90.72 kg; Height 5 ft. 8 in. ; iw Pain 9/10; 08:19 Body Mass Index 30.41 (90.72 kg, 172.72 cm) iw 08:19 Pain Scale: Adult iw MDM: 08:22 Medical Screening Exam initiated rn 09:36 Differential diagnosis: closed head injury, contusion, fracture. Data reviewed: vital rn signs, nurses notes, radiologic studies, CT scan, and as a result, I will discharge patient. Counseling: I had a detailed discussion with the patient and/or guardian regarding the historical points, exam findings, and any diagnostic results supporting the discharge/admit diagnosis, radiology results, the need for outpatient follow up, to return to the emergency department if symptoms worsen or persist or if there are any questions or concerns that arise at home. Special discussion: Based on the patient's history, exam and DX evaluation, there is no indication for emergent intervention or inpatient TX. It is understood by the patient/guardian that if the SXs persist or worsen they need to return immediately for re-evaluation. I discussed with the patient/guardian in detail that at this point there is no indication for admission to the hospital. It is understood, however, that if the symptoms persist or worsen the patient needs to return immediately for re-evaluation. 09/25 08:24 Order name: CT Head Brain wo Cont; Complete Time: 09:10 rn Administered Medications: 08:55 Drug: Ondansetron PO 4 mg PO once Route: PO; iw 09:15 Follow up: Response: No adverse reaction iw 08:58 Drug: [place] PO 10 mg-325 mg 1 tabs PO once Route: PO; iw 09:15 Follow up: Response: No adverse reaction iw Disposition Summary: 09/25/24 09:22 Discharge Ordered Notes: Location: Home rn Problem: new rn Symptoms: have improved rn Condition: Stable rn Diagnosis - Unspecified injury of head, initial encounter rn Followup: rn - With: Private Physician - When: As needed - Reason: Recheck today's complaints, Re-evaluation by your physician Discharge Instructions: - Discharge Summary Sheet rn - Head Injury, Adult rn Forms: - Medication Reconciliation Form rn - Antibiotic inspector returned materials - Prescription Opioid Use rn - Patient Portal Instructions rn - Leadership Thank You Letter rn Signatures: Dispatcher MedHoKylie Monterroso, RN RN Jason Lua MD MD rn
--- NOTE | 2024-09-25 09:22 | ER ---
Nurse's Notes [facility] Name: Bradly Padron Age: 69 yrs Sex: Male : 1955 Arrival Date: 09/25/2024 Time: 08:14 Bed 11 Private MD: Diagnosis: Unspecified injury of head, initial encounter Presentation: 09/25 08:19 Chief complaint: Patient states: slipped in bath tub and hit head on floor, happened iw this morning , no LOC, not on blood thinners, now has headache and nausea. Coronavirus screen: At this time, the client does not indicate any symptoms associated with coronavirus-19. Ebola Screen: No symptoms or risks identified at this time. Initial Sepsis Screen: Does the patient meet any 2 criteria? No. Patient's initial sepsis screen is negative. Does the patient have a suspected source of infection? No. Patient's initial sepsis screen is negative. Risk Assessment: Do you want to hurt yourself or someone else? Patient reports no desire to harm self or others. Onset of symptoms was September 25, 2024. 08:19 Method Of Arrival: Ambulatory iw 08:19 Acuity: MARIA E 3 iw Historical: - Allergies: 08:21 No Known Allergies; iw - PMHx: 08:21 Diverticulitis; GERD; Hypertension; Kidney stone; iw - PSHx: 08:21 Left hip replacement; Lithotripsy; neck; Shoulder; iw - Immunization history:: Adult Immunizations not up to date. - Infectious Disease History:: Denies. - Social history:: Smoking status: Patient denies any tobacco usage or history of. - Family history:: not pertinent. - Hospitalizations: : No recent hospitalization is reported. Screenin:[address] [facility] ED Fall Risk Assessment (Adult) History of falling in the last 3 months, iw including since admission Yes- single mechanical fall (1 pt) Confusion or Disorientation No (0 pts) Intoxicated or Sedated No (0 pts) Impaired Gait No (0 pts) Mobility Assist Device Used No (0 pt) Altered Elimination No (0 pt) Score/Fall Risk Level 0 - 2 = Low Risk Oriented to surroundings, Maintained a safe environment. Abuse screen: Denies threats or abuse. Nutritional screening: No deficits noted. Tuberculosis screening: No symptoms or risk factors identified. Assessment: 08:55 General: Appears in no apparent distress. Behavior is calm, cooperative. Pain: iw Complains of pain in head. Neuro: Level of Consciousness is awake, alert, obeys commands, Oriented to person, place, time, situation, Reports headache. Cardiovascular: Patient's skin is warm and dry. Respiratory: Respiratory effort is even, unlabored, Respiratory pattern is regular, symmetrical. Vital Signs: 08:19 BP 174 / 110; Pulse 54; Resp 16; Pulse Ox 98% ; Weight 90.72 kg; Height 5 ft. 8 in. ; iw Pain 9/10; 08:19 Body Mass Index 30.41 (90.72 kg, 172.72 cm) iw 08:19 Pain Scale: Adult iw ED Course: 08:16 Patient arrived in ED. ra3 08:21 Triage completed. iw 08:21 Arm band placed on. iw 08:22 Jason Ni MD is Attending Physician. rn 08:35 CT Head Brain wo Cont In Process Unspecified. EDMS 08:47 Kylie White RN is Primary Nurse. iw 09:29 Patient has correct armband on for positive identification. Provided Education on: . iw 09:29 No provider procedures requiring assistance completed. Patient did not have IV access iw during this emergency room visit. Administered Medications: 08:55 Drug: Ondansetron PO 4 mg PO once Route: PO; iw 09:15 Follow up: Response: No adverse reaction iw 08:58 Drug: [place] PO 10 mg-325 mg 1 tabs PO once Route: PO; iw 09:15 Follow up: Response: No adverse reaction iw Medication: 08:56 VIS not applicable for this client. iw Outcome: :22 Discharge ordered by . rn 09:29 Discharged to home ambulatory, iw 09:29 Condition: good 09:29 Discharge instructions given to patient, Instructed on discharge instructions, follow up and referral plans. Demonstrated understanding of instructions, follow-up care, 09:29 Patient left the ED. iw Signatures: Dispatcher [employer] EDKylie Horton RN RN iw Jason Ni MD MD rn [place], Ruby ra3
[2024-09-25 13:54] VITALS: BP 174/110; O2SAT 98
== END 2024-09-25 09:29 | disposition home or self-care (01) ==
LOC: ER 08:14
DX: S09.90XA Unspecified injury of head, initial encounter (principal); W01.198A Fall on same level from slipping, tripping and stumbling with subsequent striking against other object, initial encounter
CPT/HCPCS: 70450; 99283; Q0162

== ENCOUNTER 2024-10-01 12:09 | Emergency (ER) | payer OTHER ==
--- NOTE | 2024-10-01 13:06 | RAD REPORT ---
EXAM: CT brain without contrast HISTORY: HEADACHE COMPARISON: 09/25/2024 TECHNIQUE: Multiple contiguous axial images were obtained and a CT of the brain without contrast. Sag ittal and coronal reformats were performed. One or more of the following dose reduction techniques were used: Automated exposure control, adjust ment of the mA and/or kV according to patient size, and/or iterative reconstruction. FINDINGS: No evidence of hydrocephalus, intracranial hemorrhage, or extra-axial fluid collection. Mild generalized brain atrophy. No evidence of midline shift or areas of brain edema. The calvarium is intact. The visualized paranasal sinuses and mastoid air cells are essentially clear . Left vertebral atherosclerosis. IMPRESSION: No evidence of acute intracranial abnormality.
[2024-10-01] MEDS ORDERED: dexAMETHasone 10 MG/ML VIAL ONE (13:58)
[2024-10-01] MEDS ORDERED: DIPHENHYDRAMINE 50 MG/ML VIAL ONE (13:58)
[2024-10-01] MEDS ORDERED: KETOROLAC 30 MG/ML INJ ONE (13:58)
[2024-10-01] MEDS ORDERED: METOCLOPRAMIDE 10 MG/2mL INJ ONE (13:59)
[2024-10-01] MEDS ORDERED: NA CHLORIDE 0.9% 100 ML ONE (13:59)
--- NOTE | 2024-10-01 14:59 | EDPHYS ---
Physician Documentation [facility] Name: Bradly Padron Age: 69 yrs Sex: Male : 1955 Arrival Date: 10/01/2024 Time: 12:09 Bed 10 Private MD: ED Physician Eren Bustillo HPI: 10/01 14:26 This 69 yrs old Male presents to ER via Ambulatory with complaints of Headache. ms3 14:26 Bradly Padron is a 69-year-old male who presents to the Emergency Department one week ms3 following a fall in his bathroom where he hit the back of his head. He was seen last Monday regarding this incident. Since the fall, he has been experiencing a persistent throbbing headache, currently rated as 6 out of 10 in severity. He reports significant fatigue, nausea, and feelings of dizziness and lightheadedness. He has been using Tylenol and Ibuprofen with no relief. He reports no changes in vision. He is concerned about the persistence of his symptoms.. Historical: - Allergies: 12:29 No Known Allergies; cm10 - PMHx: 12:29 Diverticulitis; GERD; Hypertension; Kidney stone; cm10 - PSHx: 12:29 Left hip replacement; Lithotripsy; neck; Shoulder; cm10 - Immunization history:: Adult Immunizations up to date. - Infectious Disease History:: Denies. - Social history:: Smoking status: Patient denies any tobacco usage or history of. ROS: 14:26 Constitutional: Negative for fever, and chills. Neck: Negative for injury, pain, and ms3 swelling, Cardiovascular: Negative for chest pain, and palpitations. Respiratory: Negative for shortness of breath, cough, wheezing, and pleuritic chest pain, Abdomen/GI: Negative for abdominal pain, nausea, vomiting, diarrhea, and constipation, MS/Extremity: Negative for injury and deformity, Skin: Negative for injury, rash, and discoloration, 14:26 Neuro: Positive for headache, Exam: 14:26 Constitutional: This is a well developed, well nourished patient who is awake, alert, ms3 and in no acute distress. Head/Face: Normocephalic, atraumatic. Chest/axilla: Normal chest wall appearance and motion. Nontender with no deformity. Cardiovascular: Regular rate and rhythm with a normal S1 and S2. No gallops, murmurs, or rubs. Normal PMI, no JVD. No pulse deficits. Respiratory: Lungs have equal breath sounds bilaterally, clear to auscultation and percussion. No rales, rhonchi or wheezes noted. No increased work of breathing, no retractions or nasal flaring. Abdomen/GI: Soft, non-tender, with normal bowel sounds. No distension or tympany. No guarding or rebound. No evidence of tenderness throughout. Skin: Warm, dry with normal turgor. Normal color with no rashes, no lesions, and no evidence of cellulitis. 14:26 Neuro: Orientation: is normal, to person, place, time \T\ situation. Mentation: is normal, Memory: is normal, Cranial nerves: CN I not tested, CN II- XII are normal as tested, Cerebellar function: is grossly normal, Motor: is normal, moves all fours, Sensation: is normal, no obvious gross deficits, Gait: is steady, at a normal pace, Vital Signs: 12:27 BP 167 / 93; Pulse 74; Resp 16; Temp 97.5(TE); Pulse Ox 94% on R/A; Weight 90.72 kg; cm10 Height 5 ft. 8 in. ; Pain 7/10; 12:27 Body Mass Index 30.41 (90.72 kg, 172.72 cm) cm10 12:27 Pain Scale: Adult cm10 MDM: 12:35 Medical Screening Exam initiated ms3 14:26 Differential diagnosis: subdural hematoma, Post concussive syndrome. ms3 14:59 Data reviewed: vital signs, nurses notes, and as a result, I will discharge patient. I ms3 considered the following discharge prescriptions or medication management in the emergency department Medications were administered in the Emergency Department. See MAR. Independent interpretation of the following test(s) in the Emergency Department CT Scan: My interpretation is CT Head without contrast images reviewed do not reveal SDH. Counseling: I had a detailed discussion with the patient and/or guardian regarding the historical points, exam findings, and any diagnostic results supporting the discharge/admit diagnosis, radiology results, the need for outpatient follow up, to return to the emergency department if symptoms worsen or persist or if there are any questions or concerns that arise at home. Special discussion: I discussed with the patient/guardian in detail that at this point there is no indication for admission to the hospital. It is understood, however, that if the symptoms persist or worsen the patient needs to return immediately for re-evaluation. ED course: On reevaluation patient symptoms improved, patient is alert and orient x 4, no apparent distress, nontoxic-appearing, speaking full sentences, ambulatory in the emergency department. Patient to follow-up with Dr. Paredes in 2 to 3 days. Patient understands and agrees with plan. All questions were answered. Return precautions discussed include worsening symptoms, or any other concerns. 10/01 12:37 Order name: CT Head Brain wo Cont; Complete Time: 13:23 ms3 Administered Medications: 14:15 Drug: Decadron - Dexamethasone IVP 10 mg IVP once Route: IVP; Site: right wrist; ss 15:14 Follow up: Response: No adverse reaction; Pain is decreased ss 14:19 Drug: Ketorolac IVP 10 mg 10 mg IVP once Route: IVP; Site: right wrist; ss 15:14 Follow up: Response: No adverse reaction; Pain is decreased ss 14:21 Drug: metoCLOPramide IVP 10 mg IVP once; over 1 to 2 minutes Route: IVP; Site: right ss wrist; 15:14 Follow up: Response: No adverse reaction; Pain is decreased ss 14:23 Not Given (Other Intervention Used): [id number] mg IM once ss 14:23 Drug: diphenhydrAMINE IVP 12.5 mg IVP once Route: IVP; Site: right wrist; ss 15:14 Follow up: Response: No adverse reaction; Pain is decreased ss Disposition Summary: 10/01/24 14:58 Discharge Ordered Notes: Location: Home ms3 Condition: Stable ms3 Diagnosis - Headache ms3 Followup: ms3 - With: Jamin Paredes DO - When: 2 - 3 days - Reason: Recheck today's complaints Discharge Instructions: - Discharge Summary Sheet ms3 - Concussion, Adult ms3 - General Headache Without Cause ms3 Forms: - Medication Reconciliation Form ms3 - Antibiotic Education ms3 - Prescription Opioid Use ms3 - Patient Portal Instructions ms3 - Leadership Thank You Letter ms3 Signatures: Dispatcher [employer] EDTN Geovanna Martel RN RN ss Eren Bustillo DO DO ms3 Leta Espinoza RN RN cm10 Corrections: (The following items were deleted from the chart) 12:37 12:37 Head Brain Wo Cont+CT.RAD.BRZ ordered. EDMS EDMS
--- NOTE | 2024-10-01 14:59 | ER ---
Nurse's Notes [facility] Name: Bradly Padron Age: 69 yrs Sex: Male : 1955 Arrival Date: 10/01/2024 Time: 12: Bed 10 Private MD: Diagnosis: Headache Presentation: 10/01 12:27 Chief complaint: Patient states: Had a fall on 09/25 and hit head. Pt was seen here last cm10 week for the fall. Pt reports having a headache since then and pain is worse today. Pt reports nausea and weakness. Coronavirus screen: Client denies travel out of the [place] in the last 14 days. Ebola Screen: Patient denies travel to an Ebola-affected area in the 21 days before illness onset. Initial Sepsis Screen: Does the patient meet any 2 criteria? No. Patient's initial sepsis screen is negative. Does the patient have a suspected source of infection? No. Patient's initial sepsis screen is negative. Risk Assessment: Do you want to hurt yourself or someone else? Patient reports no desire to harm self or others. Onset of symptoms was October 01, 2024. 12:27 Method Of Arrival: Ambulatory 10 12:27 Acuity: MARIA E 3 cm10 Triage Assessment: 12:30 Headache History: The patient has had previous headaches and this one is different than 10 previous episodes. General: Appears in no apparent distress. comfortable, Behavior is calm, cooperative. Pain: Complains of pain in head Pain does not radiate. Pain currently is 7 out of 10 on a pain scale. Quality of pain is described as throbbing, Pain began 09/25 Also complains of nausea. Neuro: No deficits noted. Level of Consciousness is awake, alert, obeys commands, Oriented to person, place, time, situation, Appropriate for age Reports headache. Respiratory: No deficits noted. Airway is patent Respiratory effort is even, unlabored, Respiratory pattern is regular, symmetrical. Historical: - Allergies: 12:29 No Known Allergies; cm10 - PMHx: 12:29 Diverticulitis; GERD; Hypertension; Kidney stone; cm10 - PSHx: 12:29 Left hip replacement; Lithotripsy; neck; Shoulder; cm10 - Immunization history:: Adult Immunizations up to date. - Infectious Disease History:: Denies. - Social history:: Smoking status: Patient denies any tobacco usage or history of. Screenin:26 Abuse screen: Denies threats or abuse. Denies injuries from another. Nutritional ss screening: No deficits noted. Tuberculosis screening: Never had TB. 14:56 [facility] ED Fall Risk Assessment (Adult) History of falling in the last 3 months, ss including since admission Yes- single mechanical fall (1 pt) Confusion or Disorientation No (0 pts) Intoxicated or Sedated No (0 pts) Impaired Gait No (0 pts) Mobility Assist Device Used No (0 pt) Altered Elimination No (0 pt) Score/Fall Risk Level 0 - 2 = Low Risk Oriented to surroundings, Maintained a safe environment. Assessment: 14:26 General: Appears in no apparent distress. comfortable, Behavior is calm, cooperative. ss Pain: Complains of pain in head in entire Pain currently is 6 out of 10 on a pain scale. Quality of pain is described as aching. Neuro: Level of Consciousness is awake, alert, obeys commands, Oriented to person, place, time, situation. Neuro: Denies weakness blurred vision dizziness. Respiratory: Airway is patent Respiratory effort is even, unlabored, Respiratory pattern is regular, symmetrical. GI: Patient currently denies nausea. Derm: Skin is intact, is healthy with good turgor, Skin is pink, warm \T\ dry. normal. 14:56 Reassessment: Patient appears in no apparent distress at this time. No changes from ss previously documented assessment. Patient and/or family updated on plan of care and expected duration. Pain level reassessed. Patient states feeling better. Patient states symptoms have improved. Pain: Complains of pain in head Pain currently is 2 out of 10 on a pain scale. Vital Signs: 12:27 BP 167 / 93; Pulse 74; Resp 16; Temp 97.5(TE); Pulse Ox 94% on R/A; Weight 90.72 kg; cm10 Height 5 ft. 8 in. ; Pain 7/10; 12:27 Body Mass Index 30.41 (90.72 kg, 172.72 cm) cm10 12:27 Pain Scale: Adult cm10 ED Course: 12:12 Patient arrived in ED. mr 12:20 Eren Bustillo DO is Attending Physician. ms3 12:29 Triage completed. cm10 12:29 Arm band placed on right wrist. Patient placed in waiting room. cm10 12:50 CT Head Brain wo Cont In Process Unspecified. EDMS 14:14 Inserted saline lock: 22 gauge in right wrist, using aseptic technique. Blood ss collected. Flushed with 10 mL NS. 14:21 Geovanna Martel, RN is Primary Nurse. ss 14:26 Patient has correct armband on for positive identification. Bed in low position. ss 14:26 No provider procedures requiring assistance completed. ss 14:58 Jamin Paredes DO is Referral Physician. ms3 15:13 IV discontinued, intact, bleeding controlled, No redness/swelling at site. Pressure ss dressing applied. Administered Medications: 14:15 Drug: Decadron - Dexamethasone IVP 10 mg IVP once Route: IVP; Site: right wrist; ss 15:14 Follow up: Response: No adverse reaction; Pain is decreased ss 14:19 Drug: Ketorolac IVP 10 mg 10 mg IVP once Route: IVP; Site: right wrist; ss 15:14 Follow up: Response: No adverse reaction; Pain is decreased ss 14:21 Drug: metoCLOPramide IVP 10 mg IVP once; over 1 to 2 minutes Route: IVP; Site: right ss wrist; 15:14 Follow up: Response: No adverse reaction; Pain is decreased ss 14:23 Not Given (Other Intervention Used): wwtpitkrmhpmmhh68.5 mg IM once ss 14:23 Drug: diphenhydrAMINE IVP 12.5 mg IVP once Route: IVP; Site: right wrist; ss 15:14 Follow up: Response: No adverse reaction; Pain is decreased ss Medication: 14:26 VIS not applicable for this client. ss Outcome: 14:58 Discharge ordered by . ms3 15:13 Discharged to home ambulatory, ss 15:13 Condition: good 15:13 Discharge instructions given to patient, Instructed on discharge instructions, follow up and referral plans. Demonstrated understanding of instructions, follow-up care, 15:14 Patient left the ED. ss Signatures: Dispatcher [employer] EDMS CastleKrysta elise, Saw Reg mr Geovanna Martel, RN RN ss Eren Bustillo DO DO ms3 Leta Espinoza, RN RN cm10 Corrections: (The following items were deleted from the chart) 14:23 14:19 Ketorolac IVP 10 mg 10 mg IVP in right antecubital ss ss 14:24 14:21 metoCLOPramide IVP 10 mg IVP in right antecubital ss ss
[2024-10-01 15:27] VITALS: BP 167/93; TEMP 97.5; O2SAT 94
== END 2024-10-01 15:14 | disposition home or self-care (01) ==
LOC: ER 12:09
DX: R51.9 Headache, unspecified (principal); R53.83 Other fatigue; I10 Essential (primary) hypertension
CPT/HCPCS: 70450; 96375; 96374; 99284; J2765; J1200; J1100

== ENCOUNTER 2024-10-07 06:29 | Emergency (ER) | payer OTHER ==
[2024-10-07] MEDS ORDERED: ONDANSETRON 4 MG/2 ML VIAL ONE (06:42)
[2024-10-07] MEDS ORDERED: NA CHLORIDE 0.9% 1,000 ML ONE (06:43)
[2024-10-07] MEDS ORDERED: FAMOTIDINE 20 MG/2 ML VIAL IV ONE (06:43)
[2024-10-07] MEDS ORDERED: MORPHINE 4 MG/ML SYR ONE (06:43)
--- NOTE | 2024-10-07 06:59 | RAD REPORT ---
Abdomen Exam Limited: 10/07/2024 6:34 AM CLINICAL HISTORY: ABD PAIN STUDY: Limited right upper quadrant ultrasound of abdomen. COMPARISON: 07/03/2024 FINDINGS: Bile ducts: No intrahepatic or extrahepatic biliary dilatation. Common bile duct measures 2 mm. Gallbladder: Normal. Incidentally noted hepatic steatosis with fatty sparing along the gallbladder fossa. IMPRESSION: Negative for cholelithiasis or acute cholecystitis. No biliary duct dilatation. Hepatic steatosis.
--- NOTE | 2024-10-07 06:59 | RAD REPORT ---
EXAM: Chest Single View HISTORY: ABDOMINAL DISTENTION COMPARISON: 08/20/2023 FINDINGS: LUNGS/PLEURA: The lungs are clear. No pleural effusions or pneumothorax. No pulmonary edema. MEDIASTINUM: The mediastinal silhouette is within normal limits. CARDIAC: The cardiac silhouette is within normal limits. UPPER ABDOMEN: No significant abnormality. BONES: No acute fracture. LINES/TUBES/OTHER: N/A IMPRESSION: No evidence of acute cardiopulmonary disease.
[2024-10-07 07:06] LABS: Absolute Basophils 0.1 K/uL (0-0.5); Absolute Eosinophils 0.2 K/uL (0-0.5); Absolute Lymphocytes (CBC) 1.5 K/uL (0.7-4.9); Absolute Monocytes 0.9 K/uL (0.1-1.3); Eosinophils % 1.6 % (0-4.4); Hematocrit 46.2 % (39.6-49.0); Hemoglobin 15.8 g/dL (13.6-17.9); Lymphocytes % 15.9 % (15.3-44.8); MCHC 34.2 g/dL (32.0-36.0); MCV 87.8 fL (80-100); MPV 7.3 fL (7.6-11.3); Monocytes % 9.1 % (3.3-12.3); Neutrophils % 72.4 % (41.7-73.7); Platelets 281 thou/uL (152-406); RBC Red Blood Cell Count 5.27 M/uL (4.33-5.43); Red Cell Distribution Width 15.1 % (12.1-15.2)
[2024-10-07 07:11] LABS: PT Prothrombin Time 11.7 SECONDS (9.4-12.5); Protime INR 1.05
[2024-10-07] MEDS ORDERED: CEFTRIAXONE 2000 MG/VIAL ONE (07:11)
[2024-10-07] MEDS ORDERED: CIPROFLOXACIN 400mg IV 400 MG/200 ML BAG IV ONE (07:11)
[2024-10-07] MEDS ORDERED: METRONIDAZOLE 500mg IVPB 500 MG/100 ML BAG IV ONE (07:12)
[2024-10-07] MEDS ORDERED: NA CHLORIDE 0.9% 50 ML ONE (07:23)
[2024-10-07 07:26] LABS: Albumin 3.5 g/dL (3.4-5.0); Anion Gap 8.7 mEq/L (5.0-15.0); Bilirubin Direct 0.2 mg/dL (0-0.2); Bilirubin Indirect, Calculated 0.5 mg/dL (0.2-0.8); Bilirubin Total 0.7 mg/dL (0.2-1.0); Globulin 3.5 g/dL (2.3-3.5); Magnesium 2.1 mg/dL (1.6-2.4); Potassium 3.7 mEq/L (3.5-5.1); Troponin High Sensitivity 4.4 pg/mL (<58.9)
--- NOTE | 2024-10-07 08:13 | ER ---
Nurse's Notes [facility] Name: Bradly Padron Age: 69 yrs Sex: Male : 1955 Arrival Date: 10/07/2024 Time: 06:29 Bed 13 Private MD: Diagnosis: Abdominal tenderness;Diverticulitis of large intestine without perforation or abscess without bleeding Presentation: 10/07 06:35 Chief complaint: Patient states: LOWER ABDOMINAL PAIN. ha1 06:35 Coronavirus screen: Client denies travel out of the [place] in the last 14 days. Ebola ha1 Screen: No symptoms or risks identified at this time. Initial Sepsis Screen: Does the patient meet any 2 criteria? No. Patient's initial sepsis screen is negative. Does the patient have a suspected source of infection? No. Patient's initial sepsis screen is negative. Risk Assessment: Do you want to hurt yourself or someone else? Patient reports no desire to harm self or others. Onset of symptoms was October 07, 2024. 06:35 Method Of Arrival: Ambulatory ha1 06:35 Acuity: MARIA E 3 ha1 Triage Assessment: 06:35 General: Appears uncomfortable, Behavior is calm, cooperative. Pain: Complains of pain ha1 in pelvis Pain radiates to back Pain currently is 8 out of 10 on a pain scale. Quality of pain is described as aching. Neuro: Level of Consciousness is awake, alert, obeys commands, Oriented to person, place, time, situation. Cardiovascular: Patient's skin is warm and dry. Respiratory: Airway is patent Respiratory effort is even, unlabored, Respiratory pattern is regular, symmetrical. GI: Reports lower abdominal pain. : No signs and/or symptoms were reported regarding the genitourinary system. Derm: Skin is pink, warm \T\ dry. Musculoskeletal: Circulation, motion, and sensation intact. Range of motion: intact in all extremities. Historical: - Allergies: 06:35 No Known Allergies; ha1 - Home Meds: 06:35 prednisone 10 mg Oral tablet 2 times per day [Active]; Lotrel 5-40 mg Oral cap 1 cap ha1 once daily for Hypertension [Active]; - PMHx: 06:35 Diverticulitis; GERD; Hypertension; Kidney stone; ha1 - PSHx: 06:35 Left hip replacement; Lithotripsy; neck; Shoulder; ha1 - Immunization history:: Adult Immunizations up to date. - Infectious Disease History:: Denies. - Social history:: Smoking status: Patient denies any tobacco usage or history of. Screenin:00 [facility] ED Fall Risk Assessment (Adult) History of falling in the last 3 months, rs5 including since admission No falls in past 3 months (0 pts) Confusion or Disorientation No (0 pts) Intoxicated or Sedated No (0 pts) Impaired Gait No (0 pts) Mobility Assist Device Used No (0 pt) Altered Elimination No (0 pt) Score/Fall Risk Level 0 - 2 = Low Risk Oriented to surroundings, Maintained a safe environment. Abuse screen: Denies threats or abuse. Nutritional screening: No deficits noted. Tuberculosis screening: No symptoms or risk factors identified. Assessment: 06:51 Reassessment: SEE TRIAGE ASSESSMENT. ha1 07:50 Reassessment: pt to CT at this time. ss Vital Signs: 06:35 BP 156 / 95; Pulse 78; Resp 18 S; Temp 98.2(T); Pulse Ox 98% on R/A; Weight 90.72 kg; ha1 Height 5 ft. 8 in. ; 07:20 BP 144 / 84; Pulse 77; Resp 17; Pulse Ox 98% on R/A; rs5 08:30 BP 148 / 88; Pulse 74; Resp 17; Pulse Ox 97% on R/A; rs5 06:35 Body Mass Index 30.41 (90.72 kg, 172.72 cm) ha1 ED Course: 06:31 Patient arrived in ED. ra3 06:33 Torey Dorsey MD is Attending Physician. ellie 06:49 Triage completed. ha1 06:51 XRAY Chest (1 view) In Process Unspecified. EDMS 06:52 US Abdomen Limited In Process Unspecified. EDMS 06:57 Tara Chew, EVA is Primary Nurse. br2 06:57 Inserted saline lock: 22 gauge in left antecubital area, using aseptic technique. Blood br2 collected. Flushed with 10 mL NS. 07:00 Arm band placed on right wrist. rs5 07:01 Patient has correct armband on for positive identification. Placed in gown. Bed in low rs5 position. Call light in reach. Side rails up X2. 07:03 EKG done, by ED staff, reviewed by Torey Dorsey MD. oe 08:00 CT Abd/Pelvis - IV Contrast Only In Process Unspecified. EDMS 08:12 Lenin Maguire MD is Referral Physician. ellie 08:12 Yonis Christianson MD is Referral Physician. ellie 08:30 Provided Education on: discharge instructions . rs5 08:40 No provider procedures requiring assistance completed. IV discontinued, intact, rs5 bleeding controlled, No redness/swelling at site. Pressure dressing applied. Administered Medications: 06:58 Drug: NS 0.9% IV 1000 ml IV at 1000 ml once; to be given as a bolus over 60 minutes br2 Route: IV; Rate: 1000 ml; Site: left antecubital; 08:00 Follow up: Response: No adverse reaction rs5 08:00 Follow up: Response: Other; completed infusion, total intake 1,000 ml, no adverse rs5 reaction 06:58 Drug: Famotidine IVP 20 mg IVP once; dilute with 10 mL 0.9% NaCl; give over 2 minutes br2 Route: IVP; Site: left antecubital; 07:20 Follow up: Response: No adverse reaction rs5 06:58 Drug: morphine IVP or IV 4 mg IVP once over 4 mins Route: IVP; Infused Over: 4 mins; br2 Site: left antecubital; 07:20 Follow up: Response: No adverse reaction; Pain is decreased rs5 06:58 Drug: Ondansetron IVP 4 mg IVP once; over 2 minutes Route: IVP; Site: left antecubital; br2 07:20 Follow up: Response: No adverse reaction rs5 07:05 Drug: Ciprofloxacin IVPB 400 mg 200 ml IVPB once over 60 mins Volume: 200 ml; Route: rs5 IVPB; Infused Over: 60 mins; Site: left antecubital; 08:01 Follow up: Response: No adverse reaction; IV Status: Completed infusion; IV Intake: rs5 200ml 07:05 Drug: metroNIDAZOLE IVPB 500 mg 100 ml IVPB at 200 ml/hr once over 30 mins Volume: 100 rs5 ml; Route: IVPB; Rate: 200 ml/hr; Infused Over: 30 mins; Site: left antecubital; 08:01 Follow up: Response: No adverse reaction; IV Status: Completed infusion; IV Intake: rs5 200ml 07:29 Drug: Rocephin IV 2 grams IV at per protocol once; Given slow IV push per pharmarcy rs5 instructions Route: IV; Rate: per protocol; Site: left antecubital; 07:45 Follow up: Response: No adverse reaction; IV Status: Completed infusion; IV Intake: [id number] Medication: 07:00 VIS not applicable for this client. rs5 Intake: 07:45 IV: 50ml; Total: 50ml. rs5 08:01 IV: 200ml; Total: 250ml. rs5 08:01 IV: 200ml; Total: 450ml. rs5 Outcome: 08:13 Discharge ordered by . ellie 08:40 Patient left the ED. rs5 08:40 Discharged to home ambulatory, rs5 08:40 Condition: stable 08:40 Discharge instructions given to patient, family, Instructed on discharge instructions, follow up and referral plans. Demonstrated understanding of instructions, follow-up care, medications, Prescriptions given X 4, Signatures: Dispatcher [employer] EDTX Torey Dorsey MD MD cha Blanchard, Shelby, RN RN Merlin Lockwood Heidy, RN RN ha1 Rio Wilson RN RN rs5 Ct Espinoza ra3 Tara Chew, RN RN br2 Corrections: (The following items were deleted from the chart) 07:07 06:57 Inserted saline lock: 20 gauge in left antecubital area, using aseptic technique. br2 Blood collected. Flushed with 10 mL NS br2 09:27 08:50 Patient left the ED. rs5 rs5 09:31 08:50 Response: No adverse reaction; IV Status: Completed infusion; IV Intake: 50ml rs5 rs5
--- NOTE | 2024-10-07 08:13 | EDPHYS ---
Physician Documentation [facility] Name: Bradly Padron Age: 69 yrs Sex: Male : 1955 Arrival Date: 10/07/2024 Time: 06:29 Bed 13 Private MD: FANTASMA Physician Torey oDrsey HPI: 10/07 07:00 This 69 yrs old Male presents to ER via Ambulatory with complaints of Stomach ellie pain. 07:00 The patient presents with abdominal pain in the lower abdomen, in the left upper ellie quadrant, right lower quadrant, abdominal distention in the upper abdomen, in the lower abdomen. Onset: The symptoms/episode began/occurred 2 day(s) ago. The symptoms do not radiate. Associated signs and symptoms: none. Modifying factors: The symptoms are alleviated by nothing, the symptoms are aggravated by movement, pressure. Severity of pain: At its worst the pain was moderate in the emergency department the pain is unchanged. The patient has not experienced similar symptoms in the past. Historical: - Allergies: 06:35 No Known Allergies; ha1 - Home Meds: 06:35 prednisone 10 mg Oral tablet 2 times per day [Active]; Lotrel 5-40 mg Oral cap 1 cap ha1 once daily for Hypertension [Active]; - PMHx: 06:35 Diverticulitis; GERD; Hypertension; Kidney stone; ha1 - PSHx: 06:35 Left hip replacement; Lithotripsy; neck; Shoulder; ha1 - Immunization history:: Adult Immunizations up to date. - Infectious Disease History:: Denies. - Social history:: Smoking status: Patient denies any tobacco usage or history of. ROS: 07:01 Constitutional: Negative for fever, chills, and weight loss, Eyes: Negative for injury, ellie pain, redness, and discharge, ENT: Negative for injury, pain, and discharge, Neck: Negative for injury, pain, and swelling, Cardiovascular: Negative for chest pain, palpitations, and edema, Respiratory: Negative for shortness of breath, cough, wheezing, and pleuritic chest pain, Back: Negative for injury and pain, : Negative for injury, bleeding, discharge, and swelling, MS/Extremity: Negative for injury and deformity, Skin: Negative for injury, rash, and discoloration, Neuro: Negative for headache, weakness, numbness, tingling, and seizure, Psych: Negative for depression, anxiety, suicide ideation, homicidal ideation, and hallucinations, Allergy/Immunology: Negative for hives, rash, and allergies, Endocrine: Negative for neck swelling, polydipsia, polyuria, polyphagia, and marked weight changes, Hematologic/Lymphatic: Negative for swollen nodes, abnormal bleeding, and unusual bruising, 07:01 Abdomen/GI: Positive for abdominal pain, abdominal cramps, abdominal distension, of the right lower quadrant and left lower quadrant, Exam: 07:01 Constitutional: This is a well developed, well nourished patient who is awake, alert, ellie and in no acute distress. Head/Face: Normocephalic, atraumatic. Eyes: Pupils equal round and reactive to light, extra-ocular motions intact. Lids and lashes normal. Conjunctiva and sclera are non-icteric and not injected. Cornea within normal limits. Periorbital areas with no swelling, redness, or edema. ENT: Nares patent. No nasal discharge, no septal abnormalities noted. Tympanic membranes are normal and external auditory canals are clear. Oropharynx with no redness, swelling, or masses, exudates, or evidence of obstruction, uvula midline. Mucous membranes moist. Neck: Trachea midline, no thyromegaly or masses palpated, and no cervical lymphadenopathy. Supple, full range of motion without nuchal rigidity, or vertebral point tenderness. No Meningismus. Chest/axilla: Normal chest wall appearance and motion. Nontender with no deformity. No lesions are appreciated. Cardiovascular: Regular rate and rhythm with a normal S1 and S2. No gallops, murmurs, or rubs. Normal PMI, no JVD. No pulse deficits. Respiratory: Lungs have equal breath sounds bilaterally, clear to auscultation and percussion. No rales, rhonchi or wheezes noted. No increased work of breathing, no retractions or nasal flaring. Back: No spinal tenderness. No costovertebral tenderness. Full range of motion. Male : Normal genitalia with no discharge or lesions. Skin: Warm, dry with normal turgor. Normal color with no rashes, no lesions, and no evidence of cellulitis. MS/ Extremity: Pulses equal, no cyanosis. Neurovascular intact. Full, normal range of motion., bilateral aka Neuro: Awake and alert, GCS 15, oriented to person, place, time, and situation. Cranial nerves II-XII grossly intact. Motor strength 5/5 in all extremities. Sensory grossly intact. Cerebellar exam normal. Normal gait. Psych: Awake, alert, with orientation to person, place and time. Behavior, mood, and affect are within normal limits. 07:01 ECG was reviewed by the Attending Physician. 07:01 Abdomen/GI: Inspection: distension, that is mild, Bowel sounds: normal, Palpation: mild abdominal tenderness, Liver: no appreciated palpable abnormalities, Hernia: not appreciated, 07:41 ECG was reviewed by the Attending Physician. [facility] Vital Signs: 06:35 BP 156 / 95; Pulse 78; Resp 18 S; Temp 98.2(T); Pulse Ox 98% on R/A; Weight 90.72 kg; ha1 Height 5 ft. 8 in. ; 07:20 BP 144 / 84; Pulse 77; Resp 17; Pulse Ox 98% on R/A; rs5 08:30 BP 148 / 88; Pulse 74; Resp 17; Pulse Ox 97% on R/A; rs5 06:35 Body Mass Index 30.41 (90.72 kg, 172.72 cm) ha1 MDM: 06:35 Medical Screening Exam initiated ellie 07:03 Differential diagnosis: appendicitis, bowel obstruction, Cholelithiasis, ellie diverticulitis, gastritis, gastroesophageal reflux disease, Mesenteric ischemia or infarction, non-specific abd pain, pancreatitis, Peptic Ulcer Disease, Peritonitis, Pyelonephritis, Ureterolithiasis, urinary tract infection. Data reviewed: vital signs, nurses notes, lab test result(s), EKG, radiologic studies, CT scan, ultrasound. Consideration of Admission/Observation Escalation of care including admission/observation considered. I considered the following discharge prescriptions or medication management in the emergency department Medications were administered in the Emergency Department. See MAR. Independent interpretation of the following test(s) in the Emergency Department EKG: See my EKG interpretation above. Test considered but Not performed: MRI: NO MRCP. Historians other than the Patient: PT WELL INFORMED. Care significantly affected by the following chronic conditions: Hypertension, Obesity, GERD, KIDNEY. 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 10/07 06:34 Order name: Basic Metabolic Panel; Complete Time: 07:34 [facility] 10/07 06:34 Order name: CBC with Diff; Complete Time: 07:14 [facility] 10/07 06:34 Order name: LFT's; Complete Time: 07:34 [facility] 10/07 06:34 Order name: Magnesium; Complete Time: 07:34 [facility] 10/07 06:34 Order name: NT PRO-BNP; Complete Time: 07:34 [facility] 10/07 06:34 Order name: PT-INR; Complete Time: 07:14 [facility] 10/07 06:34 Order name: Troponin HS; Complete Time: 07:34 [facility] 10/07 06:34 Order name: Lipase; Complete Time: 07:34 [facility] 10/07 06:34 Order name: Urinalysis w/ reflexes [facility] 10/07 06:34 Order name: XRAY Chest (1 view); Complete Time: 06:59 [facility] 10/07 06:34 Order name: CT Abd/Pelvis - IV Contrast Only; Complete Time: 08:16 [facility] 10/07 06:34 Order name: US Abdomen Limited; Complete Time: 06:59 [facility] 10/07 06:34 Order name: Cardiac monitoring; Complete Time: 06:58 [facility] 10/07 06:34 Order name: EKG - Nurse/Tech; Complete Time: 06:58 [facility] 10/07 06:34 Order name: IV Saline Lock; Complete Time: 06:58 [facility] 10/07 06:34 Order name: Labs collected and sent; Complete Time: 06:59 [facility] 10/07 06:34 Order name: O2 Per Protocol; Complete Time: 06:59 [facility] 10/07 06:34 Order name: O2 Sat Monitoring; Complete Time: 06:58 [facility] EC:01 Rate is 73 beats/min. T waves are Normal. Clinical impression: Normal ECG, NSR w/ ellie Non-specific ST/T Changes, and No evidence of ischemia. Administered Medications: 06:58 Drug: NS 0.9% IV 1000 ml IV at 1000 ml once; to be given as a bolus over 60 minutes br2 Route: IV; Rate: 1000 ml; Site: left antecubital; 08:00 Follow up: Response: No adverse reaction rs5 08:00 Follow up: Response: Other; completed infusion, total intake 1,000 ml, no adverse rs5 reaction 06:58 Drug: Famotidine IVP 20 mg IVP once; dilute with 10 mL 0.9% NaCl; give over 2 minutes br2 Route: IVP; Site: left antecubital; 07:20 Follow up: Response: No adverse reaction rs5 06:58 Drug: morphine IVP or IV 4 mg IVP once over 4 mins Route: IVP; Infused Over: 4 mins; br2 Site: left antecubital; 07:20 Follow up: Response: No adverse reaction; Pain is decreased rs5 06:58 Drug: Ondansetron IVP 4 mg IVP once; over 2 minutes Route: IVP; Site: left antecubital; br2 07:20 Follow up: Response: No adverse reaction rs5 07:05 Drug: Ciprofloxacin IVPB 400 mg 200 ml IVPB once over 60 mins Volume: 200 ml; Route: rs5 IVPB; Infused Over: 60 mins; Site: left antecubital; 08:01 Follow up: Response: No adverse reaction; IV Status: Completed infusion; IV Intake: rs5 200ml 07:05 Drug: metroNIDAZOLE IVPB 500 mg 100 ml IVPB at 200 ml/hr once over 30 mins Volume: 100 rs5 ml; Route: IVPB; Rate: 200 ml/hr; Infused Over: 30 mins; Site: left antecubital; 08:01 Follow up: Response: No adverse reaction; IV Status: Completed infusion; IV Intake: rs5 200ml 07:29 Drug: Rocephin IV 2 grams IV at per protocol once; Given slow IV push per pharmarcy rs5 instructions Route: IV; Rate: per protocol; Site: left antecubital; 07:45 Follow up: Response: No adverse reaction; IV Status: Completed infusion; IV Intake: [id number] Disposition Summary: 10/07/24 08:13 Discharge Ordered Notes: Location: Home ellie Problem: new ellie Symptoms: have improved ellie Condition: Stable ellie Diagnosis - Abdominal tenderness ellie - Diverticulitis of large intestine without perforation or abscess without bleeding ellie Followup: ellie - With: Private Physician - When: 2 - 3 days - Reason: Recheck today's complaints, Continuance of care, Re-evaluation by your physician Followup: ellie - With: Lenin Maguire MD - When: 2 - 3 days - Reason: Recheck today's complaints, Re-evaluation by your physician Followup: ellie - With: Yonis Christianson MD - When: 2 - 3 days - Reason: Recheck today's complaints, Re-evaluation by your physician Discharge Instructions: - Discharge Summary Sheet ellie - Abdominal Pain, Adult ellie - Diverticulitis ellie - Diverticulitis, [id number] ellie - Abdominal Pain, Adult, [id number] [facility] Forms: - Medication Reconciliation Form [facility] - Antibiotic Education ellie - Prescription Opioid Use [facility] - Patient Portal Instructions [facility] - Leadership Thank You Letter [facility] Prescriptions: - ondansetron 4 mg Oral Tablet,disintegrating - take 1 tablet ORAL route every 6-8 hours for 5 days as needed for nausea and ellie vomiting; 20 tablet; Refills: 0, Product Selection Permitted - Colace 100 mg Oral capsule - take 1 tablet ORAL route every 12 hours; 20 tablet; Refills: 0, Product [facility] Selection Permitted - Flagyl 500 mg Oral Tablet - take 1 tablet ORAL route every 6 hours for 10 days; 40 tablet; Refills: 0, [facility] Product Selection Permitted - Cipro 500 mg Oral tablet - take 1 tablet ORAL route every 12 hours for 10 days; 20 tablet; Refills: 0, [facility] Product Selection Permitted - dicyclomine 20 mg Oral tablet - take 1 tablet ORAL route 4 times per day; 28 tablet; Refills: 0, Product [facility] Selection Permitted Signatures: Dispatcher [employer] EDMS Torey Dorsey MD MD cha Ayala, Heidy, RN RN ha1 Rio Wilson, RN RN rs5 Tara Chew, RN RN br2 Corrections: (The following items were deleted from the chart) 06:35 06:35 BASIC METABOLIC PANEL+C.LAB.BRZ ordered. EDMS EDMS 06:35 06:35 CBC+H.LAB.BRZ ordered. EDMS EDMS 06:35 06:35 HEPATIC FUNCTION+C.LAB.BRZ ordered. EDMS EDMS 06:35 06:35 MAGNESIUM+C.LAB.BRZ ordered. EDMS EDMS 06:35 06:35 PROBNP+C.LAB.BRZ ordered. EDMS EDMS 06:35 06:35 PROTIME (+INR)+COAG.LAB.BRZ ordered. EDMS EDMS 06:35 06:35 Troponin High Sensitivity+C.LAB.BRZ ordered. EDMS EDMS 06:35 06:35 Chest Single View+RAD.RAD.BRZ ordered. EDMS EDMS 06:35 06:35 Abdomen Pelvis W Con+CT.RAD.BRZ ordered. EDMS EDMS 06:35 06:35 Abdomen Limited+US.RAD.BRZ ordered. EDMS EDMS 06:35 06:35 LIPASE+C.LAB.BRZ ordered. EDMS EDMS 06:35 06:35 Urinalysis+U.LAB.BRZ ordered. EDMS EDMS 07:41 07:41 Rate is 75 beats/min. Rhythm is regular. QRS [place] is Normal. CO interval is ellie normal. QRS interval is normal. QT interval is normal. No Q waves. T waves are Normal. No ST changes noted. Clinical impression: Normal ECG and No evidence of ischemia. Interpreted by me. Reviewed by me. ellie
--- NOTE | 2024-10-07 08:16 | RAD REPORT ---
EXAMINATION: CT ABDOMEN AND PELVIS WITH CONTRAST CLINICAL INDICATION: Male, 69 years old.ABD PAIN TECHNIQUE: CT abdomen and pelvis was performed, after the administration of IV contrast, as per [facility]. Axial, sagittal and coronal reconstructions were obtained. One or more of the following dose reduction techniques were used: Automated exposure control, adjustment of the mA and/o r kV according to patient size, and/or iterative reconstruction. Unless otherwise specified, incidental findings do not require dedicated imaging follow-up. [id number]. COMPARISON: 07/03/2024 FINDINGS: LOWER CHEST: The visualized lung bases are clear. LIVER: Normal in size and contour. No focal lesion. GALLBLADDER/BILE DUCT: No biliary ductal dilatation.? PANCREAS: No significant abnormality. SPLEEN: Normal size. No focal lesion. ADRENALS: Normal; no mass. KIDNEYS AND URETERS: Bilateral renal lesions which are either benign in appearance or too small to ac curately characterize but statistically benign. No hydronephrosis. 3 mm stone left kidney.. GASTROINTESTINAL TRACT: Mild arthritic changes associated with the proximal sigmoid colon consistent with nonperforated sigmoid diverticulitis. The patient previously had diverticulitis at the same location. PERITONEUM: No ascites. Fat-containing hernias. LYMPH NODES: No lymphadenopathy. ABDOMINAL AORTA AND OTHER VESSELS: Mild atherosclerosis. URINARY BLADDER: Normal contour. REPRODUCTIVE ORGANS: No pathologic process MUSCULOSKELETAL: No acute or suspicious osseous abnormality. Moderate disc height loss at L5-S1. ADDITIONAL FINDINGS: None. IMPRESSION: Mild or early acute diverticulitis of the proximal sigmoid. No perforation or abscess. This is a hay lar location to the patient's previous episode of diverticulitis on the CT from 07/03/2024.
[2024-10-07 08:26] LABS: Specific Gravity 1.005 (1.005-1.030); Urine Bilirubin NEGATIVE (Negative); Urine Blood Negative (Negative); Urine Clarity Clear (Clear); Urine Color Colorless (Yellow); Urine Glucose NEGATIVE (Negative); Urine Ketones NEGATIVE (Negative); Urine Microscopic Reflex YN NO UMIC; Urine Nitrite NEGATIVE (Negative); Urine Protein NEGATIVE (Negative); Urine Urobilinogen Normal (Normal); Urine pH 6.5 (5.0-7.0)
[2024-10-07 08:54] VITALS: BP 156/95; TEMP 98.2; O2SAT 98
--- NOTE | 2024-10-08 12:01 | EKG ---
Test Date: 2024-10-07 Test Time: 06:58:34 Lead Electrical Controls Engineer: KIMBER MEASUREMENT RESULTS: Intervals: Rate: 73 ND: 208 QRSD: 94 QT: 388 QTc: 427 [place]: P: 64 ND: 208 QRS: 54 T: 57 INTERPRETIVE STATEMENTS: Normal sinus rhythm Normal ECG Compared to ECG 08/20/2023 20:57:30 Myocardial infarct finding no longer present Electronically Signed On 10-08-24 12:00:23 DIRECTOR DIABETES by Rich Hussein
== END 2024-10-07 08:50 | disposition home or self-care (01) ==
LOC: ER 06:29
DX: K57.32 Diverticulitis of large intestine without perforation or abscess without bleeding (principal); Z87.442 Personal history of urinary calculi
CPT/HCPCS: 96365; 96367; 96368; 93005; 85025; 80048; 36415; 83735; 85610; 80076; 81003; 84484; 83690; 83880; 74177; 71045; 76705; 96375; 99284; Q9967; J2405; J0696; J0744; J7030

== ENCOUNTER 2024-10-09 20:32 | Inpatient (IN) | payer OTHER ==
[2024-10-09] MEDS ORDERED: ONDANSETRON 4 MG/2 ML VIAL ONE (21:26)
[2024-10-09] MEDS ORDERED: MORPHINE 4 MG/ML SYR ONE (21:26)
[2024-10-09] MEDS ORDERED: NA CHLORIDE 0.9% 1,000 ML ONE (21:27)
[2024-10-09 21:42] LABS: Absolute Basophils 0.1 K/uL (0-0.5); Absolute Eosinophils 0.1 K/uL (0-0.5); Absolute Lymphocytes (CBC) 1.6 K/uL (0.7-4.9); Absolute Monocytes 0.7 K/uL (0.1-1.3); Absolute Neutrophil 7.4 K/uL (1.8-8.0); Basophils % 1.1 % (0-1.3); Hematocrit 47.9 % (39.6-49.0); Hemoglobin 15.9 g/dL (13.6-17.9); Lymphocytes % 16.1 % (15.3-44.8); MCH 29.3 pg (27.0-35.0); MCHC 33.2 g/dL (32.0-36.0); MCV 88.3 fL (80-100); MPV 7.4 fL (7.6-11.3); Monocytes % 7.3 % (3.3-12.3); Neutrophils % 74.5 % (41.7-73.7); Platelets 297 thou/uL (152-406); RBC Red Blood Cell Count 5.43 M/uL (4.33-5.43); Red Cell Distribution Width 15.1 % (12.1-15.2)
[2024-10-09 22:02] LABS: Albumin 3.4 g/dL (3.4-5.0); Albumin/Globulin Ratio 0.9 (1.1-1.8); Anion Gap 7.7 mEq/L (5.0-15.0); Bilirubin Total 0.4 mg/dL (0.2-1.0); Globulin 3.6 g/dL (2.3-3.5); Potassium 3.7 mEq/L (3.5-5.1)
--- NOTE | 2024-10-09 22:44 | RAD REPORT ---
EXAMINATION: CT Abdomen Pelvis W Contrast CLINICAL INDICATION: Male, 69 years old. ABD PAIN TECHNIQUE: CT abdomen and pelvis was performed, after the administration of IV contrast, as per [facility] protocol. Axial, sagittal and coronal reconstructions were obtained. One or more of the following dose reduction techniques were used: Automated exposure control, adjustment of the mA and k V according to patient size, and iterative reconstruction. Unless otherwise specified, incidental findings do not require dedicated imaging follow-up. COMPARISON: 10/07/2024 FINDINGS: LOWER CHEST: The visualized lung bases are clear. LIVER: Normal in size and contour. No focal lesion. BILIARY SYSTEM: No suspicious abnormalities. SPLEEN: Normal size. No focal lesion. PANCREAS: No mass, ductal dilation, or nicola-pancreatic fluid. ADRENALS: Normal; no mass. KIDNEYS: Normal size and contour. No hydronephrosis. Renal interpolar 1.9 cm anechoic cyst, stable URINARY BLADDER: Unremarkable. GASTROINTESTINAL TRACT: Redemonstration of inflammatory changes centered on and anteriorly projecting proximal sigmoid diverticulum with mildly involving fat stranding extending superiorly along the omentum, and probable small intramural collection measuring 9 mm in greatest dimension. No evidence o f free air, significant intra-abdominal free fluid, bowel obstruction or pericolonic abscess. APPENDIX: Normal appendix. LYMPH NODES: No lymphadenopathy. MUSCULOSKELETAL: No acute or suspicious osseous abnormality. ADDITIONAL FINDINGS: Left inguinal hernia containing fat. IMPRESSION: Mildly progressive sequelae of acute diverticulitis of the proximal sigmoid colon with a subcentimete r intramural collection, and fat stranding that extends more superiorly along the omentum.
[2024-10-09 22:45] LABS: Specific Gravity 1.021 (1.005-1.030); Sqamous Epithelial <5 /HPF (None Seen); Urine Bacteria None Seen /HPF (<20); Urine Bilirubin NEGATIVE (Negative); Urine Blood Negative (Negative); Urine Clarity Clear (Clear); Urine Color Colorless (Yellow); Urine Culture Reflex Order NOT NEEDED; Urine Glucose NEGATIVE (Negative); Urine Ketones NEGATIVE (Negative); Urine Microscopic Reflex YN ORDER UMIC; Urine Nitrite NEGATIVE (Negative); Urine Protein NEGATIVE (Negative); Urine RBC <5 /HPF (None Seen); Urine Urobilinogen Normal (Normal); Urine WBC None Seen /HPF (<5)
--- NOTE | 2024-10-09 23:40 | EDPHYS ---
Physician Documentation [facility] Name: Bradly Padron Age: 69 yrs Sex: Male : 1955 Arrival Date: 10/09/2024 Time: 20:32 Bed 2 Private MD: ED Physician Davie Vee HPI: 10/09 21:24 This 69 yrs old Male presents to ER via Ambulatory with complaints of Abdominal Pain. kb 21:24 Patient is a 69-year-old male who presents for lower abdominal pain. States the pain kb started 6 days ago, came in 3 days ago and was diagnosed with diverticulitis. Patient started on antibiotics at that time. Came in today because pain has gotten worse and is spread. Denies fever. Reports nausea and vomiting x 1 this morning. Denies diarrhea. Historical: - Home Meds: 21:11 Lotrel 5-40 mg Oral cap 1 cap once daily for Hypertension [Active]; prednisone 10 mg kd3 Oral tablet 2 times per day [Active]; Prilosec Oral [Active]; - PMHx: 21:11 Diverticulitis; GERD; Kidney stone; Hypertension; kd3 - PSHx: 21:11 Left hip replacement; neck; Shoulder; Lithotripsy; kd3 - Immunization history:: Adult Immunizations up to date. - Infectious Disease History:: Denies. - Social history:: Smoking status: Patient denies any tobacco usage or history of. ROS: 21:23 Constitutional: As per HPI kb Exam: 21:23 Constitutional: This is a well developed, well nourished patient who is awake, alert, kb and in no acute distress. Head/Face: Normocephalic, atraumatic. ENT: Moist Mucous membranes Cardiovascular: Regular rate Respiratory: Respirations even and unlabored. No increased work of breathing. Talking in full sentences Skin: Warm, dry with normal turgor. Normal color. MS/ Extremity: Pulses equal, no cyanosis. Neurovascular intact. Full, normal range of motion. Neuro: Awake and alert, GCS 15, oriented to person, place, time, and situation. 21:23 Abdomen/GI: Inspection: abdomen appears normal, Bowel sounds: normal, Palpation: soft, in all quadrants, mild abdominal tenderness, in the suprapubic area and right lower quadrant, moderate abdominal tenderness, in the left lower quadrant, Vital Signs: 21:09 BP 149 / 97; Pulse 72; Resp 18; Temp 98.3(O); Pulse Ox 96% ; Weight 90.72 kg; Height 5 kd3 ft. 8 in. ; Pain 8/10; 22:09 BP 130 / 83; Pulse 63; Pulse Ox 94% on R/A; MAP 98 mmHg; tm6 22:28 BP 137 / 83; Pulse 65; Resp 16; Pulse Ox 95% on R/A; dd2 10/10 07:00 BP 133 / 78; Pulse 56; Resp 16; Temp 98.2; Pulse Ox 95% on R/A; db 10/09 21:09 Body Mass Index 30.41 (90.72 kg, 172.72 cm) kd3 10/09 21:09 Pain Scale: Adult kd3 Kee Coma Score: 10/09 21:30 Eye Response: spontaneous(4). Motor Response: obeys commands(6). Verbal Response: ay oriented(5). Total: 15. MDM: 20:45 Medical Screening Exam initiated kb 23:38 Differential diagnosis: diverticulitis, non-specific abd pain, colitis. Data reviewed: vital signs, nurses notes. Consideration of Admission/Observation Patient was admitted/placed on observation. Escalation of care including admission/observation considered. Management of patient was discussed with the following: Hospitalist: Dr Raman accepts pt for admission. Counseling: I had a detailed discussion with the patient and/or guardian regarding the historical points, exam findings, and any diagnostic results supporting the discharge/admit diagnosis, lab results, radiology results, the need for further work-up and treatment in the hospital. 10/09 21:12 Order name: CBC with Diff; Complete Time: 22:06 kb 10/09 21:12 Order name: CMP; Complete Time: 22:06 kb 10/09 21:12 Order name: Lipase; Complete Time: 22:06 kb 10/09 21:21 Order name: Urinalysis w/ reflexes; Complete Time: 23:30 kb 10/10 00:01 Order name: Basic Metabolic Panel EDMS 10/10 00:01 Order name: Magnesium EDMS 10/10 00:01 Order name: Phosphorus EDMS 10/10 00:01 Order name: Urinalysis w/ reflexes EDMS 10/10 00:01 Order name: CBC with Automated Diff EDMS 10/10 00:01 Order name: CBC with Automated Diff EDMS 10/10 00:07 Order name: Lactate w/ 2H reflex if indic. EDMS 10/09 21:12 Order name: CT Abd/Pelvis - IV Contrast Only; Complete Time: 23:30 kb 10/09 21:12 Order name: IV Saline Lock; Complete Time: 21:35 kb 10/09 21:12 Order name: Labs collected and sent; Complete Time: 21:35 kb Administered Medications: 21:35 Drug: NS 0.9% IV 1000 ml IV at 1000 ml once; to be given as a bolus over 60 minutes dd2 Route: IV; Rate: 1000 ml; Site: left antecubital; 21:50 Follow up: Response: No adverse reaction dd2 22:35 Follow up: IV Status: Completed infusion; IV Intake: 1000ml dd2 21:35 Drug: Ondansetron IVP 4 mg IVP once; over 2 minutes Route: IVP; Site: left antecubital; dd2 21:50 Follow up: Response: No adverse reaction dd2 21:35 Drug: morphine IVP or IV 4 mg IVP once over 4 mins Route: IVP; Infused Over: 4 mins; dd2 Site: left antecubital; 21:50 Follow up: Response: No adverse reaction dd2 10/10 00:10 Drug: Ciprofloxacin IVPB 400 mg 200 ml IVPB once over 60 mins Volume: 200 ml; Route: ay IVPB; Infused Over: 60 mins; Site: left antecubital; 00:32 Follow up: Response: No adverse reaction ay 02:17 Follow up: IV Status: Completed infusion; IV Intake: 100ml ay 02:17 Drug: metroNIDAZOLE IVPB 500 mg 100 ml IVPB at 200 ml/hr once over 30 mins Volume: 100 ay ml; Route: IVPB; Rate: 200 ml/hr; Infused Over: 30 mins; Site: left antecubital; 05:37 Follow up: IV Status: Completed infusion; IV Intake: 100ml ay Disposition: 01:18 Co-signature as Attending Physician, Davie Vee MD I agree with the assessment sp4 and plan of care. I reviewed the patient's care provided by Advanced Practice Provider \T\ agree w/ the diagnosis \T\ care plan. I personally saw the pt \T\ performed a substantive portion of the visit, incldng all aspects of the (History/Exam/Medical Decision Making). Disposition Summary: 10/09/24 23:39 Hospitalization Ordered Notes: Hospitalization Status: Observation kb Provider: Prince heidi Raman Condition: Stable kb Problem: new kb Symptoms: are unchanged kb Bed/Room Type: Standard kb Location: Telemetry/MedSurg (observation)(10/10/24 08:35) ty Room Assignment: 407(10/10/24 08:35) ty Diagnosis - Diverticulitis of intestine, part unspecified, without perforation or abscess kb without bleeding Forms: - Medication Reconciliation Form kb - SBAR form kb - Leadership Thank You Letter kb Signatures: Dispatcher [employer] EDMS Bre Abbott FNP-C FNP-Ckb Doucette, Kyli, RN RN kd3 Davie Vee MD MD sp4 Diana Main [facility] Coleman Mabry DIANA, RN RN dd2 Desiree Adler RN RN ay Corrections: (The following items were deleted from the chart) 10/09 21:27 21:27 Urinalysis+U.LAB.BRZ ordered. EDOH EDOH 10/10 02:52 10/09 23:39 Telemetry/MedSurg (observation) [facility] 10/10 02:52 10/09 23:39 kb [facility] 10/10 08:35 02:52 [facility] ER HOLD [facility] ty 08:35 02:52 HLD2 [facility] ty
--- NOTE | 2024-10-09 23:40 | ER ---
Nurse's Notes [facility] Name: Bradly Padron Age: 69 yrs Sex: Male : 1955 Arrival Date: 10/09/2024 Time: 20:32 Bed 2 Private MD: Diagnosis: Diverticulitis of intestine, part unspecified, without perforation or abscess without bleeding Presentation: 10/09 21:10 Chief complaint: Patient states: I was in here on Monday and they told me i have kd3 diverticulitis and sent me home with antibiotics. I have been taking the antibiotics but the pain is getting worse. Coronavirus screen: Vaccine status: Patient reports receiving the 2nd dose of the covid vaccine. Ebola Screen: No symptoms or risks identified at this time. Initial Sepsis Screen: Does the patient meet any 2 criteria? No. Patient's initial sepsis screen is negative. Does the patient have a suspected source of infection? No. Patient's initial sepsis screen is negative. Risk Assessment: Do you want to hurt yourself or someone else? Patient reports no desire to harm self or others. Onset of symptoms was October 09, 2024. 21:10 Method Of Arrival: Ambulatory kd3 21:10 Acuity: MARIA E 3 kd3 Triage Assessment: 21:11 General: Appears uncomfortable, Behavior is calm, cooperative. Pain: Complains of pain kd3 in right lower quadrant and left lower quadrant. GI: Abdomen is non-distended. Historical: - Home Meds: 21:11 Lotrel 5-40 mg Oral cap 1 cap once daily for Hypertension [Active]; prednisone 10 mg kd3 Oral tablet 2 times per day [Active]; Prilosec Oral [Active]; - PMHx: 21:11 Diverticulitis; GERD; Kidney stone; Hypertension; kd3 - PSHx: 21:11 Left hip replacement; neck; Shoulder; Lithotripsy; kd3 - Immunization history:: Adult Immunizations up to date. - Infectious Disease History:: Denies. - Social history:: Smoking status: Patient denies any tobacco usage or history of. Screenin:30 [facility] ED Fall Risk Assessment (Adult) History of falling in the last 3 months, ay including since admission No falls in past 3 months (0 pts) Confusion or Disorientation No (0 pts) Intoxicated or Sedated No (0 pts) Impaired Gait No (0 pts) Mobility Assist Device Used No (0 pt) Altered Elimination No (0 pt) Score/Fall Risk Level 0 - 2 = Low Risk Oriented to surroundings, Maintained a safe environment, Educated pt \T\ family on fall prevention, incl call for assistance when getting out of bed. Abuse screen: Denies threats or abuse. Denies injuries from another. Nutritional screening: No deficits noted. Tuberculosis screening: No symptoms or risk factors identified. 22:10 [facility] ED Fall Risk Assessment (Adult) History of falling in the last 3 months, tm6 including since admission No falls in past 3 months (0 pts) Confusion or Disorientation No (0 pts) Intoxicated or Sedated No (0 pts) Impaired Gait No (0 pts) Mobility Assist Device Used No (0 pt) Altered Elimination No (0 pt) Score/Fall Risk Level 0 - 2 = Low Risk Oriented to surroundings, Maintained a safe environment, Educated pt \T\ family on fall prevention, incl call for assistance when getting out of bed. Abuse screen: Denies threats or abuse. Denies injuries from another. Nutritional screening: No deficits noted. Nutritional screening: No deficits noted. Tuberculosis screening: No symptoms or risk factors identified. Assessment: 21:30 General: Appears uncomfortable, Behavior is calm, cooperative. ay 21:30 Pain: Complains of pain in left lower quadrant Pain currently is 8 out of 10 on a pain ay scale. Neuro: Level of Consciousness is awake, alert, obeys commands, Oriented to person, place, time, situation, Speech is normal. Cardiovascular: Capillary refill < 3 seconds. Respiratory: Airway is patent Respiratory effort is even, unlabored, Respiratory pattern is regular, symmetrical. GI: Abdomen is round Bowel sounds present X 4 quads. Abd is soft X 4 quads Abdomen is tender to palpation in left lower quadrant. : No signs and/or symptoms were reported regarding the genitourinary system. EENT: No signs and/or symptoms were reported regarding the EENT system. Derm: Skin is intact. Musculoskeletal: No signs and/or symptoms reported regarding the musculoskeletal system. Vital Signs: 21:09 BP 149 / 97; Pulse 72; Resp 18; Temp 98.3(O); Pulse Ox 96% ; Weight 90.72 kg; Height 5 kd3 ft. 8 in. ; Pain 8/10; 22:09 BP 130 / 83; Pulse 63; Pulse Ox 94% on R/A; MAP 98 mmHg; tm6 22:28 BP 137 / 83; Pulse 65; Resp 16; Pulse Ox 95% on R/A; dd2 10/10 07:00 BP 133 / 78; Pulse 56; Resp 16; Temp 98.2; Pulse Ox 95% on R/A; db 10/09 21:09 Body Mass Index 30.41 (90.72 kg, 172.72 cm) kd3 10/09 21:09 Pain Scale: Adult kd3 [place] Coma Score: 10/09 21:30 Eye Response: spontaneous(4). Motor Response: obeys commands(6). Verbal Response: ay oriented(5). Total: 15. ED Course: 20:35 Patient arrived in ED. gm2 20:43 Bre Abbott FNP-C is PHCP. kb 20:44 Davie Vee MD is Attending Physician. kb 21:11 Triage completed. kd3 21:11 Arm band placed on right wrist. kd3 21:18 YOANNA JONES, RN is Primary Nurse. dd2 21:30 Patient has correct armband on for positive identification. Bed in low position. Call ay light in reach. Side rails up X 1. Provided Education on: plan of care. Client placed on continuous cardiac and pulse oximetry monitoring. NIBP monitoring applied. 21:30 Inserted saline lock: 20 gauge in left antecubital area, using aseptic technique. ay 21:35 CBC with Diff Sent. dd2 21:35 CMP Sent. dd2 21:35 Lipase Sent. dd2 22:10 Patient has correct armband on for positive identification. Bed in low position. Call tm6 light in reach. Side rails up X 1. Provided Education on: use of call bear. Client placed on continuous cardiac and pulse oximetry monitoring. NIBP monitoring applied. Pulse ox on. NIBP on. Door closed. Noise minimized. Warm blanket given. Pillow given. 22:17 CT Abd/Pelvis - IV Contrast Only In Process Unspecified. EDMS 22:26 Urinalysis w/ reflexes Sent. dd2 22:27 No provider procedures requiring assistance completed. Urine collected: clean catch dd2 specimen, cloudy. 23:39 Prince Raman MD is Hospitalizing Provider. kb 10/10 00:25 Patient admitted, IV remains in place. dd2 07:22 Primary Nurse role handed off by YOANNA JONES, EVA db 07:22 Mendy Garcia, RN is Primary Nurse. db Administered Medications: 10/09 21:35 Drug: NS 0.9% IV 1000 ml IV at 1000 ml once; to be given as a bolus over 60 minutes dd2 Route: IV; Rate: 1000 ml; Site: left antecubital; 21:50 Follow up: Response: No adverse reaction dd2 22:35 Follow up: IV Status: Completed infusion; IV Intake: 1000ml dd2 21:35 Drug: Ondansetron IVP 4 mg IVP once; over 2 minutes Route: IVP; Site: left antecubital; dd2 21:50 Follow up: Response: No adverse reaction dd2 21:35 Drug: morphine IVP or IV 4 mg IVP once over 4 mins Route: IVP; Infused Over: 4 mins; dd2 Site: left antecubital; 21:50 Follow up: Response: No adverse reaction dd2 10/10 00:10 Drug: Ciprofloxacin IVPB 400 mg 200 ml IVPB once over 60 mins Volume: 200 ml; Route: ay IVPB; Infused Over: 60 mins; Site: left antecubital; 00:32 Follow up: Response: No adverse reaction ay 02:17 Follow up: IV Status: Completed infusion; IV Intake: 100ml ay 02:17 Drug: metroNIDAZOLE IVPB 500 mg 100 ml IVPB at 200 ml/hr once over 30 mins Volume: 100 ay ml; Route: IVPB; Rate: 200 ml/hr; Infused Over: 30 mins; Site: left antecubital; 05:37 Follow up: IV Status: Completed infusion; IV Intake: 100ml ay Medication: 10/09 21:30 VIS not applicable for this client. ay Intake: 22:35 IV: 1000ml; Total: 1000ml. dd2 10/10 02:17 IV: 100ml; Total: 1100ml. ay 05:37 IV: 100ml; Total: 1200ml. ay Outcome: 10/09 23:39 Decision to Hospitalize by Provider. kb 10/10 00:25 Admitted to ER Hold. Please see [facility] for further documentation. dd2 Condition: stable 00:26 Discharge instructions given to patient, Instructed on the need for admit, Demonstrated dd2 understanding of instructions, 10:28 Patient left the ED. ll1 Signatures: Dispatcher [employer] EDMS Bre Abbott, NEWS CLERK-C NEWS CLERK-CkArielle Cee, RN RN ll1 Kat Hernandez, RN RN kd3 Mendy Garcia, RN RN Alee Cruz 2 Aurora De Paz RN RN tm6 YOANNA JONES RN RN dd2 Desiree Adler, RN RN ay
[2024-10-09] MEDS: NA CHLORIDE 0.9% 1,000 ML IV SCH (23:45)
[2024-10-10] MEDS: PIPER TAZO 3.375 GM in NA CHLORIDE 0.9% 100 ML IV SCH (00:04)
[2024-10-10] MEDS: PANTOPRAZOLE 40 MG INJ IVP SCH (00:09)
[2024-10-10] MEDS ORDERED: SODIUM CHLORIDE 0.9% 10ML INJ IV PRN (00:09)
--- NOTE | 2024-10-10 00:10 | P.HP ---
Certification for Inpatient Patient admitted to: Observation With expected LOS: <2 Midnights Practitioner: I am a practitioner with admitting privileges, knowledge of patient current condition, hospital course, and medical plan of care. Services: Services provided to patient in accordance with Admission requirements found in Title 42 Section 412.3 of the Code of Federal Regulations Patient History Date of Service: 10/10/24 Reason for admission: recurrent diverticulitis History of Present Illness: Patient is a 69-year-old male with a past medical history of hyperte nsion, acid reflux disease and recurrent diverticulitis. He is returning to the ER a few days after recent visit for another episode of diverticulitis. Was seen here on Monday and was discharged on oral antibiotics. Since his discharge, patient's pain has been getting worse. He returns here for the same reason. Associated symptoms include nausea. He denies diarrhea or fever. CT scan shows progression of diverticulitis. Will be admitted to started on IV antibiotics. Patient also states that he was supposed to have a colonoscopy tomorrow with Dr. Christianson. Allergies No Known Allergies Allergy (Verified 10/12/22 22:24) Home Medications: Amlodipine Besylate/Benazepril [Lotrel 5-40 mg Capsule] 1 tab PO DAILY WITH BREAKFAST 04/23/15 Omeprazole [Prilosec] 40 mg PO DAILY 10/12/22 Tamsulosin [Flomax*] 0.4 mg PO BEDTIME 10 Days #10 cap 10/14/22 Hydrocodone 10/APAP 325 [[place] 10/325*] 1 tab PO Q6HP PRN #20 tab 02/21/24 Ciprofloxacin HCl [Cipro] 500 mg PO BID 7 Days #14 tab 07/03/24 metroNIDAZOLE [Flagyl*] 500 mg PO Q8H 7 Days #21 tab 07/03/24 - Past Medical/Surgical History Diabetic: No -: Hypertension -: GERD -: diverticulitis -: Tobacco abuse -: C-spine surgery -: Bilateral shoulder rotator cuff sx -: Left hip replacement Psychosocial/ Personal History: Patient is . He has 2 children. 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 - Family History Father -: Hypertension Mother -: Heart disease, Other (see notes) Notes: heart valve replacement - Social History Alcohol use: No CD- Drugs: No Caffeine use: Yes Physical Examination - Physical Exam General: Obese HEENT: Atraumatic, Normocephalic Respiratory: Clear to auscultation bilaterally, Normal air movement Cardiovascular: No edema, Normal pulses, Regular rate/rhythm Neurological: Normal speech - Studies Laboratory Data (last 24 hrs) 10/09/24 10/09/24 21:20 21:20 WBC 9.90 Hgb 15.9 Hct 47.9 Plt Count 297 Sodium 137 Potassium 3.7 BUN 11 Creatinine 1.23 Glucose 130 H Total Bilirubin 0.4 AST 18 ALT 43 Alkaline Phosphatase 55 Lipase 47 Assessment and Plan - Problems (Diagnosis) (1) Diverticulitis Current Visit: No Status: Acute (2) GERD (gastroesophageal reflux disease) Current Visit: No Status: Acute Qualifiers: (3) Hypertension Onset Date: 08/25/17 Current Visit: No Status: Acute (4) Nephrolithiasis Onset Date: 08/25/17 Current Visit: No Status: Acute (5) Obesity (BMI 30.0-34.9) Current Visit: No Status: Acute (6) Sigmoid diverticulitis Onset Date: 08/25/17 Current Visit: No Status: Acute - Plan Assessment 67-year-old male with a past medical history of obesity, hypertension and acid reflux disease. He also has a history of recurrent diverticulitis. He is being admitted for another episode of diverticulitis that failed outpatient management. Recurrent diverticulitis Left inguinal hernia Obesity Hypertension GERD Plan: Will admit telemetry Start patient on IV antibiotics and Zosyn Pain control Check stat lactic acid Consult general surgery DVT prophylaxis and GI prophylaxis - Advance Directives Does patient have a Living Will: Yes Does patient have a Durable POA for Healthcare: Yes
[2024-10-10] MEDS ORDERED: CIPROFLOXACIN 400mg IV 400 MG/200 ML BAG IV ONE (00:11)
[2024-10-10] MEDS ORDERED: ONDANSETRON 4 MG/2 ML VIAL ONE (00:27)
[2024-10-10] MEDS ORDERED: HEPARIN 5000 UNIT/ML 1 ML VIAL ONE ×2 (00:28→08:33)
[2024-10-10] MEDS ORDERED: HYDROMORPHONE HCL 1 MG/ML INJ ONE (00:28)
[2024-10-10] MEDS ORDERED: PANTOPRAZOLE 40 MG INJ ONE (00:28)
[2024-10-10] MEDS ORDERED: NA CHLORIDE 0.9% 1,000 ML ONE (00:29)
[2024-10-10] MEDS ORDERED: PIPERACIL/TAZO 3.375 GM VIAL IV ONE ×2 (00:29→08:34)
[2024-10-10] MEDS: HEPARIN 5000 UNIT/ML 1 ML VIAL SQ SCH (01:00)
[2024-10-10] MEDS: HYDROMORPHONE HCL 1 MG/ML INJ IV PRN (01:18)
[2024-10-10] MEDS: ONDANSETRON 4 MG/2 ML VIAL IV PRN (01:21)
[2024-10-10] MEDS ORDERED: NA CHLORIDE 0.9% 100 ML ONE ×2 (01:25→08:33)
[2024-10-10] MEDS ORDERED: METRONIDAZOLE 500mg IVPB 500 MG/100 ML BAG IV ONE (02:07)
[2024-10-10 05:47] LABS: Absolute Basophils 0.1 K/uL (0-0.5); Absolute Lymphocytes (CBC) 1.1 K/uL (0.7-4.9); Absolute Monocytes 0.8 K/uL (0.1-1.3); Absolute Neutrophil 7.9 K/uL (1.8-8.0); Basophils % 0.7 % (0-1.3); Eosinophils % 0.4 % (0-4.4); Hematocrit 43.9 % (39.6-49.0); Hemoglobin 14.9 g/dL (13.6-17.9); Lymphocytes % 11.5 % (15.3-44.8); MCH 29.8 pg (27.0-35.0); MCV 87.8 fL (80-100); MPV 7.4 fL (7.6-11.3); Monocytes % 7.9 % (3.3-12.3); Neutrophils % 79.5 % (41.7-73.7); Nucleated Red Blood Cells % 0.1 % (0-0); Platelets 282 thou/uL (152-406); Red Cell Distribution Width 15.5 % (12.1-15.2)
[2024-10-10 06:11] LABS: Anion Gap 7.2 mEq/L (5.0-15.0); Magnesium 2.1 mg/dL (1.6-2.4); Phosphorus 2.7 mg/dL (2.5-4.9); Potassium 4.2 mEq/L (3.5-5.1)
[2024-10-10 10:40] LABS: Specific Gravity 1.018 (1.005-1.030); Sqamous Epithelial <5 /HPF (None Seen); Urine Bacteria None Seen /HPF (<20); Urine Bilirubin NEGATIVE (Negative); Urine Blood Negative (Negative); Urine Clarity Clear (Clear); Urine Color Light-Yellow (Yellow); Urine Culture Reflex Order NOT NEEDED; Urine Glucose NEGATIVE (Negative); Urine Ketones NEGATIVE (Negative); Urine Microscopic Reflex YN ORDER UMIC; Urine Nitrite NEGATIVE (Negative); Urine Protein NEGATIVE (Negative); Urine RBC <5 /HPF (None Seen); Urine Urobilinogen Normal (Normal); Urine WBC <5 /HPF (<5); Urine pH 6.5 (5.0-7.0)
[2024-10-10] MEDS: PNEUMOCOCCAL VACCINE 0.5 ML IMVAC ONE (11:02)
--- NOTE | 2024-10-10 11:46 | P.PN ---
Date of Service: 10/10/24 This is 69 years old gentleman with past medical history notable for obesity, hypertension, GERD, recurrent colonic diverticulitis who recently discharged from hospital for another episode of a colonic diverticulitis on oral antibiotics, ciprofloxacin and metronidazole a week ago who returned to the emergency room for persistent abdominal pain and admitted on general medical floor #1 recurrent uncomplicated sigmoid colonic diverticulitis with no sepsis #2 history of hypertension #3 history of type [address] of abdomen and pelvis on admission personally reviewed, colonic diverticulosis, colonic wall thickening of sigmoid colon with pericolic fat stranding, no abscess or perforation. No leukocytosis, remained afebrile, r andom blood sugar 127, hemoglobin normal at 14.9, will continue IV antibiotics with Zosyn, start oral diet with low fiber, pain control with oral and IV pain medicine, anticipating discharge in 1 or 2 days, does not need any surgical intervention, I will consult surgical consult.
[2024-10-11] MEDS: ACETAMINOPHEN 325 MG TABLET PO PRN (03:45)
[2024-10-11 04:44] VITALS: TEMP 97.9
[2024-10-11 07:46] VITALS: BMI 30.5
[2024-10-11 07:53] VITALS: O2SAT 96
--- NOTE | 2024-10-11 09:35 | P.DS ---
Admission Date: 10/09/24 Discharge Date: 10/11/24 Disposition: ROUTINE DISCHARGE Discharge Condition: GOOD Reason for Admission: recurrent diverticulitis Brief History of Present Illness: This is 69 years old gentleman with past medical history notable for obesity, hypertension, GERD, recurrent colonic diverticulitis who recently discharged from hospital for another episode of colonic diverticulitis on oral antibiotics, ciprofloxacin and metronidazole a week ago who returned to the emergency room for persistent abdominal pain and admitted on general medical floor Hospital Course: He CT of abdomen and pelvis on admission shows colonic diverticulosis, mild colon wall thickening of her sigmoid colon with pericolic fat stranding, no abscess or perforation, which was no significant change from previous CT scan. He was treated with Zosyn, low fiber diet, IV fluid, IV and oral pain medication. He tolerated oral diet very well with minimal pain, had normal bowel movements. He was discharged home the following day. I increased his ciprofloxacin dose from 500 to 750 mg twice daily for 7 more days. He will continue to take Flagyl 500 mg 4 times daily to finish a 10-day course of treatment. Tylenol 3 No. 15 as needed was prescribed for pain control. He is already scheduled for colonoscopy by his GI doctor, which should be done 4 to 6 weeks after resolution of current acute colonic diverticulitis. #1 recurrent uncomplicated sigmoid colonic diverticulitis with no sepsis #2 Controlled hypertension #3 Controlled type 2 diabetes #4 obesity Vital Signs/Physical Exam: Temp Pulse Resp BP Pulse Ox 97.9 F 69 16 131/70 95 10/11/24 04:00 10/11/24 04:00 10/11/24 04:00 10/11/24 04:00 10/11/24 04:00 Other Physical/Emotional Findings: - Physical Exam. General: Obese, not acutely ill looking, in no apparent distress,. HEENT: Normocephalic, atraumatic, nonicteric sclera, nonanemic conjunctive. Neck: Supple, without JVD or goiter or thyroid mass. Respiratory: Normal breathing effort, clear to auscultation bilaterally, no crackles no wheezing or rhonchi. Cardiovascular: Regular rate and rhythm, S1, S2 normal, no murmur no gallop. Gastrointestinal: Normal bowel sounds, nondistended, nontender, No ascites, , No masses, no hepatosplenomegaly. Extremities : No clubbing, No peripheral edema, full range of motion, no deformity, no muscle atrophy. Integumentary: No rashes, petechia, suspected lesions. Lymphatics: No axilla or cervical lymphadenopathy. Neurology; alert awake oriented x3, no focal neurologic deficit, normal affection . mood and behavior. Laboratory Data at Discharge: WBC 10.00 thou/uL (4.3-10.9) 10/10/24 05:20 Hgb 14.9 g/dL (13.6-17.9) 10/10/24 05:20 Hct 43.9 % (39.6-49.0) 10/10/24 05:20 Plt Count 282 thou/uL (152-406) 10/10/24 05:20 Sodium 136 mEq/L (136-145) 10/10/24 05:20 Potassium 4.2 mEq/L (3.5-5.1) D 10/10/24 05:20 BUN 8 mg/dL (7-18) 10/10/24 05:20 Creatinine 1.15 mg/dL (0.70-1.30) 10/10/24 05:20 Glucose 127 mg/dL (74-106) H 10/10/24 05:20 Phosphorus 2.7 mg/dL (2.5-4.9) 10/10/24 05:20 Magnesium 2.1 mg/dL (1.6-2.4) 10/10/24 05:20 Total Bilirubin 0.4 mg/dL (0.2-1.0) 10/09/24 21:20 AST 18 U/L (15-37) 10/09/24 21:20 ALT 43 U/L (16-61) 10/09/24 21:20 Alkaline Phosphatase 55 U/L (45-117) 10/09/24 21:20 Lipase 47 U/L (13-75) 10/09/24 21:20 Home Medications: Amlodipine Besylate/Benazepril [Lotrel 5-40 mg Capsule] 1 tab PO DAILY WITH BREAKFAST 04/23/15 Omeprazole [Prilosec] 40 mg PO DAILY 10/12/22 L.acidoph,Paracasei, B.lactis [Probiotic] 1 each PO DAILY 10/10/24 Ciprofloxacin HCl [Cipro] 750 mg PO BID 7 Days #42 10/11/24 Codeine/APAP [Tylenol W/Codeine #3 tab] 1 tab PO TID PRN #15 tab 10/11/24 New Medications: Ciprofloxacin HCl [Cipro] 750 mg PO BID 7 Days #42 Codeine/APAP [Tylenol W/Codeine #3 tab] 1 tab PO TID PRN #15 tab PRN Reason: Pain Followup: Lenin Maguire MD [Primary Care Provider] - 1-2 Weeks
[2024-10-11 10:14] VITALS: BP 138/77
== END 2024-10-11 10:50 | disposition home or self-care (01) | DRG 392 ==
LOC: ER 20:32 → ERHOLD 23:58 → 4TH 10-10 10:14
PROVIDERS: ADMIT Internal Medicine; ATTEND Internal Medicine
DX: K57.32 Diverticulitis of large intestine without perforation or abscess without bleeding (principal); I10 Essential (primary) hypertension; N20.0 Calculus of kidney; E66.9 Obesity, unspecified; E11.9 Type 2 diabetes mellitus without complications; K21.9 Gastro-esophageal reflux disease without esophagitis; K40.90 Unilateral inguinal hernia, without obstruction or gangrene, not specified as recurrent; Z68.30 Body mass index [BMI] 30.0-30.9, adult; Z79.52 Long term (current) use of systemic steroids; Z96.642 Presence of left artificial hip joint; Z79.899 Other long term (current) drug therapy
CPT/HCPCS: 36415; 74177; 80048; 80053; 81001; 82947; 83605; 83690; 83735; 84100; 85025; 96361; 96365; 96366; 96367; 96375; 99285; J0744; J1171; J1644; J2405; J2470; J2543; J7030; Q9967

== ENCOUNTER 2025-01-03 19:27 | Emergency (ER) | payer OTHER ==
[2025-01-03] MEDS ORDERED: HYDROCODONE/APAP 5/325 MG TAB ONE (20:34)
[2025-01-03] MEDS ORDERED: KETOROLAC 30 MG/ML INJ ONE (20:34)
--- NOTE | 2025-01-03 22:04 | RAD REPORT ---
EXAMINATION: XR LEFT SHOULDER CLINICAL INDICATION: Male, 69 years old. L shoulder injury TECHNIQUE: Internal and external AP view radiograph of the left shoulder were obtained. COMPARISON: Chest radiograph 08/20/2023. FINDINGS: No evidence of fracture or dislocation. Normal alignment. Mild AC joint degenerative change s. Rotator cuff anchors present. Marginally sclerotic small 11 mm lesion within the proximal humerus, stable, could represent a small bone infarct or chondroid lesion. Soft tissues are unremarka ble. IMPRESSION: No acute or significant abnormalities.
--- NOTE | 2025-01-03 22:11 | EDPHYS ---
Physician Documentation [facility] Name: Bradly Padron Age: 69 yrs Sex: Male : 1955 Arrival Date: 01/03/2025 Time: 19:27 Bed 12 Private MD: Lenin Maguire B ED Physician Kael Simpson HPI: 01/03 20:17 This 69 yrs old Male presents to ER via Unassigned with complaints of ec2 Shoulder Pain, Shoulder Injury. 20:17 Patient arrives today for evaluation of the left shoulder injury. States that he was ec2 pulling of objects and subsequently had felt a pop in his left shoulder. States that he had a shoulder injection several days ago. No falls injuries.. Historical: - Allergies: 20:37 No Known Allergies; me1 - PMHx: 20:37 Diverticulitis; GERD; Hypertension; Kidney stone; me1 - PSHx: 20:37 Left hip replacement; Lithotripsy; neck; Shoulder; me1 - Immunization history:: Adult Immunizations up to date. - Infectious Disease History:: Denies. - Social history:: Smoking status: Patient denies any tobacco usage or history of. ROS: 20:18 Constitutional: as per hpi ec2 Exam: 20:18 Constitutional: GEN: NAD Head: atraumatic Eyes: EOMI Ears: External ears are ec2 normal. CV: regular rate LUNGS: no respiratory distress ABD: non-distended SKIN: no evidence of rashes MSK: no evidence of trauma, left shoulder joint with left proximal humerus with TTP, left distal clavicle with TTP, no deformity obvious, intact distal neurovascular status appreciated. Vital Signs: 20:34 BP 149 / 89; Pulse 74; Resp 18; Temp 98.1; Pulse Ox 96% ; Weight 92.53 kg; Height 5 ft. me1 8 in. ; Pain 6/10; 20:34 Body Mass Index 31.02 (92.53 kg, 172.72 cm) me1 20:34 Pain Scale: Adult me1 MDM: 20:13 Medical Screening Exam initiated ec2 20:18 Data reviewed: vital signs, nurses notes. ED course: Patient arrives today for left ec2 shoulder injury. Examination yields MSK findings above. Will obtain radiograph of the shoulder. DDx include processes such as rotator cuff injury, doubt fracture, doubt dislocation. Additionally considered neurovascular compromise. Will give patient Toradol and [place] for pain.. 22:10 ED course: Shoulder x-ray shows no bony pathology. Will have the patient follow-up with ec2 PCP for possible advanced imaging for ligamentous injury. Return precautions given.. 01/03 20:17 Order name: Shoulder Left (2 View) XRAY; Complete Time: 22:09 ec2 01/03 22:12 Order name: Sling; Complete Time: 22:15 ec2 Administered Medications: 20:43 Drug: Ketorolac IM 30 mg IM once Route: IM; Site: right deltoid; me1 22:12 Follow up: Response: No adverse reaction; Pain is decreased kb3 20:43 Drug: HYDROcodone-acetaminophen PO 5 mg-325 mg 1 tabs PO once Route: PO; me1 22:12 Follow up: Response: No adverse reaction; Pain is decreased kb3 Disposition Summary: 01/03/25 22:10 Discharge Ordered Notes: Location: Home ec2 Condition: Stable ec2 Diagnosis - Sprain of shoulder joint ec2 Followup: ec2 - With: Private Physician - When: - Reason: Recheck today's complaints Discharge Instructions: - Discharge Summary Sheet ec2 - Shoulder Sprain ec2 Forms: - Medication Reconciliation Form ec2 - Antibiotic Education ec2 - Prescription Opioid Use ec2 - Patient Portal Instructions ec2 - Leadership Thank You Letter ec2 Prescriptions: - Cyclobenzaprine 5 mg Oral Tablet - take 1 tablet ORAL route 3 times per day As needed; 15 tablet; Refills: 0, ec2 Product Selection Permitted Signatures: Dispatcher [employer] Anne-Marie Snowden RN RN me1 Kael Simpson MD MD ec2 Sofie Sousa RN kb3 Corrections: (The following items were deleted from the chart) 20:18 20:18 Shoulder Left 2 View+RAD.RAD.BRZ ordered. EDMS ELMA
--- NOTE | 2025-01-03 22:11 | ER ---
Nurse's Notes [facility] Name: Bradly Padron Age: 69 yrs Sex: Male : 1955 Arrival Date: 01/03/2025 Time: 19:27 Bed 12 Private MD: Lenin Maguire B Diagnosis: Sprain of shoulder joint Presentation: 01/03 20:34 Chief complaint: Patient states: about noon today patient was trimming a tree and me1 pulled on it and something popped in his left shoulder. He reports he got a shot in that shoulder Monday. C/o burning pain 6/10 at rest, 10/10 with movement. Coronavirus screen: Vaccine status: Patient reports receiving the 2nd dose of the covid vaccine. Ebola Screen: No symptoms or risks identified at this time. Initial Sepsis Screen: Does the patient meet any 2 criteria? No. Patient's initial sepsis screen is negative. Does the patient have a suspected source of infection? No. Patient's initial sepsis screen is negative. Risk Assessment: Do you want to hurt yourself or someone else? Patient reports no desire to harm self or others. Onset of symptoms was January 03, 2025 at 12:00. 20:34 Method Of Arrival: Ambulatory me1 20:34 Acuity: MARIA E 4 me1 Historical: - Allergies: 20:37 No Known Allergies; me1 - PMHx: 20:37 Diverticulitis; GERD; Hypertension; Kidney stone; me1 - PSHx: 20:37 Left hip replacement; Lithotripsy; neck; Shoulder; me1 - Immunization history:: Adult Immunizations up to date. - Infectious Disease History:: Denies. - Social history:: Smoking status: Patient denies any tobacco usage or history of. Screenin:12 [facility] ED Fall Risk Assessment (Adult) History of falling in the last 3 months, kb3 including since admission No falls in past 3 months (0 pts) Confusion or Disorientation No (0 pts) Intoxicated or Sedated No (0 pts) Impaired Gait No (0 pts) Mobility Assist Device Used No (0 pt) Altered Elimination No (0 pt) Score/Fall Risk Level 0 - 2 = Low Risk Oriented to surroundings, Maintained a safe environment. Abuse screen: Denies threats or abuse. Denies injuries from another. Nutritional screening: No deficits noted. Tuberculosis screening: No symptoms or risk factors identified. Assessment: 22:12 General: Appears in no apparent distress. Behavior is calm, cooperative. Pain: kb3 Complains of pain in anterior aspect of left shoulder and posterior aspect of left shoulder Pain does not radiate. Pain currently is 4 out of 10 on a pain scale. Musculoskeletal: Range of motion: limited in left shoulder Reports pain in anterior aspect of left shoulder and posterior aspect of left shoulder. Vital Signs: 20:34 BP 149 / 89; Pulse 74; Resp 18; Temp 98.1; Pulse Ox 96% ; Weight 92.53 kg; Height 5 ft. me1 8 in. ; Pain 6/10; 20:34 Body Mass Index 31.02 (92.53 kg, 172.72 cm) me1 20:34 Pain Scale: Adult sc1 ED Course: 19:28 Patient arrived in ED. am2 19:28 Lenin Maguire MD is Private Physician. am2 20:01 Kael Simpson MD is Attending Physician. ec2 20:37 Triage completed. me1 20:37 Arm band placed on Patient placed in waiting room. sc1 20:53 Shoulder Left (2 View) XRAY In Process Unspecified. EDMS 22:12 Patient has correct armband on for positive identification. Bed in low position. Call kb3 light in reach. Provided Education on: POC, xrays. 22:20 Shoulder immobilizer applied on. kmf 22:20 Shoulder immobilizer applied on left shoulder. kmf Administered Medications: 20:43 Drug: Ketorolac IM 30 mg IM once Route: IM; Site: right deltoid; sc1 22:12 Follow up: Response: No adverse reaction; Pain is decreased kb3 20:43 Drug: HYDROcodone-acetaminophen PO 5 mg-325 mg 1 tabs PO once Route: PO; me1 22:12 Follow up: Response: No adverse reaction; Pain is decreased kb3 Medication: 22:12 VIS not applicable for this client. kb3 Outcome: 22:10 Discharge ordered by . ec2 22:35 Patient left the ED. kb3 Signatures: Dispatcher [employer] EDPA Allegra Rivero 2 Sofie Sousa RN RN kb3 Anne-Marie Hunter RN RN sc1 Kael Simpson MD MD 2 [facility]
[2025-01-03 22:40] VITALS: BP 149/89; TEMP 98.1; O2SAT 96
== END 2025-01-03 22:35 | disposition home or self-care (01) ==
LOC: ER 19:27
DX: S43.402A Unspecified sprain of left shoulder joint, initial encounter (principal)
CPT/HCPCS: 96372; 99284

== ENCOUNTER 2025-01-22 17:53 | Emergency (ER) | payer OTHER ==
[2025-01-22] MEDS ORDERED: MORPHINE 4 MG/ML SYR ONE (18:37)
[2025-01-22] MEDS ORDERED: ONDANSETRON 4 MG/2 ML VIAL ONE (18:37)
[2025-01-22] MEDS ORDERED: NA CHLORIDE 0.9% 1,000 ML ONE (18:38)
[2025-01-22 18:41] LABS: Absolute Basophils 0.1 K/uL (0-0.5); Absolute Eosinophils 0.1 K/uL (0-0.5); Absolute Lymphocytes (CBC) 1.7 K/uL (0.7-4.9); Absolute Monocytes 0.7 K/uL (0.1-1.3); Absolute Neutrophil 4.8 K/uL (1.8-8.0); Basophils % 1.3 % (0-1.3); Eosinophils % 0.9 % (0-4.4); Hematocrit 48.1 % (39.6-49.0); Hemoglobin 16.2 g/dL (13.6-17.9); Lymphocytes % 23.4 % (15.3-44.8); MCH 28.9 pg (27.0-35.0); MCHC 33.7 g/dL (32.0-36.0); MCV 85.9 fL (80-100); MPV 6.9 fL (7.6-11.3); Monocytes % 8.8 % (3.3-12.3); Neutrophils % 65.6 % (41.7-73.7); Nucleated Red Blood Cells % 0.1 % (0-0); Platelets 276 thou/uL (152-406); Red Cell Distribution Width 14.7 % (12.1-15.2)
[2025-01-22 18:54] LABS: Specific Gravity 1.022 (1.005-1.030); Sqamous Epithelial None Seen /HPF (None Seen); Urine Bacteria None Seen /HPF (<20); Urine Bilirubin NEGATIVE (Negative); Urine Blood Negative (Negative); Urine Clarity Clear (Clear); Urine Color Light-Yellow (Yellow); Urine Crystals Unidentified Few /HPF (None Seen); Urine Culture Reflex Order NOT NEEDED; Urine Glucose NEGATIVE (Negative); Urine Ketones NEGATIVE (Negative); Urine Microscopic Reflex YN ORDER UMIC; Urine Mucus Slight /HPF (None Seen); Urine Nitrite NEGATIVE (Negative); Urine Protein NEGATIVE (Negative); Urine RBC <5 /HPF (None Seen); Urine Urobilinogen Normal (Normal); Urine WBC <5 /HPF (<5); Urine pH 6.5 (5.0-7.0)
[2025-01-22 18:56] LABS: Albumin 3.9 g/dL (3.4-5.0); Albumin/Globulin Ratio 1.1 (1.1-1.8); Anion Gap 7.7 mEq/L (5.0-15.0); Bilirubin Total 0.5 mg/dL (0.2-1.0); Globulin 3.4 g/dL (2.3-3.5); Potassium 3.7 mEq/L (3.5-5.1); Protein, Total 7.3 g/dL (6.4-8.2)
--- NOTE | 2025-01-22 19:40 | RAD REPORT ---
EXAMINATION: CT ABDOMEN AND PELVIS WITH CONTRAST CLINICAL INDICATION: Abdominal pain TECHNIQUE: CT abdomen and pelvis was performed, after the administration of 100 cc Isovue-300.. Sagit mirtha and coronal reconstructions were obtained. One or more of the following dose reduction techniques were used: Automated exposure control, adjustment of the mA and kV according to patient si ze, and iterative reconstruction. Unless otherwise specified, incidental findings do not require dedicated imaging follow-up. [id number]. Oral contrast was not given which limits evaluation of bowel and appendix. COMPARISON: .2023 FINDINGS: Liver, spleen, pancreas, and adrenals unremarkable Tiny right renal calculus. Several small left renal calculi. No hydronephrosis. Small left renal cyst . Normal appendix Artifact from a left prosthesis limits evaluation of surrounding structures. [id number]-qbzhhsna left and small right inguinal hernias containing fat No evidence of diverticulitis. : IMPRESSION: Nonobstructing renal calculi
--- NOTE | 2025-01-23 00:09 | ER ---
Nurse's Notes [facility] Name: Bradly Padron Age: 69 yrs Sex: Male : 1955 Arrival Date: 01/22/2025 Time: 17:53 Bed 8 Private MD: Diagnosis: Abdominal pain, Generalized Presentation: 01/22 18:14 Chief complaint: Patient states: R sided abdominal pain started today. Noticed he's not ll1 urinating a lot. Coronavirus screen: Client denies travel out of the [place] in the last 14 days. At this time, the client does not indicate any symptoms associated with coronavirus-19. Ebola Screen: Patient denies travel to an Ebola-affected area in the 21 days before illness onset. Initial Sepsis Screen: Does the patient meet any 2 criteria? No. Patient's initial sepsis screen is negative. Does the patient have a suspected source of infection? No. Patient's initial sepsis screen is negative. Risk Assessment: Do you want to hurt yourself or someone else? Patient reports no desire to harm self or others. Onset of symptoms was January 22, 2025. 18:14 Method Of Arrival: Ambulatory ll1 18:14 Acuity: MARIA E 3 ll1 Triage Assessment: 18:15 General: Appears uncomfortable, Behavior is calm, cooperative, appropriate for age. ll1 Pain: Complains of pain in R abdomen. GI: Reports upper abdominal pain. : Reports not urinating a lot. Historical: - Allergies: 18:08 No Known Allergies; ll1 - PMHx: 18:08 Diverticulitis; GERD; Hypertension; Kidney stone; ll1 - PSHx: 18:08 Left hip replacement; Lithotripsy; neck; Shoulder; ll1 - Immunization history:: Adult Immunizations up to date. - Infectious Disease History:: Denies. - Social history:: Smoking status: Patient denies any tobacco usage or history of. Screenin:35 [facility] ED Fall Risk Assessment (Adult) History of falling in the last 3 months, ld1 including since admission No falls in past 3 months (0 pts) Confusion or Disorientation No (0 pts) Intoxicated or Sedated No (0 pts) Impaired Gait No (0 pts) Mobility Assist Device Used No (0 pt) Altered Elimination No (0 pt) Score/Fall Risk Level 0 - 2 = Low Risk Oriented to surroundings, Hourly rounding (assess needs \T\ fall precautionary measures) done. Abuse screen: Denies threats or abuse. Denies injuries from another. Nutritional screening: No deficits noted. Tuberculosis screening: No symptoms or risk factors identified. Assessment: 18:35 General: Appears in no apparent distress. uncomfortable, Behavior is calm, cooperative, ld1 appropriate for age. Pain: Complains of pain in right upper quadrant Pain does not radiate. Pain currently is 8 out of 10 on a pain scale. Quality of pain is described as throbbing, Pain began suddenly, Is continuous. Neuro: Level of Consciousness is awake, alert, obeys commands, Oriented to person, place, time, situation. Cardiovascular: Capillary refill < 3 seconds Patient's skin is warm and dry. Respiratory: Airway is patent Respiratory effort is even, unlabored. GI: Abdomen is round non-distended, Bowel sounds present X 4 quads. Abd is soft Abdomen is tender to palpation X 4 quads. : No signs and/or symptoms were reported regarding the genitourinary system. EENT: No signs and/or symptoms were reported regarding the EENT system. Derm: No signs and/or symptoms reported regarding the dermatologic system. Musculoskeletal: No signs and/or symptoms reported regarding the musculoskeletal system. 19:49 Reassessment: Patient appears in no apparent distress at this time. Patient and/or jb4 family updated on plan of care and expected duration. Pain level reassessed. Patient is alert, oriented x 3, equal unlabored respirations, skin warm/dry/pink. 20:45 Reassessment: Patient appears in no apparent distress at this time. Patient and/or jb4 family updated on plan of care and expected duration. Pain level reassessed. Patient is alert, oriented x 3, equal unlabored respirations, skin warm/dry/pink. 21:45 Reassessment: Patient appears in no apparent distress at this time. Patient and/or jb4 family updated on plan of care and expected duration. Pain level reassessed. Patient is alert, oriented x 3, equal unlabored respirations, skin warm/dry/pink. 22:41 Reassessment: Patient appears in no apparent distress at this time. Patient and/or jb4 family updated on plan of care and expected duration. Pain level reassessed. Patient is alert, oriented x 3, equal unlabored respirations, skin warm/dry/pink. 01/23 00:22 Reassessment: Patient appears in no apparent distress at this time. Patient and/or jb4 family updated on plan of care and expected duration. Pain level reassessed. Patient is alert, oriented x 3, equal unlabored respirations, skin warm/dry/pink. Vital Signs: 01/22 18:14 BP 159 / 92; Pulse 76; Resp 17; Temp 97.6; Pulse Ox 96% on R/A; Weight 91.63 kg; Height ll1 5 ft. 8 in. ; Pain 7/10; 18:35 BP 158 / 81; Pulse 68; Resp 18; Pulse Ox 96% on R/A; Pain 8/10; ld1 19:45 BP 141 / 88; Pulse 57; Resp 16; Pulse Ox 96% on R/A; jb4 20:52 BP 141 / 80; Pulse 50; Resp 16; Pulse Ox 99% ; jb4 21:00 BP 150 / 88; Pulse 50; Resp 19; Pulse Ox 99% on R/A; kd3 22:41 BP 125 / 69; Pulse 57; Resp 16; Pulse Ox 97% on R/A; jb4 18:14 Body Mass Index 30.71 (91.63 kg, 172.72 cm) ll1 18:14 Pain Scale: Adult ll1 18:35 Pain Scale: Adult ld1 ED Course: 17:56 Patient arrived in ED. al6 18:08 Arm band placed on Patient placed in an exam room, on a stretcher. ll1 18:10 [facility] kb 18:10 Jason Ni MD is Attending Physician. kb 18:15 Triage completed. ll1 18:34 Warm blanket given. am7 18:35 Patient has correct armband on for positive identification. Placed in gown. Bed in low ld1 position. Call light in reach. Side rails up X2. manager corporate on. Pulse ox on. NIBP on. Door closed. Noise minimized. 18:35 Urinalysis w/ reflexes Sent. ld1 18:35 Inserted saline lock: 20 gauge in right forearm, using aseptic technique. Blood ld1 collected. Flushed with 10 mL NS. 18:35 No provider procedures requiring assistance completed. ld1 19:28 CT Abd/Pelvis - IV Contrast Only In Process Unspecified. EDMS 20:46 Bony Rivera, RN is Primary Nurse. jb4 23:57 US Abdomen Limited In Process Unspecified. EDMS 01/23 00:22 IV discontinued, intact, bleeding controlled, No redness/swelling at site. Pressure jb4 dressing applied. Administered Medications: 01/22 18:45 Drug: NS 0.9% IV 1000 ml IV at 1 bolus Per protocol; to be given as a bolus over 60 jb4 minutes Route: IV; Rate: 1 bolus; Site: right antecubital; 18:46 Drug: Ondansetron IVP 4 mg IVP once; over 2 minutes Route: IVP; Site: right antecubital;jb4 18:46 Drug: morphine IVP or IV 4 mg IVP once over 4 mins Route: IVP; Infused Over: 4 mins; jb4 Site: right antecubital; Medication: 18:35 VIS not applicable for this client. ld1 Outcome: 01/23 00:08 Discharge ordered by . kb 00:22 Discharged to home ambulatory, jb4 00:22 Condition: stable 00:22 Discharge instructions given to patient, Instructed on discharge instructions, follow up and referral plans. medication usage, Demonstrated understanding of instructions, follow-up care, medications, Prescriptions given X 1, 00:22 Patient left the ED. jb4 Signatures: Dispatcher [employer] EDGA Bre Abbott, TABLET MAKING MACHINE OPERATOR-C TABLET MAKING MACHINE OPERATOR-Ckb Bony Rivera, RN RN jb4 Arielle Tidwell RN RN ll1 Lorena Bustillo RN RN ld1 Kat Hernandez RN RN kd3 Lina Bhakta am7 Mony Grimaldo al6
--- NOTE | 2025-01-23 00:09 | EDPHYS ---
Physician Documentation [facility] Name: Bradly Padron Age: 69 yrs Sex: Male : 1955 Arrival Date: 01/22/2025 Time: 17:53 Bed 8 Private MD: ED Physician Jason Ni HPI: 01/22 21:35 This 69 yrs old Male presents to ER via Ambulatory with complaints of Abdominal Pain. kb 21:35 Patient is a 69-year-old male who presents for right sided abdominal pain that started kb this morning is gotten progressively worse throughout the day. Denies nausea, vomiting, diarrhea, fever, urinary symptoms. Reports history of diverticulitis and kidney stones.. Historical: - Allergies: 18:08 No Known Allergies; ll1 - PMHx: 18:08 Diverticulitis; GERD; Hypertension; Kidney stone; ll1 - PSHx: 18:08 Left hip replacement; Lithotripsy; neck; Shoulder; ll1 - Immunization history:: Adult Immunizations up to date. - Infectious Disease History:: Denies. - Social history:: Smoking status: Patient denies any tobacco usage or history of. ROS: 21:34 Constitutional: As per HPI kb Exam: 21:34 Constitutional: This is a well developed, well nourished patient who is awake, alert, kb and in no acute distress. Head/Face: Normocephalic, atraumatic. ENT: Moist Mucous membranes Cardiovascular: Regular rate Respiratory: Respirations even and unlabored. No increased work of breathing. Talking in full sentences Skin: Warm, dry with normal turgor. Normal color. MS/ Extremity: Pulses equal, no cyanosis. Neurovascular intact. Full, normal range of motion. Neuro: Awake and alert, GCS 15, oriented to person, place, time, and situation. 21:34 Abdomen/GI: Inspection: abdomen appears normal, Bowel sounds: normal, Palpation: soft, in all quadrants, mild abdominal tenderness, in the right upper quadrant and right lower quadrant, Vital Signs: 18:14 BP 159 / 92; Pulse 76; Resp 17; Temp 97.6; Pulse Ox 96% on R/A; Weight 91.63 kg; Height ll1 5 ft. 8 in. ; Pain 7/10; 18:35 BP 158 / 81; Pulse 68; Resp 18; Pulse Ox 96% on R/A; Pain 8/10; ld1 19:45 BP 141 / 88; Pulse 57; Resp 16; Pulse Ox 96% on R/A; jb4 20:52 BP 141 / 80; Pulse 50; Resp 16; Pulse Ox 99% ; jb4 21:00 BP 150 / 88; Pulse 50; Resp 19; Pulse Ox 99% on R/A; kd3 22:41 BP 125 / 69; Pulse 57; Resp 16; Pulse Ox 97% on R/A; jb4 18:14 Body Mass Index 30.71 (91.63 kg, 172.72 cm) ll1 18:14 Pain Scale: Adult ll1 18:35 Pain Scale: Adult ld1 MDM: 18:10 Medical Screening Exam initiated kb 21:34 Differential diagnosis: appendicitis, cholecystitis, Cholelithiasis, diverticulitis, kb gastritis, non-specific abd pain, pancreatitis, Ureterolithiasis. Data reviewed: vital signs, nurses notes. Counseling: I had a detailed discussion with the patient and/or guardian regarding the historical points, exam findings, and any diagnostic results supporting the discharge/admit diagnosis, lab results, radiology results, the need for outpatient follow up, a family practitioner, to return to the emergency department if symptoms worsen or persist or if there are any questions or concerns that arise at home. 04 18:29 Order name: CBC with Diff; Complete Time: 19:23 kb 01/22 18:29 Order name: CMP; Complete Time: 18:57 kb 01/22 18:29 Order name: Lipase; Complete Time: 18:57 kb 01/22 18:29 Order name: Urinalysis w/ reflexes; Complete Time: 18:55 kb 01/22 18:29 Order name: CT Abd/Pelvis - IV Contrast Only; Complete Time: 19:42 kb 01/22 22:10 Order name: US Abdomen Limited kd3 01/22 18:29 Order name: IV Saline Lock; Complete Time: 18:35 kb 01/22 18:29 Order name: Labs collected and sent; Complete Time: 18:35 kb Administered Medications: 18:45 Drug: NS 0.9% IV 1000 ml IV at 1 bolus Per protocol; to be given as a bolus over 60 jb4 minutes Route: IV; Rate: 1 bolus; Site: right antecubital; 18:46 Drug: Ondansetron IVP 4 mg IVP once; over 2 minutes Route: IVP; Site: right antecubital;jb4 18:46 Drug: morphine IVP or IV 4 mg IVP once over 4 mins Route: IVP; Infused Over: 4 mins; jb4 Site: right antecubital; Disposition: 01/23 07:47 Co-signature as Attending Physician, Jason Ni MD I reviewed the patient's care rn provided by the Advanced Practice Provider and agree with the diagnosis and treatment plan. Disposition Summary: 01/23/25 00:08 Discharge Ordered Notes: Location: Home kb Condition: Stable kb Diagnosis - Abdominal pain, Generalized kb Followup: kb - With: Emergency Department - When: As needed - Reason: Worsening of condition Followup: kb - With: Private Physician - When: 2 - 3 days - Reason: Recheck today's complaints, Continuance of care, Re-evaluation by your physician Discharge Instructions: - Discharge Summary Sheet kb - Abdominal Pain, Adult, [id number] kb Forms: - Medication Reconciliation Form kb - Antibiotic Education kb - Prescription Opioid Use kb - Patient Portal Instructions kb - Leadership Thank You Letter kb Prescriptions: - Diclofenac Sodium 75 mg Oral tablet, delayed release (enteric coated) - take 1 tablet ORAL route 2 times per day As needed; 30 tablet; Refills: 0, kb Product Selection Permitted Signatures: Dispatcher [employer] EDBre Torrez, KATHY-C VETERINARY PHARMACOLOGIST-Jason Grant MD MD rn Bryson, James, RN RN jb4 Arielle Tidwell RN RN ll1 Lorena Bustillo RN RN ld1
[2025-01-23 00:28] VITALS: TEMP 97.6
[2025-01-23 00:34] VITALS: BP 125/69; O2SAT 97
--- NOTE | 2025-01-23 10:07 | RAD REPORT ---
EXAM: US Abdomen Limited, Gallbladder CLINICAL HISTORY: ABD PAIN TECHNIQUE: Real-time ultrasound of the right upper quadrant with image documentation. COMPARISON: No relevant prior studies available. FINDINGS: Liver: The visualized liver is increased echogenicity compatible with steatosis. Focal fatty sparin g adjacent to the gallbladder fossa. Gallbladder: Unremarkable. No gallstones, gallbladder wall thickening or pericholecystic fluid. Common bile duct: Unremarkable as visualized. No stones. No dilation. IMPRESSION: No sonographic evidence of cholelithiasis or acute cholecystitis. Electronically signed by: Jose Francisco Gtz MD 01/23/2025 12:21 AM CDT Due to temporary technical issues with the PACS/[employer] reporting system, reports are being michael d by the in-house radiologist without review as a courtesy to ensure prompt reporting the interpreting radiologist is fully responsible for the content of the report. Transcribed Date/Time: 01/23/2025 10:06 AM
== END 2025-01-23 00:22 | disposition home or self-care (01) ==
LOC: ER 17:53
DX: R10.84 Generalized abdominal pain (principal); Z87.442 Personal history of urinary calculi; Z96.642 Presence of left artificial hip joint
CPT/HCPCS: 85025; 81001; 36415; 83690; 80053; 74177; 76705; 96375; 96374; 99285; Q9967; J2405; J7030

== ENCOUNTER 2025-03-12 19:40 | Emergency (ER) | payer OTHER ==
[2025-03-12 21:54] LABS: Absolute Basophils 0.1 K/uL (0-0.5); Absolute Eosinophils 0.1 K/uL (0-0.5); Absolute Monocytes 0.8 K/uL (0.1-1.3); Absolute Neutrophil 5.1 K/uL (1.8-8.0); Basophils % 1.2 % (0-1.3); Eosinophils % 1.3 % (0-4.4); Hematocrit 48.8 % (39.6-49.0); Hemoglobin 16.8 g/dL (13.6-17.9); Lymphocytes % 24.5 % (15.3-44.8); MCH 29.3 pg (27.0-35.0); MCHC 34.5 g/dL (32.0-36.0); MPV 7.4 fL (7.6-11.3); Monocytes % 9.8 % (3.3-12.3); Neutrophils % 63.2 % (41.7-73.7); Platelets 305 thou/uL (152-406); RBC Red Blood Cell Count 5.74 M/uL (4.33-5.43); Red Cell Distribution Width 15.4 % (12.1-15.2)
[2025-03-12 22:00] LABS: Specific Gravity 1.018 (1.005-1.030); Urine Bilirubin NEGATIVE (Negative); Urine Blood Negative (Negative); Urine Clarity Clear (Clear); Urine Color Light-Yellow (Yellow); Urine Glucose NEGATIVE (Negative); Urine Ketones NEGATIVE (Negative); Urine Microscopic Reflex YN NO UMIC; Urine Nitrite NEGATIVE (Negative); Urine Protein NEGATIVE (Negative); Urine Urobilinogen Normal (Normal)
[2025-03-12 22:11] LABS: Albumin 4.2 g/dL (3.4-5.0); Albumin/Globulin Ratio 1.2 (1.1-1.8); Anion Gap 5.7 mEq/L (5.0-15.0); Bilirubin Total 0.6 mg/dL (0.2-1.0); Globulin 3.4 g/dL (2.3-3.5); Potassium 3.7 mEq/L (3.5-5.1); Protein, Total 7.6 g/dL (6.4-8.2)
[2025-03-12] MEDS ORDERED: NA CHLORIDE 0.9% 1,000 ML ONE (22:15)
[2025-03-12] MEDS ORDERED: ONDANSETRON 4 MG/2 ML VIAL ONE (22:15)
[2025-03-12] MEDS ORDERED: MORPHINE 4 MG/ML SYR ONE (22:15)
--- NOTE | 2025-03-12 22:48 | RAD REPORT ---
EXAMINATION: Abdomen Pelvis W Contrast CLINICAL INDICATION: Male, 69 years old.ABD PAIN TECHNIQUE: CT abdomen and pelvis was performed, after the administration of IV contrast, [facility]. Axial, sagittal and coronal reconstructions were obtained. One or more of the following dose reduction techniques were used: Automated exposure control, adjustment of the mA and/o r kV according to patient size, and/or iterative reconstruction. Unless otherwise specified, incidental findings do not require dedicated imaging follow-up. [id number]. COMPARISON: 01/22/2025 FINDINGS: LOWER CHEST: No acute process identified.No significant pericardial effusion. UPPER GI: No significant abnormality. LIVER: Hepatic steatosis, but otherwise unremarkable. GALLBLADDER/BILE DUCTS: No biliary ductal dilatation.? PANCREAS: No mass, ductal dilation, or nicola-pancreatic fluid. SPLEEN: Unremarkable. ADRENALS: No adrenal masses. KIDNEYS AND URETERS: No hydronephrosis.Low density and/or too small to characterize renal lesions whi ch are statistically benign.Nonobstructing renal calculi. ABDOMINAL AORTA AND OTHER VESSELS: Mild atherosclerotic changes. PERITONEUM: No abnormal free fluid. No free air. LYMPH NODES: No pathologic lymphadenopathy. ABDOMINAL WALL: Fat containing inguinal hernias. SMALL BOWEL/COLON: Small bowel has normal course and caliber. No colonic wall thickening or pericolon ic inflammatory changes.Normal appendix. URINARY BLADDER: Underdistended but grossly unremarkable. REPRODUCTIVE ORGANS: No pathologic process. MUSCULOSKELETAL: Mild disc height loss and degenerative changes at L5-S1. Left hip arthroplasty. ADDITIONAL FINDINGS: None. IMPRESSION: No acute findings within the abdomen or pelvis. No appendicitis.
--- NOTE | 2025-03-12 22:57 | ER ---
Nurse's Notes [facility] Name: Bradly Padron Age: 69 yrs Sex: Male : 1955 Arrival Date: 03/12/2025 Time: 19:40 Bed 4 Private MD: Diagnosis: Lower abdominal pain, unspecified Presentation: 03/12 19:57 Chief complaint: Patient states: LLQ pain and L flank pain, was called in some cipro al5 and flagyl with no relief. Coronavirus screen: At this time, the client does not indicate any symptoms associated with coronavirus-19. Ebola Screen: No symptoms or risks identified at this time. Initial Sepsis Screen: Does the patient meet any 2 criteria? No. Patient's initial sepsis screen is negative. Does the patient have a suspected source of infection? No. Patient's initial sepsis screen is negative. Risk Assessment: Do you want to hurt yourself or someone else? Patient reports no desire to harm self or others. Onset of symptoms was March 10, 2025. 19:57 Method Of Arrival: Ambulatory al5 19:57 Acuity: MARIA E 3 al5 Triage Assessment: 19:59 General: Appears in no apparent distress. uncomfortable, Behavior is calm, cooperative. al5 Pain: Complains of pain in left mid back and left lower quadrant. EENT: No signs and/or symptoms were reported regarding the EENT system. Neuro: Level of Consciousness is awake, alert, obeys commands, Oriented to person, place, time, situation. Cardiovascular: Capillary refill < 3 seconds Patient's skin is warm and dry. Respiratory: Airway is patent Respiratory effort is even, unlabored, Respiratory pattern is regular, symmetrical. GI: Abdomen is flat, non-distended, Reports lower abdominal pain, nausea. : Reports pain in left flank(s). Derm: Skin is intact, is healthy with good turgor, Skin is pink, warm \T\ dry. normal. Musculoskeletal: No signs and/or symptoms reported regarding the musculoskeletal system. Historical: - Home Meds: 20:01 Lotrel 5-40 mg Oral cap 1 cap once daily for Hypertension [Active]; Prilosec Oral al5 [Active]; - PMHx: 20:01 Diverticulitis; GERD; Hypertension; Kidney stone; al5 - PSHx: 20:01 Left hip replacement; Lithotripsy; neck; Shoulder; al5 - Immunization history:: Adult Immunizations up to date. - Infectious Disease History:: Denies. - Social history:: Smoking status: Patient denies any tobacco usage or history of. Screenin:04 [facility] ED Fall Risk Assessment (Adult) History of falling in the last 3 months, al5 including since admission No falls in past 3 months (0 pts) Confusion or Disorientation No (0 pts) Intoxicated or Sedated No (0 pts) Impaired Gait No (0 pts) Mobility Assist Device Used No (0 pt) Altered Elimination No (0 pt) Score/Fall Risk Level 0 - 2 = Low Risk Oriented to surroundings, Maintained a safe environment, Hourly rounding (assess needs \T\ fall precautionary measures) done. Abuse screen: Denies threats or abuse. Denies injuries from another. Nutritional screening: No deficits noted. Tuberculosis screening: No symptoms or risk factors identified. Assessment: 20:04 Reassessment: see triage assessment. al5 23:17 GI: Bowel sounds present X 4 quads. Abd is soft X 4 quads. kd3 Vital Signs: 19:57 BP 166 / 89; Pulse 73; Resp 16; Temp 97.9; Pulse Ox 99% on R/A; Weight 90.72 kg; Height al5 5 ft. 8 in. ; 23:19 BP 137 / 82; Pulse 88; Resp 19; Pulse Ox 98% on R/A; kd3 19:57 Body Mass Index 30.41 (90.72 kg, 172.72 cm) al5 ED Course: 19:42 Patient arrived in ED. im 19:47 [facility] F[facility]C [facility] kb 19:47 Jordan Crook MD is Attending Physician. kb 19:59 Triage completed. al5 20:00 Arm band placed on right wrist. Patient placed in the treatment room, in view of staff al5 members, on pulse oximetry, Patient notified of wait time. 20:04 Patient has correct armband on for positive identification. Provided Education on: plan al5 of care. 20:04 No provider procedures requiring assistance completed. al5 20:28 Radiology exam delayed due to lab results not completed at this time. (BUN/Creatinine) jc4 IV insertion attempt and/or patient not having appropriate IV at this time. 21:49 UA Rfx Clive Cult if indicated Sent. vk 21:49 CBC with Diff Sent. vk 21:49 CMP Sent. vk 21:49 Lipase Sent. vk 21:49 Initial lab(s) drawn, by me, sent to lab. Urine collected: clean catch specimen, clear. vk Inserted saline lock: 20 gauge in left antecubital area, using aseptic technique. Blood collected. Flushed with 10 mL NS. 22:21 Kat Hernandez, RN is Primary Nurse. kd3 22:38 CT Abd/Pelvis - IV Contrast Only In Process Unspecified. EDMS 23:18 IV discontinued, intact, bleeding controlled, No redness/swelling at site. Pressure kd3 dressing applied. Administered Medications: 22:29 Drug: Ondansetron IVP 4 mg IVP once; over 2 minutes Route: IVP; Site: left antecubital; br2 22:29 Drug: morphine IVP or IV 4 mg IVP once over 4 mins Route: IVP; Infused Over: 4 mins; br2 Site: left antecubital; 22:29 Drug: NS 0.9% IV 1000 ml IV at 1 bolus Per protocol; to be given as a bolus over 60 br2 minutes Route: IV; Rate: 1 bolus; Site: left antecubital; 23:17 Drug: Ketorolac IVP 15 mg IVP once Route: IVP; Site: left antecubital; kd3 Medication: 20:04 VIS not applicable for this client. al5 Outcome: 22:57 Discharge ordered by . kb 23:18 Discharged to home ambulatory, kd3 23:18 Condition: stable 23:18 Discharge instructions given to patient, Instructed on discharge instructions, follow up and referral plans. medication usage, Demonstrated understanding of instructions, 23:19 Patient left the ED. kd3 Signatures: Dispatcher [employer] EDMS Bre Abbott, ELECTRIC HOIST OPERATOR-C ELECTRIC HOIST OPERATOR-Kat Tapia, RN RN kd3 Yahaira Thomas Vivian vk Langhorst, Amanda, RN RN al5 Tara Chew RN RN br2 Johnny Brooks jc4 Corrections: (The following items were deleted from the chart) 20:02 20:01 Home Meds: prednisone 10 mg Oral tablet 2 times per day; al5 al5
--- NOTE | 2025-03-12 22:57 | EDPHYS ---
Physician Documentation [facility] Name: Bradly Padron Age: 69 yrs Sex: Male : 1955 Arrival Date: 03/12/2025 Time: 19:40 Bed 4 Private MD: ED Physician Jordan Crook HPI: 03/12 19:53 This 69 yrs old Male presents to ER via Unassigned with complaints of Abdominal Pain, kb Low Back Pain. 19:53 Pt is a 69 year old male who presents for LLQ pain that started Monday night. Called kb his PCP on Monday and he called in [employer] and flagyl. Came in tonight because the pain isn't getting better. Denies fever, n/v/d. . Historical: - Home Meds: 20:01 Lotrel 5-40 mg Oral cap 1 cap once daily for Hypertension [Active]; Prilosec Oral al5 [Active]; - PMHx: 20:01 Diverticulitis; GERD; Hypertension; Kidney stone; al5 - PSHx: 20:01 Left hip replacement; Lithotripsy; neck; Shoulder; al5 - Immunization history:: Adult Immunizations up to date. - Infectious Disease History:: Denies. - Social history:: Smoking status: Patient denies any tobacco usage or history of. ROS: 19:53 Constitutional: As per HPI kb Exam: 19:53 Constitutional: This is a well developed, well nourished patient who is awake, alert, kb and in no acute distress. Head/Face: Normocephalic, atraumatic. ENT: Moist Mucous membranes Cardiovascular: Regular rate Respiratory: Respirations even and unlabored. No increased work of breathing. Talking in full sentences Skin: Warm, dry with normal turgor. Normal color. MS/ Extremity: Pulses equal, no cyanosis. Neurovascular intact. Full, normal range of motion. Neuro: Awake and alert, GCS 15, oriented to person, place, time, and situation. 19:53 Abdomen/GI: Inspection: abdomen appears normal, Bowel sounds: normal, Palpation: soft, in all quadrants, moderate abdominal tenderness, in the left lower quadrant, 19:53 Back: CVA tenderness, that is mild, is noted on the left, Vital Signs: 19:57 BP 166 / 89; Pulse 73; Resp 16; Temp 97.9; Pulse Ox 99% on R/A; Weight 90.72 kg; Height al5 5 ft. 8 in. ; 23:19 BP 137 / 82; Pulse 88; Resp 19; Pulse Ox 98% on R/A; kd3 19:57 Body Mass Index 30.41 (90.72 kg, 172.72 cm) al5 MDM: 19:47 Medical Screening Exam initiated kb 19:56 Data reviewed: vital signs, nurses notes. kb 22:55 Differential diagnosis: diverticulitis, non-specific abd pain, Ureterolithiasis. kb Consideration of Admission/Observation Escalation of care including admission/observation considered. admission considered for failed outpatient treatment for diverticulitis, but CT negative for diverticulitis. . Counseling: I had a detailed discussion with the patient and/or guardian regarding the historical points, exam findings, and any diagnostic results supporting the discharge/admit diagnosis, lab results, radiology results, the need for outpatient follow up, a family practitioner, to return to the emergency department if symptoms worsen or persist or if there are any questions or concerns that arise at home. 03/12 19:57 Order name: CBC with Diff; Complete Time: 21:59 kb 03/12 19:57 Order name: CMP; Complete Time: 22:14 kb 03/12 19:57 Order name: Lipase; Complete Time: 22:14 kb 03/12 19:57 Order name: UA Rfx Clive Cult if indicated; Complete Time: 22:01 kb 03/12 19:57 Order name: CT Abd/Pelvis - IV Contrast Only; Complete Time: 22:51 kb 03/12 19:57 Order name: IV Saline Lock; Complete Time: 21:49 kb 03/12 19:57 Order name: Labs collected and sent; Complete Time: 21:49 kb Administered Medications: 22:29 Drug: Ondansetron IVP 4 mg IVP once; over 2 minutes Route: IVP; Site: left antecubital; br2 22:29 Drug: morphine IVP or IV 4 mg IVP once over 4 mins Route: IVP; Infused Over: 4 mins; br2 Site: left antecubital; 22:29 Drug: NS 0.9% IV 1000 ml IV at 1 bolus Per protocol; to be given as a bolus over 60 br2 minutes Route: IV; Rate: 1 bolus; Site: left antecubital; 23:17 Drug: Ketorolac IVP 15 mg IVP once Route: IVP; Site: left antecubital; kd3 Disposition Summary: 03/12/25 22:57 Discharge Ordered Notes: Location: Home kb Condition: Stable kb Diagnosis - Lower abdominal pain, unspecified kb Followup: kb - With: Emergency Department - When: As needed - Reason: Worsening of condition Followup: kb - With: Private Physician - When: 2 - 3 days - Reason: Recheck today's complaints, Continuance of care, Re-evaluation by your physician Discharge Instructions: - Discharge Summary Sheet kb - Abdominal Pain, Adult, [id number] kb Forms: - Medication Reconciliation Form kb - Antibiotic Education kb - Prescription Opioid Use kb - Patient Portal Instructions kb - Leadership Thank You Letter kb Addendum: 03/14/2025 02:20 Co-signature as Attending Physician, Jordan Crook MD I reviewed the patient's care r t provided by the Advanced Practice Provider and agree with the diagnosis and treatment plan. Signatures: Dispatcher [employer] EDMS Bre Abbott, GAS METER INSTALLER HELPER-C GAS METER INSTALLER HELPER-Kat Tapia, RN RN kd3 Jordan Crook MD MD rt Allegra Perkins RN RN al5 Tara Chew, RN RN br2 Corrections: (The following items were deleted from the chart) 03/12 19:58 19:57 CBC+H.LAB.BRZ ordered. EDMS EDMS 19:58 19:57 COMPREHENSIVE METABOLIC PANEL+C.LAB.BRZ ordered. EDMS EDMS 19:58 19:57 LIPASE+C.LAB.BRZ ordered. EDMS EDMS 19:58 19:58 UA Rfx Clive Cult if indicated+U.LAB.BRZ ordered. EDMS EDMS 19:58 19:58 Abdomen Pelvis W Con+CT.RAD.BRZ ordered. EDMS EDMS 20:02 20:01 Home Meds: prednisone 10 mg Oral tablet 2 times per day; al5 al5
[2025-03-12] MEDS ORDERED: KETOROLAC 30 MG/ML INJ ONE (23:08)
[2025-03-13 00:16] VITALS: TEMP 97.9
[2025-03-13 00:18] VITALS: BP 137/82; O2SAT 98
== END 2025-03-12 23:19 | disposition home or self-care (01) ==
LOC: ER 19:40
DX: R10.32 Left lower quadrant pain (principal); Z87.442 Personal history of urinary calculi; Z96.642 Presence of left artificial hip joint
CPT/HCPCS: 85025; 36415; 81003; 83690; 80053; 74177; 96375; 96374; 99284; Q9967; J2405; J7030

== ENCOUNTER 2025-08-05 23:38 | Emergency (ER) | payer OTHER ==
[2025-08-05] MEDS ORDERED: MORPHINE 4 MG/ML SYR ONE (23:51)
[2025-08-05] MEDS ORDERED: TDAP (DIPHTH,PERTUSS(ACELL),TET VAC) 0.5 ML VIAL IMVAC ONE (23:51)
[2025-08-06] MEDS ORDERED: DERMABOND SKIN ADHESIVE TOP ONE (00:32)
--- NOTE | 2025-08-06 00:48 | EDPHYS ---
Physician Documentation [facility] Name: Bradly Padron Age: 70 yrs Sex: Male : 1955 Arrival Date: 08/05/2025 Time: 23:38 Bed 15 Private MD: ED Physician Elier Shannon HPI: 08/05 23:48 This 70 yrs old Male presents to ER via Unassigned with complaints of Laceration To sb4 Hand, Hand Swelling. 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 states the cut is not that big but it is causing him a lot of pain and is concerned something else is wrong. states he is unable to make a fist due to pain. does not believe tetanus is up to date. Historical: - Allergies: 08/06 00:03 No Known Allergies; af3 - PMHx: 00:03 Diverticulitis; GERD; Hypertension; Kidney stone; af3 - PSHx: 00:03 Left hip replacement; Lithotripsy; neck; Shoulder; af3 - Immunization history:: Adult Immunizations unknown. - Infectious Disease History:: Denies. - Social history:: Smoking status: Patient denies any tobacco usage or history of. ROS: 08/05 23:48 Constitutional: Negative for fever, chills, and weight loss, sb4 Skin: Positive for laceration(s), of the dorsum of left hand, All other systems are negative, Exam: 23:48 Constitutional: This is a well developed, well nourished patient who is awake, alert, sb4 and in no acute distress. Head/Face: Normocephalic, atraumatic. Eyes: Extra-ocular motions intact. Periorbital areas with no swelling, redness, or edema. ENT: Mucous membranes moist. Respiratory: No increased work of breathing, no retractions or nasal flaring. 23:48 Skin: injury, laceration(s), the wound is approximately 1.5 cm(s), with a depth of .5 cm(s), of the dorsum of left hand, that can be described as clean, no foreign body, linear, without bleeding, Vital Signs: 08/06 00:01 BP 166 / 77; Pulse 70; Resp 16; Temp 97.8; Pulse Ox 97% on R/A; Weight 93.44 kg; Height af3 5 ft. 8 in. ; 00:17 BP 133 / 78; Pulse 64; Resp 18; Pulse Ox 95% on R/A; af3 00:01 Body Mass Index 31.32 (93.44 kg, 172.72 cm) af3 Laceration: 00:46 Wound Repair of 1.5cm ( 0.6in ) subcutaneous laceration to dorsum of left hand. Distal sb4 neuro/vascular/tendon intact. Wound prep: Wound irrigation with saline by nurse. Skin closed with thin layer Adhesive skin closure using Dermabond. Dressed with splint. Patient tolerated well. MDM: 08/05 23:41 Medical Screening Exam initiated sb4 08/06 00:33 Differential diagnosis: Laceration, retained foreign body, contusion, tendon denies sb4 injury. Data reviewed: vital signs, nurses notes, radiologic studies, plain films, and as a result, I will discharge patient. Independent interpretation of the following test(s) in the Emergency Department X-Ray: My interpretation is Left hand x-ray images, no fracture or retained foreign body. Care significantly affected by the following chronic conditions: Hypertension. Counseling: I had a detailed discussion with the patient and/or guardian regarding the historical points, exam findings, and any diagnostic results supporting the discharge/admit diagnosis, radiology results, the need for outpatient follow up, for definitive care, to return to the emergency department if symptoms worsen or persist or if there are any questions or concerns that arise at home. 08/05 23:45 Order name: Hand Left 3 View XRAY sb4 08/05 23:45 Order name: Wound Care; Complete Time: 00:14 sb4 08/06 00:36 Order name: Dermabond; Complete Time: 00:45 sb4 08/06 00:45 Order name: Finger Splint; Complete Time: 00:50 sb4 Administered Medications: 00:01 Drug: Boostrix Tdap IM 0.5 ml IM once; as a single dose Route: IM; Site: left deltoid; af3 00:51 Follow up: Response: No adverse reaction af3 00:01 Drug: morphine IM 4 mg IM once Route: IM; Site: left deltoid; af3 00:50 Follow up: Response: No adverse reaction; RASS: Alert and Calm (0) af3 Disposition: 01:07 Co-signature as Attending Physician, Elier Shannon DO I reviewed the patient's care tt7 provided by the Advanced Practice Provider and agree with the diagnosis and treatment plan. Disposition Summary: 08/06/25 00:47 Discharge Ordered Notes: Location: Home sb4 Problem: new sb4 Symptoms: have improved sb4 Condition: Stable sb4 Diagnosis - Laceration without foreign body of left hand, initial encounter sb4 Followup: sb4 - With: Private Physician - When: As needed - Reason: Recheck today's complaints, Re-evaluation by your physician Discharge Instructions: - Discharge Summary Sheet sb4 - Laceration Care, Adult, [id number] sb4 - Sutures, Roseline, or Adhesive Wound Closure, [id number]-er-[id number] sb4 Forms: - Patient Portal Instructions sb4 - Leadership Thank You Letter sb4 Signatures: Dispatcher [employer] Diann Vega PA-C PA-C sb4 Nerissa Jones RN RN af3 Elier Shannon DO DO tt7 Corrections: (The following items were deleted from the chart) 08/05 23:46 23:46 Hand Left 3 View+RAD.RAD.BRZ ordered. ELMA WILLS
--- NOTE | 2025-08-06 00:48 | ER ---
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 Coronavirus screen: At this time, the client does not indicate any symptoms associated with coronavirus-19. Ebola Screen: No symptoms or risks identified at this time. Complicating Factors: There are no complicating factors for this patient. Initial Sepsis Screen: Does the patient meet any 2 criteria? No. Patient's initial sepsis screen is negative. Does the patient have a suspected source of infection? No. Patient's initial sepsis screen is negative. Risk Assessment: Do you want to hurt yourself or someone else? Patient reports no desire to harm self or others. Onset of symptoms was August 06, 2025. 00:01 Method Of Arrival: Ambulatory af3 00:01 Acuity: MARIA E 4 af3 Triage Assessment: 00:03 General: Appears in no apparent distress. uncomfortable, well groomed, well developed, af3 Behavior is calm, cooperative, appropriate for age. Pain: Complains of pain in dorsal aspect of proximal phalanx of left index finger. Neuro: Level of Consciousness is awake, alert, obeys commands, Oriented to person, place, time, situation, Appropriate for age. Cardiovascular: Patient's skin is warm and dry. Respiratory: Airway is patent Respiratory effort is even, unlabored, Respiratory pattern is regular, symmetrical. Injury Description: Laceration sustained to dorsal aspect of proximal phalanx of left index finger. Historical: - Allergies: 00:03 No Known Allergies; af3 - PMHx: 00:03 Diverticulitis; GERD; Hypertension; Kidney stone; af3 - PSHx: 00:03 Left hip replacement; Lithotripsy; neck; Shoulder; af3 - Immunization history:: Adult Immunizations unknown. - Infectious Disease History:: Denies. - Social history:: Smoking status: Patient denies any tobacco usage or history of. Screenin:05 [facility] ED Fall Risk Assessment (Adult) History of falling in the last 3 months, af3 including since admission No falls in past 3 months (0 pts) Confusion or Disorientation No (0 pts) Intoxicated or Sedated No (0 pts) Impaired Gait No (0 pts) Mobility Assist Device Used No (0 pt) Altered Elimination No (0 pt) Score/Fall Risk Level 0 - 2 = Low Risk Oriented to surroundings, Maintained a safe environment, Educated pt \T\ family on fall prevention, incl call for assistance when getting out of bed. Abuse screen: Denies threats or abuse. Denies injuries from another. Nutritional screening: No deficits noted. Tuberculosis screening: No symptoms or risk factors identified. Assessment: 00:05 General: see triage assessment . af3 01:04 Reassessment: AOx4, able to answer questions appropriately, VSS, RASS 0, ambulatory af3 with steady gait, respirations even and unlabored, patient in no apparent distress. provider notified and is okay with continuation of discharge. Vital Signs: 00:01 BP 166 / 77; Pulse 70; Resp 16; Temp 97.8; Pulse Ox 97% on R/A; Weight 93.44 kg; Height af3 5 ft. 8 in. ; 00:17 BP 133 / 78; Pulse 64; Resp 18; Pulse Ox 95% on R/A; af3 00:01 Body Mass Index 31.32 (93.44 kg, 172.72 cm) af3 ED Course: 08/05 23:40 Patient arrived in ED. mr 23:40 Diann Mike PA-C is PHCP. sb4 23:40 Elier Shannon DO is Attending Physician. sb4 23:47 Nerissa Jones, EVA is Primary Nurse. af3 08/06 00:03 Triage completed. af3 00:03 Arm band placed on. af3 00:05 Patient has correct armband on for positive identification. Bed in low position. Call af3 light in reach. Provided Education on: call light use . 00:05 No provider procedures requiring assistance completed. af3 00:36 Hand Left 3 View XRAY In Process Unspecified. EDMS 01:04 Patient did not have IV access during this emergency room visit. af3 Administered Medications: 00:01 Drug: Boostrix Tdap IM 0.5 ml IM once; as a single dose Route: IM; Site: left deltoid; af3 00:51 Follow up: Response: No adverse reaction af3 00:01 Drug: morphine IM 4 mg IM once Route: IM; Site: left deltoid; af3 00:50 Follow up: Response: No adverse reaction; RASS: Alert and Calm (0) af3 Medication: 00:05 VIS not applicable for this client. af3 Outcome: 00:47 Discharge ordered by MD. bosch 01:04 Discharged to home ambulatory, af3 01:04 Condition: stable 01:04 Discharge instructions given to patient, Instructed on discharge instructions, follow up and referral plans. Demonstrated understanding of instructions, follow-up care, 01:07 Patient left the ED. af3 Signatures: Dispatcher [employer] EDMS Krysta Castle Reg Reg mr Brown, Sophia, PA-C PA-C sb4 Nerissa Jones RN RN af3
--- NOTE | 2025-08-06 06:16 | RAD REPORT ---
XR HAND 3 OR MORE VIEWS LEFT INDICATION: Pain COMPARISON: None TECHNIQUE: 3 views of the left hand FINDINGS: BONES: No acute fracture or malalignment. Mild arthritic changes of the interphalangeal joints, not ing joint space narrowing. SOFT TISSUE: Unremarkable. OTHER: None. IMPRESSION: No acute bony abnormality. Electronically signed by: Venita Coronado MD 08/06/2025 01:47 AM CDT RP Due to temporary technical issues with the PACS/[employer] reporting system, reports are being michael d by the in-house radiologist without review as a courtesy to ensure prompt reporting the interpreting radiologist is fully responsible for the content of the report. Transcribed Date/Time: 08/06/2025 6:15 AM
[2025-08-06 06:24] VITALS: TEMP 97.8
[2025-08-06 06:25] VITALS: BP 133/78; O2SAT 95
== END 2025-08-06 01:07 | disposition home or self-care (01) ==
LOC: ER 23:38
DX: S61.412A Laceration without foreign body of left hand, initial encounter (principal); Z23 Encounter for immunization
CPT/HCPCS: 12041; 90715; 96372; 99284

== ENCOUNTER 2025-08-19 05:42 | Emergency (ER) | payer OTHER ==
[2025-08-19] MEDS ORDERED: HYDROMORPHONE HCL 1 MG/ML INJ ONE (06:16)
[2025-08-19] MEDS ORDERED: ONDANSETRON 4 MG/2 ML VIAL ONE (06:16)
[2025-08-19 06:18] LABS: Absolute Lymphocytes (CBC) 1.1 K/uL (0.7-4.9); Hematocrit 47.6 % (39.6-49.0); Hemoglobin 16.2 g/dL (13.6-17.9); MCH 29.1 pg (27.0-35.0); MCHC 34.1 g/dL (32.0-36.0); MCV 85.3 fL (80-100); MPV 7.2 fL (7.6-11.3); Nucleated RBC Absolute Count 0.0 (0-0); Nucleated Red Blood Cells % 0.1 % (0-0); RBC Red Blood Cell Count 5.57 M/uL (4.33-5.43); White Blood Count 5.10 thou/uL (4.3-10.9)
[2025-08-19 06:35] LABS: ALT/SGPT 47.0 U/L (16-61); AST/SGOT 20.0 U/L (15-37); Albumin 3.6 g/dL (3.4-5.0); Albumin/Globulin Ratio 1.0 (1.1-1.8); Alkaline Phosphatase 66.0 U/L (45-117); Anion Gap 9.5 mEq/L (5.0-15.0); BUN Blood Urea Nitrogen 15.0 mg/dL (7-18); Globulin 3.5 g/dL (2.3-3.5); Glucose Level 144.0 mg/dL (74-106); Potassium 3.5 mEq/L (3.5-5.1); Troponin High Sensitivity 6.3 pg/mL (<58.9)
--- NOTE | 2025-08-19 08:11 | RAD REPORT ---
EXAMINATION: CT Abdomen Pelvis W Contrast CLINICAL INDICATION: Male, 70 years old. ABD PAIN TECHNIQUE: CT abdomen and pelvis was performed, after the administration of IV contrast, [facility]. Axial, sagittal and coronal reconstructions were obtained. One or more of the following dose reduction techniques were used: Automated exposure control, adjustment of the mA and k V according to patient size, and iterative reconstruction. Unless otherwise specified, incidental findings do not require dedicated imaging follow-up. COMPARISON: 10/07/2024 FINDINGS: LOWER CHEST: The visualized lung bases are clear. LIVER: Normal in size and contour. Diffuse parenchymal hypoattenuation suggesting steatosis. No focal lesion. BILIARY SYSTEM: No suspicious abnormalities. SPLEEN: Normal size. No focal lesion. PANCREAS: No mass, ductal dilation, or nicola-pancreatic fluid. ADRENALS: Normal; no mass. KIDNEYS: Normal size and contour. Stable left upper pole transcortical 2.1 cm cyst. Multiple left cam al calculi largest at the interpolar region measuring 4 mm, stable. No hydronephrosis. URINARY BLADDER: Unremarkable. GASTROINTESTINAL TRACT: No evidence of free air, significant intra-abdominal free fluid, bowel obstru ction or abscess. Mild distal colonic diverticulosis without evidence of acute diverticulitis. APPENDIX: Normal appendix. LYMPH NODES: No lymphadenopathy. MUSCULOSKELETAL: No acute or suspicious osseous abnormality. ADDITIONAL FINDINGS: Diastases recti. Left inguinal hernia containing fat. IMPRESSION: Multiple stable left renal calculi largest measuring 4 mm. Other stable incidental findings including hepatic steatosis. No other acute or concerning abnormalities seen in the abdomen or pelvis.
--- NOTE | 2025-08-19 08:30 | EDPHYS ---
Physician Documentation [facility] Name: Bradly Padron Age: 70 yrs Sex: Male : 1955 Arrival Date: 08/19/2025 Time: 05:42 Bed 12 Private MD: Lenin Maguire B ED Physician Eren Bustillo HPI: 08/19 06:30 This 70 yrs old Male presents to ER via Ambulatory with complaints of Abdominal Pain. sp3 06:30 70-year-old male with history of hypertension, prior diverticulitis now presents with sp3 recurrent left lower quadrant pain that started approximately 1:30 AM today. Patient states he awoke from sleep due to the pain. He denies any headache, neck pain, chest pain, shortness of breath, upper abdominal pain, flank pain, dysuria, vomiting, diarrhea or any other signs or symptoms on ROS at this time.. Historical: - Allergies: 05:58 No Known Allergies; br2 - PMHx: 05:57 Diverticulitis; GERD; Hypertension; Kidney stone; br2 - PSHx: 05:57 Left hip replacement; Lithotripsy; neck; Shoulder; br2 - Immunization history:: Adult Immunizations up to date. - Infectious Disease History:: Denies. - Social history:: Smoking status: Patient denies any tobacco usage or history of. Patient/guardian denies using alcohol, street drugs. ROS: 06:31 Constitutional: Negative for fever, chills, and weight loss, Eyes: Negative for injury, sp3 pain, redness, and discharge, ENT: Negative for injury, pain, and discharge, Neck: Negative for injury, pain, and swelling, Cardiovascular: Negative for chest pain, palpitations, and edema, Respiratory: Negative for shortness of breath, cough, wheezing, and pleuritic chest pain, Back: Negative for injury and pain, : Negative for injury, bleeding, discharge, and swelling, MS/Extremity: Negative for injury and deformity, Skin: Negative for injury, rash, and discoloration, Neuro: Negative for headache, weakness, numbness, tingling, and seizure, Psych: Negative for depression, anxiety, suicide ideation, homicidal ideation, and hallucinations, Allergy/Immunology: Negative for hives, rash, and allergies, 06:31 All other systems are negative, Exam: 06:31 Constitutional: This is a well developed, well nourished patient who is awake, alert, sp3 and in no acute distress. Head/Face: Normocephalic, atraumatic. Eyes: Pupils equal round and reactive to light, extra-ocular motions intact. Lids and lashes normal. Conjunctiva and sclera are non-icteric and not injected. Cornea within normal limits. Periorbital areas with no swelling, redness, or edema. Chest/axilla: Normal chest wall appearance and motion. Nontender with no deformity. No lesions are appreciated. Cardiovascular: Regular rate and rhythm with a normal S1 and S2. No gallops, murmurs, or rubs. Normal PMI, no JVD. No pulse deficits. Respiratory: Lungs have equal breath sounds bilaterally, clear to auscultation and percussion. No rales, rhonchi or wheezes noted. No increased work of breathing, no retractions or nasal flaring. Back: No spinal tenderness. No costovertebral tenderness. Full range of motion. Skin: Warm, dry with normal turgor. Normal color with no rashes, no lesions, and no evidence of cellulitis. MS/ Extremity: Pulses equal, no cyanosis. Neurovascular intact. Full, normal range of motion. Neuro: Awake and alert, GCS 15, oriented to person, place, time, and situation. Cranial nerves II-XII grossly intact. Motor strength 5/5 in all extremities. Sensory grossly intact. Cerebellar exam normal. Normal gait. Psych: Awake, alert, with orientation to person, place and time. Behavior, mood, and affect are within normal limits. 06:31 Abdomen/GI: Patient has pain to the left lower quadrant on palpation without peritoneal signs, rebound or guarding., 06:33 ECG was reviewed by the Attending Physician. EKG demonstrates normal sinus rhythm at 68 sp3 bpm with a first-degree AV block with IL interval 226 with remainder of intervals normal, normal axis, normal QRS and normal ST/T-segment's without evidence of acute ischemia. Vital Signs: 05:55 BP 163 / 93; Pulse 71; Resp 18; Temp 97.2; Pulse Ox 96% ; Weight 92.53 kg; Height 5 ft. br2 8 in. ; Pain 6/10; 06:27 BP 139 / 76; Pulse 66; Resp 16; Pulse Ox 96% on R/A; nh2 06:48 BP 127 / 75; Pulse 63; Resp 16; Pulse Ox 96% on R/A; nh2 09:00 BP 136 / 81; Pulse 51; Resp 18; Temp 97.8; Pulse Ox 97% ; Pain 0/10; kb3 05:55 Body Mass Index 31.02 (92.53 kg, 172.72 cm) br2 05:55 Pain Scale: Adult br2 09:00 Pain Scale: Adult kb3 MDM: 05:56 Medical Screening Exam initiated sp3 06:32 Data reviewed: vital signs, nurses notes, lab test result(s), EKG, radiologic studies. sp3 ED course: 70-year-old male with left lower quadrant abdominal pain. Differential diagnosis includes diverticulitis, other colitis, functional abdominal pain, musculoskeletal pain, UTI/pyelonephritis spectrum, kidney stone, among others. Workup will include CT scan of the abdomen pelvis with IV contrast, general labs, UA and pain control with Dilaudid and Zofran. Patient will be signed out to daytime physician for final reevaluation and disposition.. 07:00 Transition of care: Care assumed from Lesley Paredes MD. ms3 09:06 Differential diagnosis: bowel obstruction, diverticulitis, non-specific abd pain. I ms3 considered the following discharge prescriptions or medication management in the emergency department Medications were administered in the Emergency Department. See MAR. Counseling: I had a detailed discussion with the patient and/or guardian regarding the historical points, exam findings, and any diagnostic results supporting the discharge/admit diagnosis, lab results, radiology results, the need for outpatient follow up, to return to the emergency department if symptoms worsen or persist or if there are any questions or concerns that arise at home. Special discussion: Based on the patient's Hx, exam, and Dx evaluation, there is no indication for emergent surgery or inpatient Tx. It is understood by the patient/guardian that if the Sx's persist or worsen they need to return immediately for re-evaluation. ED course: On reevaluation patient's abdomen remains benign, alert and orient x 4, no apparent distress, nontoxic-appearing, speaking full sentences. Patient to follow-up with primary care physician in 2 to 3 days. All questions were answered. Return precautions were discussed include worsening symptoms, fevers, or any other concerns.. 08/19 05:57 Order name: Blood Culture Adult (2) sp3 08/19 05:57 Order name: CBC with Diff; Complete Time: 06:57 sp3 08/19 05:57 Order name: CMP; Complete Time: 06:57 sp3 08/19 05:57 Order name: Lactate w/ 2H reflex if indic.; Complete Time: 06:57 sp3 08/19 05:57 Order name: Troponin HS; Complete Time: 06:57 sp3 08/19 05:57 Order name: CT Abd/Pelvis - IV Contrast Only; Complete Time: 08:13 sp3 08/19 05:57 Order name: EKG; Complete Time: 05:58 sp3 08/19 05:57 Order name: Cardiac monitoring; Complete Time: 06:24 sp3 08/19 05:57 Order name: EKG - Nurse/Tech; Complete Time: 06:24 sp3 08/19 05:57 Order name: IV Saline Lock - Large Bore; Complete Time: 06:24 sp3 08/19 05:57 Order name: Labs collected and sent; Complete Time: 06:24 sp3 08/19 05:57 Order name: O2 Sat Monitoring; Complete Time: 06:24 sp3 08/19 05:57 Order name: Vital Signs; Complete Time: 06:24 sp3 08/19 05:57 Order name: NPO; Complete Time: 05:58 sp3 Administered Medications: 06:22 Drug: HYDROmorphone IVP 1 mg IVP once Route: IVP; Site: right antecubital; nh2 06:46 Follow up: Response: No adverse reaction; Pain is decreased; RASS: Drowsy (-1) nh2 06:22 Drug: Ondansetron IVP 4 mg IVP once; over 2 minutes Route: IVP; Site: right antecubital;nh2 06:46 Follow up: Response: No adverse reaction nh2 Disposition Summary: 08/19/25 08:30 Discharge Ordered Notes: Location: Home ms3 Condition: Stable ms3 Diagnosis - Lower abdominal pain, unspecified ms3 Followup: ms3 - With: Private Physician - When: 2 - 3 days - Reason: Recheck today's complaints Discharge Instructions: - Discharge Summary Sheet ms3 - Abdominal Pain, Adult ms3 - Diverticulosis ms3 Forms: - Medication Reconciliation Form ms3 - Antibiotic Education ms3 - Prescription Opioid Use ms3 - Patient Portal Instructions ms3 - Leadership Thank You Letter ms3 Signatures: Dispatcher [employer] EDMS Iwona, Eren, DO ms3 Lesley Paredes MD MD sp3 Tara Chew, RN RN br2 Lawrence Nieves, Aaron RN RN nh2 Corrections: (The following items were deleted from the chart) 05:58 05:58 Abdomen Pelvis W Con+CT.RAD.BRZ ordered. EDMS EDMS
--- NOTE | 2025-08-19 08:30 | ER ---
Nurse's Notes [facility] Name: Bradly Padron Age: 70 yrs Sex: Male : 1955 Arrival Date: 08/19/2025 Time: 05:42 Bed 12 Private MD: Lenin Maguire B Diagnosis: Lower abdominal pain, unspecified Presentation: 08/19 05:55 Chief complaint: Patient states: LLQ PAIN (SHARP/INTERMITTENT). DENIES N/V/D/F AT THIS br2 TIME. HX OF PANCREATITIS. Coronavirus screen: Client denies travel out of the [place] in the last 14 days. Ebola Screen: Patient denies exposure to infectious person. Initial Sepsis Screen: Does the patient meet any 2 criteria? No. Patient's initial sepsis screen is negative. Does the patient have a suspected source of infection? No. Patient's initial sepsis screen is negative. Risk Assessment: Do you want to hurt yourself or someone else? Patient reports no desire to harm self or others. Onset of symptoms was August 19, 2025 at 01:30. 05:55 Method Of Arrival: Ambulatory br2 05:55 Acuity: MARIA E 3 br2 Triage Assessment: 05:58 General: Appears in no apparent distress. comfortable, Behavior is calm, cooperative. br2 Pain: Complains of pain in left lower quadrant Pain currently is 6 out of 10 on a pain scale. Historical: - Allergies: 05:58 No Known Allergies; br2 - PMHx: 05:57 Diverticulitis; GERD; Hypertension; Kidney stone; br2 - PSHx: 05:57 Left hip replacement; Lithotripsy; neck; Shoulder; br2 - Immunization history:: Adult Immunizations up to date. - Infectious Disease History:: Denies. - Social history:: Smoking status: Patient denies any tobacco usage or history of. Patient/guardian denies using alcohol, street drugs. Screenin:16 [facility] ED Fall Risk Assessment (Adult) History of falling in the last 3 months, vc1 including since admission No falls in past 3 months (0 pts) Confusion or Disorientation No (0 pts) Intoxicated or Sedated No (0 pts) Impaired Gait No (0 pts) Mobility Assist Device Used No (0 pt) Altered Elimination No (0 pt) Score/Fall Risk Level 0 - 2 = Low Risk Oriented to surroundings, Maintained a safe environment, Educated pt \T\ family on fall prevention, incl call for assistance when getting out of bed, Assessed \T\ reinforced patient's understanding of fall precautions, Hourly rounding (assess needs \T\ fall precautionary measures) done. Abuse screen: Denies threats or abuse. Nutritional screening: No deficits noted. Tuberculosis screening: No symptoms or risk factors identified. Assessment: 06:00 General: Appears distressed, uncomfortable, Behavior is cooperative, restless. nh2 06:00 Pain: Complains of pain in left lower quadrant Pain currently is 8 out of 10 on a pain nh2 scale. Quality of pain is described as aching, Pain began 3 hours ago. Is continuous. Neuro: Level of Consciousness is awake, alert, obeys commands, Oriented to person, place, time, situation, Appropriate for age. Cardiovascular: Patient's skin is warm and dry. Rhythm is sinus rhythm. Respiratory: Respiratory effort is even, unlabored, Breath sounds are clear bilaterally. GI: Bowel sounds present X 4 quads. Abd is soft X 4 quads Abdomen is tender to palpation in left lower quadrant Patient currently denies diarrhea, nausea, vomiting. : No signs and/or symptoms were reported regarding the genitourinary system. EENT: No signs and/or symptoms were reported regarding the EENT system. Derm: Skin is pink, warm \T\ dry. Musculoskeletal: Circulation, motion, and sensation intact. Range of motion: intact in all extremities. 06:27 Reassessment: Patient and/or family updated on plan of care and expected duration. Pain nh2 level reassessed. Patient is alert, oriented x 3, equal unlabored respirations, skin warm/dry/pink. pt reports experiencing relief from medications. denies needs or concerns at this time. call light placed in reach. 06:52 Reassessment: pt transported to CT via wheelchair. nh2 08:35 Reassessment: Patient appears in no apparent distress at this time. No changes from kb3 previously documented assessment. Patient and/or family updated on plan of care and expected duration. Pain level reassessed. Patient is alert, oriented x 3, equal unlabored respirations, skin warm/dry/pink. General: Appears in no apparent distress. comfortable, Behavior is calm, cooperative, Pt reports feeling much better. No pain at this time.. Vital Signs: 05:55 BP 163 / 93; Pulse 71; Resp 18; Temp 97.2; Pulse Ox 96% ; Weight 92.53 kg; Height 5 ft. br2 8 in. ; Pain 6/10; 06:27 BP 139 / 76; Pulse 66; Resp 16; Pulse Ox 96% on R/A; nh2 06:48 BP 127 / 75; Pulse 63; Resp 16; Pulse Ox 96% on R/A; nh2 09:00 BP 136 / 81; Pulse 51; Resp 18; Temp 97.8; Pulse Ox 97% ; Pain 0/10; kb3 05:55 Body Mass Index 31.02 (92.53 kg, 172.72 cm) br2 05:55 Pain Scale: Adult br2 09:00 Pain Scale: Adult kb3 ED Course: 05:46 Patient arrived in ED. gm2 05:46 Lenin Maguire MD is Private Physician. gm2 05:56 Lesley Paredes MD is Attending Physician. sp3 05:57 Triage completed. br2 05:58 Aaron Bravo Jr, RN is Primary Nurse. nh2 05:58 Arm band placed on right wrist. br2 06:00 Inserted saline lock: 20 gauge in right antecubital area, using aseptic technique. nh2 Blood collected. Flushed with 10 mL NS. 06:17 Patient has correct armband on for positive identification. Bed in low position. Call vc1 light in reach. Provided Education on: EKG, call light, plan of care. television writer on. Pulse ox on. NIBP on. 06:17 No provider procedures requiring assistance completed. vc1 07:03 CT Abd/Pelvis - IV Contrast Only In Process Unspecified. EDMS 07:08 Attending Physician role handed off by Lesley Paredes MD ms3 07:08 Eren Bustillo DO is Attending Physician. ms3 09:00 IV discontinued, intact, bleeding controlled, No redness/swelling at site. Pressure kb3 dressing applied. Administered Medications: 06:22 Drug: HYDROmorphone IVP 1 mg IVP once Route: IVP; Site: right antecubital; nh2 06:46 Follow up: Response: No adverse reaction; Pain is decreased; RASS: Drowsy (-1) nh2 06:22 Drug: Ondansetron IVP 4 mg IVP once; over 2 minutes Route: IVP; Site: right antecubital;nh2 06:46 Follow up: Response: No adverse reaction nh2 Medication: 06:17 VIS not applicable for this client. vc1 Outcome: 08:30 Discharge ordered by . ms3 09:00 Discharged to home ambulatory, kb3 09:00 Condition: improved 09:00 Discharge instructions given to patient, Instructed on discharge instructions, follow up and referral plans. medication usage, Demonstrated understanding of instructions, follow-up care, medications, 09:16 Patient left the ED. kb3 Signatures: Dispatcher [employer] EDMS Eren Bustillo DO DO ms3 Lesley Paredes MD MD sp3 Cleopatra Funk RN RN vc1 Sofie Sousa, RN RN kb3 Alee Nice gm2 Tara Chew, RN RN br2 Aaron Bravo Jr RN RN nh2
[2025-08-19 11:52] VITALS: BP 136/81; TEMP 97.8; O2SAT 97
== END 2025-08-19 09:16 | disposition home or self-care (01) ==
LOC: ER 05:42
DX: R10.32 Left lower quadrant pain (principal); Z87.442 Personal history of urinary calculi
CPT/HCPCS: 93005; 87040 ×2; 85025; 36415; 83605; 84484; 80053; 74177; 96375; 96374; 99285; Q9967; J1171; J2405